=== PATIENT | female | born 1955 | race Caucasian/White ===

== ENCOUNTER 2017-09-28 18:56 | Emergency (ER) | payer MEDICARE, OTHER ==
[2017-09-28] MEDS ORDERED: Ibuprofen 800 MG TAB ONE (19:21)
--- NOTE | 2017-09-28 20:19 | RAD ---
RIGHT FOOT THREE VIEWS: 09/28/17 HISTORY: 60-year-old female with right ankle and foot pain. History of diabetes and neuropathy. Three views of the right foot demonstrate severe osteoarthrosis changes of the first metatarsophalan geal joint with marked flattening and deformity. Compared to a prior 01/12/14 study, there is less er osive subchondral cystic changes than at the time of that prior study. There is chronic nonunion sli ghtly oblique, mostly transverse fracture through the base of the fifth metatarsal. No evidence for acute fracture or dislocation. 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 Severe degenerative osteoarthrosis changes of the first metatarsophalangeal joint . No evidence for acute fracture. POS: NONI
== END 2017-09-28 20:33 | disposition home or self-care (01) ==
LOC: ERS 18:56
DX: M19.071 Primary osteoarthritis, right ankle and foot (principal); I10 Essential (primary) hypertension; E11.40 Type 2 diabetes mellitus with diabetic neuropathy, unspecified; F32.9 Major depressive disorder, single episode, unspecified; F17.210 Nicotine dependence, cigarettes, uncomplicated
CPT/HCPCS: 99406

== ENCOUNTER 2017-10-03 08:44 | Inpatient (IN) | payer MEDICARE, MEDICAID ==
[2017-10-03] MEDS ORDERED: Insulin Regular 300 UNITS/3 ML VIAL ONE (09:34)
[2017-10-03 09:36] LABS: Hematocrit 36.4 % (36.0-47.0); Mean Platelet Volume 8.2 fL (7.4-10.4); Red Blood Cell (RBC) Count 3.63 mill/uL (4.20-5.40); White Blood Cell (WBC) Count 20.5 thou/uL (4.8-10.8)
[2017-10-03] MEDS ORDERED: Insulin Regular (Human) 100 UNITS, Admixture Fee 1 EACH in Sodium Chloride 0.9% 100 ML IVPB SCH (09:45)
[2017-10-03 09:52] LABS: Band 40 % (5-11); Burr Cells MARKED = >16 cells (100X) (0-1/hpf); Macrocytosis SLIGHT = 6-15 cells (100X) (0-5/hpf); Neutrophil 47 % (42-75)
[2017-10-03 10:06] LABS: Troponin I Less than 0.010 ng/mL (< 0.028)
[2017-10-03 10:07] LABS: ALT (SGPT) 14 U/L (8-55); AST (SGOT) 13 U/L (5-34); Alkaline Phosphatase 101 U/L (40-150); BUN (Urea Nitrogen) 72 mg/dL (9.8-20.1); Bilirubin, Total 0.3 mg/dL (0.2-1.2); Calc. Creatinine Clearance 0 mL/min (70-130); Calcium 10.3 mg/dL (7.8-10.44); Chloride 107 mmol/L (98-107); Estimated GFR-MDRD 25; Globulin 4.2 g/dL (2.4-3.5); Magnesium 2.2 mg/dL (1.6-2.6); Phosphorus 5.9 mg/dL (2.3-4.7); Protein, Total 6.8 g/dL (6.0-8.3)
[2017-10-03 10:10] LABS: Carbon Dioxide Less than 8 mmol/L (23-31)
[2017-10-03 13:02] LABS: Bilirubin Negative (Negative); Blood, Urine Moderate (Negative); Glucose, Urine (Dipstick) >=1000 mg/dL (Negative); Ketone, Urine 80 mg/dL (Negative); Nitrite Negative (Negative); Protein, Urine (Dipstick) 100 mg/dL (Neg-Trace)
[2017-10-03 13:05] LABS: Bacteria/HPF None Seen HPF (None Seen); Hyaline Casts/LPF 7-10 HYALINE CAST LPF (0-3 Hyaline); Squamous Epithelial None Seen HPF (0-3); WBC/HPF 0-3 HPF (0-3)
--- NOTE | 2017-10-03 13:41 | CT ---
CT HEAD NONCONTRAST: COMPARISON: 02/11/2017. INDICATION: Altered mental status. FINDINGS: There is mild parenchymal volume loss, stable. The ventricular system is within normal limits of si ze for patient's age. No intracranial hemorrhage, mass effect, or midline shift. IMPRESSION: No acute intracranial hemorrhage or mass effect. POS: NONI
[2017-10-03] MEDS ORDERED: Bisacodyl 5 MG TAB PO PRN (13:55)
[2017-10-03] MEDS ORDERED: Nitroglycerin 0.4 MG TAB (25 Tab Bottle) SL PRN (13:55)
[2017-10-03] MEDS ORDERED: Acetaminophen 325 MG TAB PO PRN (13:55)
[2017-10-03] MEDS ORDERED: CCU Electrolyte Replacement 1 EACH IVPB ONE (13:55)
[2017-10-03] MEDS ORDERED: Mag-Al 1200 mg/1200 mg/30 ML UDCUP PO PRN (13:55)
[2017-10-03] MEDS ORDERED: Ondansetron HCl/PF 4 MG/2 ML Vial IVP PRN (13:55)
[2017-10-03] MEDS ORDERED: Sodium Chloride 0.9% 1,000 ML IV PRN ×4 (13:55)
[2017-10-03] MEDS ORDERED: cloNIDine 0.1 MG TAB PO PRN (13:55)
[2017-10-03] MEDS ORDERED: NS 0.9% w/ 20 MEQ KCL 1,000 ML IV PRN ×2 (13:55)
[2017-10-03] MEDS ORDERED: Dextrose 5 %-0.45 % NaCl 1,000 ML IV PRN (13:55)
[2017-10-03] MEDS ORDERED: Potassium Phosphate 9 MMOL in Sodium Chloride 0.9% 100 ML IVPB PRN (14:05)
[2017-10-03] MEDS ORDERED: Magnesium 2 GM/NS 0.9% 100 ML 2 GM in Premix Bag 1 BAG IVPB PRN (14:05)
[2017-10-03] MEDS ORDERED: CCU ELECTROLYTE REPLACEMENT PROTOCOL FS PRN (14:05)
[2017-10-03] MEDS ORDERED: Potassium Chloride 40 MEQ in Premix Bag 1 BAG IVPB PRN (14:05)
[2017-10-03] MEDS ORDERED: Magnesium Oxide 400 MG TAB PO PRN ×2 (14:05)
[2017-10-03] MEDS ORDERED: Potassium Phosphate 15 MMOL in Sodium Chloride 0.9% 250 ML 250 ML IV PRN (14:05)
[2017-10-03] MEDS ORDERED: Potassium Chloride 40 MEQ in Sodium Chloride 0.9% 250 ML 250 ML IVPB PRN (14:05)
[2017-10-03] MEDS ORDERED: Potassium Phosphate 12 MMOL in Sodium Chloride 0.9% 250 ML 250 ML IV PRN (14:05)
[2017-10-03] MEDS ORDERED: Potassium Chloride 20 MEQ TAB PO PRN (14:05)
--- NOTE | 2017-10-03 14:05 | RAD ---
FONTAL VIEW CHEST SERIES 2 VIEWS PROVIDED: Date: 10/03/17 INDICATION: Diabetic ketoacidosis with altered mental status. FINDINGS: No evidence of consolidation, effusion, or pneumothorax. Lungs are stable in appearance to compariso n exam, as is the cardiac silhouette. IMPRESSION: Stable chest. POS: NONI
[2017-10-03 15:04] LABS: Base Excess -13.9 mEq/L (0 (+/- 2.5)); O2 Content (venous) 12.4 VOL% (12.5-17.5)
[2017-10-03 15:05] LABS: pH (venous) 7.206 (7.35-7.45)
[2017-10-03 15:34] LABS: Anion Gap 24 mmol/L (10-20); BUN (Urea Nitrogen) 72 mg/dL (9.8-20.1); Calc. Creatinine Clearance 0 mL/min (70-130); Calcium 9.9 mg/dL (7.8-10.44); Chloride 114 mmol/L (98-107); Estimated GFR-MDRD 29
[2017-10-03 15:37] LABS: Carbon Dioxide 9 mmol/L (23-31)
--- NOTE | 2017-10-03 15:49 | HP ---
DATE OF ADMISSION: 10/03/2017 PRIMARY CARE PHYSICIAN: Christian Trujillo M.D. REASON FOR ADMISSION: Altered mental status and diabetic ketoacidosis. HISTORY OF PRESENT ILLNESS: Ms. Yanet Mueller is a 62-year-old female with a history of diabet es mellitus, type 2, requiring insulin; hypertension; depression; hyperlipidemia; diabetic neuropath y; who presented to the emergency room initially complaining of pain in her lower feet, and routine evaluation in the emergency room also found that she had some altered mental status. The patient de nies any other specific complaints at this time except for just feeling lethargic and weak. She den ies any numbness or tingling in any of her extremities. No headaches or blurry vision. No chest pa in or shortness of breath. She denies any nausea, vomiting, or abdominal discomfort. She was evalu ated subsequently in the emergency room and a routine evaluation showed the patient to have diabetic ketoacidosis. She had an anion gap, which was too numerous to count, as well as carbon dioxide les s than 8. Her blood glucose on metabolic panel was 783. She was then subsequently started on intra venous insulin as well as she states that she has been compliant with her insulin; however, reviewin g previous records, she had a recent admission for hypoglycemia and was taken off her insulin. She states that she has been put back on her long-acting as well as short-acting insulin and has been co mpliant. She was started on intravenous insulin as well as IV hydration and is currently being admi tted to the Intermediate Care Unit for diabetic ketoacidosis. Currently, she is resting comfortably . She denies any specific symptoms at this time. PAST MEDICAL HISTORY: 1. Diabetes mellitus, type 2. 2. History of cerebrovascular accident. 3. Hypertension. 4. Diabetic neuropathy. 5. Depression. 6. Hyperlipidemia. PAST SURGICAL HISTORY: 1. Status post carpal tunnel release. 2. Right hip fracture. 3. ORIF in 2005. CODE STATUS: She is FULL CODE. SOCIAL HISTORY: The patient smokes a pack per day. Denies any alcohol use. Intermittently uses ma rijuana. CURRENT MEDICATIONS: 1. Metformin 500 mg p.o. b.i.d. 2. Zoloft 100 mg p.o. daily. 3. Lisinopril 40 mg p.o. daily. 4. Tresiba 20 units subcu daily. 5. Cardizem-CD 180 mg p.o. daily. 6. Coreg 6.25 mg p.o. b.i.d. 7. Atorvastatin 40 mg p.o. daily. 8. Aspirin 81 mg p.o. daily. ALLERGIES: No known drug allergies. FAMILY HISTORY: Significant for multiple family members with diabetes. REVIEW OF SYSTEMS: The following complete review of systems was negative, unless otherwise mentione d in the HPI or below: Constitutional: Weight loss or gain, sense of well-being, ability to conduc t usual activities, exercise tolerance. Skin/Breast: Rash, itching, changes in hair growth or loss , nail changes, breast lumps, tenderness, swelling, nipple discharge. Eyes: Vision, double vision, tearing, blind spots, pain. ENT/Mouth: Headaches (location, time of onset, duration, precipitatin g factors), vertigo, lightheadedness, injury. Vision, double vision, tearing, blind spots, pain, nos e bleeding, colds, obstruction, discharge, dental difficulties, gingival bleeding, dentures, neck st iffness, pain, tenderness, masses in thyroid or other areas. Cardiovascular: Precordial pain, subs ternal distress, palpitations, syncope, dyspnea on exertion, orthopnea, nocturnal paroxysmal dyspnea , edema, cyanosis, hypertension, heart murmurs, varicosities, phlebitis, claudication. Respiratory: Pain, shortness of breath, wheezing, stridor, cough, hemoptysis, fever or night sweats. Gastroint estinal: Poor appetite, dysphagia, indigestion, abdominal pain, heartburn, eructation, nausea, vomi ting, hematemesis, jaundice, constipation, or diarrhea, abnormal stools (nilo-colored, tarry, bloody , greasy, foul smelling), flatulence, hemorrhoids, recent changes in bowel habits. Genitourinary: Urgency, frequency, dysuria, nocturia, hematuria, polyuria, oliguria, unusual (or change in) color o f urine, stones, hesitancy, change in size of stream, dribbling, acute retention or incontinence, li [place], potency. Musculoskeletal: Pain, swelling, redness or heat of muscles or joints, limitation, of motion, muscular weakness, atrophy, cramps. Neurologic/Psychiatric: Convulsions, paralyses, joshua mor, incoordination, parasthesias, difficulties with memory of speech, sensory or motor disturbances , or muscular coordination (ataxia, tremor), emotional problems, anxiety, depression, previous psych iatric care, unusual perceptions, hallucinations. Allergy/Immunologic: Skin rash, anemia, bleeding tendency, polydipsia, polyuria, intolerance to heat or cold. PHYSICAL EXAMINATION: CONSTITUTIONAL/VITAL SIGNS: Blood pressure most recently is 125/47, pulse is 77, respiration 16, ox ygen 98% on room air. GENERAL: She is in no acute distress, nontoxic appearing. EYES: Examination of the eyes shows pupils are equal, round, and reactive to light and accommodatio n. No pale conjunctivae. ENT/MOUTH: Dry oral mucosa. No oral lesions. RESPIRATORY: Equal chest wall expansion. No wheezes, rhonchi, or rales. CARDIOVASCULAR: S1, S2 present. No murmurs, gallops or rubs. GASTROINTESTINAL: Soft, nontender, nondistended. Bowel sounds present in all 4 quadrants. MUSCULOSKELETAL: Good range of motion in all 4 extremities. No clubbing, no cyanosis. LYMPHATIC: No swollen or painful lymph nodes. NEUROLOGIC: No ptosis, no facial asymmetry or sensation or jaw protrusion, no focal deficits. PSYCHIATRIC: She is awake, alert to time, place, person, answers appropriately. SKIN: Poor skin turgor. LABORATORY AND X-RAY FINDINGS: Laboratory values taken in the emergency room reviewed by me show WB C of 20.5, hemoglobin 10.6, hematocrit 36.4, platelet count 464,000. Chemistry shows sodium 141, po tassium 5.2, chloride 107, carbon dioxide less than 8, anion gap is too high to calculate, BUN is 72 , creatinine 2.0. Glucose on the metabolic panel is 783, repeat have been 550 and 507, phosphorus 5 .9, troponin less than 0.01. AST and ALT at 13 and 14. Urine shows moderate blood and 80 ketones a nd beta-hydroxybutyrate is 12.57. Chest x-ray done in the emergency room and reviewed by me reveals no acute cardiopulmonary processes . ASSESSMENT AND PLAN: Ms. Yanet Mueller is a 62-year-old female with a past medical history of diabetes mellitus, type 2; hypertension; hyperlipidemia; who presented to the emergency room with di abetic ketoacidosis. 1. Diabetic ketoacidosis. Admit the patient to the intermediate care unit. She will be placed on diabetic ketoacidosis protocol with IV insulin as well as intravenous hydration. We will monitor he r metabolic panel. We will replete electrolytes accordingly. Once her gap is closed, we would star t her back on her subcutaneous insulin. We will check a stat VBG. 2. Metabolic acidosis, secondary to #1. 3. Acute kidney injury secondary to hypovolemia. 4. Hypertension. Continue patient's home medications. 5. Restart the patient's home medications except for metformin. 6. Leukocytosis, most likely secondary to hemoconcentration as well as a stress reaction. We will continue to monitor. At this time, there is no acute focus of infection, but we will continue to mo nitor. 7. P.r.n. order set. 8. N.p.o. while on the insulin drip. 9. FULL CODE. I explained all of this to the patient at bedside. She is agreeable to the plan of treatment. All questions have been answered Total critical care time spent, 36 minutes.
[2017-10-03 18:40] LABS: Anion Gap 15 mmol/L (10-20); BUN (Urea Nitrogen) 68 mg/dL (9.8-20.1); Calc. Creatinine Clearance 33 mL/min (70-130); Carbon Dioxide 16 mmol/L (23-31); Chloride 120 mmol/L (98-107); Estimated GFR-MDRD 36
[2017-10-03] MEDS: D5 1/2 NS w/20 mEq KCL 1,000 ML IV PRN (20:57)
[2017-10-03 22:48] LABS: Anion Gap 12 mmol/L (10-20); BUN (Urea Nitrogen) 59 mg/dL (9.8-20.1); Calc. Creatinine Clearance 38 mL/min (70-130); Calcium 9.6 mg/dL (7.8-10.44); Carbon Dioxide 17 mmol/L (23-31); Chloride 124 mmol/L (98-107); Estimated GFR-MDRD 43
[2017-10-04] MEDS: Carvedilol 6.25 MG TAB PO SCH ×3 (00:17→20:09)
[2017-10-04 04:13] LABS: Anion Gap 13 mmol/L (10-20); BUN (Urea Nitrogen) 52 mg/dL (9.8-20.1); Calc. Creatinine Clearance 44 mL/min (70-130); Calcium 9.9 mg/dL (7.8-10.44); Carbon Dioxide 16 mmol/L (23-31); Chloride 125 mmol/L (98-107); Estimated GFR-MDRD 51
[2017-10-04] MEDS: D5 1/2 NS w/20 mEq KCL 1,000 ML IV PRN ×2 (05:53→08:23)
[2017-10-04] MEDS: Aspirin 81 mg Enteric Coated Tablet PO SCH (08:21)
[2017-10-04] MEDS: Atorvastatin Calcium 40 MG TAB PO SCH (08:21)
[2017-10-04] MEDS ORDERED: FLU VACC QS2017-18 36 mo. & older 0.5 ML SYRINGE IM ONE (09:00)
--- NOTE | 2017-10-04 09:26 | CON ---
DATE OF CONSULTATION: 10/04/2017 REASON FOR CONSULTATION: [facility] [place] protocol. HISTORY OF PRESENT ILLNESS: This is a 62-year-old female who presented to the emergency room last n ight with altered mental status and a blood glucose of greater than 780. She is being treated on a DKA protocol. She has a history of diabetes mellitus thought to be type 2, but has had multiple epi sodes of diabetic ketoacidosis in the past. She currently appears to be stable. She is not talking very much. PAST MEDICAL HISTORY: 1. Diabetes mellitus type 2. 2. Cerebrovascular accidents. 3. Hypertension. 4. Diabetic neuropathy. 5. Depression 6. Hyperlipidemia. 7. Takotsubo cardiomyopathy. PAST SURGICAL HISTORY: Carpal tunnel release, hip fracture repair. SOCIAL HISTORY: Smokes a pack per day. Apparently intermittently uses marijuana, does not consume alcohol. MEDICATIONS PRIOR TO ADMISSION: Metformin 500 mg b.i.d., Zoloft 100 mg daily, lisinopril 40 mg rafael y, Traceba 20 units subcutaneously daily, Cardizem-CD 180 mg daily, Coreg 6.25 mg b.i.d., atorvastat in 40 mg daily, aspirin 81 mg daily. ALLERGIES: None. FAMILY MEDICAL HISTORY: Remarkable for diabetes. REVIEW OF SYSTEMS: Unobtainable secondary to the patient not wanting to talk. PHYSICAL EXAMINATION: VITAL SIGNS: Temperature 99.2, pulse 89, respirations 20, O2 sat 96%, blood pressure 167/86. GENERAL: She is a thin female standing 5 feet 2, weight 116 pounds. HEENT: Unremarkable. NECK: No adenopathy or JVD, no bruits. LUNGS: Clear. CARDIAC: S1, S2 regular, without murmur. ABDOMEN: Soft and nontender. EXTREMITIES: No clubbing, cyanosis. She does have significant muscle wasting bilaterally. LABORATORY DATA: White blood cell count 20, hematocrit 36, platelet count 464. Sodium 150, potassi um 3.8, chloride 102, CO2 16, BUN 68, creatinine 1.4, anion gap is 15, glucose is now 186. Tox scre en was remarkable for a high beta hydroxybutyrate. ASSESSMENT: Diabetic ketoacidosis versus acidosis in some part due to metformin. RECOMMENDATIONS: She is being treated appropriately with IV insulin, IV fluids and her electrolytes are being monitored. No additional pulmonary recommendations at this time. We will be happy to fo llow with you.
[2017-10-04] MEDS ORDERED: Dextrose 50% Abboject 50 ML SYRINGE SLOW IVP PRN (13:07)
[2017-10-04] MEDS ORDERED: Dextrose 5% in Water 1,000 ML IV PRN (13:07)
--- NOTE | 2017-10-04 13:11 | PDOC.PN ---
- Subjective Encounter Start Date: 10/04/17 Encounter Start Time: 13:09 sleepy no n/v no f/c - Objective Resuscitation Status: Resuscitation Status FULL:Full Resuscitation MAR Reviewed: Yes Vital Signs & Weight: Vital Signs (12 hours) Temp Pulse Resp BP Pulse Ox 10/04/17 11:42 98.7 F 91 18 170/75 H 99 10/04/17 08:00 99.2 F 89 20 10/04/17 07:32 99.2 F 89 20 167/86 H 96 10/04/17 04:00 98.3 F 88 16 145/67 H 97 Weight Weight 116 lb 14.4 oz I&O: 10/03/17 10/04/17 10/05/17 06:59 06:59 06:59 Intake Total 2550 Output Total 1400 Balance 1150 Result Diagrams: 10/03/17 09:29 10/04/17 03:26 Additional Labs: Accuchecks 10/04/17 10/04/17 10/04/17 12:56 12:05 11:02 POC Glucose 199 H 209 H 230 H 10/04/17 10/04/17 10/04/17 10:07 09:02 08:19 POC Glucose 280 H 228 H 277 H 10/04/17 10/04/17 10/04/17 06:59 05:59 05:01 POC Glucose 163 H 132 H 120 H 10/04/17 10/04/17 10/04/17 04:01 03:02 02:01 POC Glucose 145 H 157 H 185 H 10/04/17 10/04/17 10/03/17 01:06 00:03 23:00 POC Glucose 204 H 230 H 222 H 10/03/17 10/03/17 10/03/17 21:55 20:55 19:57 POC Glucose 186 H 184 H 224 H 10/03/17 10/03/17 10/03/17 19:00 18:18 17:19 POC Glucose 275 H 337 H 365 H 10/03/17 10/03/17 10/03/17 15:53 14:50 14:14 POC Glucose 369 H 445 H 463 H 10/03/17 13:21 POC Glucose 507 H Phys Exam - Physical Examination Constitutional: NAD HEENT: PERRLA Neck: no JVD Respiratory: no rales Cardiovascular: no significant murmur Gastrointestinal: non-tender, no distention Musculoskeletal: pulses present Neurological: moves all 4 limbs Dx/Plan (1) Diabetic keto-acidosis Code(s): E13.10 - OTH DIABETES MELLITUS WITH KETOACIDOSIS WITHOUT COMA Status : Resolved Qualifiers: Diabetes mellitus type: type 2 (2) Cardiomyopathy Code(s): I42.9 - CARDIOMYOPATHY, UNSPECIFIED Status: Chronic (3) Hypertension Code(s): I10 - ESSENTIAL (PRIMARY) HYPERTENSION Status: Chronic Qualifiers: Comment: (4) Acute metabolic encephalopathy Code(s): G93.41 - METABOLIC ENCEPHALOPATHY Status: Resolved (5) Metabolic acidosis Code(s): E87.2 - ACIDOSIS Status: Resolved Comment: - Plan * dka resolved * start sc insulin, diet * change to 1/2 ns for hypernatremia and moniter lytes *
[2017-10-04] MEDS: Sodium Chloride 0.45% 1,000 ML IV SCH (13:30)
[2017-10-04] MEDS ORDERED: Insulin Regular 300 UNITS/3 ML VIAL SC SCH (14:00)
[2017-10-04] MEDS ORDERED: Diltiazem HCl 125 MG, Admixture Fee 1 EACH in Sodium Chloride 0.9% 100 ML IVPB SCH (15:45)
[2017-10-04] MEDS: HumaLOG 300 UNITS/3 ML VIAL SC PRN (16:54)
[2017-10-05 05:10] LABS: Band 18 % (5-11); Hematocrit 41.7 % (36.0-47.0); Mean Platelet Volume 9.2 fL (7.4-10.4); Neutrophil 66 % (42-75); Red Blood Cell (RBC) Count 4.39 mill/uL (4.20-5.40); White Blood Cell (WBC) Count 20.9 thou/uL (4.8-10.8)
[2017-10-05 05:14] LABS: Anion Gap 17 mmol/L (10-20); BUN (Urea Nitrogen) 32 mg/dL (9.8-20.1); BUN/Creatinine Ratio 37.65; Calc. Creatinine Clearance 57 mL/min (70-130); Calcium 9.6 mg/dL (7.8-10.44); Carbon Dioxide 17 mmol/L (23-31); Chloride 113 mmol/L (98-107); Estimated GFR-MDRD 67; Phosphorus 1.9 mg/dL (2.3-4.7)
[2017-10-05] MEDS: Sodium Chloride 0.45% 1,000 ML IV SCH ×3 (06:01→20:44)
[2017-10-05] MEDS: Atorvastatin Calcium 40 MG TAB PO SCH (09:05)
[2017-10-05] MEDS: Aspirin 81 mg Enteric Coated Tablet PO SCH (09:05)
[2017-10-05] MEDS: Carvedilol 6.25 MG TAB PO SCH ×2 (09:06→20:43)
[2017-10-05] MEDS: Insulin Detemir 100 UNITS/ML 20 UNITS in Pre-Filled Syringe 1 EACH SC SCH ×2 (09:32→20:44)
--- NOTE | 2017-10-05 12:08 | PRG ---
DATE OF SERVICE: 10/05/2017 SUBJECTIVE: She feels a little better. She is still on insulin drip after blood sugars rebound las t night. OBJECTIVE: VITAL SIGNS: Temperature 99.8, pulse 100, blood pressure 141/70, O2 sat 97%. HEENT: Unremarkable. NECK: Without adenopathy or JVD. LUNGS: Clear. CARDIAC: S1 and S2 regular. ABDOMEN: Soft. EXTREMITIES: No edema. LABORATORY DATA: Sodium 143, potassium 3.8, chloride 113, CO2 of 17, BUN 32, creatinine 0.8, glucos e between 412 and 569. White blood cell count 20.9, hemoglobin 12, hematocrit 41, platelet count 38 1. ASSESSMENT: Diabetic ketoacidosis. PLAN: 1. Restart her long-acting insulin. 2. Wean insulin drip as tolerated.
[2017-10-05] MEDS: HumaLOG 300 UNITS/3 ML VIAL SC PRN ×3 (13:10→22:04)
--- NOTE | 2017-10-05 13:47 | EKG ---
Test Reason : Blood Pressure : / mmHG Vent. Rate : 073 BPM Atrial Rate : 073 BPM P-R Int : 142 ms QRS Dur : 092 ms QT Int : 426 ms P-R-T Axes : 074 066 083 degrees QTc Int : 469 ms Normal sinus rhythm Normal ECG Confirmed by BELIA COLES, ANNA ([id number]), medical transcription editor MARITZA HOWARD ([id number]) on 10/05/2017 1:46:57 PM Referred By: Confirmed By:ANNA CELAYA MD
--- NOTE | 2017-10-05 14:14 | PDOC.PN ---
- Subjective Encounter Start Date: 10/05/17 Encounter Start Time: 14:12 feel a little better no f/c - Objective Resuscitation Status: Resuscitation Status FULL:Full Resuscitation MAR Reviewed: Yes Vital Signs & Weight: Vital Signs (12 hours) Temp Pulse Resp BP BP Pulse Ox 10/05/17 11:13 97.5 F L 96 16 137/74 96 10/05/17 09:06 141/70 H 10/05/17 07:31 99.8 F H 100 24 H 97 10/05/17 07:12 99.8 F H 100 24 H 152/82 H 95 10/05/17 04:00 98.3 F 97 18 140/87 96 Weight Weight 118 lb 3.2 oz I&O: 10/04/17 10/05/17 10/06/17 06:59 06:59 05:59 Intake Total 2550 3420.68 286.0 Output Total 1400 6450 Balance 1150 -3029.32 286.0 Result Diagrams: 10/05/17 03:59 10/05/17 03:59 Additional Labs: Accuchecks 10/05/17 10/05/17 10/05/17 13:52 12:50 12:01 POC Glucose 181 H 326 H 319 H 10/05/17 10/05/17 10/05/17 10:55 10:00 08:52 POC Glucose 437 H 402 H 412 H 10/05/17 10/05/17 10/05/17 07:58 06:59 06:02 POC Glucose 481 H Greater than 550 H* 508 H 10/05/17 10/04/17 10/04/17 05:16 20:12 16:43 POC Glucose 501 H 142 H 208 H Phys Exam - Physical Examination Constitutional: NAD HEENT: moist MMs Neck: no JVD Respiratory: no rales Cardiovascular: no significant murmur Gastrointestinal: soft, non-tender Musculoskeletal: pulses present Neurological: moves all 4 limbs Dx/Plan (1) Diabetic keto-acidosis Code(s): E13.10 - OTH DIABETES MELLITUS WITH KETOACIDOSIS WITHOUT COMA Status : Resolved Qualifiers: Diabetes mellitus type: type 2 (2) Cardiomyopathy Code(s): I42.9 - CARDIOMYOPATHY, UNSPECIFIED Status: Chronic (3) Hypertension Code(s): I10 - ESSENTIAL (PRIMARY) HYPERTENSION Status: Chronic Qualifiers: Comment: (4) Acute metabolic encephalopathy Code(s): G93.41 - METABOLIC ENCEPHALOPATHY Status: Resolved (5) Metabolic acidosis Code(s): E87.2 - ACIDOSIS Status: Resolved Comment: (6) Elevated WBC count Code(s): D72.829 - ELEVATED WHITE BLOOD CELL COUNT, UNSPECIFIED Status: Acute - Plan * start long acting insulin * monitor lytes and wbc count * wean drip
[2017-10-06] MEDS: Sodium Chloride 0.45% 1,000 ML IV SCH ×4 (03:01→21:54)
[2017-10-06 04:54] LABS: Anion Gap 9 mmol/L (10-20); BUN (Urea Nitrogen) 40 mg/dL (9.8-20.1); BUN/Creatinine Ratio 65.57; Calc. Creatinine Clearance 79 mL/min (70-130); Calcium 9.3 mg/dL (7.8-10.44); Carbon Dioxide 24 mmol/L (23-31); Chloride 118 mmol/L (98-107); Estimated GFR-MDRD Greater than 90; Phosphorus 1.2 mg/dL (2.3-4.7)
[2017-10-06 05:13] LABS: Band 30 % (5-11); Hematocrit 35.7 % (36.0-47.0); Hypochromia SLIGHT = 6-15 cells (100X) (0-5/hpf); Mean Platelet Volume 8.6 fL (7.4-10.4); Neutrophil 55 % (42-75); Nucleated RBC 1 % (0); Polychromasia SLIGHT = 2-3 cells (100X) (0-2/hpf); Red Blood Cell (RBC) Count 3.83 mill/uL (4.20-5.40); White Blood Cell (WBC) Count 21.9 thou/uL (4.8-10.8)
[2017-10-06] MEDS: Insulin Detemir 100 UNITS/ML 20 UNITS in Pre-Filled Syringe 1 EACH SC SCH ×2 (08:38→21:49)
[2017-10-06] MEDS: Carvedilol 6.25 MG TAB PO SCH ×2 (08:39→21:47)
[2017-10-06] MEDS: Aspirin 81 mg Enteric Coated Tablet PO SCH (08:40)
[2017-10-06] MEDS: Atorvastatin Calcium 40 MG TAB PO SCH (08:40)
--- NOTE | 2017-10-06 09:08 | PRG ---
DATE OF SERVICE: 10/06/2017 SUBJECTIVE: She has made a remarkable improvement overnight. She is now awake, alert, actually jok ing. OBJECTIVE: VITAL SIGNS: Temperature 98.7, pulse 81, respiration 20, O2 saturation 94%, blood pressure 146/71. HEENT: Unremarkable. NECK: No JVD. LUNGS: Clear. CARDIOVASCULAR: S1, S2 regular. ABDOMEN: Soft. EXTREMITIES: No edema. LABORATORY DATA: White blood cell count 21.9, hematocrit 35.7, platelet count 301. Sodium 148, pot assium 2.7, chloride 118, CO2 24, BUN 40, creatinine 0.6, glucose 74. ASSESSMENT: 1. Diabetic ketoacidosis, which has resolved. 2. Underlying type 2 diabetes mellitus. 3. Prerenal azotemia. PLAN: 1. Transfer to the floor. 2. Continue scheduled Levemir insulin and sliding scale insulin. 3. Replace potassium. 4. We would continue IV fluids for another 24 hours.
--- NOTE | 2017-10-06 10:15 | PDOC.PN ---
- Subjective Encounter Start Date: 10/06/17 Encounter Start Time: 10:13 Patient seen and examined. No new complaints. No overnight events - Objective Resuscitation Status: Resuscitation Status FULL:Full Resuscitation MAR Reviewed: Yes Vital Signs & Weight: Vital Signs (12 hours) Temp Pulse Resp BP BP Pulse Ox 10/06/17 08:39 138/81 10/06/17 07:20 98.7 F 81 20 146/71 H 94 L 10/06/17 07:16 98.4 F 78 16 94 L 10/06/17 04:00 98.4 F 78 16 120/62 94 L 10/06/17 00:00 100 F H 81 20 118/60 94 L Weight Weight 119 lb I&O: 10/05/17 10/06/17 10/07/17 07:59 06:59 06:59 Intake Total Output Total Balance Result Diagrams: 10/06/17 03:46 10/06/17 03:46 Additional Labs: Accuchecks 10/06/17 10/06/17 10/06/17 07:47 05:36 04:04 POC Glucose 88 98 76 10/06/17 10/06/17 10/06/17 03:03 02:16 00:04 POC Glucose 85 62 L 218 H 10/05/17 10/05/17 10/05/17 22:01 19:55 18:07 POC Glucose 326 H 263 H 134 H 10/05/17 10/05/17 10/05/17 16:59 15:57 14:58 POC Glucose 99 131 H 186 H 10/05/17 10/05/17 10/05/17 13:52 12:50 12:01 POC Glucose 181 H 326 H 319 H 10/05/17 10:55 POC Glucose 437 H Phys Exam - Physical Examination Constitutional: NAD HEENT: PERRLA Neck: no JVD Respiratory: no rales Cardiovascular: no significant murmur Gastrointestinal: no distention Musculoskeletal: pulses present Neurological: normal sensation Psychiatric: A&O x 3 Dx/Plan (1) Diabetic keto-acidosis Code(s): E13.10 - OTH DIABETES MELLITUS WITH KETOACIDOSIS WITHOUT COMA Status : Resolved Qualifiers: Diabetes mellitus type: type 2 (2) Cardiomyopathy Code(s): I42.9 - CARDIOMYOPATHY, UNSPECIFIED Status: Chronic (3) Hypertension Code(s): I10 - ESSENTIAL (PRIMARY) HYPERTENSION Status: Chronic Qualifiers: Comment: (4) Acute metabolic encephalopathy Code(s): G93.41 - METABOLIC ENCEPHALOPATHY Status: Resolved (5) Metabolic acidosis Code(s): E87.2 - ACIDOSIS Status: Resolved Comment: (6) Elevated WBC count Code(s): D72.829 - ELEVATED WHITE BLOOD CELL COUNT, UNSPECIFIED Status: Acute (7) Hypophosphatemia Code(s): E83.39 - OTHER DISORDERS OF PHOSPHORUS METABOLISM Status: Acute (8) Hypokalemia Code(s): E87.6 - HYPOKALEMIA Status: Acute - Plan * doing well * replace lytes * cont ivf for one more day * cont current rx *
[2017-10-06] MEDS: HumaLOG 300 UNITS/3 ML VIAL SC PRN (11:32)
[2017-10-07] MEDS: HYDROcodone/Acetaminophen 5/325 mg Tablet PO PRN ×2 (00:22→21:03)
[2017-10-07 06:07] LABS: Anion Gap 10 mmol/L (10-20); BUN (Urea Nitrogen) 29 mg/dL (9.8-20.1); Calc. Creatinine Clearance 77 mL/min (70-130); Calcium 8.6 mg/dL (7.8-10.44); Carbon Dioxide 22 mmol/L (23-31); Chloride 111 mmol/L (98-107); Estimated GFR-MDRD Greater than 90; Magnesium 1.6 mg/dL (1.6-2.6)
[2017-10-07] MEDS: Sodium Chloride 0.45% 1,000 ML IV SCH (08:23)
[2017-10-07] MEDS: Carvedilol 6.25 MG TAB PO SCH ×2 (08:28→20:01)
[2017-10-07] MEDS: Aspirin 81 mg Enteric Coated Tablet PO SCH (08:30)
[2017-10-07] MEDS: Atorvastatin Calcium 40 MG TAB PO SCH (08:31)
[2017-10-07] MEDS: Insulin Detemir 100 UNITS/ML 20 UNITS in Pre-Filled Syringe 1 EACH SC SCH ×2 (08:32→20:52)
--- NOTE | 2017-10-07 10:02 | PRG ---
DATE OF SERVICE: 10/07/2017 Ms. Mueller is out of the ICU, she says she is weak. She is unable to walk because of a leg problem . No shortness of breath, coughing. PHYSICAL EXAMINATION: VITAL SIGNS: Vital signs are stable. Blood pressure 120/65, sats 98 on room air, temperature is 98 . CHEST: Chest reveals decreased breath sounds without any wheezing. CARDIAC: Normal S1, S2. ABDOMEN: Soft, no masses. Her current electrolytes are normal. Blood sugar is 118. IMPRESSION: 1. Marked weakness. 2. Uncontrolled blood sugar. 3. Severe deconditioning. 4. Depression. Pulmonary will follow at a distance. Please call as needed. Continue PT and supportive care, sebastian nue blood sugar management.
[2017-10-07] MEDS: Diltiazem HCl SR 90 mg Capsule PO SCH (10:22)
--- NOTE | 2017-10-07 10:50 | PDOC.PN ---
- Subjective Encounter Start Date: 10/07/17 Encounter Start Time: 10:48 c/o rt ankle pain and swelling no f/c no n/v - Objective Resuscitation Status: Resuscitation Status FULL:Full Resuscitation MAR Reviewed: Yes Vital Signs & Weight: Vital Signs (12 hours) Temp Pulse Resp BP BP Pulse Ox 10/07/17 08:28 98.3 F 78 18 125/65 96 10/07/17 08:20 98.3 F 78 18 125/65 98 10/07/17 00:15 99.2 F 76 18 106/57 L 95 Weight Weight 119 lb I&O: 10/06/17 10/07/17 10/08/17 06:59 06:59 06:59 Intake Total 2273 1212 Output Total 1225 Balance 1048 1212 Result Diagrams: 10/06/17 03:46 10/07/17 05:03 Additional Labs: Accuchecks 10/07/17 10/06/17 10/06/17 04:17 22:13 21:47 POC Glucose 118 H 79 59 L* 10/06/17 10/06/17 16:08 11:16 POC Glucose 115 H 202 H Phys Exam - Physical Examination Constitutional: NAD HEENT: PERRLA Neck: no JVD Respiratory: no rales Cardiovascular: no significant murmur Gastrointestinal: non-tender Musculoskeletal: pulses present rt ankle swollen and tender Neurological: normal sensation Psychiatric: A&O x 3 Dx/Plan (1) Diabetic keto-acidosis Code(s): E13.10 - OTH DIABETES MELLITUS WITH KETOACIDOSIS WITHOUT COMA Status : Resolved Qualifiers: Diabetes mellitus type: type 2 (2) Cardiomyopathy Code(s): I42.9 - CARDIOMYOPATHY, UNSPECIFIED Status: Chronic (3) Hypertension Code(s): I10 - ESSENTIAL (PRIMARY) HYPERTENSION Status: Chronic Qualifiers: Comment: (4) Acute metabolic encephalopathy Code(s): G93.41 - METABOLIC ENCEPHALOPATHY Status: Resolved (5) Metabolic acidosis Code(s): E87.2 - ACIDOSIS Status: Resolved Comment: (6) Elevated WBC count Code(s): D72.829 - ELEVATED WHITE BLOOD CELL COUNT, UNSPECIFIED Status: Acute (7) Hypophosphatemia Code(s): E83.39 - OTHER DISORDERS OF PHOSPHORUS METABOLISM Status: Acute (8) Hypokalemia Code(s): E87.6 - HYPOKALEMIA Status: Acute - Plan * cont current mx * xr ankle * serum uric acid
[2017-10-07] MEDS ORDERED: Calcium Carbonate 500 MG ChewTAB PO PRN (10:53)
[2017-10-07] MEDS ORDERED: Vancomycin HCl 1 GM in Premix Bag 1 BAG IVPB SCH (11:00)
[2017-10-07 11:55] VITALS: BMI 21.7
[2017-10-07] MEDS: Clindamycin 150 MG CAP PO SCH ×3 (12:42→23:34)
[2017-10-07] MEDS: Ibuprofen 200 MG TAB PO SCH ×3 (12:42→23:34)
[2017-10-07] MEDS: HumaLOG 300 UNITS/3 ML VIAL SC PRN ×2 (12:43→16:41)
[2017-10-07] MEDS: Vancomycin HCl 750 MG in Sodium Chloride 0.9% 250 ML 250 ML IVPB SCH ×2 (12:45→23:34)
--- NOTE | 2017-10-07 14:03 | RAD ---
THREE VIEWS OF RIGHT ANKLE: DATE: 10/07/17. COMPARISON: 06/21/15. HISTORY: Right ankle pain. FINDINGS: There is medial and lateral soft tissue swelling. There is an old chronic nonunion/incomplete union transverse fracture at the base of the 5th metatar shant. There is enthesophyte formation at the insertion of the Achilles tendon and origin of plantar aponeurosis. There is diffuse posterior and anterior soft tissue swelling on the lateral exam. No acute fracture or dislocation. IMPRESSION: Nonspecific soft tissue swelling. No acute fracture or dislocation. Chronic findings as described above. POS: [place]
[2017-10-08] MEDS ORDERED: Gadobenate Dimeglumine 529 MG/1 ML (20ML VIAL) ONE (05:03)
[2017-10-08 05:25] LABS: #Eosinphils 0.1 thou/uL (0.0-0.7); #Lymphocytes 1.5 thou/uL (1.20-3.40); #Monocytes 1.4 thou/uL (0.11-0.59); #Neutrophils 12.1 thou/uL (1.40-6.50); %Eosinophils 0.9 % (0.0-10.0); %Lymphocytes 9.7 % (21.0-51.0); %Monocytes 9.3 % (0.0-10.0); Hematocrit 31.5 % (36.0-47.0); Mean Platelet Volume 9.5 fL (7.4-10.4); Red Blood Cell (RBC) Count 3.35 mill/uL (4.20-5.40); White Blood Cell (WBC) Count 15.1 thou/uL (4.8-10.8)
[2017-10-08] MEDS: Ibuprofen 200 MG TAB PO SCH ×2 (05:40→13:12)
[2017-10-08] MEDS: Clindamycin 150 MG CAP PO SCH (05:40)
[2017-10-08 05:58] LABS: Anion Gap 12 mmol/L (10-20); BUN (Urea Nitrogen) 30 mg/dL (9.8-20.1); Calc. Creatinine Clearance 79 mL/min (70-130); Calcium 8.8 mg/dL (7.8-10.44); Carbon Dioxide 22 mmol/L (23-31); Chloride 113 mmol/L (98-107); Estimated GFR-MDRD Greater than 90; Magnesium 1.6 mg/dL (1.6-2.6)
[2017-10-08] MEDS: Atorvastatin Calcium 40 MG TAB PO SCH (08:27)
[2017-10-08] MEDS: Aspirin 81 mg Enteric Coated Tablet PO SCH (08:27)
[2017-10-08] MEDS: Carvedilol 6.25 MG TAB PO SCH ×2 (08:27→20:29)
[2017-10-08] MEDS: Pantoprazole 40 MG GRANULES PACKET PO SCH (08:27)
[2017-10-08] MEDS: Diltiazem HCl SR 90 mg Capsule PO SCH (08:27)
[2017-10-08] MEDS: Insulin Detemir 100 UNITS/ML 20 UNITS in Pre-Filled Syringe 1 EACH SC SCH ×2 (09:19→20:54)
--- NOTE | 2017-10-08 10:46 | PDOC.PN ---
- Subjective Encounter Start Date: 10/08/17 Encounter Start Time: 13:09 c/o ankle pain no f/c no n/v - Objective Resuscitation Status: Resuscitation Status FULL:Full Resuscitation MAR Reviewed: Yes Vital Signs & Weight: Vital Signs (12 hours) Temp Pulse Resp BP BP Pulse Ox 10/08/17 08:27 112/56 L 10/08/17 08:20 98.9 F 89 20 112/56 L 97 Weight Admit Weight 119 lb Weight 119 lb I&O: 10/07/17 10/08/17 10/09/17 06:59 06:59 06:59 Intake Total 2273 4192 Output Total 1225 1500 Balance 1048 2692 Result Diagrams: 10/08/17 05:10 10/08/17 05:10 Additional Labs: Accuchecks 10/08/17 10/08/17 10/07/17 06:46 06:20 20:01 POC Glucose 94 52 L* 260 H 10/07/17 10/07/17 16:34 11:21 POC Glucose 327 H 369 H Phys Exam - Physical Examination Constitutional: NAD HEENT: PERRLA Neck: no JVD Respiratory: no wheezing Cardiovascular: no significant murmur Gastrointestinal: non-tender Musculoskeletal: pulses present rt ankle swollen, tender Neurological: normal sensation Psychiatric: A&O x 3 Dx/Plan (1) Diabetic keto-acidosis Code(s): E13.10 - OTH DIABETES MELLITUS WITH KETOACIDOSIS WITHOUT COMA Status : Resolved Qualifiers: Diabetes mellitus type: type 2 (2) Cardiomyopathy Code(s): I42.9 - CARDIOMYOPATHY, UNSPECIFIED Status: Chronic (3) Hypertension Code(s): I10 - ESSENTIAL (PRIMARY) HYPERTENSION Status: Chronic Qualifiers: Comment: (4) Acute metabolic encephalopathy Code(s): G93.41 - METABOLIC ENCEPHALOPATHY Status: Resolved (5) Metabolic acidosis Code(s): E87.2 - ACIDOSIS Status: Resolved Comment: (6) Elevated WBC count Code(s): D72.829 - ELEVATED WHITE BLOOD CELL COUNT, UNSPECIFIED Status: Acute (7) Hypophosphatemia Code(s): E83.39 - OTHER DISORDERS OF PHOSPHORUS METABOLISM Status: Acute (8) Hypokalemia Code(s): E87.6 - HYPOKALEMIA Status: Acute (9) Sepsis Code(s): A41.9 - SEPSIS, UNSPECIFIED ORGANISM Status: Acute Comment: bld cul shows strep agalactiea, r/o septic arthritis - Plan * f/u ortho and id plan * cont abx * monitor sugar
--- NOTE | 2017-10-08 12:55 | CON ---
DATE OF CONSULTATION: 10/08/2017 CONSULTING PHYSICIAN: Dr. Oumar Bolden We were asked by [facility] to see the patient. HISTORY OF PRESENT ILLNESS: The patient was admitted on 10/03/2017 for a complaint of bilateral macrina t pain, more so right than left. Through her workup, she was found to have some other more pressing medical issues that were being dealt with. Her right foot she states she broke a few years ago, it was never repaired and she knows it is not healed. 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 Chayo ugarte has been able to walk and function, but last Saturday without any injury she states the ankle starte d getting more and more painful and reddened and went mostly posterior ankle from medial to lateral malleolus. She has some swelling and redness and increased heat in the foot. She was unable to deon r weight on it when she came in. It has gotten better in regards to redness and swelling, but it is still quite uncomfortable for her to place any downward pressure on. PAST MEDICAL HISTORY: Positive for diabetes, CVA, hypertension, neuropathy, diabetic, depression, h yperlipidemia. PAST SURGICAL HISTORY: Carpal tunnel release, hip fracture 2005. SOCIAL HISTORY: The patient continues to smoke, but uses no alcohol. CURRENT MEDICATIONS: Metformin, Zoloft, lisinopril, Traceba, Cardizem, Coreg, atorvastatin, aspirin . ALLERGIES: None. FAMILY HISTORY: Noncontributory. REVIEW OF SYSTEMS: The patient today is feeling well. Her only complaint is that right lower extre mity. She denies any shortness of breath, chest pain, bowel or bladder issues. PHYSICAL EXAMINATION: GENERAL: Well-nourished appearing female resting in bed in no acute distress. Speech clear. Affec t pleasant. Answers questions appropriately. Alert and oriented x3. HEENT: Normal. EXTREMITIES: Upper extremities shows some bruising to her arms. Otherwise, she has equal size, sha pe, symmetry, normal bulk and tone. She is a tiny framed female. Left lower extremity with normal findings. Right lower extremity again has obvious redness, increased warmth to the touch. She has some redness from the medial to the lateral malleolus around almost in a horseshoe shape through the Achilles area. The area is tender to palpation. I am able to actively and passively move her foot , but it is painful, when I push down on her heel it is significantly painful. DP, PT pulses are eq ual. ASSESSMENT: 1. Multiple health issues. 2. Right ankle fracture with nonunion, now with the appearance of infection. CBC when the patient first came was in the high 20s and now has trickled down to 15.1, her blood does have gram positive cocci and Strep agalactia group B. 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 PLAN: I spoke with patient. She had already eaten breakfast by the time I had seen her. There is a consult in for Dr. Luo. I spoke with Dr. Bolden in regards to patient's findings with her whi te blood cell count up and Strep in her bloodstream, it may be prudent to washout the ankle. I did discuss this with the patient. We will also wait to see what Dr. Luo says, if he feels she needs surgical intervention we would plan on doing this tomorrow, I\T\D washout and I spoke to the patient regarding surgery. She would prefer not to, but if it is going to help her ankle pain she is chioma ble to go forth with surgery. She currently has clindamycin and vancomycin going. She is getting s ome medications for her pain which was helping her foot. It is elevated, symptoms are going down. I discussed her lab findings, her microbiology findings and x-ray findings. She understands that sh torito may need further intervention in this ankle. We will get the patient consented n.p.o. after midni ght. She is already on antibiotics and will talk to her again regarding any questions or concerns s he may after lunch today.
[2017-10-08] MEDS: HumaLOG 300 UNITS/3 ML VIAL SC PRN (13:11)
[2017-10-08] MEDS: Vancomycin HCl 750 MG in Sodium Chloride 0.9% 250 ML 250 ML IVPB SCH (13:12)
[2017-10-08] MEDS: cefTRIAXone\\ROCEPHIN 2 GM in Sodium Chloride 0.9% 100 ML IVPB SCH (17:43)
[2017-10-08] MEDS: Potassium Chloride 20 MEQ TAB PO SCH (17:44)
--- NOTE | 2017-10-08 20:22 | CON ---
DATE OF CONSULTATION: 10/08/2017 REASON FOR CONSULTATION: Bacteremia. HISTORY OF PRESENT ILLNESS: A 62-year-old patient with history of type 2 diabetes, prior CVA, chronic smoking, neuropathy and a prior fracture in the right hip, who was in his usual state of health until about 6 months before admission when she started noticing recurrent episodes of inflammatory change in the left second and third MCP joints of left hand. Then, , the day before admission, she noticed soreness in the right foot and the next day, the day of admission, she was unable to bear weight because of marked increase in pain in the right foot and that led to her admission, particularly after she developed altered mental status and she was brought by family members. Initial findings here showed a BP 120/40, pulse 77, respirations 16, O2 sat 98%. She did not appear in distress. Oral mucosa was dry. The remainder aspects of the examination did not appear remarkable. Labs with a white cell count of 20,000, hemoglobin 10, platelets 464. The carbon dioxide was less than 8 and anion gap was 36, creatinine 2.0, glucose 783. The initial impression was DKA and she was placed on insulin and IV fluids and admitted to intermediate care unit. The patient had 2 sets of blood cultures which have yielded group B Streptococcus. 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 An ankle x-ray 3 days after admission showed nonspecific soft tissue swelling. Currently, she is awake, still with marked pain in the right foot which hinders ambulation. No headaches, visual symptoms, sore throat, odynophagia, or dysphagia. No back pain , no cough or sputum production. No chest pain, no abdominal pain or diarrhea. No genitourinary symptoms. She has pain in the left hand, the second and third MCP joints. PAST MEDICAL HISTORY: Includes type 2 diabetes, hypertension, neuropathy, depression, hyperlipidemia, prior CVA, right hip fracture, and ORIF. SOCIAL HISTORY: Used to smoke 3 packs a day, now down to a pack per week. Lives close by with friends. MEDICATION LIST: At home, metformin, Zoloft, lisinopril, Tresiba, Coreg, atorvastatin, and aspirin. ALLERGIES: None. FAMILY HISTORY: Diabetes. PHYSICAL EXAMINATION: VITAL SIGNS: Show theT-max of 100. She is currently 98.6, BP 116/58, pulse 82 , respirations 18-20, O2 saturation 99%. SKIN: Shows the area of erythema in the dorsal aspect of the right mid foot region and erythema along the second and third MCP joints of left hand skin. ACCESS: The patient has a Adams catheter in place and peripheral IV access. HEENT: Ocular movements are conjugate. Oral cavity is unremarkable. NECK: Supple, no jugular venous distention. LUNGS: Clear to auscultation and percussion. HEART: S1, S2, without murmurs. No S3 or S4. Diminished heart sounds. ABDOMEN: Soft, nondistended or tender. No ascites. No bladder distention. EXTREMITIES: No joint inflammatory activity outside the areas of involvement. Pulses are 1+ in dorsalis pedis. She is able to move extremities with limitations imposed by the inflammatory process noted above. NEUROLOGIC: Cognitive function appears to be intact. LABORATORY DATA: The most recent labs include sodium 144, creatinine 0.61, glucose of 39 and now 240. White cell count 15,000, hemoglobin 10, platelets 273 with urinalysis that has been discussed above and the blood cultures have been discussed above. ASSESSMENT: 1. Diabetes mellitus type 2, now with evidence of DKA becoming more of a type 1 diabetic. 2. Neuropathy. 3. Chronic fracture of the fifth metatarsal of the right foot. 4. Diabetic ketoacidosis. 5. Group B strep bacteremia of unknown primary site. DISCUSSION: Differential diagnosis includes hematogenous spread to right foot and left hand versus gouty arthropathy, uric acid level within normal range, does not rule out acute gouty arthropathy. X-ray of the left hand 2 views, MRI of the right foot with contrast. If there is evidence of inflammatory process in the right foot and will have to consider protracted treatment, PICC line placement. MTDD
[2017-10-08] MEDS: HYDROcodone/Acetaminophen 5/325 mg Tablet PO PRN (20:33)
[2017-10-08] MEDS ORDERED: Amoxicillin/Potassium Clav 875 MG TAB PO SCH (21:00)
--- NOTE | 2017-10-08 23:09 | RAD ---
THREE VIEW LEFT HAND: 10/08/17 INDICATION: Second and third MCP inflammation, bacteremia. FINDINGS: Marked osteoarthritis of the first CMC joint present. No fracture or dislocation of the left hand. IMPRESSION: Prominent osteoarthritis of the first CMC joint. No acute osseous abnormality. POS: [facility]
[2017-10-09 04:13] LABS: #Eosinphils 0.2 thou/uL (0.0-0.7); #Lymphocytes 1.3 thou/uL (1.20-3.40); #Monocytes 1.9 thou/uL (0.11-0.59); #Neutrophils 14.4 thou/uL (1.40-6.50); %Basophils 0.1 % (0.0-1.0); %Eosinophils 0.9 % (0.0-10.0); %Lymphocytes 7.1 % (21.0-51.0); %Monocytes 10.5 % (0.0-10.0); Hematocrit 29.9 % (36.0-47.0); Mean Platelet Volume 9.2 fL (7.4-10.4); Red Blood Cell (RBC) Count 3.17 mill/uL (4.20-5.40); White Blood Cell (WBC) Count 17.6 thou/uL (4.8-10.8)
[2017-10-09 04:22] LABS: Anion Gap 6 mmol/L (10-20); BUN (Urea Nitrogen) 18 mg/dL (9.8-20.1); BUN/Creatinine Ratio 31.58; Calc. Creatinine Clearance 85 mL/min (70-130); Calcium 8.6 mg/dL (7.8-10.44); Carbon Dioxide 27 mmol/L (23-31); Chloride 112 mmol/L (98-107); Estimated GFR-MDRD Greater than 90; Phosphorus 2.4 mg/dL (2.3-4.7)
[2017-10-09] MEDS ORDERED: Dextrose 50% Abboject 50 ML SYRINGE ONE (04:26)
[2017-10-09] MEDS ORDERED: Dextrose 50% Abboject 50 ML SYRINGE SLOW IVP PRN (04:39)
[2017-10-09] MEDS: Dextrose 5% in Water 1,000 ML IV PRN (04:44)
[2017-10-09] MEDS ORDERED: Dextrose 5% in Water 1,000 ML IV SCH (05:00)
[2017-10-09] MEDS: Diltiazem HCl SR 90 mg Capsule PO SCH (05:12)
[2017-10-09] MEDS: Carvedilol 6.25 MG TAB PO SCH ×2 (05:12→20:24)
[2017-10-09] MEDS: HYDROcodone/Acetaminophen 5/325 mg Tablet PO PRN (08:49)
--- NOTE | 2017-10-09 11:52 | PDOC.PN ---
- Subjective Encounter Start Date: 10/09/17 Encounter Start Time: 07:40 Pt seen for followup re: foot pain. Denies chest pain or shortness of breath. Foot pain still present on R side. - Objective Resuscitation Status: Resuscitation Status FULL:Full Resuscitation MAR Reviewed: Yes Vital Signs & Weight: Vital Signs (12 hours) Temp Pulse Resp BP BP Pulse Ox 10/09/17 08:26 99.1 F 97 16 97 10/09/17 07:25 99.1 F 97 16 120/58 L 97 10/09/17 05:12 124/62 10/09/17 04:46 98.1 F 99 16 134/62 93 L Weight Admit Weight 119 lb Weight 119 lb I&O: 10/08/17 10/09/17 10/10/17 06:59 06:59 06:59 Intake Total 4192 2201 Output Total 1500 1700 Balance 2692 501 Result Diagrams: 10/09/17 03:54 10/09/17 03:54 Additional Labs: Accuchecks 10/09/17 10/08/17 10/08/17 04:50 20:13 18:41 POC Glucose 163 H 125 H 71 10/08/17 10/08/17 10/08/17 18:24 17:43 12:45 POC Glucose 53 L* 53 L* 240 H Phys Exam - Physical Examination Constitutional: NAD HEENT: moist MMs, oral pharynx no lesions Neck: supple Respiratory: clear to auscultation bilateral Cardiovascular: RRR Gastrointestinal: soft, non-tender, positive bowel sounds Musculoskeletal: pulses present R foot specialist Neurological: moves all 4 limbs Psychiatric: normal affect Dx/Plan (1) Foot pain Code(s): M79.673 - PAIN IN UNSPECIFIED FOOT Status: Acute (2) Bacteremia Code(s): R78.81 - BACTEREMIA Status: Acute (3) DM type 2 (diabetes mellitus, type 2) Status: Chronic Qualifiers: (4) Hypertension Code(s): I10 - ESSENTIAL (PRIMARY) HYPERTENSION Status: Chronic Qualifiers: Comment: - Plan continue antibiotics, PT/OT, out of bed/ambulate, DVT proph w/SCDs * . Continue IV ceftriaxone for Grp B strep bacteremia. Continue accuchecks, insulin sliding scale. MRI pending. Ortho & ID services to decide re: surgery. Review of Systems - Review of Systems Constitutional: negative: Fever, Chills, Sweats, Weakness, Malaise Respiratory: negative: Cough, Dry, Shortness of Breath, Hemoptysis, SOB with Excertion, Pleuritic Pain, Sputum, Wheezing Cardiovascular: negative: Chest Pain, Palpitations, Orthopnea, Paroxysmal Noc. Dyspnea, Edema, Light Headedness Musculoskeletal: Foot Pain. negative: Neck Pain, Shoulder Pain, Arm Pain, Back Pain, Hand Pain, Leg Pain - Medications/Allergies Allergies/Adverse Reactions: Allergies Allergy/AdvReac Type Severity Reaction Status Date / Time No Known Drug Allergies Allergy Verified 05/26/17 20:31 Medications: Current Medications Acetaminophen (Tylenol) 650 mg PO Q4H PRN PRN Reason: Headache/Fever or Pain Last Admin: 10/06/17 00:14 Dose: 650 mg Hydrocodone Bitart/Acetaminophen ([place] 5/325) 1 tab PO Q4H PRN PRN Reason: Moderate Pain (4-6) Last Admin: 10/09/17 08:49 Dose: 1 tab Al Hydroxide/Mg Hydroxide (Maalox) 30 ml PO Q6H PRN PRN Reason: Heartburn or Indigestion Aspirin (Ecotrin) 81 mg PO DAILY [facility] Last Admin: 10/08/17 08:27 Dose: 81 mg Atorvastatin Calcium (Lipitor) 40 mg PO DAILY [facility] Last Admin: 10/08/17 08:27 Dose: 40 mg Bisacodyl (Dulcolax) 10 mg PO DAILYPRN PRN PRN Reason: Constipation Calcium Carbonate (Tums) 1,000 mg PO PRN PRN PRN Reason: Heartburn or Indigestion Carvedilol (Coreg) 6.25 mg PO BID [facility] Last Admin: 10/09/17 05:12 Dose: 6.25 mg Clonidine (Catapres) 0.1 mg PO Q4H PRN PRN Reason: Systolic BP > 180 Dextrose/Water (Dextrose 50%) 25 gm SLOW IVP PRN PRN PRN Reason: Hypoglycemia Diltiazem HCl (Cardizem Sr) 90 mg PO DAILY [facility] Last Admin: 10/09/17 05:12 Dose: 90 mg Glucagon (Glucagon) 1 mg IM PRN PRN PRN Reason: Hypoglycemia Insulin Detemir 20 units/ (Miscellaneous Medication) 0.2 mls @ 0 mls/hr SC BID [facility] Last Admin: 10/08/17 20:54 Dose: Not Given Ceftriaxone Sodium 2 gm/ (Sodium Chloride) 100 mls @ 200 mls/hr IVPB 1700 [facility] Last Admin: 10/08/17 17:43 Dose: 100 mls Dextrose/Water (D5w) 1,000 mls @ 0 mls/hr IV .Q0M PRN; As Directed PRN Reason: Hypoglycemia Last Admin: 10/09/17 04:44 Dose: 1,000 mls Insulin Human Lispro (Humalog) 0 units SC .AGGRESSIVE SLIDING PRN PRN Reason: Aggressive Correctional Scale Last Admin: 10/08/17 13:11 Dose: 9 unit Nitroglycerin (Nitrostat) 0.4 mg SL Q5MIN PRN PRN Reason: Chest Pain Ccu Electrolyte (Replacement Protocol) 0 each FS PRN PRN PRN Reason: FOR ELECTROLYTE REPLACEMENT Ondansetron HCl (Zofran) 4 mg IVP Q6H PRN PRN Reason: Nausea/Vomiting Pantoprazole Sodium (Protonix) 40 mg PO DAILY [facility] Last Admin: 10/08/17 08:27 Dose: 40 mg Potassium Chloride (K-Dur) 40 meq PO BID[facility] Stop: 10/09/17 17:01 Last Admin: 10/08/17 17:44 Dose: 40 meq Sertraline HCl (Zoloft) 100 mg PO DAILY [facility] Last Admin: 10/08/17 08:27 Dose: 100 mg Sodium Chloride (Flush - Normal Saline) 10 ml IVF Q12HR [facility] Last Admin: 10/08/17 20:55 Dose: 10 ml Sodium Chloride (Flush - Normal Saline) 10 ml IVF PRN PRN PRN Reason: Saline Flush
[2017-10-09] MEDS: cefTRIAXone\\ROCEPHIN 2 GM in Sodium Chloride 0.9% 100 ML IVPB SCH (17:06)
[2017-10-09] MEDS: Potassium Chloride 20 MEQ TAB PO SCH ×2 (17:18→17:21)
[2017-10-09] MEDS: Aspirin 81 mg Enteric Coated Tablet PO SCH (17:18)
[2017-10-09] MEDS: Atorvastatin Calcium 40 MG TAB PO SCH (17:18)
[2017-10-09] MEDS: Pantoprazole 40 MG GRANULES PACKET PO SCH (17:19)
[2017-10-09] MEDS: Insulin Detemir 100 UNITS/ML 20 UNITS in Pre-Filled Syringe 1 EACH SC SCH ×2 (17:19→20:22)
--- NOTE | 2017-10-09 18:16 | MRI ---
MR OF THE RIGHT FOOT WITH AND WITHOUT CONTRAST 10/09/17 INDICATION: Concern for osteomyelitis. COMPARISON: Radiograph of the right foot dated 09/28/17. 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 There is moderate enhancement seen h eterogeneously throughout the midfoot likely related to some reactive marrow changes from the osteoa rthropathy. There is a peripherally enhancing fluid collection seen plantar to the fourth digit meta tarsals suspicious for small abscess. This measures 4 x 1.4 cm on image 7 of series 9 and image 18 o f series 10. There is also a loculated fluid distention involving the flexor digitorum longus tendon sheath near the knot of Lencho. There is an additional 2.3 x 0.7 cm fluid collection overlying the d orsolateral aspect of the midfoot on image 27 of series 10 and image 27 of series 3 suspicious for a dditional subcutaneous abscess. There is prominent cellulitis of the right forefoot. Component of os teomyelitis in the midfoot cannot be entirely excluded. There is an ununited fracture involving the base of the fifth metatarsal. IMPRESSION: 1. Prominent disorganization with joint space irregularity and heterogeneous marrow signal of t he midfoot most suspicious for a neuropathic osteoarthropathy. Early osteomyelitis cannot be entirel y excluded but is felt to be less likely. 2. Plantar based soft tissue abscess adjacent to the fourth metatarsal shaft. 3. Loculated appearing fluid distention of the flexor digitorum longus tendon sheath near the k not of Lencho along the plantar aspect of the foot is suspicious for tenosynovitis. Superimposed infe ction of the fluid collection cannot be entirely excluded. 4. Prominent cellulitis of the dorsal foot. 5. 2.3 cm subcutaneous abscess overlying the dorsolateral aspect of the midfoot near the level of the cuboid. POS: [facility]
[2017-10-09] MEDS: HumaLOG 300 UNITS/3 ML VIAL SC PRN (20:21)
[2017-10-10 04:42] LABS: Anion Gap 10 mmol/L (10-20); BUN (Urea Nitrogen) 23 mg/dL (9.8-20.1); Calc. Creatinine Clearance 63 mL/min (70-130); Calcium 8.4 mg/dL (7.8-10.44); Carbon Dioxide 23 mmol/L (23-31); Chloride 106 mmol/L (98-107); Estimated GFR-MDRD 75
[2017-10-10] MEDS: HYDROcodone/Acetaminophen 5/325 mg Tablet PO PRN ×2 (08:25→20:52)
[2017-10-10] MEDS: Carvedilol 6.25 MG TAB PO SCH ×2 (08:29→20:53)
[2017-10-10] MEDS: Atorvastatin Calcium 40 MG TAB PO SCH (08:29)
[2017-10-10] MEDS: Pantoprazole 40 MG GRANULES PACKET PO SCH (08:29)
[2017-10-10] MEDS: Aspirin 81 mg Enteric Coated Tablet PO SCH (08:30)
[2017-10-10] MEDS: Diltiazem HCl SR 90 mg Capsule PO SCH (08:30)
[2017-10-10] MEDS: Insulin Detemir 100 UNITS/ML 20 UNITS in Pre-Filled Syringe 1 EACH SC SCH ×2 (08:30→21:02)
--- NOTE | 2017-10-10 10:21 | PDOC.PN ---
- Subjective Encounter Start Date: 10/10/17 Encounter Start Time: 07:20 - Objective Resuscitation Status: Resuscitation Status FULL:Full Resuscitation MAR Reviewed: Yes Vital Signs & Weight: Vital Signs (12 hours) Temp Pulse Resp BP BP BP Pulse Ox 10/10/17 08:29 147/68 H 10/10/17 08:00 99.2 F 91 18 147/68 H 97 10/10/17 03:57 98.3 F 113 H 16 126/66 97 10/09/17 23:24 98.6 F 88 16 120/58 L 97 Weight Admit Weight 119 lb Weight 119 lb I&O: 10/09/17 10/10/17 10/11/17 06:59 06:59 06:59 Intake Total 2201 600 Output Total 1700 1450 Balance 501 -850 Result Diagrams: 10/09/17 03:54 10/10/17 03:47 Additional Labs: Accuchecks 10/10/17 10/10/17 10/09/17 05:47 02:31 19:57 POC Glucose 157 H 371 H 484 H 10/09/17 16:45 POC Glucose 396 H Phys Exam - Physical Examination Constitutional: NAD HEENT: moist MMs, oral pharynx no lesions Neck: supple Respiratory: clear to auscultation bilateral Cardiovascular: RRR, no rub Gastrointestinal: soft Musculoskeletal: pulses present R foot tenderness Neurological: moves all 4 limbs Lymphatic: no nodes Psychiatric: normal affect Skin: no rash Dx/Plan (1) Foot pain Code(s): M79.673 - PAIN IN UNSPECIFIED FOOT Status: Acute (2) Bacteremia Code(s): R78.81 - BACTEREMIA Status: Acute (3) DM type 2 (diabetes mellitus, type 2) Status: Chronic Qualifiers: (4) Hypertension Code(s): I10 - ESSENTIAL (PRIMARY) HYPERTENSION Status: Chronic Qualifiers: Comment: - Plan * . Review of Systems - Review of Systems Constitutional: negative: Fever, Chills, Sweats, Weakness, Malaise Gastrointestinal: negative: Nausea, Vomiting, Abdominal Pain, Diarrhea, Constipation, Melena, Hematochezia Genitourinary: negative: Dysuria, Frequency, Incontinence, Hematuria, Retention Musculoskeletal: Foot Pain - Medications/Allergies Allergies/Adverse Reactions: Allergies Allergy/AdvReac Type Severity Reaction Status Date / Time No Known Drug Allergies Allergy Verified 05/26/17 20:31 Medications: Current Medications Acetaminophen (Tylenol) 650 mg PO Q4H PRN PRN Reason: Headache/Fever or Pain Last Admin: 10/06/17 00:14 Dose: 650 mg Hydrocodone Bitart/Acetaminophen ([place] 5/325) 1 tab PO Q4H PRN PRN Reason: Moderate Pain (4-6) Last Admin: 10/10/17 08:25 Dose: 1 tab Al Hydroxide/Mg Hydroxide (Maalox) 30 ml PO Q6H PRN PRN Reason: Heartburn or Indigestion Aspirin (Ecotrin) 81 mg PO DAILY [facility] Last Admin: 10/10/17 08:30 Dose: 81 mg Atorvastatin Calcium (Lipitor) 40 mg PO DAILY [facility] Last Admin: 10/10/17 08:29 Dose: 40 mg Bisacodyl (Dulcolax) 10 mg PO DAILYPRN PRN PRN Reason: Constipation Calcium Carbonate (Tums) 1,000 mg PO PRN PRN PRN Reason: Heartburn or Indigestion Carvedilol (Coreg) 6.25 mg PO BID [facility] Last Admin: 10/10/17 08:29 Dose: 6.25 mg Clonidine (Catapres) 0.1 mg PO Q4H PRN PRN Reason: Systolic BP > 180 Dextrose/Water (Dextrose 50%) 25 gm SLOW IVP PRN PRN PRN Reason: Hypoglycemia Diltiazem HCl (Cardizem Sr) 90 mg PO DAILY [facility] Last Admin: 10/10/17 08:30 Dose: 90 mg Glucagon (Glucagon) 1 mg IM PRN PRN PRN Reason: Hypoglycemia Insulin Detemir 20 units/ (Miscellaneous Medication) 0.2 mls @ 0 mls/hr SC BID [facility] Last Admin: 10/10/17 08:30 Dose: 0.2 mls Ceftriaxone Sodium 2 gm/ (Sodium Chloride) 100 mls @ 200 mls/hr IVPB 1700 [facility] Last Admin: 10/09/17 17:06 Dose: 100 mls Dextrose/Water (D5w) 1,000 mls @ 0 mls/hr IV .Q0M PRN; As Directed PRN Reason: Hypoglycemia Last Admin: 10/09/17 04:44 Dose: 1,000 mls Insulin Human Lispro (Humalog) 0 units SC .AGGRESSIVE SLIDING PRN PRN Reason: Aggressive Correctional Scale Last Admin: 10/09/17 20:21 Dose: 5 unit Nitroglycerin (Nitrostat) 0.4 mg SL Q5MIN PRN PRN Reason: Chest Pain Ccu Electrolyte (Replacement Protocol) 0 each FS PRN PRN PRN Reason: FOR ELECTROLYTE REPLACEMENT Ondansetron HCl (Zofran) 4 mg IVP Q6H PRN PRN Reason: Nausea/Vomiting Pantoprazole Sodium (Protonix) 40 mg PO DAILY [facility] Last Admin: 10/10/17 08:29 Dose: 40 mg Sertraline HCl (Zoloft) 100 mg PO DAILY [facility] Last Admin: 10/10/17 08:30 Dose: 100 mg Sodium Chloride (Flush - Normal Saline) 10 ml IVF Q12HR [facility] Last Admin: 10/10/17 08:32 Dose: 10 ml Sodium Chloride (Flush - Normal Saline) 10 ml IVF PRN PRN PRN Reason: Saline Flush
--- NOTE | 2017-10-10 14:39 | PDOC.PN ---
- Subjective Encounter Start Date: 10/10/17 Encounter Start Time: 07:00 Pt seen for followup re: foot pain. Denies chest pain or dyspnea. Foot pain is better. - Objective Resuscitation Status: Resuscitation Status FULL:Full Resuscitation MAR Reviewed: Yes Vital Signs & Weight: Vital Signs (12 hours) Temp Pulse Resp BP BP Pulse Ox 10/10/17 12:50 97.8 F 73 16 103/51 L 94 L 10/10/17 08:29 147/68 H 10/10/17 08:15 99.2 F 91 18 97 10/10/17 08:00 99.2 F 91 18 147/68 H 97 10/10/17 03:57 98.3 F 113 H 16 126/66 97 Weight Admit Weight 119 lb Weight 119 lb I&O: 10/09/17 10/10/17 10/11/17 06:59 06:59 06:59 Intake Total 2201 600 Output Total 1700 1450 Balance 501 -850 Result Diagrams: 10/09/17 03:54 10/10/17 03:47 Additional Labs: Accuchecks 10/10/17 10/10/17 10/10/17 13:44 12:26 11:53 POC Glucose 108 59 L* 55 L* 10/10/17 10/10/17 10/09/17 05:47 02:31 19:57 POC Glucose 157 H 371 H 484 H 10/09/17 16:45 POC Glucose 396 H Phys Exam - Physical Examination Constitutional: NAD HEENT: moist MMs Neck: supple Respiratory: clear to auscultation bilateral Cardiovascular: RRR Gastrointestinal: soft Musculoskeletal: pulses present R foot tenderness+ Neurological: moves all 4 limbs Psychiatric: normal affect Skin: no rash Dx/Plan (1) Foot pain Code(s): M79.673 - PAIN IN UNSPECIFIED FOOT Status: Acute (2) Bacteremia Code(s): R78.81 - BACTEREMIA Status: Acute (3) DM type 2 (diabetes mellitus, type 2) Status: Chronic Qualifiers: (4) Hypertension Code(s): I10 - ESSENTIAL (PRIMARY) HYPERTENSION Status: Chronic Qualifiers: Comment: - Plan continue antibiotics, PT/OT, out of bed/ambulate, DVT proph w/SCDs * . Continue IV ceftriaxone. Awaiting decision re: surgery. Review of Systems - Review of Systems Constitutional: negative: Fever, Chills, Sweats, Weakness, Malaise Cardiovascular: negative: Chest Pain, Palpitations, Orthopnea, Paroxysmal Noc. Dyspnea, Edema, Light Headedness Musculoskeletal: Foot Pain - Medications/Allergies Allergies/Adverse Reactions: Allergies Allergy/AdvReac Type Severity Reaction Status Date / Time No Known Drug Allergies Allergy Verified 05/26/17 20:31 Medications: Current Medications Acetaminophen (Tylenol) 650 mg PO Q4H PRN PRN Reason: Headache/Fever or Pain Last Admin: 10/06/17 00:14 Dose: 650 mg Hydrocodone Bitart/Acetaminophen (Kelso 5/325) 1 tab PO Q4H PRN PRN Reason: Moderate Pain (4-6) Last Admin: 10/10/17 08:25 Dose: 1 tab Al Hydroxide/Mg Hydroxide (Maalox) 30 ml PO Q6H PRN PRN Reason: Heartburn or Indigestion Aspirin (Ecotrin) 81 mg PO DAILY [facility] Last Admin: 10/10/17 08:30 Dose: 81 mg Atorvastatin Calcium (Lipitor) 40 mg PO DAILY [facility] Last Admin: 10/10/17 08:29 Dose: 40 mg Bisacodyl (Dulcolax) 10 mg PO DAILYPRN PRN PRN Reason: Constipation Calcium Carbonate (Tums) 1,000 mg PO PRN PRN PRN Reason: Heartburn or Indigestion Carvedilol (Coreg) 6.25 mg PO BID [facility] Last Admin: 10/10/17 08:29 Dose: 6.25 mg Clonidine (Catapres) 0.1 mg PO Q4H PRN PRN Reason: Systolic BP > 180 Dextrose/Water (Dextrose 50%) 25 gm SLOW IVP PRN PRN PRN Reason: Hypoglycemia Diltiazem HCl (Cardizem Sr) 90 mg PO DAILY [facility] Last Admin: 10/10/17 08:30 Dose: 90 mg Glucagon (Glucagon) 1 mg IM PRN PRN PRN Reason: Hypoglycemia Insulin Detemir 20 units/ (Miscellaneous Medication) 0.2 mls @ 0 mls/hr SC BID [facility] Last Admin: 10/10/17 08:30 Dose: 0.2 mls Ceftriaxone Sodium 2 gm/ (Sodium Chloride) 100 mls @ 200 mls/hr IVPB 1700 [facility] Last Admin: 10/09/17 17:06 Dose: 100 mls Dextrose/Water (D5w) 1,000 mls @ 0 mls/hr IV .Q0M PRN; As Directed PRN Reason: Hypoglycemia Last Admin: 10/09/17 04:44 Dose: 1,000 mls Insulin Human Lispro (Humalog) 0 units SC .AGGRESSIVE SLIDING PRN PRN Reason: Aggressive Correctional Scale Last Admin: 10/09/17 20:21 Dose: 5 unit Nitroglycerin (Nitrostat) 0.4 mg SL Q5MIN PRN PRN Reason: Chest Pain Ccu Electrolyte (Replacement Protocol) 0 each FS PRN PRN PRN Reason: FOR ELECTROLYTE REPLACEMENT Ondansetron HCl (Zofran) 4 mg IVP Q6H PRN PRN Reason: Nausea/Vomiting Pantoprazole Sodium (Protonix) 40 mg PO DAILY [facility] Last Admin: 10/10/17 08:29 Dose: 40 mg Sertraline HCl (Zoloft) 100 mg PO DAILY [facility] Last Admin: 10/10/17 08:30 Dose: 100 mg Sodium Chloride (Flush - Normal Saline) 10 ml IVF Q12HR [facility] Last Admin: 10/10/17 08:32 Dose: 10 ml Sodium Chloride (Flush - Normal Saline) 10 ml IVF PRN PRN PRN Reason: Saline Flush
[2017-10-10] MEDS: HumaLOG 300 UNITS/3 ML VIAL SC PRN (17:02)
[2017-10-10] MEDS: cefTRIAXone\\ROCEPHIN 2 GM in Sodium Chloride 0.9% 100 ML IVPB SCH (17:03)
[2017-10-11 04:16] LABS: Anion Gap 8 mmol/L (10-20); BUN (Urea Nitrogen) 17 mg/dL (9.8-20.1); Calc. Creatinine Clearance 72 mL/min (70-130); Calcium 8.4 mg/dL (7.8-10.44); Carbon Dioxide 26 mmol/L (23-31); Chloride 105 mmol/L (98-107); Estimated GFR-MDRD 89
[2017-10-11] MEDS: HumaLOG 300 UNITS/3 ML VIAL SC PRN (05:22)
[2017-10-11] MEDS: Carvedilol 6.25 MG TAB PO SCH ×2 (05:23→20:53)
[2017-10-11] MEDS: Diltiazem HCl SR 90 mg Capsule PO SCH (05:25)
[2017-10-11] MEDS ORDERED: Fentanyl 100 MCG/2 ML VIAL ONE ×2 (06:24→07:33)
[2017-10-11] MEDS ORDERED: Midazolam HCl 2 mg/2 ml Vial ONE (06:24)
[2017-10-11] MEDS ORDERED: Neomycin-Polymyxin 1 ML AMP ONE (06:42)
[2017-10-11] MEDS ORDERED: Lidocaine 1% PF 5 ML VIAL ONE (07:18)
[2017-10-11] MEDS ORDERED: ePHEDrine/0.9% NaCl/PF SYRINGE 50 mg/10 ml ONE (07:18)
[2017-10-11] MEDS ORDERED: PHENYLEPHRINE-NS 100 MCG/ML 10 ML SYRINGE ONE (07:18)
[2017-10-11] MEDS ORDERED: Propofol 200 MG/20 ML VIAL ONE (07:18)
[2017-10-11] MEDS ORDERED: Promethazine HCl 25 MG/ML VIAL IM PRN (08:26)
[2017-10-11] MEDS ORDERED: Promethazine HCl 25 MG/ML VIAL SLOW IVP PRN (08:26)
[2017-10-11] MEDS ORDERED: Ondansetron HCl/PF 4 MG/2 ML Vial IVP PRN (08:26)
[2017-10-11] MEDS: Pantoprazole 40 MG GRANULES PACKET PO SCH (10:13)
[2017-10-11] MEDS: Aspirin 81 mg Enteric Coated Tablet PO SCH (10:14)
[2017-10-11] MEDS: Atorvastatin Calcium 40 MG TAB PO SCH (10:14)
[2017-10-11] MEDS: Insulin Detemir 100 UNITS/ML 20 UNITS in Pre-Filled Syringe 1 EACH SC SCH ×2 (10:19→20:54)
[2017-10-11] MEDS: HYDROcodone/Acetaminophen 5/325 mg Tablet PO PRN (11:26)
--- NOTE | 2017-10-11 11:33 | PRG ---
DATE OF SERVICE: 10/11/2017 SUBJECTIVE: She had I\T\D procedure this morning, an abscess was found and debridement completed by Dr. Boldne. She is having moderate pain at the site, but otherwise no headaches, visual symptoms , sore throat, odynophagia, dysphagia, no cough or sputum production or chest pain, no abdominal melchor n or diarrhea. OBJECTIVE: VITAL SIGNS: T-max 99.4, blood pressure 120/59, pulse 86. GENERAL: Awake, alert, oriented. LUNGS: Clear. HEART: S1, S2, regular rate. ABDOMEN: Soft, distended. EXTREMITIES: Right foot with bulky dressing, not removed. Microbiology, no new changes noted. White cell count 17.6 from 2 days ago, hemoglobin 9.5. ASSESSMENT AND DISCUSSION: Type 2 diabetes, neuropathy and fracture of the fifth metatarsal, DKA an d group B strep bacteremia with various complications in the right foot, status post incision and dr boyce. The patient will continue with PICC line placement and protracted IV Rocephin administrations in the outpatient setting, end date of therapy is calculated to be 11/22/2017. Weekly labs including CBC, C-reactive protein, comprehensive metabolic panel. Potential adverse reactions from the antimicrob ial therapy and PICC line were discussed with patient who understood and agreed with management althea mmendations.
[2017-10-11] MEDS ORDERED: Morphine PF 1 MG/ML SYR IVP SCH (12:45)
--- NOTE | 2017-10-11 13:58 | PQF ---
Date: 10-11-17 ATTN: DR. BELINDA WATSON Please exercise your independent, professional judgment in responding to the clarification form. Clinical indicators are provided on the bottom of this form for your review Please check appropriate box(s): [ ] Protein Calorie Malnutrition: [ ] Mild [ ] Moderate [ ] Severe [ ] Cachexia [ ] Other diagnosis [ X ] Unable to determine In addition, please specify: Present on Admission (POA): [ ] Yes [ ] No [ ] Unable to determine CLINICAL INDICATORS - SIGNS / SYMPTOMS / LABS BMI of 21.4 ALBUMIN 10-09-17: 1.[address] DUARTE 10-04-17: SHE DOES HAVE SIGNIFICANT MUSCLE WASTING BILATERALLY CONSULT NOTE DR. LANGE 10-07-17: MARKED WEAKNESS, SEVERE DECONDITIONING [employer] CONSULT 10-07-17: CONSULT FOR " POOR INTAKE", DECREASE APPETITE, PATIENT REFUSING MANY RECENT MEALS, REPORTS NURSING HOME INTERMITTENT POOR APPETITE RISK FACTORS: [employer] CONSULT 10-07-17: CONSULT FOR " POOR INTAKE", DECREASE APPETITE, PATIENT REFUSING MANY RECENT MEALS , REPORTS CELL TUBER HAND INTERMITTENT POOR APPETITE ER DOCUMENTATION: HX OF CVA, DM, SMOKER TREATMENT: SHEET [employer] CONSULT 10-07-17: CONSISTENT CARD DIET DUE TO POOR INTAKE , RECOMMEND CONSISTENT CARBO (CALISTA), HEART HEALTHY DIET CELL TUBER HAND, ENSURE HIGH PROTEIN TID (This form is maintained as a part of the permanent medical record) 2014 [employer]. All Rights Reserved ENRIQUE [email or web address] Office: [phone] [facility]
--- NOTE | 2017-10-11 14:14 | PQF ---
DATE: 10-11-17 ATTN: DR. BELINDA WATSON Please exercise your independent, professional judgment in responding to the clarification form. Clinical indicators are provided on the bottom of this form for your review Please check appropriate box(s) to clarify if the following diagnosis has been ruled in our ruled out: SEPSIS (CDI/Coding list diagnosis here) [ ] Ruled in diagnosis [ ] Continue to treat [ ] Resolved [ X ] Ruled out diagnosis [ ] Other diagnosis [ ] Unable to determine In addition, please specify: Present on Admission (POA): [ ] Yes [ ] No [ ] Unable to determine For continuity of documentation, please document condition throughout progress notes and discharge summary. Thank You. CLINICAL INDICATORS - SIGNS / SYMPTOMS / LABS PN DR. ARRIAZA 10-08-17: ACUTE ELEVATED WBC PN DR. ARRIAZA 10-08-17: ACUTE SEPSIS, BLOOD CUL SHOWS STREP AGALACTIEA, R /O SEPTIC ARTHRITIS PN DR. WATSON: ACUTE BACTEREMIA RISK FACTORS: WBC: --: 20.5 BANDS: 11-2-17: 40 10-05-17: 20.9 BANDS: --17: 18 10-06-17: 21.9 BANDS: --17: 30 10-08-17: 15.1 10-09-17: 17.6 TEMP: 10-10-17: 99.8 TREATMENTS: ER DOCUMENTATION: IVF (10-08-17) LINDA (This form is maintained as a part of the permanent medical record) 2014 [employer]. All Rights Reserved ENRIQUE [email or web address] Office: [phone] [facility]
[2017-10-11] MEDS ORDERED: Heparin 1,000 UNITS/ML VIAL ONE (15:46)
--- NOTE | 2017-10-11 16:19 | SPC ---
ULTRASOUND GUIDED LEFT UPPER EXTREMITY PICC LINE PLACEMENT 10/11/17 HISTORY: Right foot infection. Patient needs jail IV antibiotics. FLUOROSCOPY: Total fluoroscopy time is 0.2 minutes with total dose of 608 mGy*cm2. TECHNIQUE: After informed consent was obtained, the patient was placed on angiography table in the supine posit ion. The left upper extremity was meticulously prepped and draped in the usual sterile fashion. An a ppropriate access site was determined with ultrasound guidance. Skin and subcutaneous tissues were infiltrated with buffered 1% lidocaine for local anesthesia. The left basilic vein was accessed utilizing micropuncture technique and concurrent real time ultrasound guidance. 5 Syrian peel away sheath was placed. The catheter was measured and cut to the appropriate length. The catheter was placed over the guide wire with the tip positioned overlying the distal SVC. Guide wire and peel away sheath were removed. The catheter was accessed and aspirated/flushed easily. The catheter was secured to the skin utilizing a Stat-Lock device. A dry sterile dressing was placed . FINDINGS: Technically successful placement of a single lumen 5 Syrian 45.5 cm PICC line via the left basilic v ein. Tip of the catheter overlies the distal SVC. IMPRESSION: Technically successful left upper extremity PICC line placement. POS: [facility]
[2017-10-11] MEDS ORDERED: traMADol HCl 50 MG TAB PO PRN (16:40)
[2017-10-11] MEDS: cefTRIAXone\\ROCEPHIN 2 GM in Sodium Chloride 0.9% 100 ML IVPB SCH (17:39)
--- NOTE | 2017-10-11 17:44 | PDOC.PN ---
- Subjective Encounter Start Date: 10/11/17 Encounter Start Time: 17:41 Pt seen for followup re: foot pain. Feels better. No nausea, vomiting or diarrhea. - Objective Resuscitation Status: Resuscitation Status FULL:Full Resuscitation MAR Reviewed: Yes Vital Signs & Weight: Vital Signs (12 hours) Temp Pulse Resp BP Pulse Ox 10/11/17 14:17 96.8 F L 83 16 131/60 95 10/11/17 09:00 96.6 F L 86 18 96 Weight Admit Weight 119 lb Weight 119 lb I&O: 10/10/17 10/11/17 10/12/17 06:59 06:59 06:59 Intake Total 600 480 Output Total 1450 1250 Balance -850 -770 Result Diagrams: 10/09/17 03:54 10/11/17 03:35 Additional Labs: Accuchecks 10/11/17 10/11/17 10/11/17 10:19 07:50 06:51 POC Glucose 133 H 260 H 322 H 10/11/17 10/10/17 05:11 20:49 POC Glucose 373 H 216 H Phys Exam - Physical Examination Constitutional: NAD HEENT: moist MMs Neck: supple Respiratory: no wheezing, no rales, no rhonchi, clear to auscultation bilateral Cardiovascular: RRR PICC line+ Gastrointestinal: soft, positive bowel sounds Musculoskeletal: pulses present Neurological: moves all 4 limbs Psychiatric: normal affect Skin: no rash Dx/Plan (1) Foot pain Code(s): M79.673 - PAIN IN UNSPECIFIED FOOT Status: Acute (2) Bacteremia Code(s): R78.81 - BACTEREMIA Status: Acute (3) DM type 2 (diabetes mellitus, type 2) Status: Chronic Qualifiers: (4) Hypertension Code(s): I10 - ESSENTIAL (PRIMARY) HYPERTENSION Status: Chronic Qualifiers: Comment: - Plan continue antibiotics, PT/OT, out of bed/ambulate, DVT proph w/SCDs * . Streptococcus agalactiae bacteremia, pt needs IV Rocephin at home. Had PICC placed. Likely home tomorrow or Saturday, depending on financial aspects. Review of Systems - Review of Systems Respiratory: negative: Cough, Dry, Shortness of Breath, Hemoptysis, SOB with Excertion, Pleuritic Pain, Sputum, Wheezing Cardiovascular: negative: Chest Pain, Palpitations, Orthopnea, Paroxysmal Noc. Dyspnea, Edema, Light Headedness Musculoskeletal: Foot Pain. negative: Neck Pain, Shoulder Pain, Arm Pain, Back Pain, Hand Pain, Leg Pain - Medications/Allergies Allergies/Adverse Reactions: Allergies Allergy/AdvReac Type Severity Reaction Status Date / Time No Known Drug Allergies Allergy Verified 05/26/17 20:31 Medications: Current Medications Acetaminophen (Tylenol) 650 mg PO Q4H PRN PRN Reason: Headache/Fever or Pain Last Admin: 10/06/17 00:14 Dose: 650 mg Acetaminophen/Codeine Phosphate (Tylenol #3) 1 tab PO Q4H PRN PRN Reason: Pain Al Hydroxide/Mg Hydroxide (Maalox) 30 ml PO Q6H PRN PRN Reason: Heartburn or Indigestion Aspirin (Ecotrin) 81 mg PO DAILY [facility] Last Admin: 10/11/17 10:14 Dose: 81 mg Atorvastatin Calcium (Lipitor) 40 mg PO DAILY [facility] Last Admin: 10/11/17 10:14 Dose: 40 mg Bisacodyl (Dulcolax) 10 mg PO DAILYPRN PRN PRN Reason: Constipation Calcium Carbonate (Tums) 1,000 mg PO PRN PRN PRN Reason: Heartburn or Indigestion Carvedilol (Coreg) 6.25 mg PO BID [facility] Last Admin: 10/11/17 05:23 Dose: 6.25 mg Clonidine (Catapres) 0.1 mg PO Q4H PRN PRN Reason: Systolic BP > 180 Dextrose/Water (Dextrose 50%) 25 gm SLOW IVP PRN PRN PRN Reason: Hypoglycemia Diltiazem HCl (Cardizem Sr) 90 mg PO DAILY [facility] Last Admin: 10/11/17 05:25 Dose: 90 mg Glucagon (Glucagon) 1 mg IM PRN PRN PRN Reason: Hypoglycemia Insulin Detemir 20 units/ (Miscellaneous Medication) 0.2 mls @ 0 mls/hr SC BID [facility] Last Admin: 10/11/17 10:19 Dose: 0.2 mls Ceftriaxone Sodium 2 gm/ (Sodium Chloride) 100 mls @ 200 mls/hr IVPB 1700 [facility] Last Admin: 10/10/17 17:03 Dose: 100 mls Dextrose/Water (D5w) 1,000 mls @ 0 mls/hr IV .Q0M PRN; As Directed PRN Reason: Hypoglycemia Last Admin: 10/09/17 04:44 Dose: 1,000 mls Insulin Human Lispro (Humalog) 0 units SC .AGGRESSIVE SLIDING PRN PRN Reason: Aggressive Correctional Scale Last Admin: 10/11/17 05:22 Dose: 4 unit Nitroglycerin (Nitrostat) 0.4 mg SL Q5MIN PRN PRN Reason: Chest Pain Ccu Electrolyte (Replacement Protocol) 0 each FS PRN PRN PRN Reason: FOR ELECTROLYTE REPLACEMENT Ondansetron HCl (Zofran) 4 mg IVP Q6H PRN PRN Reason: Nausea/Vomiting Pantoprazole Sodium (Protonix) 40 mg PO DAILY [facility] Last Admin: 10/11/17 10:13 Dose: 40 mg Sertraline HCl (Zoloft) 100 mg PO DAILY [facility] Last Admin: 10/11/17 10:13 Dose: 100 mg Sodium Chloride (Flush - Normal Saline) 10 ml IVF Q12HR [facility] Last Admin: 10/11/17 10:22 Dose: 10 ml Sodium Chloride (Flush - Normal Saline) 10 ml IVF PRN PRN PRN Reason: Saline Flush Tramadol HCl (Ultram) 50 mg PO Q6H PRN PRN Reason: Moderate Pain (4-6)
[2017-10-11] MEDS: Acetaminophen/Codeine 30-300mg Tablet PO PRN (20:54)
[2017-10-12 04:13] LABS: #Eosinphils 0.1 thou/uL (0.0-0.7); #Monocytes 1.3 thou/uL (0.11-0.59); #Neutrophils 10.8 thou/uL (1.40-6.50); %Basophils 0.3 % (0.0-1.0); %Lymphocytes 13.8 % (21.0-51.0); %Monocytes 9.1 % (0.0-10.0); Hematocrit 25.6 % (36.0-47.0); Mean Platelet Volume 7.7 fL (7.4-10.4); Red Blood Cell (RBC) Count 2.71 mill/uL (4.20-5.40); White Blood Cell (WBC) Count 14.2 thou/uL (4.8-10.8)
[2017-10-12 04:30] LABS: Anion Gap 11 mmol/L (10-20); BUN (Urea Nitrogen) 11 mg/dL (9.8-20.1); Calc. Creatinine Clearance 77 mL/min (70-130); Calcium 8.1 mg/dL (7.8-10.44); Carbon Dioxide 26 mmol/L (23-31); Chloride 107 mmol/L (98-107); Estimated GFR-MDRD Greater than 90
[2017-10-12] MEDS: Dextrose 5% in Water 1,000 ML IV PRN (04:46)
[2017-10-12] MEDS ORDERED: Dextrose 5% in Water 1,000 ML IV PRN (04:48)
--- NOTE | 2017-10-12 04:51 | PDOC.EVN ---
Event Note - Event Note Event Note: RN called - Blood glucose in - 29. Will dc Levemir. Change sliding scale to mild regular. Last dose of 20 units Levemir last night. RN to check glucose Q 1 hr for now until stable. Hypoglycemia protocol initiated.
[2017-10-12] MEDS: Carvedilol 6.25 MG TAB PO SCH ×2 (08:36→20:15)
[2017-10-12] MEDS: Atorvastatin Calcium 40 MG TAB PO SCH (08:36)
[2017-10-12] MEDS: Pantoprazole 40 MG GRANULES PACKET PO SCH (08:37)
[2017-10-12] MEDS: Aspirin 81 mg Enteric Coated Tablet PO SCH (08:37)
[2017-10-12] MEDS: Diltiazem HCl SR 90 mg Capsule PO SCH (08:39)
--- NOTE | 2017-10-12 10:56 | PDOC.PN ---
- Subjective Encounter Start Date: 10/12/17 Encounter Start Time: 07:20 Pt seen for followup re: foot pain. Denies chest pain, shortness of breath, fevers or chills. No nausea or vomiting. - Objective Resuscitation Status: Resuscitation Status FULL:Full Resuscitation MAR Reviewed: Yes Vital Signs & Weight: Vital Signs (12 hours) Temp Pulse Resp BP BP Pulse Ox 10/12/17 08:36 132/73 10/12/17 08:20 99.2 F 127 H 20 95 10/12/17 07:41 99.2 F 127 H 20 132/73 95 10/12/17 04:00 99.6 F 10/12/17 00:00 100.5 F H Weight Admit Weight 119 lb Weight 119 lb I&O: 10/11/17 10/12/17 10/13/17 06:59 06:59 06:59 Intake Total 480 1110 572 Output Total 1250 3950 200 Balance -770 -2840 372 Result Diagrams: 10/15/17 04:43 10/15/17 04:43 Additional Labs: Accuchecks 10/12/17 10/12/17 10/11/17 05:52 03:50 20:53 POC Glucose 98 Less than 35 L* 120 H 10/11/17 19:03 POC Glucose 84 Phys Exam - Physical Examination Constitutional: NAD HEENT: moist MMs, sclera anicteric Neck: supple Respiratory: clear to auscultation bilateral Cardiovascular: RRR, no rub Gastrointestinal: soft, non-tender, positive bowel sounds Musculoskeletal: pulses present Neurological: moves all 4 limbs Psychiatric: normal affect Skin: no rash Dx/Plan (1) Foot pain Code(s): M79.673 - PAIN IN UNSPECIFIED FOOT Status: Acute (2) Bacteremia Code(s): R78.81 - BACTEREMIA Status: Acute (3) DM type 2 (diabetes mellitus, type 2) Status: Chronic Qualifiers: (4) Hypertension Code(s): I10 - ESSENTIAL (PRIMARY) HYPERTENSION Status: Chronic Qualifiers: Comment: - Plan continue antibiotics, PT/OT, out of bed/ambulate, DVT proph w/SCDs * . Hypoglycemia resolved. Continue accuchecks, hypoglycemia protocol. Continue IV ceftriaxone for foot infection. Likely home early next week. Had PICC placed yesterday. Review of Systems - Review of Systems Respiratory: negative: Cough, Dry, Shortness of Breath, Hemoptysis, SOB with Excertion, Pleuritic Pain, Sputum, Wheezing Cardiovascular: negative: Chest Pain, Palpitations, Orthopnea, Paroxysmal Noc. Dyspnea, Edema, Light Headedness Gastrointestinal: negative: Nausea, Vomiting, Abdominal Pain, Diarrhea, Constipation, Melena, Hematochezia - Medications/Allergies Allergies/Adverse Reactions: Allergies Allergy/AdvReac Type Severity Reaction Status Date / Time No Known Drug Allergies Allergy Verified 05/26/17 20:31
[2017-10-12] MEDS: cefTRIAXone\\ROCEPHIN 2 GM in Sodium Chloride 0.9% 100 ML IVPB SCH (18:12)
[2017-10-12] MEDS: Insulin Regular 300 UNITS/3 ML VIAL SC PRN (20:20)
[2017-10-12] MEDS ORDERED: Insulin Detemir 100 UNITS/ML 10 UNITS in Pre-Filled Syringe 1 EACH SC SCH (22:00)
[2017-10-13] MEDS: Insulin Regular 300 UNITS/3 ML VIAL SC PRN ×4 (02:07→21:00)
[2017-10-13 05:56] LABS: Anion Gap 9 mmol/L (10-20); BUN (Urea Nitrogen) 12 mg/dL (9.8-20.1); Calc. Creatinine Clearance 76 mL/min (70-130); Calcium 8.3 mg/dL (7.8-10.44); Carbon Dioxide 29 mmol/L (23-31); Chloride 105 mmol/L (98-107); Estimated GFR-MDRD Greater than 90
[2017-10-13] MEDS: Atorvastatin Calcium 40 MG TAB PO SCH (08:53)
[2017-10-13] MEDS: Carvedilol 6.25 MG TAB PO SCH ×2 (08:53→21:00)
[2017-10-13] MEDS: Aspirin 81 mg Enteric Coated Tablet PO SCH (08:53)
[2017-10-13] MEDS: Diltiazem HCl SR 90 mg Capsule PO SCH (08:53)
[2017-10-13] MEDS: Pantoprazole 40 MG GRANULES PACKET PO SCH (08:53)
[2017-10-13] MEDS: Insulin Detemir 100 UNITS/ML 15 UNITS in Pre-Filled Syringe 1 EACH SC SCH ×2 (10:42→21:00)
--- NOTE | 2017-10-13 11:48 | PDOC.PN ---
- Subjective Encounter Start Date: 10/13/17 Encounter Start Time: 09:00 Subjective: no sob, feels better, no pain in right foot - Objective Resuscitation Status: Resuscitation Status FULL:Full Resuscitation MAR Reviewed: Yes Vital Signs & Weight: Vital Signs (12 hours) Temp Pulse Resp BP BP Pulse Ox 10/13/17 08:53 135/64 10/13/17 08:30 98.9 F 87 18 97 10/13/17 08:03 98.9 F 87 18 135/64 97 10/13/17 04:00 99.4 F 10/13/17 00:00 99.4 F Weight Admit Weight 119 lb Weight 119 lb I&O: 10/12/17 10/13/17 10/14/17 06:59 06:59 06:59 Intake Total 1110 2032 Output Total 3950 200 Balance -2840 1832 Result Diagrams: 10/12/17 03:48 10/13/17 05:12 Additional Labs: Accuchecks 10/13/17 10/13/17 10/13/17 05:09 02:04 00:42 POC Glucose 202 H 361 H 353 H 10/12/17 10/12/17 10/12/17 20:19 16:11 11:26 POC Glucose 465 H 162 H 153 H Phys Exam - Physical Examination HEENT: PERRLA, moist MMs Neck: no JVD, supple Respiratory: no wheezing, no rales Cardiovascular: RRR, no significant murmur Gastrointestinal: soft, non-tender, positive bowel sounds Musculoskeletal: pulses present right foot in dressing Neurological: non-focal, moves all 4 limbs Psychiatric: A&O x 3 Dx/Plan - Plan right foot abscess with tenosynovitis: s/p I&D, is on ceftriaxone, wound ca -: strep agalactiae bacteremia: on ceft, end date is 11/22/17 -: diabetes#2:is labile, encouraged pt to eat consistently, is on lev bid 15 u -: chronic anemia: stable -: fernanda:resolved, htn stable, pt needs to mobilize more * . CM is working on arranging outpt antibiotics. Review of Systems - Medications/Allergies Allergies/Adverse Reactions: Allergies Allergy/AdvReac Type Severity Reaction Status Date / Time No Known Drug Allergies Allergy Verified 05/26/17 20:31 Medications: Current Medications Acetaminophen (Tylenol) 650 mg PO Q4H PRN PRN Reason: Headache/Fever or Pain Last Admin: 10/06/17 00:14 Dose: 650 mg Acetaminophen/Codeine Phosphate (Tylenol #3) 1 tab PO Q4H PRN PRN Reason: Pain Last Admin: 10/11/17 20:54 Dose: 1 tab Al Hydroxide/Mg Hydroxide (Maalox) 30 ml PO Q6H PRN PRN Reason: Heartburn or Indigestion Aspirin (Ecotrin) 81 mg PO DAILY [facility] Last Admin: 10/13/17 08:53 Dose: 81 mg Atorvastatin Calcium (Lipitor) 40 mg PO DAILY [facility] Last Admin: 10/13/17 08:53 Dose: 40 mg Bisacodyl (Dulcolax) 10 mg PO DAILYPRN PRN PRN Reason: Constipation Calcium Carbonate (Tums) 1,000 mg PO PRN PRN PRN Reason: Heartburn or Indigestion Carvedilol (Coreg) 6.25 mg PO BID [facility] Last Admin: 10/13/17 08:53 Dose: 6.25 mg Clonidine (Catapres) 0.1 mg PO Q4H PRN PRN Reason: Systolic BP > 180 Dextrose/Water (Dextrose 50%) 25 gm SLOW IVP PRN PRN PRN Reason: Hypoglycemia Diltiazem HCl (Cardizem Sr) 90 mg PO DAILY [facility] Last Admin: 10/13/17 08:53 Dose: 90 mg Glucagon (Glucagon) 1 mg IM PRN PRN PRN Reason: Hypoglycemia Ceftriaxone Sodium 2 gm/ (Sodium Chloride) 100 mls @ 200 mls/hr IVPB 1700 [facility] Last Admin: 10/12/17 18:12 Dose: 100 mls Dextrose/Water (D5w) 1,000 mls @ 0 mls/hr IV .Q0M PRN; As Directed PRN Reason: Hypoglycemia Last Admin: 10/12/17 04:46 Dose: 1,000 mls Insulin Detemir 15 units/ (Miscellaneous Medication) 0.15 mls @ 0 mls/hr SC BID [facility] Last Admin: 10/13/17 10:42 Dose: 0.15 mls Insulin Human Regular (Humulin R) 0 units SC .MILD SLIDING SCALE PRN PRN Reason: Mild Correctional Scale Last Admin: 10/13/17 05:50 Dose: 3 unit Insulin Human Regular (Humulin R) 0 units SC .BEDTIME SLIDING SC PRN PRN Reason: Bedtime Correctional Scale Last Admin: 10/13/17 02:07 Dose: 5 unit Nitroglycerin (Nitrostat) 0.4 mg SL Q5MIN PRN PRN Reason: Chest Pain Ondansetron HCl (Zofran) 4 mg IVP Q6H PRN PRN Reason: Nausea/Vomiting Pantoprazole Sodium (Protonix) 40 mg PO DAILY [facility] Last Admin: 10/13/17 08:53 Dose: 40 mg Sertraline HCl (Zoloft) 100 mg PO DAILY [facility] Last Admin: 10/13/17 08:53 Dose: 100 mg Sodium Chloride (Flush - Normal Saline) 10 ml IVF Q12HR [facility] Last Admin: 10/13/17 08:59 Dose: 10 ml Sodium Chloride (Flush - Normal Saline) 10 ml IVF PRN PRN PRN Reason: Saline Flush Tramadol HCl (Ultram) 50 mg PO Q6H PRN PRN Reason: Moderate Pain (4-6)
[2017-10-13] MEDS: cefTRIAXone\\ROCEPHIN 2 GM in Sodium Chloride 0.9% 100 ML IVPB SCH (17:29)
[2017-10-13] MEDS ORDERED: Insulin Detemir 100 UNITS/ML 10 UNITS in Pre-Filled Syringe 1 EACH SC SCH (21:00)
[2017-10-14 02:42] LABS: Anion Gap 8 mmol/L (10-20); BUN (Urea Nitrogen) 10 mg/dL (9.8-20.1); Calc. Creatinine Clearance 82 mL/min (70-130); Calcium 8.3 mg/dL (7.8-10.44); Carbon Dioxide 29 mmol/L (23-31); Chloride 105 mmol/L (98-107); Estimated GFR-MDRD Greater than 90
[2017-10-14 02:43] LABS: ALT (SGPT) 12 U/L (8-55); AST (SGOT) 25 U/L (5-34); Alkaline Phosphatase 88 U/L (40-150); Bilirubin, Direct 0.1 mg/dL (0.1-0.3); Bilirubin, Total 0.2 mg/dL (0.2-1.2); Protein, Total 5.5 g/dL (6.0-8.3)
[2017-10-14 06:08] LABS: #Eosinphils 0.1 thou/uL (0.0-0.7); #Lymphocytes 1.7 thou/uL (1.20-3.40); #Monocytes 0.9 thou/uL (0.11-0.59); #Neutrophils 9.4 thou/uL (1.40-6.50); %Basophils 0.2 % (0.0-1.0); %Eosinophils 1.1 % (0.0-10.0); %Lymphocytes 13.8 % (21.0-51.0); %Monocytes 7.4 % (0.0-10.0); Hematocrit 23.3 % (36.0-47.0); Mean Platelet Volume 7.2 fL (7.4-10.4); Red Blood Cell (RBC) Count 2.48 mill/uL (4.20-5.40); White Blood Cell (WBC) Count 12.2 thou/uL (4.8-10.8)
[2017-10-14] MEDS: Acetaminophen/Codeine 30-300mg Tablet PO PRN (08:42)
[2017-10-14] MEDS: Diltiazem HCl SR 90 mg Capsule PO SCH (08:43)
[2017-10-14] MEDS: Pantoprazole 40 MG GRANULES PACKET PO SCH (08:43)
[2017-10-14] MEDS: Insulin Detemir 100 UNITS/ML 15 UNITS in Pre-Filled Syringe 1 EACH SC SCH ×2 (08:43→20:59)
[2017-10-14] MEDS: Carvedilol 6.25 MG TAB PO SCH ×2 (08:43→20:58)
[2017-10-14] MEDS: Atorvastatin Calcium 40 MG TAB PO SCH (08:43)
[2017-10-14] MEDS: Aspirin 81 mg Enteric Coated Tablet PO SCH (08:43)
--- NOTE | 2017-10-14 10:03 | PDOC.PN ---
- Subjective Encounter Start Date: 10/14/17 Encounter Start Time: 10:00 Subjective: feels better, oriented well -: says her finger stick glucose has always been a roller coaster for a long t -: -niall - Objective Resuscitation Status: Resuscitation Status FULL:Full Resuscitation MAR Reviewed: Yes Vital Signs & Weight: Vital Signs (12 hours) Temp Pulse Resp BP Pulse Ox 10/14/17 08:43 148/68 H 10/14/17 08:00 98.6 F 83 17 98 10/14/17 00:00 98.9 F Weight Admit Weight 119 lb Weight 119 lb I&O: 10/13/17 10/14/17 10/15/17 06:59 06:59 06:59 Intake Total 2031 2590 Output Total 200 Balance 1831 2590 Result Diagrams: 10/14/17 05:50 10/14/17 02:00 Additional Labs: Accuchecks 10/14/17 10/14/17 10/14/17 05:52 03:05 01:55 POC Glucose 202 H 96 49 L* 10/13/17 10/13/17 10/13/17 19:50 16:50 11:58 POC Glucose 203 H 132 H 225 H Phys Exam - Physical Examination HEENT: PERRLA, moist MMs Neck: no JVD, supple Respiratory: no wheezing, no rales Cardiovascular: RRR, no significant murmur Gastrointestinal: soft, non-tender, positive bowel sounds Musculoskeletal: pulses present right foot in dressing Neurological: non-focal, moves all 4 limbs Psychiatric: A&O x 3 Dx/Plan - Plan right foot abscess with tenosynovitis: s/p debridement -: strep bacteremia sec to above: on ceftriaxone daily till 11/22/17 -: dm#2: labile, will dc evening levemir -: htn: stable -: needs to ambulate with PT today, still has one drain in her wound * . CM to arrange outpt antibiotics dc plan per ortho advice and if antibiotics are arranged Needs weekly labs for another 6 weeks. Anemia: add feso4 bid, likely might need transfusion prior to dc Review of Systems - Medications/Allergies Allergies/Adverse Reactions: Allergies Allergy/AdvReac Type Severity Reaction Status Date / Time No Known Drug Allergies Allergy Verified 05/26/17 20:31 Medications: Current Medications Acetaminophen (Tylenol) 650 mg PO Q4H PRN PRN Reason: Headache/Fever or Pain Last Admin: 10/06/17 00:14 Dose: 650 mg Acetaminophen/Codeine Phosphate (Tylenol #3) 1 tab PO Q4H PRN PRN Reason: Pain Last Admin: 10/14/17 08:42 Dose: 1 tab Al Hydroxide/Mg Hydroxide (Maalox) 30 ml PO Q6H PRN PRN Reason: Heartburn or Indigestion Aspirin (Ecotrin) 81 mg PO DAILY [facility] Last Admin: 10/14/17 08:43 Dose: 81 mg Atorvastatin Calcium (Lipitor) 40 mg PO DAILY [facility] Last Admin: 10/14/17 08:43 Dose: 40 mg Bisacodyl (Dulcolax) 10 mg PO DAILYPRN PRN PRN Reason: Constipation Calcium Carbonate (Tums) 1,000 mg PO PRN PRN PRN Reason: Heartburn or Indigestion Carvedilol (Coreg) 6.25 mg PO BID [facility] Last Admin: 10/14/17 08:43 Dose: 6.25 mg Clonidine (Catapres) 0.1 mg PO Q4H PRN PRN Reason: Systolic BP > 180 Dextrose/Water (Dextrose 50%) 25 gm SLOW IVP PRN PRN PRN Reason: Hypoglycemia Diltiazem HCl (Cardizem Sr) 90 mg PO DAILY [facility] Last Admin: 10/14/17 08:43 Dose: 90 mg Glucagon (Glucagon) 1 mg IM PRN PRN PRN Reason: Hypoglycemia Ceftriaxone Sodium 2 gm/ (Sodium Chloride) 100 mls @ 200 mls/hr IVPB 1700 [facility] Last Admin: 10/13/17 17:29 Dose: 100 mls Dextrose/Water (D5w) 1,000 mls @ 0 mls/hr IV .Q0M PRN; As Directed PRN Reason: Hypoglycemia Last Admin: 10/12/17 04:46 Dose: 1,000 mls Insulin Detemir 15 units/ (Miscellaneous Medication) 0.15 mls @ 0 mls/hr SC BID [facility] Last Admin: 10/14/17 08:43 Dose: 0.15 mls Insulin Human Regular (Humulin R) 0 units SC .MILD SLIDING SCALE PRN PRN Reason: Mild Correctional Scale Last Admin: 10/13/17 12:04 Dose: 3 unit Insulin Human Regular (Humulin R) 0 units SC .BEDTIME SLIDING SC PRN PRN Reason: Bedtime Correctional Scale Last Admin: 10/13/17 21:00 Dose: 2 unit Nitroglycerin (Nitrostat) 0.4 mg SL Q5MIN PRN PRN Reason: Chest Pain Ondansetron HCl (Zofran) 4 mg IVP Q6H PRN PRN Reason: Nausea/Vomiting Pantoprazole Sodium (Protonix) 40 mg PO DAILY [facility] Last Admin: 10/14/17 08:43 Dose: 40 mg Sertraline HCl (Zoloft) 100 mg PO DAILY [facility] Last Admin: 10/14/17 08:45 Dose: 100 mg Sodium Chloride (Flush - Normal Saline) 10 ml IVF Q12HR [facility] Last Admin: 10/14/17 08:44 Dose: 10 ml Sodium Chloride (Flush - Normal Saline) 10 ml IVF PRN PRN PRN Reason: Saline Flush Tramadol HCl (Ultram) 50 mg PO Q6H PRN PRN Reason: Moderate Pain (4-6)
[2017-10-14] MEDS: Insulin Regular 300 UNITS/3 ML VIAL SC PRN ×2 (14:14→17:38)
--- NOTE | 2017-10-14 17:08 | PRG ---
DATE OF SERVICE: 10/14/2017 SUBJECTIVE: Feeling better, no respiratory symptoms, no abdominal pain and mild pain in the right f oot. PHYSICAL EXAMINATION: VITAL SIGNS: T-max 99.7, blood pressure 140/60, pulse 83. There is no distress. HEENT: Ocular movements are conjugate. LUNGS: Clear. ABDOMEN: Soft and did not remove the dressing from the wound. All the cultures revealed group B st rep. ASSESSMENT AND DISCUSSION: Type 2 diabetes, neuropathy and fracture of the fifth metatarsal, diabet ic ketoacidosis and group B streptococcal bacteremia with right foot abscesses and tenosynovitis. The patient to continue Rocephin IV until 11/22/2017 with weekly labs.
[2017-10-14] MEDS: cefTRIAXone\\ROCEPHIN 2 GM in Sodium Chloride 0.9% 100 ML IVPB SCH (17:37)
[2017-10-14] MEDS: Ferrous Sulfate 325 MG TAB PO SCH (17:38)
[2017-10-15 05:04] LABS: #Basophils 0.1 thou/uL (0.0-0.2); #Eosinphils 0.1 thou/uL (0.0-0.7); #Lymphocytes 2.2 thou/uL (1.20-3.40); #Monocytes 0.9 thou/uL (0.11-0.59); #Neutrophils 7.9 thou/uL (1.40-6.50); %Basophils 0.5 % (0.0-1.0); %Eosinophils 1.2 % (0.0-10.0); %Lymphocytes 19.6 % (21.0-51.0); %Monocytes 8.2 % (0.0-10.0); Hematocrit 23.2 % (36.0-47.0); Red Blood Cell (RBC) Count 2.47 mill/uL (4.20-5.40); White Blood Cell (WBC) Count 11.1 thou/uL (4.8-10.8)
[2017-10-15 05:30] LABS: Anion Gap 9 mmol/L (10-20); BUN (Urea Nitrogen) 11 mg/dL (9.8-20.1); Calc. Creatinine Clearance 79 mL/min (70-130); Calcium 8.5 mg/dL (7.8-10.44); Carbon Dioxide 30 mmol/L (23-31); Chloride 104 mmol/L (98-107); Estimated GFR-MDRD Greater than 90
[2017-10-15] MEDS: Carvedilol 6.25 MG TAB PO SCH (08:03)
[2017-10-15] MEDS: Atorvastatin Calcium 40 MG TAB PO SCH (08:03)
[2017-10-15] MEDS: Diltiazem HCl SR 90 mg Capsule PO SCH (08:03)
[2017-10-15] MEDS: Ferrous Sulfate 325 MG TAB PO SCH (08:03)
[2017-10-15] MEDS: Pantoprazole 40 MG GRANULES PACKET PO SCH (08:03)
[2017-10-15] MEDS: Aspirin 81 mg Enteric Coated Tablet PO SCH (08:04)
[2017-10-15] MEDS: Insulin Detemir 100 UNITS/ML 15 UNITS in Pre-Filled Syringe 1 EACH SC SCH (08:54)
--- NOTE | 2017-10-15 11:54 | DIS ---
TRANSFER OF CARE NOTE DATE OF ADMISSION: 10/03/2017 DATE OF DISCHARGE: 10/15/2017 DISCHARGE DISPOSITION: Discharged to [facility] under the care of Dr. Pedro jeter. PRIMARY CARE PROVIDER: Casting Machine Set Up Operator, Dr. Trujillo at [facility]. DISCHARGE DIAGNOSES: 1. Streptococcus agalactia bacteremia. 2. Chronic ulcer of right foot. 3. Diabetes mellitus type 2. 4. Sepsis syndrome. 5. Acute encephalopathy, metabolic. 6. Anxiety, depression. 7. History of cardiomyopathy. 8. Hypertension. 9. Acute kidney injury, resolved. 10. Diabetic ketoacidosis, resolved. DISCHARGE MEDICATIONS: Aspirin 81 mg a day, Zoloft 100 mg a day, Levemir 20 units subcu q.a.m., Car dizem-CD 180 a day, Coreg 6.25 mg twice a day, Lipitor 40 mg a day, Rocephin 2 grams daily through 01/23/2017, Lisinopril 10 mg a day, Motrin 400 mg 3 times a day, Pepcid 20 mg twice a day. ALLERGIES: No known drug allergies. CODE STATUS: Full. PENDING AT THE TIME OF DISCHARGE: Nothing. HOSPITAL COURSE: The patient admitted to [facility] through [facility]. The patient was admitted with altered mental status, diabetic ketoacidosis. She was sta rted on the DKA protocol with IV insulin, IV hydration, serial lab. Renal function was monitored. Home hypertensive medicines were started. Wound care was started. Blood and wound cultures were ob tained. Blood and wound cultures all grew Streptococcus agalactia sensitive to Rocephin. INITIAL LABORATORY: White count 20.5, hemoglobin 10.6, platelet count 464,000. Initial blood sugar was greater than 700. Creatinine 2.0, BUN 72, CO2 less than 8. Sodium 141, potassium 4.2. The maria edwards's electrolytes improved during her hospital stay. Her BUN is now 11, creatinine 0.61, sodium 139, potassium 3.8. Blood sugars are much better controlled. Her white count has come down to 11.1 , hemoglobin is currently 7. She is alert, cooperative, pleasant. She is being discharged for followup by Dr. Hayes at [facility]. CODE STATUS: Full. She will also need follow up with Dr. Bolden in the future, weekly CBC, comp metabolic profile to be monitored. Wound care. She has a PICC line in for antibiotics which will be continued to 2016. A PICC line was placed 10/11/2017. CONSULTATIONS DURING HOSPITAL STAY: Included Dr. Davion Tamez, Pulmonology; Shahbaz Luo, ID; Dr. Bolden, Orthopedic Surgery.
[2017-10-15 12:08] VITALS: BP 128/60; TEMP 98.3
--- NOTE | 2017-10-17 10:13 | OP ---
DATE OF PROCEDURE: 10/11/2017 PREOPERATIVE DIAGNOSIS: Right foot abscess. POSTOPERATIVE DIAGNOSES: 1. Right mid foot abscess at the level of the knot of Silverio. 2. Right forefoot abscess at plantar surface of fourth metatarsal. PROCEDURES: 1. Incision and drainage of right midfoot abscess at knot of Silverio. 2. Incision and drainage of right forefoot abscess. ANESTHESIA: LMA. SURGEON: Oumar Bolden M.D. TOURNIQUET TIME: 35 minutes at 300 mmHg. SPECIMEN: Swabs sent from both incision and drainage sites. DRAINS: Bill x2. IMPLANTS: None. COMPLICATIONS: None. OUTCOME: Satisfactory. INDICATIONS: Ms. Mueller is a 62-year-old lady who presents with an initial fever of unknown origin and elevated white blood cell count. She has grown out strep from her blood; however, continued to h ave right foot pain. Eventually, an MRI was obtained of this right foot that showed 2 abscess collec tions; one at the medial plantar surface of the longitudinal arch consistent with an abscess near the knot of Silverio and the second one under the fourth metatarsal. These did not appear to communicate b ased on our MRI findings. Given this finding, patient now taken to the operating room for incision a nd drainage. PROCEDURE IN DETAIL: After the induction of LMA anesthesia, patient was positioned supine on the OR table, then a sterile prep and drape was performed of the right lower extremity. Next, the limb was elevated and then tourniquet inflated to 300 mmHg. First, an incision was made along the medial aspe ct of the longitudinal arch. After the skin was sharply incised, dissection was carried down bluntly towards the knot of Silverio once I removed medial to the fascia and abscess cavity was entered. Blunt dissection was used to fully open this abscess and then this was irrigated with a liter and half of normal saline using bulb syringe. Once fully decompressed, attention was then placed at the dorsal s urface of the foot exploiting the interval between the third and fourth metatarsal shafts. An incisi on was made and then blunt dissection carried between the shafts down to the plantar surface. At thi s point, another abscess cavity was encountered with purulent material coming from this abscess as we ll. This was then irrigated with bulb syringe with a total of 1 liter until such time that the fluid coming back from the abscess cavity was clear. At the completion of this, 2 [place] drains were kelsi papi in each abscess cavity and then the skin was closed around the Bill with 3-0 nylon. At the co mpletion of this, a Xeroform gauze and Ulises wrap dressing was then applied to the foot. Tourniquet wa s let down with total time of 35 minutes and then patient was transferred to recovery room in stable condition. There were no complications. She tolerated the procedure well.
== END 2017-10-15 12:56 | DRG 987 ==
LOC: ERS 08:44 → IMCU/EMU 12:50 → ONC 10-06 16:54
PROVIDERS: ADMIT Hospitalist; ATTEND Hospitalist
PROC: 0J9Q0ZZ Drainage of Right Foot Subcutaneous Tissue and Fascia, Open Approach (ICD-10-PCS; principal; 2017-10-11)
PROC: 0J9Q0ZZ Drainage of Right Foot Subcutaneous Tissue and Fascia, Open Approach (ICD-10-PCS; 2017-10-11)
PROC: 02HV33Z Insertion of Infusion Device into Superior Vena Cava, Percutaneous Approach (ICD-10-PCS; 2017-10-11)
PROC: B548ZZA Ultrasonography of Superior Vena Cava, Guidance (ICD-10-PCS; 2017-10-11)
DX: E11.10 Type 2 diabetes mellitus with ketoacidosis without coma (principal); G93.41 Metabolic encephalopathy; N17.9 Acute kidney failure, unspecified; E87.0 Hyperosmolality and hypernatremia; R78.81 Bacteremia; I51.81 Takotsubo syndrome; L02.611 Cutaneous abscess of right foot; S82.61XK Displaced fracture of lateral malleolus of right fibula, subsequent encounter for closed fracture with nonunion; S92.351K Displaced fracture of fifth metatarsal bone, right foot, subsequent encounter for fracture with nonunion; E83.39 Other disorders of phosphorus metabolism; L97.519 Non-pressure chronic ulcer of other part of right foot with unspecified severity; B95.1 Streptococcus, group B, as the cause of diseases classified elsewhere; X58.XXXD Exposure to other specified factors, subsequent encounter; Z79.4 Long term (current) use of insulin; E11.621 Type 2 diabetes mellitus with foot ulcer; F41.9 Anxiety disorder, unspecified; F32.9 Major depressive disorder, single episode, unspecified; I10 Essential (primary) hypertension; E11.40 Type 2 diabetes mellitus with diabetic neuropathy, unspecified; E78.5 Hyperlipidemia, unspecified; Z86.73 Personal history of transient ischemic attack (TIA), and cerebral infarction without residual deficits; F17.210 Nicotine dependence, cigarettes, uncomplicated; D64.9 Anemia, unspecified
CPT/HCPCS: 36415; 36416; 36569; 51701; 70450; 71010; 80048; 80053; 80069; 80076; 81003; 81015; 82010; 82553; 82805; 83735; 84100; 84484; 84550; 85025; 85060; 85652; 86140; 87040; 87070; 87077; 87102; 87149; 87186; 87205; 87206; 93005; 96360; 96361; 96365; 96366; 96376; A4216; A9579; C1751; G8981-GP-CK; G8982-GP-CJ; J0696; J1644; J1815; J2001; J2250; J2274; J2704; J3010; J3370; J7050

== ENCOUNTER 2018-12-15 16:26 | Inpatient (IN) | payer MEDICARE, MEDICAID ==
[~2018-12-15 16:26] MED LIST: Iopamidol 370 76% 100 ML VIAL ONE
[2018-12-15] MEDS ORDERED: KETAMINE 100 MG/ML (5ML VIAL) ONE (16:39)
[2018-12-15] MEDS ORDERED: Rocuronium Bromide 10 MG/ML (10ML VIAL) ONE (16:39)
[2018-12-15] MEDS ORDERED: Norepinephrine 8 MG/0.9% NS 250 ML ONE (16:40)
--- NOTE | 2018-12-15 17:01 | RAD ---
CHEST 1 VIEW: Date: 12/15/18 HISTORY: Hypoglycemia. Chest pain. Dyspnea. COMPARISON: 10/03/17. FINDINGS: Cardiac silhouette is magnified and upper limits of normal in size. Pulmonary vasculature upper limit s of normal. Mediastinum is midline. Tip of the endotracheal catheter is just above the level of the michelle. Nasogastric tube descends to the lower mediastinum with the tip at the expected location of the GE ju nction. No lobar consolidation or evidence of pneumothorax. IMPRESSION: 1. Endotracheal catheter should probably be withdrawn approximately 2-3 cm for better positioning. 2. Nasogastric tube should probably be advanced 10 cm for better positioning. POS: [facility]
[2018-12-15 17:06] LABS: Actual Bicarbonate (HCO3a) 4.1 mEq/L (22-28); Analyzer IN Cardio ER; CO2 Tension 32.5 mmHg (35.0-45.0); Calcium, Ionized 1.32 mmol/L (1.12-1.30); Carboxyhemoglobin (COHb) 0.3 gm% (0.0-3.0); Hemoglobin (Hb) 9.9 g/dL (12.0-16.0); O2 Tension (PaO2) 160.4 mmHg (> 80.0); Potassium - ABG Lab 4.65 mmol/L (3.70-5.30)
[2018-12-15 17:10] LABS: Base Excess (BEa) -30.6 mEq/L (-2.0 to +3.0); Puncture Site LR; pH, Arterial 6.72 (7.35-7.45)
[2018-12-15 17:11] LABS: ALV-art Gradient 84.175 (0-20)
[2018-12-15] MEDS ORDERED: Tranexamic Acid 1,000 MG/10 ML VIAL ONE (17:38)
[2018-12-15 17:44] LABS: CKMB 12.1 ng/mL (0-6.6)
[2018-12-15 17:54] LABS: Hemoglobin 8.6 g/dL (12.0-16.0); Mean Corpuscular HGB CONC 27.3 g/dL (32.0-36.0); Mean Corpuscular Hemoglobin 29.5 pg (27.0-31.0); Mean Platelet Volume 9.4 fL (7.4-10.4); Platelet Count 265 thou/uL (130-400); RBC Distribution Width 12.4 % (11.5-14.5); Red Blood Cell (RBC) Count 2.91 mill/uL (4.20-5.40); White Blood Cell (WBC) Count 20.9 thou/uL (4.8-10.8)
[2018-12-15 17:55] LABS: Bilirubin Negative (Negative); Blood, Urine Small (Negative); Clarity CLOUDY (Clear); Glucose, Urine (Dipstick) >=1000 mg/dL (Negative); Leukocyte Negative (Negative); Nitrite Negative (Negative); Protein, Urine (Dipstick) 100 mg/dL (Neg-Trace); Specific Gravity, Urine 1.018 (1.002-1.036); Urobilinogen 0.2 mg/dL (0.2-1.0)
[2018-12-15 17:56] LABS: Bacteria/HPF None Seen HPF (None Seen); Hyaline Casts/LPF 4-6 HYALINE CAST LPF (0-3 Hyaline); Pathc Cast-AUWi Flag 1.16 (0-2.49); RBC/HPF 0-3 HPF (0-3); Squamous Epithelial 0-3 HPF (0-3); WBC/HPF 0-3 HPF (0-3)
[2018-12-15 17:57] LABS: Yeast-AUWi Flag 48.4 (0-25.0)
[2018-12-15 18:02] LABS: INR-International Normal Ratio 1.7; PTT 35.5 SEC (22.9-36.1); Prothrombin Time 20.4 SEC (12.0-14.7)
[2018-12-15 18:04] LABS: Amphetamine Not Detected (NotDetected); Barbiturates Screen Not Detected (NotDetected); Benzodiazepine Screen Not Detected (NotDetected); Cocaine Metabolite Screen Not Detected (NotDetected); Medtox Control Line Valid? VALID (VALID); Medtox Reader # READER 1; Methadone Not Detected (NotDetected); Methamphetamine Not Detected (NotDetected); Opiate Screen Not Detected (NotDetected); Oxycodone Screen Not Detected (NotDetected); Phencyclidine (PCP) Not Detected (NotDetected); THC/Cannabinoid Screen Not Detected (NotDetected); Tricyclic Screen Not Detected (NotDetected)
[2018-12-15] MEDS ORDERED: Piperacillin/Tazobactam 4.5 GM VIAL ONE (18:04)
[2018-12-15 18:10] LABS: Band 18 % (5-11); Burr Cells SLIGHT = 2-5 cells (100X) (0-1/hpf); Dohle Bodies SLIGHT; Lymphocytes 13 % (21-51); MDiff Complete? YES; Macrocytosis SLIGHT = 6-15 cells (100X) (0-5/hpf); Metamyelocyte 5 % (0-0); Monocytes 7 % (0-10); Myelocyte 1 % (0-0); Neutrophil 56 % (42-75); Ovalocytes SLIGHT = 2-5 cells (100X) (0-1/hpf); Platelet Morphology Comment Appears Adequate; Poikilocytosis SLIGHT = 6-15 cells (100X) (0-5/hpf); Polychromasia SLIGHT = 2-3 cells (100X) (0-2/hpf); Schistocytes SLIGHT = 2-5 cells (100X) (0-1/hpf); Vacuoles SLIGHT
[2018-12-15] MEDS ORDERED: Pantoprazole 80 MG in Sodium Chloride 0.9% 100 ML IVPB SCH (18:15)
[2018-12-15 18:16] LABS: Yeast-All Forms None Seen HPF (None Seen)
[2018-12-15 18:17] LABS: Crystals/HPF 2+ AMORPH URATES HPF (Negative)
[2018-12-15 18:26] LABS: ALT (SGPT) 24 U/L (8-55); AST (SGOT) 21 U/L (5-34); Albumin 2.4 g/dL (3.4-4.8); Alkaline Phosphatase 87 U/L (40-150); BUN (Urea Nitrogen) 93 mg/dL (9.8-20.1); Bilirubin, Total 0.2 mg/dL (0.2-1.2); Calc. Creatinine Clearance 0 mL/min (70-130); Calcium 7.9 mg/dL (7.8-10.44); Chloride 114 mmol/L (98-107); Estimated GFR-MDRD 17; Protein, Total 4.4 g/dL (6.0-8.3); Sodium 143 mmol/L (136-145)
[2018-12-15 18:27] LABS: Acetaminophen Less than 6.0 mcg/mL (10.0-30.0); Alcohol Less than 10 mg/dL (Less than 10); CRP (Inflammatory) 0.7 mg/dL (= or < 0.5); Salicylate Less than 8.0 mg/dL (15.0-30.0)
[2018-12-15 18:35] LABS: Carbon Dioxide Less than 8 mmol/L (23-31)
--- NOTE | 2018-12-15 18:52 | CT ---
CT BRAIN NONCONTRAST: HISTORY: A 63-year-old female with altered mental status, unresponsive. FINDINGS: There is no midline shift or any other mass effect. There is no evidence of acute intracranial hemor rhage, large cortical infarct, obstructive hydrocephalus, or extraaxial fluid collection. The calvar ium is intact. IMPRESSION: No acute intracranial findings. jn [] POS: [facility]
--- NOTE | 2018-12-15 18:56 | CT ---
CT CERVICAL SPINE NONCONTRAST: HISTORY: A 63-year-old female status post acute cervical trauma from fall. FINDINGS: There are no jumped or perched facets. There is no evidence of acute fracture. The vertebral body h eights are maintained. There is no prevertebral soft tissue swelling. IMPRESSION: 1. No evidence of acute fracture or acute traumatic subluxation. 2. Status post intubation with endotracheal tube in the trachea. 3. Fluid/secretions filling the nasopharyngeal and oropharyngeal airway and supraglottic larynx. jnr POS: [facility]
--- NOTE | 2018-12-15 19:01 | CT ---
CT ARTERIOGRAM CHEST WITH IV CONTRAST AND 3D MIP IMAGING: CT ARTERIOGRAM ABDOMEN WITH IV CONTRAST AND 3D MIP IMAGING: HISTORY: Unresponsive. Chest and back pain. FINDINGS: There is good contrast opacification of the pulmonary arteries and the aorta, with normal branching o f the great vessels. The tip of the endotracheal catheter is just above the level of the michelle. Si gnificant atelectasis at the lung bases. No focal parenchymal lung mass. Scattered tiny, nonspecifi c nodules. Heterogeneous nodularity of the inferior pole of the right thyroid lobe. Prominent calcification within the arterial structures, most notably at the right common iliac artery , where there is significant stenosis. No evidence of aortic dissection. Small low density nodule o f the right adrenal gland likely represents an adenoma. Calcified granulomata of the spleen. There is subtle fluid density just above the pancreatic head and neck, adjacent to the posterior aspe ct of the gastric antrum. Just medial to the second portion of the duodenum is a longitudinally orie nted pocket of gas that is 1.3 cm in length x 0.6 cm in width. It is not surrounded by mucosa, as no rmally seen with a duodenal diverticulum. Left humeral intra-osseous catheter. Cysts arise from the kidneys. IMPRESSION: 1. No CT evidence of aortic dissection or aneurysm. 2. Upper abdominal inflammation, primarily between the gastric antrum and the pancreas. There is co ncern for an extraluminal pocket of gas just medial to the second portion of the duodenum, possible u lcer perforation. It does not have the typical appearance of a duodenal diverticulum. Please consid er surgical evaluation. If further imaging is needed, oral contrast administered into the duodenum c ould evaluate for perforation. 3. Endotracheal catheter tip is just above the level of the michelle. Withdrawing the catheter approx imately 2 cm would likely result in better positioning. POS: [facility]
[2018-12-15 19:08] LABS: Glucose 1104 mg/dL (80-115)
[2018-12-15] MEDS ORDERED: Acetaminophen 325 MG TAB PO PRN (19:38)
[2018-12-15] MEDS ORDERED: Sodium Chloride 0.9% 1,000 ML IV SCH ×2 (19:38→22:00)
[2018-12-15] MEDS ORDERED: Ondansetron PF 4 MG/2 ML Vial IVP PRN (19:38)
[2018-12-15] MEDS ORDERED: Acetaminophen 650 MG Suppository PR PRN (19:38)
[2018-12-15] MEDS ORDERED: Norepinephrine 8 MG/0.9% NS 250 ML IVPB SCH (20:00)
[2018-12-15] MEDS ORDERED: Sodium Bicarbonate 50 MEQ in Sodium Chloride 0.45% 1,000 ML IV ONE (20:00)
[2018-12-15] MEDS ORDERED: Dextrose 5 %-0.45 % NaCl 1,000 ML IV PRN (20:05)
[2018-12-15] MEDS ORDERED: NS 0.9% w/ 20 MEQ KCL 1,000 ML IV PRN ×2 (20:05)
[2018-12-15] MEDS ORDERED: D5 1/2 NS w/20 mEq KCL 1,000 ML IV PRN (20:05)
[2018-12-15] MEDS ORDERED: Sodium Chloride 0.9% 1,000 ML IV PRN ×4 (20:05)
[2018-12-15] MEDS ORDERED: CCU Electrolyte Replacement 1 EACH IVPB SCH (20:05)
[2018-12-15] MEDS: Pantoprazole 80 MG in Sodium Chloride 0.9% 100 ML IVP SCH (20:07)
[2018-12-15] MEDS ORDERED: Potassium Phosphate 9 MMOL in Sodium Chloride 0.9% 100 ML IVPB PRN (20:10)
[2018-12-15] MEDS ORDERED: Magnesium Oxide 400 MG TAB PO PRN ×2 (20:10)
[2018-12-15] MEDS ORDERED: Potassium Phosphate 12 MMOL in Sodium Chloride 0.9% 250 ML 250 ML IV PRN (20:10)
[2018-12-15] MEDS ORDERED: Potassium Phosphate 15 MMOL in Sodium Chloride 0.9% 250 ML 250 ML IV PRN (20:10)
[2018-12-15] MEDS ORDERED: Magnesium 2 GM/NS 0.9% 100 ML 2 GM in Premix Bag 1 BAG IVPB PRN (20:10)
[2018-12-15] MEDS ORDERED: Potassium Chloride 40 MEQ in Sodium Chloride 0.9% 250 ML 250 ML IVPB PRN (20:10)
[2018-12-15] MEDS ORDERED: Potassium Chloride 20 MEQ TAB PO PRN (20:10)
[2018-12-15] MEDS ORDERED: CCU ELECTROLYTE REPLACEMENT PROTOCOL FS PRN (20:10)
[2018-12-15] MEDS ORDERED: Insulin Regular 300 UNITS/3 ML VIAL IVP SCH (20:45)
[2018-12-15] MEDS ORDERED: Sodium Bicarbonate 150 MEQ in Sterile Water Injection 1,000 ML IV SCH (20:45)
[2018-12-15] MEDS: HUMULIN R 100 UNITS in Sodium Chloride 0.9% 100 ML IVPB SCH (20:47)
[2018-12-15 20:49] LABS: Troponin I 0.571 ng/mL (< 0.028)
[2018-12-15] MEDS ORDERED: Cefepime 2 GM in Sodium Chloride 0.9% 100 ML IVPB SCH (21:00)
[2018-12-15 21:05] LABS: CO2 Tension 28.1 mmHg (35.0-45.0); Calcium, Ionized 1.24 mmol/L (1.12-1.30); Carboxyhemoglobin (COHb) 0.2 gm% (0.0-3.0); O2 Tension (PaO2) 139.1 mmHg (> 80.0); Potassium - ABG Lab 5.97 mmol/L (3.70-5.30)
[2018-12-15] MEDS: Sodium Bicarb 50 MEQ/50 ML VIAL ONE ×3 (21:08→21:10)
[2018-12-15 21:28] LABS: ALV-art Gradient 110.975 (0-20); Base Excess (BEa) -30.1 mEq/L (-2.0 to +3.0); Puncture Site R RADIAL; pH, Arterial 6.77 (7.35-7.45)
[2018-12-15] MEDS ORDERED: Sodium Bicarb 50 MEQ/50 ML VIAL IVP SCH ×2 (21:30→22:00)
[2018-12-15 21:32] LABS: BUN (Urea Nitrogen) 92 mg/dL (9.8-20.1); Calc. Creatinine Clearance 20 mL/min (70-130); Calcium 8.1 mg/dL (7.8-10.44); Chloride 111 mmol/L (98-107); Estimated GFR-MDRD 17; Potassium 6.2 mmol/L (3.5-5.1); Sodium 140 mmol/L (136-145)
[2018-12-15 21:37] LABS: Actual Bicarbonate (HCO3a) 6.9 mEq/L (22-28); Base Excess (BEa) -21.5 mEq/L (-2.0 to +3.0); Calcium, Ionized 1.17 mmol/L (1.12-1.30); Carboxyhemoglobin (COHb) 0.3 gm% (0.0-3.0); Hemoglobin (Hb) 10.1 g/dL (12.0-16.0); O2 Tension (PaO2) 121.1 mmHg (> 80.0); Potassium - ABG Lab 3.54 mmol/L (3.70-5.30)
[2018-12-15 21:39] LABS: Carbon Dioxide Less than 8 mmol/L (23-31); Glucose 1046 mg/dL (80-115)
[2018-12-15] MEDS: Cefepime 2 GM in Sodium Chloride 0.9% 100 ML IVPB SCH (22:00)
[2018-12-15] MEDS ORDERED: Sodium Bicarb 50 MEQ/50 ML VIAL ONE (22:12)
[2018-12-15] MEDS: metroNIDAZOLE 500 MG in Premix Bag 1 BAG IVPB SCH (22:27)
--- NOTE | 2018-12-15 22:31 | PDOC.EVN ---
Event Note - Event Note Event Note: Patient admitted for Hypothermic shock, DKA with severe acidosis, GI bleed, Possible perforated ulcer, Acute renal failure, and Acute respiratory failure requiring intubation. Critical care time spent was 60 minutes in evaluation and management. H&P dictated.
[2018-12-15] MEDS: Sodium Bicarbonate 150 MEQ in Dextrose 5% in Water 1,000 ML IV SCH (23:07)
[2018-12-16 00:04] LABS: Glucose 887 mg/dL (80-115)
[2018-12-16 00:53] LABS: Anion Gap 33 mmol/L (10-20); BUN (Urea Nitrogen) 93 mg/dL (9.8-20.1); Calc. Creatinine Clearance 21 mL/min (70-130); Calcium 7.2 mg/dL (7.8-10.44); Carbon Dioxide 8 mmol/L (23-31); Chloride 113 mmol/L (98-107); Estimated GFR-MDRD 17; Glucose 870 mg/dL (80-115); Potassium 2.5 mmol/L (3.5-5.1); Sodium 151 mmol/L (136-145)
[2018-12-16] MEDS: Potassium Chloride 40 MEQ in Premix Bag 1 BAG IVPB PRN ×2 (01:04→05:17)
[2018-12-16 02:28] LABS: Glucose 879 mg/dL (80-115)
[2018-12-16 03:24] LABS: ALV-art Gradient 133.725 (0-20); CO2 Tension 24.3 mmHg (35.0-45.0); Puncture Site R RADIAL; pH, Arterial 7.07 (7.35-7.45)
[2018-12-16 03:40] LABS: Glucose 885 mg/dL (80-115)
[2018-12-16] MEDS: Sodium Bicarbonate 150 MEQ in Dextrose 5% in Water 1,000 ML IV SCH ×4 (04:10→19:29)
--- NOTE | 2018-12-16 04:19 | CON ---
DATE OF CONSULTATION: 12/15/2018 HISTORY OF PRESENT ILLNESS: Ms. Mueller is a 63-year-old female who presented with altered mental status, was intubated. Apparently, she was found down unresponsive. She had a glucose of over 1100. She is severely acidemic. She had a rectal temp of 84 on arrival. She had a pH of 6.7 at 5 o'clock. I was consulted to assist in her management. PAST MEDICAL HISTORY: Remarkable for type 2 diabetes, hypertension, peripheral neuropathy, carpal tunnel surgery, and depression. SOCIAL HISTORY: She apparently lives alone. She is a smoker, nondrinker, smokes marijuana. ALLERGIES: SHE HAS NO DRUG ALLERGIES. MEDICATIONS: Unknown. FAMILY HISTORY: Unknown. REVIEW OF SYSTEMS: 10 point review of systems completed, otherwise negative Additional history from old medical records is remarkable for history of a CVA and history of a hip fracture requiring surgery. She had a group B strep bacteremia in October 18. At admission, she had a chronic ulcer in her right foot. She has been, according to old records, as much as [id number]-[id number]-day smoker. PHYSICAL EXAMINATION: GENERAL: She is on pressors with blood pressure in 80s. She is unresponsive. Her pupils are sluggish. She does not move her extremities spontaneously. VITAL SIGNS: She is in sinus rhythm with heart rate of 100, respiratory rate was per mechanical ventilation. When arrived, her rate was 16. This was turned up to 30. NECK: Without lymphadenopathy. HEENT: pupils react. LUNGS: Remarkable for equal breath sounds. HEART: Regular rhythm. No gallop is heard. ABDOMEN: Soft. EXTREMITIES: Without clubbing, cyanosis, or edema. LABORATORY DATA: White count is 20.9, hemoglobin 8.6, platelets 265,000. Sodium 143, potassium 5, chloride 114, bicarb less than 8, BUN 93, creatinine 2.85, glucose 1104. First blood gas 6.72, pCO2 32, PO2 of 160. Second blood gas 6.77, pCO2 28, PO2 139. Ventilatory rate was increased to 30. 4 amps of bicarb were given, her pH is over 7.0 now, 2 more amps of bicarb were given in addition to that, and she is on a bicarb drip at 250 mL an hour now. ASSESSMENT AND PLAN: Her son has been notified that she may not survive this. She did have a dissection protocol CT. Fluid at the pancreatic head was noted just medial to the 2nd portion of the duodenum. There was a pocket of air measuring 1.3 cm in length, 0.6 cm in width. It is unclear whether or not this is free air, but she is obviously too sick for an exploratory laparotomy. The contrast load from the study probably will precipitate already pre-existing renal disease, so we are anticipating a need for Nephrology input. We will continue the bicarb drip. We will continue hyperventilation. If she starts awakening, she will be sedated. Her goal of correction of her glucose probably should be only half way in the first 24 hours. It is unclear whether or not this is just starvation ketosis with hypoperfusion, metabolic acidosis or true diabetic ketoacidosis. It would be unusual for a 63-year-old to develop type 1 diabetes in the last couple of years. I do know the beta-hydroxybutyrate assay will cross assay with starvation ketones based on literature I reviewed in the past. We will continue supportive care. Prognosis is quite dismal. Critical care time 40 minutes. Job ID: [id number] MTDD
[2018-12-16 04:43] LABS: Band 40 % (5-11); Hemoglobin 10.6 g/dL (12.0-16.0); Lymphocytes 13 % (21-51); MDiff Complete? YES; Mean Corpuscular HGB CONC 31.8 g/dL (32.0-36.0); Mean Corpuscular Hemoglobin 29.8 pg (27.0-31.0); Mean Corpuscular Volume 93.8 fL (78.0-98.0); Mean Platelet Volume 9.4 fL (7.4-10.4); Metamyelocyte 1 % (0-0); Monocytes 7 % (0-10); Neutrophil 39 % (42-75); Platelet Count 250 thou/uL (130-400); Platelet Morphology Comment Appears Adequate; RBC Distribution Width 12.7 % (11.5-14.5); Red Blood Cell (RBC) Count 3.56 mill/uL (4.20-5.40); White Blood Cell (WBC) Count 20.5 thou/uL (4.8-10.8)
[2018-12-16 04:44] LABS: Anion Gap 28 mmol/L (10-20); BUN (Urea Nitrogen) 100 mg/dL (9.8-20.1); Calc. Creatinine Clearance 20 mL/min (70-130); Calcium 7.4 mg/dL (7.8-10.44); Carbon Dioxide 14 mmol/L (23-31); Chloride 112 mmol/L (98-107); Estimated GFR-MDRD 16; Potassium 3.2 mmol/L (3.5-5.1); Sodium 151 mmol/L (136-145)
[2018-12-16 04:56] LABS: Glucose 849 mg/dL (80-115)
[2018-12-16] MEDS: Pantoprazole 80 MG in Sodium Chloride 0.9% 100 ML IVP SCH (05:14)
[2018-12-16] MEDS: metroNIDAZOLE 500 MG in Premix Bag 1 BAG IVPB SCH ×3 (05:16→21:46)
[2018-12-16 05:32] LABS: Glucose 858 mg/dL (80-115)
[2018-12-16 07:18] LABS: CO2 Tension 24.1 mmHg (35.0-45.0); pH, Arterial 7.49 (7.35-7.45)
[2018-12-16 07:19] LABS: ALV-art Gradient 168.375 (0-20); Calcium, Ionized 1.03 mmol/L (1.12-1.30); Hemoglobin (Hb) 10.9 g/dL (12.0-16.0); O2 Tension (PaO2) 84.7 mmHg (> 80.0); Potassium - ABG Lab 3.75 mmol/L (3.70-5.30); Puncture Site RB
[2018-12-16 07:28] LABS: Glucose 839 mg/dL (80-115)
[2018-12-16 07:51] LABS: Anion Gap 24 mmol/L (10-20); BUN (Urea Nitrogen) 99 mg/dL (9.8-20.1); Calc. Creatinine Clearance 21 mL/min (70-130); Calcium 7.3 mg/dL (7.8-10.44); Carbon Dioxide 19 mmol/L (23-31); Chloride 112 mmol/L (98-107); Estimated GFR-MDRD 16; Potassium 3.8 mmol/L (3.5-5.1); Sodium 151 mmol/L (136-145)
--- NOTE | 2018-12-16 07:59 | CON ---
DATE OF CONSULTATION: 12/15/2018 REFERRING DOCTOR: Hospitalist Service. REASON FOR CONSULTATION: 1. Blood noted in the back of throat, questionable GI bleeding. 2. CAT scan of the abdomen done shows questionable free air in the abdomen. HISTORY OF PRESENT ILLNESS: Yanet Mueller is a 63-year-old female, who was brought to the ER, hyperglycemic and hypothermic. The patient's blood sugar was more than 1000. She was also diabetic. The patient was intubated and placed on ventilator. The patient was found to have some dog bite in the back of her throat. I was called to see the patient from the ER, because of possible GI bleeding. No mention of the patient vomiting blood or black tarry stools. The patient subsequently is sent for abdominal CAT scan. The CAT scan shows questionable free air. I reviewed the CAT scan with Dr. Preston Stratton, radiologist on-call. There is some swelling on the first and second part of the duodenum with mucosal edema. Free air is suspected and Dr. Preston Stratton does not feel the free air. The patient also was seen by Dr. Bedolla because of the questionable free air in the belly. Right now, she is very unstable .She is severely acidotic. Blood sugar is more than 1000. CBC does show bandemia. WBC count is 20,900. The banding is 18,000, hemoglobin 8.6, hematocrit 31.4. Unfortunately, no history could be obtained from the patient as she is on the ventilator. Also, there were no family members available. Apparently, she lives with a friend locally. [facility], I discovered that she has been in this hospital several times for the same reason. In 2017, she was hospitalized with hypothermia, severe hyperglycemia, and DKA . The patient had actually been intubated during her last admission. No apparent GI disorder. Also discovered were she has diabetes mellitus, possibly CVA, history of SVT, cardiomyopathy, etc. The patient has a Adams catheter and draining small amount of urine. She had some loose stools. An NG tube could not be inserted in the ER and I attempted placement. No other relevant history. ALLERGIES: NONE. SOCIAL HISTORY: The patient is a chronic smoker. She smoked as much as 3 packets per day, but now cut down to 1 packet. No history of alcohol or drug abuse. MEDICAL ILLNESSES: 1. Diabetes mellitus. 2. Supraventricular tachycardia. 3. Hypertension. 4. Neuropathy. 5. Depression. 6. Cardiomyopathy has been seen by Cardiology Service in the past. FAMILY AND SURGICAL HISTORY: Not obtainable. SYSTEMS REVIEW: Unable to obtain. PHYSICAL EXAMINATION: GENERAL: She is on the ventilator, sedated. VITAL SIGNS: Her pulse is 93, blood pressure is 105/60. HEENT: Conjunctivae clear. NECK: Supple. CARDIOVASCULAR SYSTEM: First and second heart sounds were heard. LUNGS: Clear to auscultation. ABDOMEN: Soft and nontender. There is no bowel sounds audible. EXTREMITIES: Reveal no edema. LABORATORY DATA: Shows anemia with hemoglobin 8.6, hematocrit 31.4, MCV 108, platelet count 263,000, WBC 20,900, polymorphs 56, bands 18, lymphocytes 18. Serum chemistries: Sodium 143, potassium 5, chloride 114, bicarb is 8, BUN is 93, creatinine is 2.85, glucose is 1104, lactic acid 1.3, calcium 8.9, bilirubin 0.2 , AST 21, ALT 24, alkaline phophatase 87, albumin 2.4. Abdominal CAT scan reviewed with Dr. Preston Stratton, shows duodenal wall thickening and mucosal edema. The free air is not strongly considered. CLINIC IMPRESSION: 1. Hypothermia, hyperglycemia with diabetic ketoacidosis. She seems lethargic. 2. Respiratory failure, on ventilator. 3. Questionable history of gastrointestinal bleeding, but I doubt. Clinically I believe it is most likely from the intubation. She has mucosal injury with some blood in the back of throat. 4. There is no evidence of free air when I read the CAT scan with Dr. Preston Stratton. I did defer with Dr. Bedolla, who is the surgeon involved in this case. Dr. Bedolla does not think that she has free air; however, he feels that she is too risky developing injuries at present time. The plan is to bring glucose down,, supportive care stabilizer and possibly consider EGD tomorrow and also maybe possibly contrast study of the upper GI tract with Gastrografin . In the meantime, we would aggressively treat the patient with IV fluids, insulin, and iv bicarbonate. Job ID: [id number] [facility]
[2018-12-16 08:03] LABS: Glucose 852 mg/dL (80-115)
--- NOTE | 2018-12-16 08:50 | RAD ---
PORTABLE AP CHEST RADIOGRAPH: Date: 12-16-18 History: Altered mental status. Follow up evaluation. Comparison: 12-15-18 FINDINGS: The right lung apex is excluded from view. Endotracheal tube is noted in place with tip overlying the T4-5 level and above the level of the michelle. Nasogastric tube has been removed. The most superior a spect of the right lung apex is excluded from view. Minimal linear densities seen in the midlung zone s bilaterally and at the left lung base, probably related to mild atelectasis. There is mild elevatio n of the right hemidiaphragm. No consolidation or pleural fluid is appreciated. Pulmonary vasculature is within normal limits. IMPRESSION: 1. Endotracheal tube has been slightly withdrawn overlying the T4-5 level on the current study and ab ove the level of the michelle. 2. Removal of the endotracheal tube. 3. Scattered minimal linear densities in the lungs bilaterally, likely related to mild atelectasis. POS: [facility]
--- NOTE | 2018-12-16 09:24 | HP ---
PRIMARY CARE PHYSICIAN: [place] call. CHIEF COMPLAINT: Found down. HISTORY OF PRESENT ILLNESS: This is a 63-year-old female with history of diabetes mellitus type 2, on insulin; hypertension; hyperlipidemia; and previous stroke with previous history of DKA as well. She was found down by family members. They stated that this has happened before that she was been found unconscious on the floor. When EMS got there, she was hypotensive. She was breathing. She was hypothermic, temperature 82. She was brought into the emergency room. There, she was intubated. She was found to have coffee-ground material in her posterior oropharynx, so she was given a unit of blood along with multiple liters of normal saline and she was started on Levophed with her blood pressure eventually coming up. She has remained unresponsive and her temperature is now up to 88. She has had a little bit of fresh blood appear in the back of her oropharynx, uncertain where this is coming from. The patient was given tranexamic acid for possible upper GI bleed in the ER as well as Dr. Schmitt was consulted and the patient is being admitted to the ICU. No family present at the bedside and per ER doctor, no family has shown up since the patient got here. All history taken from the chart and emergency room doctor. PAST MEDICAL HISTORY: 1. Diabetes mellitus type 2, insulin dependent with history of diabetic ketoacidosis. 2. Previous CVA. 3. Hypertension. 4. Diabetic neuropathy. 5. Hyperlipidemia. PSYCHIATRIC HISTORY: Depression. PAST SURGICAL HISTORY: 1. Carpal tunnel release. 2. Right hip fracture repair. 3. ORIF. SOCIAL HISTORY: The patient smokes a pack of cigarettes a day. No alcohol use. Intermittent marijuana use. ALLERGIES: NO KNOWN DRUG ALLERGIES. FAMILY HISTORY: Multiple family members with diabetes. CURRENT MEDICATIONS: Unknown. REVIEW OF SYSTEMS: Unable to obtain secondary to the patient's mental status. PHYSICAL EXAMINATION: VITAL SIGNS: Blood pressure 113/56, pulse 91, respirations 16, O2 saturation 100 % on the vent, temperature now actually up to 88.9. GENERAL: This is a well-developed, well-nourished female, who is unconscious on the vent. HEENT: Pupils bilaterally equal, sluggishly responsive to light. Oropharynx dry with some dried blood on the tongue and currently intubated. ER doctor just suctioned a little bit of blood from the posterior oropharynx. NECK: Supple. No asymmetry. No lesions. No JVD. CARDIOVASCULAR: Regular rate and rhythm. No murmurs. LUNGS: Clear to auscultation on the vent. No wheezes, crackles, or rhonchi. ABDOMEN: Soft. She has a very large palpable aorta, possibly more than 5 cm per my exam. No guarding. No other masses. Bowel sounds are hypoactive. EXTREMITIES: No clubbing, cyanosis, or edema. She has good pulses in her upper extremities, weak pulses in the lower extremities. No cyanosis currently. No injury visible. SKIN: No rashes or other lesions noted. NEUROLOGIC: The patient is currently unresponsive and hyporeflexic throughout. LABORATORY DATA: White blood cell count 48798 with 18% bands, hemoglobin of 8.6 , hematocrit 31.4, platelet count 265. Coagulation profile with a PT of 20, INR of 1.7, PTT of 35. Complete metabolic panel is notable for chloride of 114 and carbon dioxide less than 8, BUN of 23, creatinine of 2.85, glucose of 1104, and albumin of 2.4. The rest of the complete metabolic panel is normal. CK-MB initially was 12.1 and troponin was 0.4. Creatine kinase was 241, C-reactive protein was little elevated at 0.7, and brain natriuretic peptide was very elevated at 2424. Urinalysis showed protein, lots of glucose and some ketones. Urine drug screen and toxicology reports were negative for no alcohol, acetaminophen, or salicylates. ABG reportedly with pH of 6.7, awaiting full report in computer. IMAGING DATA: Chest x-ray, I did review the chest x-ray done in the emergency room along with the radiologist's report. This shows no infiltrate to the lungs. The endotracheal tube was a little bit far, NG-tube was not advanced quite far enough; other than that, no specific abnormalities. CT of the brain shows no acute findings. CT of the cervical spine showed no evidence of acute fracture or subluxation. There was some fluid secretions filling the nasopharynx and oropharyngeal airway and subglottic larynx. CT dissection protocol showed no evidence of aortic dissection or aneurysm. This did show some prominent calcifications. There was also a subtle fluid density just above the pancreatic head and neck adjacent to the posterior aspect of the gastric antrum, just medial to the 2nd portion of duodenum along the longitudinally oriented pocket of gas 1.3 cm x 0.6 cm, not surrounded by mucosa, concerning for possibly perforated ulcer. EKG showed a normal sinus rhythm at 66 beats per minute with possible septal infarct, age undetermined. There was a prolonged QT interval, but the ST-segments and T-waves are all normal. [place] is normal. ASSESSMENT: 1. Diabetic ketoacidosis, similar to the patient's other presentations looking at the blood work, however, is much more severe. She does have a severe acidosis and severely elevated blood sugar. Typically, we do not see this in type 2 diabetics ; however, she may have had some loss of pancreatic function as she has gotten older, so that she has more of a type 1 now. She has had diabetic ketoacidosis in the past. This is likely the initial source of her insult. However, she also now is going into shock, possibly from either hypothermia or from gastrointestinal bleed. We will start the patient on DKA protocol. She does have a severe acidosis, pH of 6.7, so we are starting a bicarbonate drip as well as the insulin drip. 2. Hypotensive shock. Likely multifactoral including hypothermic shock, her diabetic ketoacidosis with severe volume depletion, possible gastrointestinal bleed with black material found in her oropharynx and anemia on her CBC. The patient is currently requiring Levophed, is given 1 unit of blood and several liters of fluid. We will consult Critical Care Dr. Cha to assist with managing this patient and managing the vent and critical care medications. 3. Possible gastrointestinal bleed. The patient was given 1 g of tranexamic acid in the emergency room along with a unit of blood per the ER physician report. Also was given 80 mg of Protonix. We will start her on a Protonix drip. Dr. Schmitt has been consulted and will see the patient in the ICU, may need to transfuse further blood products. 4. Hypothermia, currently warming the patient to assist with any coagulopathy and prevent further bleeding and prevent any possible arrhythmias. 5. Acute renal failure, likely due to shock and possibly volume depletion from DKA, giving fluids and we will monitor closely. 6. Deep venous thrombosis prophylaxis. We will put the patient on SCDs right now. No anticoagulants due to GI bleed. 7. Code status. The patient is unable to discuss at this time and no family members available for now. She is a full code. Will try to call patient's son to discuss grave prognosis and resuscitation status. Patient evaluation and management took 60 minutes of critical care time. Job ID: [id number] MTDD
[2018-12-16 09:32] LABS: Glucose 819 mg/dL (80-115)
[2018-12-16] MEDS: HUMULIN R 100 UNITS in Sodium Chloride 0.9% 100 ML IVPB SCH ×2 (09:39→23:13)
--- NOTE | 2018-12-16 10:19 | PDOC.PN ---
- Subjective Encounter Start Date: 12/16/18 Encounter Start Time: 12:00 -: non-verbal Subjective: Patient a bit restless on the vent - Objective Resuscitation Status - Order Detail: 12/16/18 06:06 Resuscitation Status Routine Resuscitation Status: DNAR: NO Resuscitation Discussed with: SON ANNEMARIE Reviewed: Yes Vital Signs & Weight: Vital Signs (12 hours) Temp Pulse Resp BP 12/16/18 08:00 99.9 F H 22 H 12/16/18 07:52 105 H 115/41 L 12/16/18 06:00 30 H 12/16/18 04:00 30 H 12/16/18 03:40 115 H 109/43 L 12/16/18 02:00 30 H 12/16/18 01:30 119 H 12/16/18 00:00 30 H Weight Admit Weight 143 lb 15.39 oz Weight 153 lb 0.013 oz Most Recent Monitor Data Heart Rate from ECG 107 NIBP 121/51 NIBP BP-Mean 74 Respiration from ECG 22 SpO2 100 I&O: 12/15/18 12/16/18 12/17/18 06:59 06:59 06:59 Intake Total 4746.9 Output Total 406 200 Balance 4340.9 -200 Result Diagrams: 12/16/18 04:14 12/16/18 14:05 Additional Labs: Accuchecks 12/15/18 12/15/18 22:37 16:40 POC Glucose Greater than 550 H* Greater than 550 H* Phys Exam - Physical Examination HEENT: moist MMs Respiratory: no wheezing, no rales, no rhonchi Cardiovascular: RRR, no significant murmur Gastrointestinal: soft, positive bowel sounds Musculoskeletal: pulses present Neurological: non-focal Deviation from normal: sedated on the vent Dx/Plan (1) Hypothermic shock Code(s): T68.XXXA - HYPOTHERMIA, INITIAL ENCOUNTER Status: Acute (2) Metabolic acidosis Code(s): E87.2 - ACIDOSIS Status: Acute Comment: Severe, likely DKA though septic shock and starvation ketosis is also possible, improved with bicarbonate administration. (3) Diabetic keto-acidosis Code(s): E13.10 - OTH DIABETES MELLITUS WITH KETOACIDOSIS WITHOUT COMA Status : Acute Qualifiers: Diabetes mellitus type: type 2 Comment: Supposedly DM Type 2, though given repeated DKA episode she may have exhausted her pancreatic insuling production in recent year. Blood sugar being nakul down slowly. Acidosis improving. (4) Respiratory failure Code(s): J96.90 - RESPIRATORY FAILURE, UNSP, UNSP W HYPOXIA OR HYPERCAPNIA Status: Acute Qualifiers: Respiratory failure complication: unspecified whether with hypoxia or hypercapnia Comment: Intubated, sedation as needed (5) Septic shock Code(s): A41.9 - SEPSIS, UNSPECIFIED ORGANISM; R65.21 - SEVERE SEPSIS WITH SEPTIC SHOCK Status: Acute Comment: Leukocytosis, giving broad spectrum abx covering possible GI source (6) Perforated ulcer Code(s): K27.5 - CHRONIC OR UNSP PEPTIC ULCER, SITE UNSP, WITH PERFORATION Status: Suspected Comment: On Review of CT Dr. Talbot and Dr. Bedolla are not convinced of extraluminal air. Will need EGD when more stable. (7) Acute renal failure Status: Acute Comment: Stable inspite of IV contrast yesterday. (8) Hyperlipidemia Code(s): E78.5 - HYPERLIPIDEMIA, UNSPECIFIED Status: Chronic (9) Hypertension Code(s): I10 - ESSENTIAL (PRIMARY) HYPERTENSION Status: Chronic Qualifiers: Hypertension type: essential hypertension Qualified Code(s): I10 - Essential (primary) hypertension Comment: Currently hypotensive requiring pressors - Plan cont current plan of care, continue antibiotics Patient still critically ill, though improving significantly. * . - Discharge Day Encounter end time: 12:10
[2018-12-16] MEDS ORDERED: Propofol 1,000 MG/100 ML VIAL IV ONE (10:34)
[2018-12-16] MEDS ORDERED: Propofol BOLUS 1,000 MG/100 ML VIAL IV PRN (10:36)
[2018-12-16] MEDS ORDERED: fentaNYL Citrate/PF 2,000 MCG in Sodium Chloride 0.9% 60 ML IV SCH (10:36)
[2018-12-16] MEDS ORDERED: Morphine 2 MG/ML SYRINGE SLOW IVP PRN (10:36)
[2018-12-16] MEDS ORDERED: Fentanyl BOLUS 250 ML IVPB PRN (10:36)
[2018-12-16] MEDS ORDERED: Lorazepam 2 MG/ML VIAL SLOW IVP PRN (10:36)
--- NOTE | 2018-12-16 10:37 | PRG ---
DATE OF SERVICE: 12/16/2018 SUBJECTIVE: Ms. Mueller now moves all extremities to sternal rub. Pupils still sluggish. Sclerae are anicteric. Blood pressures in the one-teens to 120s, heart rate 105 and sinus rhythm, respiratory rate 30 per mechanical ventilation, and oximetry is 100%. Lungs are clear. Heart is regular rhythm. S1 and S2 are normal. Abdomen is soft. Abdomen has no rigidity. Extremities without asymmetry or edema. As mentioned, she moves all four extremities to sternal rub. Chest radiograph shows Endotracheal tube is in the proper position. PH 7.49, pCO2 24, pO2 of 84. Sodium 151, chloride 112, bicarb 14, BUN 100, creatinine 2.89. White count 20.5, hemoglobin 10.6, and platelets 250. Her mechanical ventilation was turned from 30 to 22. She will continue with bicarb drip. She remains hyperosmolar with glucose over 800. We will continue with slow correction of her hyperglycemia. IMPRESSION: 1. Hyperosmolar coma. 2. Metabolic acidosis, most likely secondary to very severe intravascular volume depletion. 3. Hypoperfusion. 4. Status post severe hypothermia on presentation. 5. Status post severe metabolic acidosis on presentation with a pH of 6.7. 6. Diabetes. 7. Marijuana use reportedly. 8. History of tobacco use, heavy in the past. PLAN: Continue current care. Critical care time 35 minutes. Job ID: [id number] MTDD
[2018-12-16 12:30] LABS: Glucose 776 mg/dL (80-115)
[2018-12-16 12:31] LABS: Glucose 784 mg/dL (80-115)
[2018-12-16 14:11] LABS: Glucose 716 mg/dL (80-115)
[2018-12-16 14:40] LABS: Glucose 670 mg/dL (80-115)
[2018-12-16 15:26] LABS: Glucose 753 mg/dL (80-115)
--- NOTE | 2018-12-16 16:22 | RAD ---
ABDOMEN ONE VIEW: History: Nasogastric tube placement. FINDINGS/IMPRESSION: Nasogastric tube descends to the stomach, with the proximal port overlying the upper gastric body. Go od radiographic position. Bowel gas pattern is nonspecific. POS: H
[2018-12-16 17:25] LABS: Glucose 615 mg/dL (80-115)
[2018-12-16 19:07] LABS: Glucose 586 mg/dL (80-115)
[2018-12-16 19:50] LABS: Glucose 622 mg/dL (80-115)
[2018-12-16 20:23] LABS: Glucose 546 mg/dL (80-115)
[2018-12-16] MEDS: Cefepime 2 GM in Sodium Chloride 0.9% 100 ML IVPB SCH (20:55)
--- NOTE | 2018-12-16 20:59 | PRG ---
DATE OF SERVICE: 12/16/2018 SUBJECTIVE: This is a 63-year-old hospitalized yesterday after she was found to be unresponsive with hypothermia, hyperglycemia. The patient was on the ventiator since yesterday. The patient has had no stool in the ICU. The patient was given 1 unit of packed RBCs because of history of some dark blood seen in the toilet during intubation. The patient is on the ventilator, sedated. OBJECTIVE: VITAL SIGNS: Stable. Pulse is 103, blood pressure is 106/60. CARDIOVASCULAR: First and second heart sounds are heard. LUNGS: Clear to auscultation. ABDOMEN: Soft and nondistended. Abdomen is nontender. There are no masses. DIAGNOSTIC DATA: The patient had an abdominal x-ray today after the NG was placed. There is no free air seen in the abdomen and tube is in good place. LABORATORY DATA: Shows WBC is 20,500, hemoglobin is 10.6 after 1 unit of packed RBCs, hematocrit 33.4, platelet count is 250,000 polymorphs 79, bands 40. Serum chemistries, glucose has come down very down from 1100 to 444 today. The chemistry panel shows sodium 151, potassium 3.8, chloride 112, bicarb is 19, BUN is 99, creatinine 2.89, calcium 7.3. Blood culture is growing gram-positive cocci. IMPRESSION: 1. Hypothermia. 2. Diabetic ketoacidosis. 3. Acute kidney injury with possibility of ATN versus volume depletion. 4. Questionable history of GI bleeding and also the CAT scan showing evidence of free air, but does not appear to be true by abdominal x-ray today. The x-ray shows no free air. RECOMMENDATION: 1. Empiric antibiotic therapy. 2. Continue to control blood sugar aggressively. 3. Continue PPI and ventilatory support. 4. EGD in the next 24 to 48 hours. Job ID: [id number] [facility]
--- NOTE | 2018-12-16 21:14 | HP ---
HISTORY OF PRESENT ILLNESS: Zoran Mueller is a 63-year-old female admitted to the hospitalist service yesterday on 12/15/2018. She was found down and had been down for an unknown period time. She was admitted severely hypothermic, hypotensive, and hyperglycemic. She has had a previous stroke with previous history of DKA. The patient was apparently found by family members. She was found unconscious on the floor, temperature of 82 degrees, brought to the emergency room, intubated. Apparently, there was a difficult intubation and multiple attempts to place an NG tube were unsuccessful. She was aggressively hydrated, started on Levophed for maintaining an unresponsive status. Temperature is warming from 82 to 88 degrees[place] [address], hemoglobin 8.6. Sodium 151, potassium 2.5, carbon dioxide of 8, BUN 93, creatinine 2.76, GFR 17, glucose 887. Since being here, today her BUN is 99, creatinine is 2.89. Accu-Cheks 776. The patient had a brain CAT scan that was unremarkable. Chest x-ray was unremarkable. CAT scan dissection protocol with IV contrast revealing absence of any dissection, upper abdominal inflammation between the gastric antrum and pancreas with some edema, questionable air diverticulum versus intraluminal or extraluminal gas, but no free fluid. I was called last night and informed me of this finding and I discussed with the radiologist, and this was very equivocal finding. Her lipase is normal. The patient maintains on the ventilator, has now warmed to 98 degrees. Lipase is normal. Liver function test is normal. Peptide BNP 2424. Troponin 0.571. The patient is on the ventilator, sedated, and history is not obtainable. Family is not available. Old records indicated in March 2016, central line, on 10/21/2017, Dr. Bolden for incision and drainage of foot abscess. Apparently, there is report of carpal tunnel release surgery, ORIF for hip fracture. PAST MEDICAL HISTORY: Type 2 diabetes mellitus, previous admissions for DKA, previous history of stroke, hypertension, diabetic neuropathy, and hyperlipidemia. SOCIAL HISTORY: The patient is a heavy smoker. Does not drink alcohol. Uses marijuana periodically per the records. PHYSICAL EXAMINATION: VITAL SIGNS: Height 5 feet 8 inches, weight 153 pounds. Temperature 99.1, heart rate 104, blood pressure 93/47. LUNGS: Clear to auscultation. CARDIAC: Regular rate and rhythm. ABDOMEN: Soft, mild discomfort in the right abdomen, but no rebound. Remainder of abdomen is soft and nondistended. LABORATORY DATA: The patient has had normal renal function at times, but over the past years, had occasional elevations of her creatinine and acute kidney injury, looking records far back as 2011. ASSESSMENT AND PLAN: 1. Acute kidney injury, dehydration, hypothermia, hyperglycemia. Continue management. 2. Questionable finding at the head of the pancreas and pylorus. I would continue PPIs and consider a CAT scan of the abdomen and pelvis, oral contrast, perhaps tomorrow. I do not think it is necessary today. Hopefully, we can use IV contrast and allow her renal function to improve. I do not think there is any emergent need for visualization of this area as findings are equivocal. Job ID: [id number]
[2018-12-16 21:36] LABS: Glucose 579 mg/dL (80-115)
[2018-12-16 22:21] LABS: Glucose 538 mg/dL (80-115)
[2018-12-16 23:09] LABS: Glucose 497 mg/dL (80-115)
[2018-12-17] MEDS: Sodium Bicarbonate 150 MEQ in Dextrose 5% in Water 1,000 ML IV SCH ×3 (00:35→10:49)
[2018-12-17] MEDS: Propofol 1,000 MG/100 ML VIAL IV PRN ×4 (00:38→23:56)
[2018-12-17] MEDS: metroNIDAZOLE 500 MG in Premix Bag 1 BAG IVPB SCH ×3 (05:08→21:29)
[2018-12-17 05:11] LABS: BUN (Urea Nitrogen) 78 mg/dL (9.8-20.1); Calc. Creatinine Clearance 31 mL/min (70-130); Calcium 7.3 mg/dL (7.8-10.44); Estimated GFR-MDRD 25; Glucose 293 mg/dL (80-115)
[2018-12-17 05:16] LABS: Band 6 % (5-11); Hemoglobin 10.8 g/dL (12.0-16.0); Hypochromia SLIGHT = 6-15 cells (100X) (0-5/hpf); Lymphocytes 13 % (21-51); MDiff Complete? YES; Mean Corpuscular HGB CONC 32.5 g/dL (32.0-36.0); Mean Corpuscular Hemoglobin 29.2 pg (27.0-31.0); Mean Corpuscular Volume 89.8 fL (78.0-98.0); Mean Platelet Volume 9.5 fL (7.4-10.4); Monocytes 3 % (0-10); Neutrophil 78 % (42-75); Nucleated RBC 1 % (0); Platelet Count 130 thou/uL (130-400); Platelet Morphology Comment Appears Adequate; RBC Distribution Width 12.5 % (11.5-14.5); Red Blood Cell (RBC) Count 3.69 mill/uL (4.20-5.40); White Blood Cell (WBC) Count 12.9 thou/uL (4.8-10.8)
[2018-12-17 05:20] LABS: Anion Gap 19 mmol/L (10-20); Carbon Dioxide 37 mmol/L (23-31); Chloride 105 mmol/L (98-107); Sodium 159 mmol/L (136-145)
[2018-12-17 05:22] LABS: Potassium 2.2 mmol/L (3.5-5.1)
[2018-12-17] MEDS: Potassium Chloride 40 MEQ in Premix Bag 1 BAG IVPB PRN ×4 (05:26→21:39)
--- NOTE | 2018-12-17 08:38 | PDOC.PN ---
- Subjective Encounter Start Date: 12/17/18 Encounter Start Time: 09:00 -: non-verbal (S) Subjective: Sedated on vent. Off all pressors. - Objective Resuscitation Status - Order Detail: 12/16/18 06:06 Resuscitation Status Routine Resuscitation Status: DNAR: NO Resuscitation Discussed with: MARY SHARPE Reviewed: Yes Vital Signs & Weight: Vital Signs (12 hours) Temp Pulse Resp BP 12/17/18 08:00 98.2 F 12/17/18 07:24 100 145/66 H 12/17/18 06:00 22 H 12/17/18 04:00 98.2 F 22 H 12/17/18 02:31 96 12/17/18 02:00 22 H 12/17/18 00:00 98.6 F 22 H 12/16/18 22:00 22 H 12/16/18 21:51 101 H Weight Admit Weight 143 lb 15.39 oz Weight 164 lb 3.91 oz Most Recent Monitor Data Heart Rate from ECG 96 NIBP 152/69 NIBP BP-Mean 96 Respiration from ECG 22 SpO2 98 I&O: 12/16/18 12/17/18 12/18/18 06:59 06:59 06:59 Intake Total 4746.9 6657.4 675 Output Total 406 2045 700 Balance 4340.9 4612.4 -25 Result Diagrams: 12/17/18 04:30 12/17/18 10:04 Additional Labs: Accuchecks 12/17/18 12/17/18 12/17/18 04:31 03:17 02:33 POC Glucose 298 H 317 H 331 H 12/17/18 12/17/18 01:27 00:06 POC Glucose 403 H 479 H Phys Exam - Physical Examination HEENT: moist MMs intubated Respiratory: no wheezing, no rales, no rhonchi Cardiovascular: RRR Gastrointestinal: soft, non-tender, positive bowel sounds Musculoskeletal: no edema Deviation from normal: sedated on vent Dx/Plan (1) Hypothermic shock Code(s): T68.XXXA - HYPOTHERMIA, INITIAL ENCOUNTER Status: Resolved (2) Metabolic acidosis Code(s): E87.2 - ACIDOSIS Status: Resolved Comment: Severe, likely DKA though septic shock and starvation ketosis is also possible, improved with bicarbonate administration. (3) Diabetic keto-acidosis Code(s): E13.10 - OTH DIABETES MELLITUS WITH KETOACIDOSIS WITHOUT COMA Status : Acute Qualifiers: Diabetes mellitus type: type 2 Comment: Supposedly DM Type 2, though given repeated DKA episode she may have exhausted her pancreatic insuling production in recent years. Blood sugar being nakul down slowly. Acidosis resolved. (4) Respiratory failure Code(s): J96.90 - RESPIRATORY FAILURE, UNSP, UNSP W HYPOXIA OR HYPERCAPNIA Status: Acute Qualifiers: Respiratory failure complication: unspecified whether with hypoxia or hypercapnia Comment: Intubated, sedation as needed (5) Septic shock Code(s): A41.9 - SEPSIS, UNSPECIFIED ORGANISM; R65.21 - SEVERE SEPSIS WITH SEPTIC SHOCK Status: Acute Comment: Leukocytosis, giving broad spectrum abx covering possible GI source, improving (6) Perforated ulcer Code(s): K27.5 - CHRONIC OR UNSP PEPTIC ULCER, SITE UNSP, WITH PERFORATION Status: Suspected Comment: On Review of CT Dr. Talbot and Dr. Bedolla are not convinced of extraluminal air. Will need EGD when more stable. (7) Acute renal failure Status: Acute Comment: Improving with fluids. (8) Hyperlipidemia Code(s): E78.5 - HYPERLIPIDEMIA, UNSPECIFIED Status: Chronic (9) Hypertension Code(s): I10 - ESSENTIAL (PRIMARY) HYPERTENSION Status: Chronic Qualifiers: Hypertension type: essential hypertension Qualified Code(s): I10 - Essential (primary) hypertension Comment: off pressors, BP normal currently - Plan cont current plan of care, continue antibiotics, respiratory therapy, DVT proph w/SCDs Patient markedly improved. CT scan this AM. * . - Discharge Day Encounter end time: 09:15
[2018-12-17 08:41] LABS: Actual Bicarbonate (HCO3a) 39.2 mEq/L (22-28); Base Excess (BEa) 16.7 mEq/L (-2.0 to +3.0); CO2 Tension 37.9 mmHg (35.0-45.0); Carboxyhemoglobin (COHb) 0.6 gm% (0.0-3.0); Hemoglobin (Hb) 10.9 g/dL (12.0-16.0); O2 Tension (PaO2) 62.4 mmHg (> 80.0)
[2018-12-17 08:45] LABS: pH, Arterial 7.63 (7.35-7.45)
[2018-12-17 08:46] LABS: ALV-art Gradient 175.425 (0-20)
[2018-12-17 10:34] LABS: Potassium 2.2 mmol/L (3.5-5.1)
--- NOTE | 2018-12-17 10:42 | CT ---
ABDOMEN CT WITHOUT CONTRAST PELVIC CT WITHOUT CONTRAST: HISTORY: GI bleed. Patient came in unresponsive. Abnormal findings on recent dissection protocol CT. COMPARISON: CT dissection protocol 12/15/2018. FINDINGS: ABDOMEN CT: Interval increase in bilateral pleural effusions. There is consolidation of the right lobe due to at electasis, pneumonia, or aspiration. There is also consolidation noted to a lesser extent in the lef t lower lobe which may be due to atelectasis, pneumonia, or aspiration. Heart size is within normal limits. There is a small amount of pericardial fluid. There is newly developed perihepatic and evelina splenic free fluid. Evaluation of the solid abdominal viscera is limited by lack of IV contrast. Gr ossly, the liver, spleen, pancreas, and adrenal glands have appropriate attenuation. There is mixed attenuation involving the left and right kidney. Findings may be secondary to incomplete excretion o f contrast which would correspond to the patient's diminished GFR. However, the heterogeneous appear ance does raise the possibility of multifocal pyelonephritis. There is no evidence of obstructive ur opathy. Redemonstration of a left renal cortical cyst. Bilaterally, no obstructive uropathy. There is fluid in both pericolic gutters. There is no mesenteric mass or lymphadenopathy. There is no evidence of free air. There does appear to be a persistent focus of air attenuation involving the 2nd portion of the duodenum. There appears to be additional air that has developed that is now in t he 3rd to almost 4th portion of the duodenum. There is bowel wall thickening and adjacent mesenteric stranding involving the gastric antrum and the entire duodenum. The jejunal loops and ileal loops a re unremarkable. Ileocecal junction is normal. Normal-caliber appendix. Mucosal prominence involvi ng the sigmoid colon is likely due to inadequate distention. Note is made of a nasogastric tube within the stomach. CT PELVIS: There is complex free fluid in the pelvis. Uterus and right adnexa are unremarkable. Hypodense lesi on in the left adnexa has an attenuation coefficient of 14 Hounsfield units and measures 6.2 x 5.6 cm . No lytic or blastic lesions in the osseous structures. IMPRESSION: 1. Interval development of bilateral pleural effusions with adjacent lower lobe consolidation, right greater than left. Correlate for aspiration, pneumonia, or atelectasis. 2. Heterogeneous appearance of the left and right kidney which may be secondary to poor renal functi on. However, the possibility of pyelonephritis cannot be completely excluded. No evidence of obstru ctive uropathy. 3. Persistent and worsening inflammatory changes involving the gastric antrum and the entire duodenu m. Correlate for peptic ulcer disease. There is increased air along the periphery of the duodenum w hich may represent a contained perforation. The possibility of a diverticulum in this region, that w as not appreciated on the previous examination, cannot be completely excluded. 4. Interval development of complex fluid in the abdomen or pelvis. 5. Left adnexal lesion, presumed to be of ovarian origin. Nonemergent ROAD TRAIN DRIVER consultation is recommend ed. POS: NONI
[2018-12-17] MEDS: Dextrose 5% in Water 1,000 ML IV SCH ×3 (10:46→20:48)
[2018-12-17] MEDS: Pantoprazole 80 MG in Sodium Chloride 0.9% 100 ML IVP SCH ×2 (10:51→20:48)
[2018-12-17] MEDS: Diltiazem HCl 125 MG, Admixture Fee 1 EACH in Sodium Chloride 0.9% 100 ML IVPB SCH ×2 (11:36→23:56)
[2018-12-17 15:28] LABS: Potassium 2.8 mmol/L (3.5-5.1)
--- NOTE | 2018-12-17 16:13 | PRG ---
DATE OF SERVICE: 12/17/2018 SUBJECTIVE: Yanet Mueller is in the ICU. Her sedation has been held and she still would not follow commands. She does localize to pain. She randomly moves all extremities and had about. The patient will not focus visually on me as I talked to her and gave her a sternal rub. Blood pressure 106/51, heart rate 92, and respiratory rate 12 on the ventilator. Gastric drainage 25 mL. Abdominal x-ray confirmed proper NG tube placement placed last night. Adams catheter 2020 mL per last 24 hours. Her white count this morning is 12.9, hemoglobin 10.8. Her potassium is 2.2 and correction has been initiated. Sodium 159, chloride 105, BUN 78, creatinine 1.97, and GFR 25. This morning, I noted abdominal-pelvis CAT scan oral contrast per NG tube was clamped, but no IV contrast (acute kidney injury). This CAT scan again demonstrated some thickening of the first portion of the duodenum, previously seen on CT angiogram incidentally was questionable focus of peritoneal extraluminal air. Today, there is slightly more air probably extraluminal. The duodenal wall is slightly thickened. There is perihepatic, perisplenic, and pelvic fluid. This free air seen or just small punctate foci and it is not extensive. There is fluid in both pericolic gutters in the pelvis. There seemed to be left adnexal process, probably ovarian in origin measuring 3 x 6 cm. As noted above, the patient's white count is improved from 20,000 yesterday to 12.9. She does not have a left shift today that has resolved. OBJECTIVE: LUNGS: Clear to auscultation. CARDIAC: Regular rate and rhythm. ABDOMEN: Soft, nondistended, minimal tenderness in right abdomen, where it yesterday appreciated more guarding. Today, she does not have any significant guarding. NEUROLOGIC: Her neurologic status is compromised. ASSESSMENT AND PLAN: 1. Encephalopathic. The patient was found down at home and had been down for some period of time. She was admitted with hypotension, hyperglycemia, and diabetic ketoacidosis. This has happened to her previously. Concern is for hypoxic or anoxic brain injury related to hypoxia and hypotension prolonged. I talked to Dr. Cha and EEG is considered. CAT scan of her brain was unremarkable on admission. 2. Possible perforated ulcer. The findings on the CT angio incidentally suggested equivocal findings. Today's CAT scan with oral contrast without IV (acute kidney injury) reveal more extensive punctate areas of free air around the second and third portions of duodenum. There was free fluid perisplenic, perihepatic, left and right gutters, pelvis. The patient is a DNR. I called the patient's son and talked to him per telephone, informed him of these radiological findings, which suggested that she would benefit from a laparotomy. The patient's quality of life has been poor at home. She has had numerous admissions for DKA. Family discussed options and then her son called me back and informed me that they did not want surgical intervention. They did, however, desire continued nonsurgical care. She is on the ventilator. We will continue that today. They do not want CPR or defibrillation. I have discussed this with Dr. Cha. 3. Diabetes mellitus. 4. Hypertension. 5. Respiratory failure on the ventilator. 6. We will consult palliative care. Family will see how she does over the next day or two and may consider withdrawal care pending her clinical course and EEG findings. Job ID: [id number]
--- NOTE | 2018-12-17 18:02 | PRG ---
DATE OF SERVICE: 12/17/2018 SUBJECTIVE: Ms. Mueller surprisingly is surviving. She had repeat CT of her abdomen to evaluate periduodenal area and there is little more air around this. She is afebrile. Blood pressure 111/55, respiratory rate is 13. She developed supraventricular tachycardia/atrial flutter last night for which she was cardioverted. She did it again today and was placed on Cardizem. We will probably end up having to have Cardiology look at her. She is hemodynamically stable. She has positive 9 L since admission. We decreased her IV fluids today. Take her off bicarb drip. She is spontaneously moving all extremities now and is receiving some sedation to keep her comfortable. She is not following commands yet. LABORATORY DATA: White count 12.9, hemoglobin 10.8, platelets 130,000. Sodium 159, potassium 2.2, chloride 105, bicarb 37, BUN 70, creatinine 1.97. A pH of 6.76, pCO2 of 37, pO2 of 62. IMPRESSION: 1. Respiratory failure associated with hyperosmolar coma. 2. Her glucose have been gradually corrected hoping to avoid significant cerebral edema. I am totally okay with blood sugar between 100 and 300 at this point until allow her to equilibrate. 3. Severe hypothermia is an issue. It is amazing to me that she arrived here alive with a temperature of 84, and pH of basically 6.7. 4. It is unclear how effectively she was ventilating and also how hypoxic she was at home. PLAN: Do an EEG in the morning to rule out some unexpected seizure activity and rule out burst suppression, although clinically I do not think either of these issues are going on. I suspect she will end up with diffuse slowing. We will continue with broad antimicrobial coverage. I suspect she has a small perforated duodenal ulcer leading to the air in her abdomen. Dr. Bedolla had 2 conversations with the son today and son stated he did not want his mother to have a laparotomy or any type of exploratory surgery and wanted to continue current care for now. It is still unclear whether or not, she will recover from this. It is clear in my opinion that she will require some type of long-term care if she survives and possibly a tracheostomy and feeding tube placement. Critical care time 40 minutes. Job ID: [id number]
[2018-12-17] MEDS: Cefepime 2 GM in Sodium Chloride 0.9% 100 ML IVPB SCH (21:26)
[2018-12-17 21:28] LABS: Potassium 2.8 mmol/L (3.5-5.1)
--- NOTE | 2018-12-17 22:07 | PRG ---
DATE OF SERVICE: 12/17/2018 SUBJECTIVE: This is a 63-year-old who was brought to the ER after she was found to be unresponsive at home. She was hypothermic and hyperglycemic on admission. She is also severely acidotic. She has a left shift bandemia. She is not on broad-spectrum antibiotic therapy. There is a questionable history of GI bleeding and also the CAT scan showed questionable free air in the belly. The patient has done well on the antibiotic therapy and also IV fluids and control of other electrolytes as well. Her labs are actually improving. She had a repeat CT scan of her abdomen done today, which revealed no free air, but shows possibly air in the wall of the duodenum. She also has thickening of the duodenal area. Radiology feels that patient could simply have a contained perforation. She also has free fluid in the abdomen, also multiple effusions. PHYSICAL EXAMINATION: VITAL SIGNS: Her pulse rate is 92, blood pressure 106/51. CARDIOVASCULAR: First and second sounds. LUNGS: Clear to auscultation. ABDOMEN: Abdomen is nondistended. Abdomen is nontender. LABORATORY DATA: The lab data show marked improvement. Her bandemia has really come down from 40 present to 6 percent today. Her count is down to 12,000. Her BUN and creatinine are improving. The surgical note by Dr. Bedolla noted. Apparently the family has decided not to have any aggressive surgical intervention. I will sign off from today and if any developments, please call me back. Job ID: [id number]
[2018-12-18 04:39] LABS: Anion Gap 15 mmol/L (10-20); BUN (Urea Nitrogen) 51 mg/dL (9.8-20.1); Calc. Creatinine Clearance 43 mL/min (70-130); Calcium 7.6 mg/dL (7.8-10.44); Carbon Dioxide 34 mmol/L (23-31); Chloride 104 mmol/L (98-107); Estimated GFR-MDRD 34; Glucose 129 mg/dL (80-115); Potassium 3.2 mmol/L (3.5-5.1); Sodium 150 mmol/L (136-145)
[2018-12-18 04:49] LABS: #Lymphocytes 2.1 thou/uL (1.20-3.40); #Monocytes 0.6 thou/uL (0.11-0.59); #Neutrophils 7.3 thou/uL (1.40-6.50); %Basophils 0.1 % (0.0-1.0); %Eosinophils 0.1 % (0.0-10.0); %Lymphocytes 21.3 % (21.0-51.0); %Neutrophils 72.5 % (42.0-75.0); Hemoglobin 10.8 g/dL (12.0-16.0); Mean Corpuscular HGB CONC 32.4 g/dL (32.0-36.0); Mean Corpuscular Hemoglobin 29.9 pg (27.0-31.0); Mean Corpuscular Volume 92.3 fL (78.0-98.0); Mean Platelet Volume 9.4 fL (7.4-10.4); Platelet Count 84 thou/uL (130-400); Platelet Morphology Comment Appears Decreased; RBC Distribution Width 12.3 % (11.5-14.5); White Blood Cell (WBC) Count 10.1 thou/uL (4.8-10.8)
[2018-12-18] MEDS: HUMULIN R 100 UNITS in Sodium Chloride 0.9% 100 ML IVPB SCH ×2 (05:41→20:58)
[2018-12-18] MEDS: metroNIDAZOLE 500 MG in Premix Bag 1 BAG IVPB SCH ×3 (06:25→20:58)
[2018-12-18] MEDS: Potassium Chloride 40 MEQ in Premix Bag 1 BAG IVPB PRN (06:40)
[2018-12-18] MEDS: Pantoprazole 80 MG in Sodium Chloride 0.9% 100 ML IVP SCH (06:44)
[2018-12-18 07:16] LABS: Actual Bicarbonate (HCO3a) 33.8 mEq/L (22-28); Base Excess (BEa) 10.3 mEq/L (-2.0 to +3.0); CO2 Tension 40.6 mmHg (35.0-45.0); Calcium, Ionized 1.04 mmol/L (1.12-1.30); Carboxyhemoglobin (COHb) 1.5 gm% (0.0-3.0); Hemoglobin (Hb) 11.2 g/dL (12.0-16.0); Potassium - ABG Lab 3.59 mmol/L (3.70-5.30); Puncture Site RB; pH, Arterial 7.54 (7.35-7.45)
[2018-12-18] MEDS: Pantoprazole 40 MG VIAL IVP SCH ×2 (09:18→20:57)
[2018-12-18] MEDS: Dextrose 5% in Water 1,000 ML IV SCH ×2 (09:18→21:00)
--- NOTE | 2018-12-18 09:22 | PDOC.PN ---
- Subjective Encounter Start Date: 12/18/18 Encounter Start Time: 11:00 Subjective: Patient still on the vent, not tolerating weaning of vent as -: she becomes restless but doesn't respond to commands. - Objective Resuscitation Status - Order Detail: 12/16/18 06:06 Resuscitation Status Routine Resuscitation Status: DNAR: NO Resuscitation Discussed with: MARY SHARPE Reviewed: Yes Vital Signs & Weight: Vital Signs (12 hours) Temp Pulse Resp BP 12/18/18 08:07 89 107/49 L 12/18/18 06:00 14 12/18/18 04:00 99.1 F 12 12/18/18 02:13 82 98/48 L 12/18/18 02:00 12 12/18/18 00:00 98.9 F 14 12/17/18 22:18 89 123/56 L 12/17/18 22:00 14 Weight Admit Weight 143 lb 15.39 oz Weight 165 lb 3.2 oz Most Recent Monitor Data Heart Rate from ECG 85 NIBP 148/66 NIBP BP-Mean 93 Respiration from ECG 25 SpO2 100 I&O: 12/17/18 12/18/18 12/19/18 06:59 06:59 06:59 Intake Total 6657.4 6145.9 Output Total 2045 3625 Balance 4612.4 2520.9 Result Diagrams: 12/18/18 04:07 12/18/18 04:07 Additional Labs: Accuchecks 12/18/18 12/18/18 12/18/18 08:38 07:05 06:07 POC Glucose 196 H 115 H 81 12/18/18 12/18/18 12/18/18 04:07 03:03 02:21 POC Glucose 144 H 206 H 192 H 12/18/18 12/18/18 12/17/18 01:15 00:05 23:23 POC Glucose 159 H 135 H 124 H 12/17/18 12/17/18 12/17/18 22:32 21:18 20:21 POC Glucose 108 132 H 192 H 12/17/18 12/17/18 12/17/18 18:16 17:08 16:09 POC Glucose 270 H 229 H 188 H 12/17/18 12/17/18 12/17/18 15:09 14:16 13:35 POC Glucose 211 H 189 H 175 H 12/17/18 12/17/18 12/17/18 12:03 11:21 10:11 POC Glucose 132 H 132 H 145 H 12/17/18 12/17/18 12/17/18 09:12 08:07 07:13 POC Glucose 155 H 189 H 211 H 12/17/18 06:05 POC Glucose 239 H Phys Exam - Physical Examination HEENT: PERRLA, moist MMs Respiratory: no wheezing, no rales, no rhonchi Cardiovascular: RRR, no significant murmur Gastrointestinal: soft, no distention, positive bowel sounds Musculoskeletal: no edema Neurological: non-focal Deviation from normal: sedated on vent Dx/Plan (1) Hypothermic shock Code(s): T68.XXXA - HYPOTHERMIA, INITIAL ENCOUNTER Status: Resolved (2) Metabolic acidosis Code(s): E87.2 - ACIDOSIS Status: Resolved Comment: Severe, likely DKA though septic shock and starvation ketosis is also possible, improved with bicarbonate administration. (3) Diabetic keto-acidosis Code(s): E13.10 - OTH DIABETES MELLITUS WITH KETOACIDOSIS WITHOUT COMA Status : Acute Qualifiers: Diabetes mellitus type: type 2 Comment: Supposedly DM Type 2, though given repeated DKA episode she may have exhausted her pancreatic insuling production in recent years. Blood sugar being nakul down slowly. Acidosis resolved. (4) Respiratory failure Code(s): J96.90 - RESPIRATORY FAILURE, UNSP, UNSP W HYPOXIA OR HYPERCAPNIA Status: Acute Qualifiers: Respiratory failure complication: unspecified whether with hypoxia or hypercapnia Comment: Intubated, sedation as needed (5) Septic shock Code(s): A41.9 - SEPSIS, UNSPECIFIED ORGANISM; R65.21 - SEVERE SEPSIS WITH SEPTIC SHOCK Status: Acute Comment: Leukocytosis, giving broad spectrum abx covering possible GI source, improving (6) Perforated ulcer Code(s): K27.5 - CHRONIC OR UNSP PEPTIC ULCER, SITE UNSP, WITH PERFORATION Status: Suspected Comment: Repeat CT with evidence of duodenal perforation, Dr. Bedolla has discussed with family and they don't want laparotomy right now, will reassess depending on if patient shows evidence of cerebral recovery (7) Acute renal failure Status: Acute Comment: Improving with fluids. (8) Hyperlipidemia Code(s): E78.5 - HYPERLIPIDEMIA, UNSPECIFIED Status: Chronic (9) Hypertension Code(s): I10 - ESSENTIAL (PRIMARY) HYPERTENSION Status: Chronic Qualifiers: Hypertension type: essential hypertension Qualified Code(s): I10 - Essential (primary) hypertension Comment: off pressors, BP normal currently (10) Anoxic brain injury Status: Acute Comment: EEG to assess for any seizure activity, family wants to continue treatment for another couple days to see if she will improve (11) Paroxysmal SVT (supraventricular tachycardia) Code(s): I47.1 - SUPRAVENTRICULAR TACHYCARDIA Status: Acute Comment: controlled with Cardizem, cardiology consulted - Plan cont current plan of care, continue antibiotics, respiratory therapy, DVT proph w/SCDs EEG done today * . - Discharge Day Encounter end time: 11:20
--- NOTE | 2018-12-18 10:09 | PRG ---
DATE OF SERVICE: 12/18/2018 SUBJECTIVE: Yanet Mueller still moves all of her extremities. She is not awake, but she had a low-dose sedation going. She has an EEG ordered this morning. OBJECTIVE: VITAL SIGNS: Blood pressure 107/49, heart rate 88, respiratory rate is 14. LUNGS: Clear. HEART: Regular rhythm. S1, S2, normal. ABDOMEN: Soft and nontender. EXTREMITIES: Without clubbing, cyanosis, or edema. LABORATORY DATA: White count 10.1, hemoglobin 10.8, platelets [id number]. Sodium 150, potassium 3.2, chloride 104, bicarb 34, BUN 51, creatinine 1.52. PH 7.54, CO2 40, PO2 69. IMPRESSION: 1. Status post hyperosmolar hyperglycemic coma, slowly improving. 2. Severe hypothermia, resolved. 3. ? Microperforation around the duodenum. 4. Blood loss anemia, probably combined with anemia of chronic disease. 5. Longstanding type 2 diabetes. PLAN: We will continue with mechanical ventilation for now. Her neurological status will have to improve. Son does not want any type of surgical procedures done. Hopefully, she will awake and after, we can consider weaning and not have to deal with the issues surrounding tracheostomy and PEG. Ventilatory rate was turned down. Critical care time 30 minutes. Job ID: [id number]
--- NOTE | 2018-12-18 14:46 | CON ---
DATE OF CONSULTATION: 12/18/2018 REASON FOR CONSULTATION: SVT. HISTORY OF PRESENT ILLNESS: Ms. Mueller is a 63-year-old white female, who comes to the hospital extremely ill. She was diagnosed with hyperosmolar hyperglycemic coma, which has been slow to improve. She was also severely hypothermic with what appeared to be septic shock and a microperforation around the duodenum. She has been treated for all these things and is in the ICU, currently intubated and sedated. 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 She has had this in the past. Dr. Moore is her primary acid pumper and she evaluated this in 2016. 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 However, they were waiting on her to be more stable at that time to have any sort of ablation; however, she never followed up. Currently, she is sedated, intubated , and unable to give any more history. PAST MEDICAL HISTORY: 1. Type 2 diabetes. 2. Hypertension. 3. Peripheral neuropathy. 4. Carpal tunnel surgery. 5. Depression. OUTPATIENT MEDICATIONS: 1. Humalog. 2. Cyclobenzaprine. 3. Gabapentin. 4. Duloxetine. 5. Ferrous sulfate. 6. Carvedilol 12.5 mg b.i.d. 7. Atorvastatin 40 mg a day. 8. Diltiazem 180 mg a day. 9. Lisinopril 10 mg a day. 10. Insulin detemir. ALLERGIES: NO KNOWN DRUG ALLERGIES. SOCIAL HISTORY: Apparently, she abuses marijuana and she continues to smoke. No alcohol use per chart review. FAMILY HISTORY: Noncontributory. REVIEW OF SYSTEMS: Unobtainable as the patient is sedated and intubated. PHYSICAL EXAMINATION: VITAL SIGNS: Temperature 99.3, pulse 81, respiratory rate 25, saturating 100% on 40% FiO2. GENERAL: Sedated and intubated. LUNGS: Clear. CARDIOVASCULAR: S1, S2. No S3 or S4. There is a grade 2/6 systolic murmur right upper sternal border. ABDOMEN: Soft with reduced bowel sounds. EXTREMITIES: Trace edema. SKIN: Warm and dry. LABORATORY DATA: Laboratory work was reviewed. White count of 20 on admission down to 10, hemoglobin 10.8, hematocrit of 33, and platelet count 84. Chemistries were reviewed. Potassium is 3.2 this morning, 2.8 yesterday and the day before that had been struggling to keep the potassium up. BUN 51, creatinine 1.52. UA, 1000 glucose, 40 ketones, small blood, 100 proteins. Drug screens were all negative. Plasma alcohol is negative. EKG was reviewed, normal sinus rhythm on admission, AVNRT on most recent one. Telemetry currently in sinus rhythm with PACs. ASSESSMENT: 1. Supraventricular tachycardia, likely atrioventricular dante reentry tachycardia. 2. Hyperosmolar coma. Improving. 3. Acute hypoxic respiratory insufficiency. 4. Noncompliance. 5. History of takotsubo cardiomyopathy. 6. History of heart catheterization with normal coronaries. PLAN: 1. Already on a diltiazem drip, would continue for now. We will have to transition to her p.o. medications in the next few days. I do not think she would be a candidate for an ablation at this time. 2. Family wishes to have no further surgical interventions. This may include ablations as well. We will see how she evolves from the current situation and we will discuss possible ablations in the future with her and her family if she gets through all this. 3. No anticoagulation needed as this is unlikely to be atrial flutter or atrial fibrillation. 4. Dr. Moore is her primary acid pumper, will follow up in the morning. Thank you for letting me to participate in the care of your patient. Job ID: [id number] MTDD
--- NOTE | 2018-12-18 17:49 | PRG ---
DATE OF SERVICE: 12/18/2018 SUBJECTIVE: Yanet Mueller is still on the ventilator. Her sedation has been minimized. She is moving all extremities, but does not make an eye contact and does not follow commands. OBJECTIVE: VITAL SIGNS: Heart rate 82 and blood pressure 135/54. Gastric drainage 160 mL per 24 hours. Urine output 3465. LUNGS: Clear to auscultation. CARDIAC: Regular rate and rhythm without murmur or gallop. ABDOMEN: Soft and nontender. EXTREMITIES: Unremarkable. LABORATORY DATA: White count 10, hemoglobin 10.8. Basic metabolic profile normal. Accu-Cheks 214 to 154. ASSESSMENT AND PLAN: 1. Respiratory failure. 2. Suspect anoxic hypoxic hypertensive encephalopathy. I have talked to Dr. Armin Cruz, who has reviewed her EEG. This is more consistent with an anoxic injury and not consistent with metabolic encephalopathy. Long-term prognosis is poor, and we will communicate that to the family. 3. Suspect perforated duodenal ulcer with microperforation that has . Her white count has returned to normal. Heart rate is normal. Abdomen exam is benign. Family has declined operative intervention and I agree. We will discuss above EEG findings with the family and continue supportive care. 4. Hyperglycemic coma, resolved. Glucose is under control. 5. Acidosis, resolved. Job ID: [id number]
[2018-12-18] MEDS: Cefepime 2 GM in Sodium Chloride 0.9% 100 ML IVPB SCH (20:57)
[2018-12-18] MEDS: Diltiazem HCl 125 MG, Admixture Fee 1 EACH in Sodium Chloride 0.9% 100 ML IVPB SCH (20:58)
[2018-12-19 04:52] LABS: #Lymphocytes 1.6 thou/uL (1.20-3.40); #Monocytes 0.8 thou/uL (0.11-0.59); #Neutrophils 8.8 thou/uL (1.40-6.50); %Basophils 0.1 % (0.0-1.0); %Eosinophils 0.3 % (0.0-10.0); %Lymphocytes 14.7 % (21.0-51.0); %Monocytes 6.7 % (0.0-10.0); %Neutrophils 78.2 % (42.0-75.0); Hemoglobin 10.1 g/dL (12.0-16.0); Mean Corpuscular HGB CONC 31.1 g/dL (32.0-36.0); Mean Corpuscular Hemoglobin 29.6 pg (27.0-31.0); Mean Corpuscular Volume 95.1 fL (78.0-98.0); Mean Platelet Volume 9.9 fL (7.4-10.4); Platelet Count 82 thou/uL (130-400); RBC Distribution Width 12.3 % (11.5-14.5); White Blood Cell (WBC) Count 11.2 thou/uL (4.8-10.8)
[2018-12-19 05:07] LABS: Anion Gap 12 mmol/L (10-20); BUN (Urea Nitrogen) 38 mg/dL (9.8-20.1); Calc. Creatinine Clearance 52 mL/min (70-130); Calcium 8.5 mg/dL (7.8-10.44); Carbon Dioxide 32 mmol/L (23-31); Chloride 103 mmol/L (98-107); Estimated GFR-MDRD 42; Glucose 232 mg/dL (80-115); Potassium 3.1 mmol/L (3.5-5.1); Sodium 144 mmol/L (136-145)
[2018-12-19] MEDS: metroNIDAZOLE 500 MG in Premix Bag 1 BAG IVPB SCH ×3 (06:14→21:54)
[2018-12-19 07:01] LABS: Actual Bicarbonate (HCO3a) 31.4 mEq/L (22-28); Base Excess (BEa) 8.1 mEq/L (-2.0 to +3.0); CO2 Tension 38.9 mmHg (35.0-45.0); Calcium, Ionized 1.13 mmol/L (1.12-1.30); Carboxyhemoglobin (COHb) 1.3 gm% (0.0-3.0); Hemoglobin (Hb) 10.1 g/dL (12.0-16.0); O2 Tension (PaO2) 73.6 mmHg (> 80.0); Potassium - ABG Lab 2.79 mmol/L (3.70-5.30); pH, Arterial 7.53 (7.35-7.45)
[2018-12-19 07:02] LABS: ALV-art Gradient 162.975 (0-20); Puncture Site RB
[2018-12-19] MEDS: Potassium Chloride 40 MEQ in Premix Bag 1 BAG IVPB PRN (07:13)
--- NOTE | 2018-12-19 08:12 | PDOC.PN ---
- Subjective Encounter Start Date: 12/19/18 Encounter Start Time: 09:30 -: non-verbal Subjective: Patient awake this morning and following commands. Off all pressors. -: Insulin drip has been on and off due to blood sugar liability, on D5W. - Objective Resuscitation Status - Order Detail: 12/16/18 06:06 Resuscitation Status Routine Resuscitation Status: DNAR: NO Resuscitation Discussed with: SON ANNEMARIE Reviewed: Yes Vital Signs & Weight: Vital Signs (12 hours) Temp Pulse Resp BP 12/19/18 07:41 78 115/53 L 12/19/18 07:00 98.6 F 12/19/18 06:00 18 12/19/18 04:00 99.1 F 14 12/19/18 02:19 78 12/19/18 02:00 16 12/19/18 00:00 98.6 F 12 12/18/18 22:31 85 12/18/18 22:00 14 Weight Admit Weight 143 lb 15.39 oz Weight 165 lb 3.2 oz Most Recent Monitor Data Heart Rate from ECG 79 NIBP 115/53 NIBP BP-Mean 73 Respiration from ECG 18 SpO2 100 I&O: 12/18/18 12/19/18 12/20/18 06:59 06:59 06:59 Intake Total 6145.9 3353.2 Output Total 3625 2130 250 Balance 2520.9 1223.2 -250 Result Diagrams: 12/19/18 04:30 12/19/18 04:30 Additional Labs: Accuchecks 12/19/18 12/19/18 12/19/18 06:08 04:40 03:36 POC Glucose 200 H 217 H 239 H 12/19/18 12/18/18 12/18/18 00:32 23:06 21:12 POC Glucose 168 H 87 113 H 12/18/18 12/18/18 12/18/18 20:21 18:39 17:02 POC Glucose 127 H 133 H 130 H 12/18/18 12/18/18 12/18/18 15:33 14:17 13:10 POC Glucose 196 H 214 H 154 H 12/18/18 12/18/18 12/18/18 12:34 11:36 10:16 POC Glucose 191 H 233 H 261 H 12/18/18 08:38 POC Glucose 196 H Phys Exam - Physical Examination Constitutional: NAD HEENT: moist MMs Respiratory: no wheezing, no rales, no rhonchi Cardiovascular: RRR, no significant murmur Gastrointestinal: soft, non-tender, positive bowel sounds Neurological: non-focal, moves all 4 limbs Psychiatric: normal affect Deviation from normal: intubated Dx/Plan (1) Anoxic brain injury Status: Acute Comment: EEG consistent with anoxic brain injury, but waking up this AM and following commands. Will have to wait till extubated to further assess extent of permanent impairment if any. (2) Diabetic keto-acidosis Code(s): E13.10 - OTH DIABETES MELLITUS WITH KETOACIDOSIS WITHOUT COMA Status : Acute Qualifiers: Diabetes mellitus type: type 2 Comment: Supposedly DM Type 2, though given repeated DKA episode she may have exhausted her pancreatic insuling production in recent years. Blood sugar normalized. Switch to q4h fsbs and sliding scale. Acidosis resolved. (3) Respiratory failure Code(s): J96.90 - RESPIRATORY FAILURE, UNSP, UNSP W HYPOXIA OR HYPERCAPNIA Status: Acute Qualifiers: Respiratory failure complication: unspecified whether with hypoxia or hypercapnia Comment: Intubated, sedation as needed (4) Septic shock Code(s): A41.9 - SEPSIS, UNSPECIFIED ORGANISM; R65.21 - SEVERE SEPSIS WITH SEPTIC SHOCK Status: Acute Comment: Leukocytosis, giving broad spectrum abx covering possible GI source, improving (5) Perforated ulcer Code(s): K27.5 - CHRONIC OR UNSP PEPTIC ULCER, SITE UNSP, WITH PERFORATION Status: Acute Comment: Repeat CT with evidence of duodenal perforation, Dr. Bedolla has discussed with family and they don't want laparotomy right now, will reassess depending on if patient improves. (6) Acute renal failure Status: Acute Comment: Improving with fluids. (7) Hyperlipidemia Code(s): E78.5 - HYPERLIPIDEMIA, UNSPECIFIED Status: Chronic (8) Hypertension Code(s): I10 - ESSENTIAL (PRIMARY) HYPERTENSION Status: Chronic Qualifiers: Hypertension type: essential hypertension Qualified Code(s): I10 - Essential (primary) hypertension Comment: off pressors, BP normal currently (9) Paroxysmal SVT (supraventricular tachycardia) Code(s): I47.1 - SUPRAVENTRICULAR TACHYCARDIA Status: Acute Comment: controlled with Cardizem, cardiology consulted (10) Hypothermic shock Code(s): T68.XXXA - HYPOTHERMIA, INITIAL ENCOUNTER Status: Resolved (11) Metabolic acidosis Code(s): E87.2 - ACIDOSIS Status: Resolved Comment: Severe, likely DKA though septic shock and starvation ketosis is also possible, improved with bicarbonate administration. - Plan cont current plan of care, continue antibiotics, respiratory therapy, DVT proph w/SCDs * . - Discharge Day Encounter end time: 09:50
--- NOTE | 2018-12-19 08:46 | EEG ---
Referring Physician: Donovan CHENG EEG # [id number] TEST TYPE: ROUTINE PORTABLE INPATIENT REPORT: AN EEG USING THE [employer]NATIONAL TEN-TWENTY SYSTEM OF ELECTRODE PLACEMENT WAS PERFORMED. The background activity is predominately Theta in frequency between 5 and 6 hertz. There is some high amplitude sharp activity seen periodically over both hemispheres. There is some occasional phase reversing sharp transients noted. There is no prolonged epileptiform type activity seen. Photic stimulation was unremarkable. IMPRESSION: THIS IS AN ABNORMAL STUDY FOR THE FINDINGS OF DIFFUSE SLOWING WELL SOME PERIODIC SHARP ACTIVITY CONSISTENT WITH A POSSIBLE ANOXIC INJURY. CLINICAL CORRELATION IS INDICATED. Railroader: [employer]ia [employer] Workforce Representative: EEG.MS JERONIMO
[2018-12-19] MEDS: Pantoprazole 40 MG VIAL IVP SCH ×2 (09:09→21:45)
[2018-12-19] MEDS: Sodium Chloride 0.45% 1,000 ML IV SCH ×2 (10:05→22:03)
[2018-12-19] MEDS ORDERED: Iopamidol 370 76% 50 ML VIAL FS ONE (10:07)
[2018-12-19] MEDS ORDERED: Iopamidol 370 76% 100 ML VIAL ONE (10:07)
[2018-12-19] MEDS: Dextrose 5% in Water 1,000 ML IV SCH (10:26)
[2018-12-19] MEDS ORDERED: Dextrose 5% in Water 1,000 ML IV PRN (12:10)
[2018-12-19] MEDS ORDERED: Dextrose 50% Abboject 50 ML SYRINGE SLOW IVP PRN (12:10)
[2018-12-19] MEDS: HumaLOG 300 UNITS/3 ML VIAL SC PRN ×3 (12:32→22:11)
[2018-12-19] MEDS: Diltiazem HCl 125 MG, Admixture Fee 1 EACH in Sodium Chloride 0.9% 100 ML IVPB SCH (12:45)
--- NOTE | 2018-12-19 13:29 | PRG ---
DATE OF SERVICE: 12/19/2018 SUBJECTIVE: Yaent Moran is in ICU. She now opens her eyes, follows commands, and interacts with medical personnel. Her encephalopathy is markedly improved. OBJECTIVE: VITAL SIGNS: Heart rate 130 to 138, blood pressure 100/56. LUNGS: Clear to auscultation. CARDIAC: Regular rate and rhythm without murmur or gallop. ABDOMEN: Soft and nontender. No guarding whatsoever. When asked if she has any pain, she shakes her head no. LABORATORY DATA: White count this morning 11, hemoglobin 10. Sodium 144, potassium 3.1, carbon dioxide 32, BUN 38, and creatinine 1.27. ASSESSMENT AND PLAN: Microperforation of duodenum with focus of air. Family has decided nonoperative therapy, but the patient is markedly improved. Clinically, there is no evidence of peritonitis. At this time, would obtain a CAT scan of the abdomen and pelvis, oral contrast per NG tube and clamp placing the tube out to suction at the study, and IV contrast to evaluate the abdominal cavity. If she is extubated, hopefully, we can start a diet advancement. Family is pleased to know that she has had a marked improvement in her cephalopathy. Her acute kidney injury has improved and her urine output is copious. Job ID: [id number]
[2018-12-19] MEDS ORDERED: Digoxin 0.5 MG/2 ML AMP SLOW IVP SCH (13:30)
[2018-12-19 13:51] VITALS: BMI 25.1
--- NOTE | 2018-12-19 15:54 | CT ---
CT ABDOMEN AND PELVIS WITH IV AND ORAL CONTRAST: HISTORY: Abdominal pain. Ulcer perforation. Followup. COMPARISON: 12/17/2017 and 12/15/2017 FINDINGS: A small amount of bilateral pleural fluid and significant atelectasis at each lung base are again dem onstrated and similar to previous exam. Nasogastric tube descends to the abdomen and was used for ad ministration of oral contrast. The oral contrast extends to the rectum. Projecting medially, from the second portion of the duodenu m, a thin linear extraluminal collection of contrast measures up to 2.4 cm in length x 0.8 cm in widt h and lies primarily just anterior to the inferior vena cava. Fluid surrounding the pancreas and ext ending along each paracolic gutter has decreased significantly since the most recent study. The stra nding within the upper abdominal central fat has also decreased. Cysts of the liver and kidneys are again demonstrated. Prominent calcification within the arterial s tructures. Fluid in the dependent portion of the pelvis is not significantly changed. Large left ad nexal cystic lesion is stable. IMPRESSION: 1. Interval decrease in inflammation and upper abdominal free fluid, which has been previously cente red about the pancreas and duodenum. 2. Extraluminal enteric contrast projecting medially from the second portion of the duodenum is evid ence of a leak, which is confined to a small area just anterior to the inferior vena cava at the time of the examination. 3. Small bilateral pleural effusions are stable. Findings were called to Dr. Bedolla at 1501 hours. CODE CR POS: [facility]
--- NOTE | 2018-12-19 20:44 | EKG ---
Test Reason : RHYTHM CHANGE Blood Pressure : / mmHG Vent. Rate : 160 BPM Atrial Rate : 160 BPM P-R Int : 140 ms QRS Dur : 068 ms QT Int : 236 ms P-R-T Axes : 054 050 194 degrees QTc Int : 385 ms Atrial flutter Abnormal ECG When compared with ECG of 15-DEC-2018 17:30, (Unconfirmed) Vent. rate has increased BY 94 BPM QRS duration has decreased Criteria for Septal infarct are no longer Present Non-specific change in ST segment in Inferior leads Nonspecific T wave abnormality now evident in Inferior leads Nonspecific T wave abnormality now evident in Lateral leads Confirmed by Harvey VALENTINO ([id number]) on 12/19/2018 8:44:34 PM Referred By: ETHAN Confirmed By:Harvey VALENTINO
--- NOTE | 2018-12-19 20:48 | EKG ---
Test Reason : TACHY Blood Pressure : / mmHG Vent. Rate : 159 BPM Atrial Rate : 153 BPM P-R Int : 000 ms QRS Dur : 074 ms QT Int : 318 ms P-R-T Axes : 000 023 066 degrees QTc Int : 517 ms Supraventricular tachycardia Nonspecific ST and T wave abnormality Abnormal ECG When compared with ECG of 16-DEC-2018 20:15, (Unconfirmed) Nonspecific T wave abnormality no longer evident in Inferior leads T wave inversion no longer evident in Anterior leads Confirmed by Harvey VALENTINO ([id number]) on 12/19/2018 8:48:40 PM Referred By: SKYLAR Confirmed By:Harvey VALENTINO
[2018-12-19] MEDS: Digoxin 0.5 MG/2 ML AMP SLOW IVP SCH (21:44)
[2018-12-19] MEDS: Cefepime 2 GM in Sodium Chloride 0.9% 100 ML IVPB SCH (21:45)
--- NOTE | 2018-12-19 21:53 | PRG ---
DATE OF SERVICE: 12/19/2018 SUBJECTIVE: Yanet Mueller has awakened in the last 24 hours. Follows commands and moves all extremities. OBJECTIVE: VITAL SIGNS: Blood pressure is 102/43, heart rate is in the 70s, respiratory rate 18, oximetry is 100%. LUNGS: Clear. HEART: Regular rhythm. S1 and S2 are normal. ABDOMEN: Soft and nontender. EXTREMITIES: Without clubbing, cyanosis, or edema. LABORATORY DATA: White count 11.2, hemoglobin 10.1, platelets 82,000. She did not have a manual differential done today for some reason. Sodium 144, potassium 3.1, chloride 103, bicarb 32, BUN 38, creatinine 1.27, glucose 232. IMPRESSION AND PLAN: Code status has been reversed because of a marked neurological improvement. Repeat abdominal pelvis CT shows a tiny leak from my review of the report. Dr. Bedolla is following as well. We will hopefully extubate her tomorrow if no operative procedure is planned. She appears to have a contained leak with no evidence of peritonitis. I updated the family. CRITICAL CARE TIME: 30 minutes. Job ID: [id number]
[2018-12-20] MEDS: Digoxin 0.5 MG/2 ML AMP SLOW IVP SCH ×2 (02:16→08:26)
[2018-12-20] MEDS: HumaLOG 300 UNITS/3 ML VIAL SC PRN ×6 (02:16→20:07)
[2018-12-20 05:00] LABS: #Lymphocytes 1.4 thou/uL (1.20-3.40); #Monocytes 1.2 thou/uL (0.11-0.59); #Neutrophils 7.5 thou/uL (1.40-6.50); %Basophils 0.4 % (0.0-1.0); %Eosinophils 0.2 % (0.0-10.0); %Lymphocytes 13.5 % (21.0-51.0); %Monocytes 11.8 % (0.0-10.0); Hemoglobin 9.2 g/dL (12.0-16.0); Mean Corpuscular HGB CONC 31.4 g/dL (32.0-36.0); Mean Corpuscular Hemoglobin 29.8 pg (27.0-31.0); Mean Platelet Volume 10.2 fL (7.4-10.4); Platelet Count 83 thou/uL (130-400); RBC Distribution Width 12.1 % (11.5-14.5); White Blood Cell (WBC) Count 10.1 thou/uL (4.8-10.8)
[2018-12-20 05:01] LABS: Anion Gap 17 mmol/L (10-20); BUN (Urea Nitrogen) 39 mg/dL (9.8-20.1); Calc. Creatinine Clearance 50 mL/min (70-130); Calcium 8.6 mg/dL (7.8-10.44); Carbon Dioxide 23 mmol/L (23-31); Chloride 104 mmol/L (98-107); Estimated GFR-MDRD 40; Glucose 256 mg/dL (80-115); Potassium 3.4 mmol/L (3.5-5.1); Sodium 141 mmol/L (136-145)
[2018-12-20] MEDS: metroNIDAZOLE 500 MG in Premix Bag 1 BAG IVPB SCH ×3 (06:49→21:48)
[2018-12-20 07:06] LABS: Actual Bicarbonate (HCO3a) 23.2 mEq/L (22-28); Base Excess (BEa) 0.1 mEq/L (-2.0 to +3.0); CO2 Tension 32.3 mmHg (35.0-45.0); Calcium, Ionized 1.17 mmol/L (1.12-1.30); Carboxyhemoglobin (COHb) 0.5 gm% (0.0-3.0); Hemoglobin (Hb) 9.9 g/dL (12.0-16.0); O2 Tension (PaO2) 95.5 mmHg (> 80.0); Puncture Site RRA; pH, Arterial 7.48 (7.35-7.45)
[2018-12-20 07:07] LABS: ALV-art Gradient 149.325 (0-20)
[2018-12-20] MEDS: Potassium Chloride 40 MEQ in Premix Bag 1 BAG IVPB PRN (08:24)
[2018-12-20] MEDS: Pantoprazole 40 MG VIAL IVP SCH ×2 (08:26→21:49)
--- NOTE | 2018-12-20 09:53 | PRG ---
DATE OF SERVICE: 12/20/2018 SUBJECTIVE: The patient is seen and examined at bedside. She is intubated. She is awake and able to respond. There was no any unexpected events overnight. She is in atrial fibrillation. OBJECTIVE: VITAL SIGNS: Blood pressure is 122/52, pulse is 99, respiratory rate is 13, and O2 saturation is 100% on the ventilator. GENERAL: She is responsive. She sounds like she understands what I am saying. She answers with nodding her head. HEENT: Her pupils are responding to light. Sclerae are nonicteric. Oral mucosa is not examined since she is intubated orally. LUNGS: Breath sounds somewhat diminished at both bases. HEART: S1 and S2. Irregularly irregular. No S3. No S4. ABDOMEN: Soft, nontender, and nondistended. Peristalsis is present. EXTREMITIES: No clubbing, cyanosis, or edema. NEUROLOGIC: She seems to be following my commands. She has been able to move her all 4 extremities. Final neuro examination after she is extubated. SKIN: No rash or erythema. LABORATORY DATA: Labs showed white count of 10.1, hemoglobin 9.2, hematocrit 29.4, and platelet count is 83,000. ABGs showed pH of 7.53, pCO2 of 38.9, pO2 of 73.6, base excess of 8.1, and A-a gradient 162. Sodium 144, potassium 3.1, chloride 103, CO2 of 32, BUN 38, creatinine 1.27, glycemia is ranging from 168 to 261, and calcium 8.5. Abdomen and pelvis CT with IV and oral contrast showed; 1. Decrease inflammatory process and upper abdominal free fluid. 2. Extraluminal enteric contrast projecting medially from the second portion of the duodenum as evidence of a leak. Microbiology, no new findings. Alpha-hemolytic strep and coagulase-negative strep are Staphylococcus on blood cultures. IMPRESSION: 1. Sepsis. 2. Respiratory failure. 3. Hypothermic shock. 4. Metabolic acidosis. 5. Hypertension. 6. Supraventricular tachycardia versus atrial fibrillation with rapid ventricular response. 7. Hyperlipidemia. 8. Acute renal failure. 9. Perforated duodenal ulcer. 10. Diabetic ketoacidosis. PLAN: The patient is on Cardizem drip and digoxin. Her ventricular rate is slowing down to below 100. Cardiology most likely will stop a Cardizem drip since it is only 2.5 mg/hour and continue digoxin IV. We expect idea man to extubate her today. She is doing quite well. She has some duodenal perforation and leak, but with improvement of inflammatory process in the abdomen. She is on cefepime and metronidazole, doing significantly better. Family chose to go with conservative approach and opting out surgical intervention. I will continue DVT prophylaxis and current critical care set up. Job ID: [id number]
[2018-12-20] MEDS: Sodium Chloride 0.45% 1,000 ML IV SCH (11:21)
[2018-12-20] MEDS ORDERED: Ventilator Sedation Protocol 1 EACH FS SCH (12:45)
[2018-12-20] MEDS: Propofol 1,000 MG/100 ML VIAL IV PRN (12:58)
--- NOTE | 2018-12-20 13:06 | EKG ---
Test Reason : Blood Pressure : / mmHG Vent. Rate : 066 BPM Atrial Rate : 066 BPM P-R Int : 172 ms QRS Dur : 094 ms QT Int : 544 ms P-R-T Axes : 078 062 084 degrees QTc Int : 570 ms Normal sinus rhythm Septal infarct , age undetermined Prolonged QT Abnormal ECG Confirmed by BROOKS BRITT ([id number]), editor greeting card PAIGE WHITNEY ([id number]) on 12/20/2018 1:06:34 PM Referred By: Confirmed By:BROOKS BRITT
--- NOTE | 2018-12-20 15:00 | PRG ---
DATE OF SERVICE: 12/20/2018 SUBJECTIVE: Yanet Mueller is doing well. She is intubated and Dr. Cha plans to extubate her today. OBJECTIVE: GENERAL: She is awake, alert, communicative appropriately. VITAL SIGNS: Heart rate 103, blood pressure 127/67. LUNGS: Clear to auscultation. CARDIAC: Regular rate and rhythm without murmur or gallop. ABDOMEN: Soft and nontender. Bowel sounds present. She has had a bowel movement. When I asked if she has any pain, she states that she shakes her head no that she does not. LABORATORY DATA: White count 11.2, hemoglobin 10.1. Basic metabolic profile normal with improving BRAEDEN. BUN 39, creatinine 1.33, GFR 40, potassium 3.4. OVERALL ASSESSMENT AND PLAN: Duodenal ulcer, walled off. Operative intervention is not necessary. She had a CAT scan of the abdomen and pelvis p.o. and IV contrast two days ago, demonstrates a contained area of small leakage 1 cm, but no active extravasation in the perihepatic splenic fluid and paracolic gutter fluid is diminishing. Her white count is normal. Her abdomen is soft and nontender. She does not have any pain. After swallow study provided by speech therapy tomorrow, we would advance her to full liquids. We will continue to follow her. Once extubated, we can get her up in a chair, begin reconditioning. Job ID: [id number]
[2018-12-20] MEDS ORDERED: Propofol BOLUS 1,000 MG/100 ML VIAL IV PRN (15:03)
[2018-12-20] MEDS ORDERED: Fentanyl BOLUS 250 ML IVPB PRN (15:03)
[2018-12-20] MEDS ORDERED: DISCONTINUE PREVIOUS NARCOTIC PAIN MEDICATIONS AND BENZODIAZEPINES FS SCH (15:03)
[2018-12-20] MEDS ORDERED: Morphine 2 MG/ML SYRINGE SLOW IVP PRN (15:03)
[2018-12-20] MEDS ORDERED: fentaNYL Citrate/PF 2,000 MCG in Sodium Chloride 0.9% 60 ML IV SCH (15:03)
[2018-12-20] MEDS ORDERED: Propofol 1,000 MG/100 ML VIAL IV PRN (15:03)
[2018-12-20] MEDS ORDERED: Amiodarone 150 MG, Admixture Fee 1 EACH in Dextrose 5% in Water 100 ML IVPB SCH (15:30)
[2018-12-20] MEDS: Amiodarone 450 MG in Dextrose 5% in Water 250 ML IVPB SCH (16:06)
[2018-12-20] MEDS: Lorazepam 2 MG/ML VIAL SLOW IVP PRN (16:16)
[2018-12-20] MEDS: Enoxaparin Sodium 40 MG/0.4 ML SYRINGE SC SCH (21:47)
[2018-12-20] MEDS: Cefepime 2 GM in Sodium Chloride 0.9% 100 ML IVPB SCH (21:50)
--- NOTE | 2018-12-20 22:50 | PRG ---
DATE OF SERVICE: 12/20/2018 SUBJECTIVE: Ms. Mueller is doing well. She is awake, alert, following all commands. Anticipate that I would be able to extubate her today but she did not pass a leak test, so steroids were started. OBJECTIVE: VITAL SIGNS: Her blood pressure is 112/63, heart rate is 104, and respiratory rate is 14. LUNGS: Clear. HEART: Regular rhythm. ABDOMEN: Soft and nontender. EXTREMITIES: Without clubbing, cyanosis, or edema. LABORATORY DATA: White count is 10.1, hemoglobin 9.2, and platelets 83,000. Electrolytes are unremarkable. Creatinine is 1.33. IMPRESSION: ? vocal cord edema. We will try her on steroids for 24 hours and reassess her for leak in the morning. Once she has had at least 48 hours of steroids, we would probably just empirically extubate her if she fails to have pass a leak test with the bronchoscope standing at the bedside. CRITICAL CARE TIME: 35 minutes. Job ID: [id number]
[2018-12-21] MEDS ORDERED: Digoxin 0.5 MG/2 ML AMP SLOW IVP SCH (03:00)
[2018-12-21] MEDS ORDERED: Amiodarone 450 MG, Admixture Fee 1 EACH in Dextrose 5% in Water 250 ML IVPB SCH (03:00)
[2018-12-21] MEDS: Digoxin 0.5 MG/2 ML AMP SLOW IVP SCH ×2 (03:04→08:25)
[2018-12-21] MEDS: Lorazepam 2 MG/ML VIAL SLOW IVP PRN ×2 (03:39→08:04)
[2018-12-21] MEDS: Amiodarone 450 MG in Dextrose 5% in Water 250 ML IVPB SCH ×3 (03:44→14:45)
[2018-12-21] MEDS: HumaLOG 300 UNITS/3 ML VIAL SC PRN ×2 (04:46→09:32)
[2018-12-21 07:13] LABS: Actual Bicarbonate (HCO3a) 9.6 mEq/L (22-28); Base Excess (BEa) -15.7 mEq/L (-2.0 to +3.0); Calcium, Ionized 1.16 mmol/L (1.12-1.30); Carboxyhemoglobin (COHb) 0.6 gm% (0.0-3.0); Hemoglobin (Hb) 10.2 g/dL (12.0-16.0); O2 Tension (PaO2) 98.7 mmHg (> 80.0); Potassium - ABG Lab 4.74 mmol/L (3.70-5.30); pH, Arterial 7.26 (7.35-7.45)
[2018-12-21 07:14] LABS: ALV-art Gradient 159.375 (0-20); CO2 Tension 21.7 mmHg (35.0-45.0); Puncture Site RRA
[2018-12-21] MEDS: metroNIDAZOLE 500 MG in Premix Bag 1 BAG IVPB SCH ×3 (07:26→21:41)
[2018-12-21] MEDS: Pantoprazole 40 MG VIAL IVP SCH ×2 (08:27→21:41)
[2018-12-21] MEDS: Sodium Chloride 0.45% 1,000 ML IV SCH ×2 (08:27→15:05)
--- NOTE | 2018-12-21 09:03 | RAD ---
PORTABLE CHEST: Date: 12/21/18 PROVIDED CLINICAL HISTORY: Respiratory insufficiency. FINDINGS: Comparison with 12/16/18. Cardiac and mediastinal silhouette is within normal limits. Endotracheal tube is noted with the tip o verlying expected location of thoracic inlet. An enteric catheter is noted, the tip of which terminat es slightly distal to the endotracheal tube tip. No focal consolidation, pleural fluid, or pneumothor ax apparent. IMPRESSION: Enteric catheter positioning as above. CODE T. POS: NONI
[2018-12-21 09:12] LABS: ALT (SGPT) 32 U/L (8-55); AST (SGOT) 20 U/L (5-34); Albumin 2.3 g/dL (3.4-4.8); Alkaline Phosphatase 77 U/L (40-150); Anion Gap 31 mmol/L (10-20); BUN (Urea Nitrogen) 44 mg/dL (9.8-20.1); Bilirubin, Total 0.5 mg/dL (0.2-1.2); Calc. Creatinine Clearance 40 mL/min (70-130); Calcium 8.4 mg/dL (7.8-10.44); Chloride 103 mmol/L (98-107); Estimated GFR-MDRD 31; Globulin 2.9 g/dL (2.4-3.5); Glucose 496 mg/dL (80-115); Magnesium 1.3 mg/dL (1.6-2.6); Protein, Total 5.2 g/dL (6.0-8.3); Sodium 138 mmol/L (136-145)
[2018-12-21 09:19] LABS: Carbon Dioxide 9 mmol/L (23-31)
[2018-12-21 09:20] LABS: Band 29 % (5-11); Hemoglobin 9.2 g/dL (12.0-16.0); Hypochromia SLIGHT = 6-15 cells (100X) (0-5/hpf); Lymphocytes 1 % (21-51); MDiff Complete? YES; Mean Corpuscular HGB CONC 29.7 g/dL (32.0-36.0); Mean Corpuscular Volume 97.6 fL (78.0-98.0); Mean Platelet Volume 10.7 fL (7.4-10.4); Monocytes 8 % (0-10); Neutrophil 62 % (42-75); Platelet Count 157 thou/uL (130-400); Polychromasia SLIGHT = 2-3 cells (100X) (0-2/hpf); RBC Distribution Width 12.4 % (11.5-14.5); Red Blood Cell (RBC) Count 3.18 mill/uL (4.20-5.40); White Blood Cell (WBC) Count 10.3 thou/uL (4.8-10.8)
[2018-12-21] MEDS ORDERED: Insulin Glargine 40 UNITS in Pre-Filled Syringe 1 EACH SC SCH (09:45)
[2018-12-21] MEDS ORDERED: Sodium Chloride 0.9% 1,000 ML IV SCH ×2 (10:00→16:30)
--- NOTE | 2018-12-21 10:06 | PRG ---
DATE OF SERVICE: 12/21/2018 SUBJECTIVE: The patient is seen and examined at the bedside. She is sedated. She is intubated. Apparently, she was in significant distress this morning and appropriate adjustments were made by Dr. Cha on her ventilator and she is doing significantly better. OBJECTIVE: VITAL SIGNS: Blood pressure is 107/37, pulse is 107, respiratory rate is 24, O2 saturation is 100% on ventilator, FiO2 40%. GENERAL: She is orally intubated. HEENT: Pupils are sluggish to respond to light. Conjunctivae pinkish. Sclerae are nonicteric. LUNGS: Clear. HEART: S1 and S2, somewhat tachycardic. No S3, no S4, but regular. ABDOMEN: Soft, nondistended. Bowel sounds are sluggish. EXTREMITIES: No clubbing, cyanosis, or edema. NEUROLOGIC: Postponed since she is sedated. LABORATORY DATA: White count 10.3, hemoglobin 9.2, hematocrit is 31.0, platelet count 157,000. ABGs showed pH of 7.26, pCO2 21.7, PO2 98.7, base excess -15.7. Sodium of 138, potassium 5.0, chloride 103, CO2 9, anion gap 31 from 17, BUN 44, creatinine 1.66. Glycemia is up to 455. Magnesium 1.3, phosphorus 6.0, albumin 2.3, globulin 2.9. Microbiology, no new findings. Chest x-ray showed enteric catheter in place. IMPRESSION: 1. Sepsis. 2. Respiratory failure. 3. Hypothermic shock. 4. Metabolic acidosis. 5. Hypertension. 6. Supraventricular tachycardia versus atrial fibrillation with rapid ventricular response. 7. Hyperlipidemia. 8. Acute renal failure. 9. Perforated duodenal ulcer with small leak. 10. Diabetic ketoacidosis. PLAN: 1. We are going to obtain beta-hydroxybutyrate level stat. The patient might be in diabetic ketoacidosis at this point. Her CO2 dropped significantly in 1 day and she was receiving only mild sliding scale. Her decision about long-acting insulin was postponed after the extubation, but she was not extubated, so we never learned how much long-acting insulin she is getting at home. We are going to continue both antibiotics. We will continue amiodarone drip. She is in sinus rhythm. No sinus tachycardia. 2. We will continue Solu-Medrol. It is very questionable at this point whether Dr. Cha can extubate her with such a profound metabolic changes. If she is positive for beta-hydroxybutyrate, I will start her on insulin drip. For now, we will give her aggressive sliding scale and 40 units of insulin glargine and continue the rest of the regimen. Job ID: [id number]
--- NOTE | 2018-12-21 10:30 | PRG ---
DATE OF SERVICE: 12/21/2018 SUBJECTIVE: Yanet Mueller has not done well from a ventilatory wean standpoint. She is sedated currently. OBJECTIVE: VITAL SIGNS: Blood pressure 107/37, MAP 60, heart rate 77, respiratory rate 24. Gastric output 200 mL 24 hours, but the NG tube is not in proper position. It is probably midway esophagus. Urine output 1355. LUNGS: Clear to auscultation. No wheezing. CARDIAC: Regular rate and rhythm. ABDOMEN: Soft. Bowel sounds present. DIAGNOSTIC DATA: This morning's x-ray reveals NG tube in mid esophagus. Chest x-ray is normal with minimal opacity to left base. LABORATORY DATA: White count 10,000, hemoglobin 9.2. Basic metabolic profile normal except for carbon dioxide is 9. Glucose is 400. Liver function tests are normal. PCO2 is 21.7, pH 7.26. Her rate was increased to 20 overnight. ASSESSMENT AND PLAN: 1. Malposition NG tube, reposition for better function. 2. Acidosis, hyperglycemia. Treatment per Dr. Cha. 3. Perforated duodenal ulcer. Clinically her abdomen is soft, nontender. White count is normal. I do not think that there is progressive leak, but after discussion with Dr. Cha, we could consider repeating her scan, although I do not think it is necessary at this time. Continue supportive care. We will initiate TPN most likely in the next 24 hours. Job ID: [id number]
[2018-12-21] MEDS: HUMULIN R 100 UNITS in Sodium Chloride 0.9% 100 ML IVPB SCH (10:52)
[2018-12-21 11:13] LABS: Actual Bicarbonate (HCO3a) 16.2 mEq/L (22-28); Base Excess (BEa) -7.9 mEq/L (-2.0 to +3.0); CO2 Tension 28.3 mmHg (35.0-45.0); Calcium, Ionized 1.14 mmol/L (1.12-1.30); Carboxyhemoglobin (COHb) 0.5 gm% (0.0-3.0); Hemoglobin (Hb) 9.4 g/dL (12.0-16.0); O2 Tension (PaO2) 84.3 mmHg (> 80.0); Potassium - ABG Lab 3.94 mmol/L (3.70-5.30); Puncture Site RRA; pH, Arterial 7.38 (7.35-7.45)
[2018-12-21 11:14] LABS: ALV-art Gradient 165.525 (0-20)
--- NOTE | 2018-12-21 13:29 | PRG ---
DATE OF SERVICE: 12/21/2018 SUBJECTIVE: Ms. Mueller became acidemic overnight. She was tachypneic this morning. Her ventilator has been adjusted to compensate for metabolic acidosis. OBJECTIVE: VITAL SIGNS: She is afebrile. Heart rate in the 70s, blood pressure 107/38. She is sedated for ventilation. LUNGS: Clear. HEART: Regular rate and rhythm. S1 and S2 are normal. ABDOMEN: Still soft. There is nothing to suggest that she is developing progressive peritonitis. LABORATORY DATA: Intake and outputs, negative 342. White count 10.3, hemoglobin 9.2, platelets 157,000. Sodium 138, potassium 5, chloride 103, bicarb 9, BUN 44 , creatinine 1.66. First blood gas 7.26, CO2 of 21, PO2 of 98, that was on IMV of 6, second blood gas 7.38, CO2 of 28, PO2 of 84 on IMV of 20. Her potassium is 3.9 on the last blood gas with correction of her pH. IMPRESSION: Metabolic acidosis, rapid onset, makes me immediately worried about progression of her perforated duodenum and the early stages of sepsis. She clinically does not look septic, however. I ordered a repeat CT of her abdomen without contrast. I am waiting that report. My quick review of the CT of the abdomen does not show me a huge amount of change if any. I have discussed the above with the surgeon as well. Maybe, she truly is a type 1 diabetic and just receiving sliding scale insulin was inadequate. She has been started back on an insulin drip after an insulin bolus. Hopefully, this is just recurrent diabetic ketoacidosis and she is truly a type 1 diabetic. Hopefully, she will never require an operative procedure for this perforated duodenum that appears to be walled off. Will not consult Gastroenterology because of the theoretical risk of opening up the closed perforation with insufflation and endoscopy. CRITICAL CARE TIME: 30 minutes. Job ID: [id number] [facility]
[2018-12-21 13:31] LABS: Anion Gap 19 mmol/L (10-20); BUN (Urea Nitrogen) 47 mg/dL (9.8-20.1); Calc. Creatinine Clearance 41 mL/min (70-130); Calcium 8.1 mg/dL (7.8-10.44); Carbon Dioxide 17 mmol/L (23-31); Chloride 105 mmol/L (98-107); Estimated GFR-MDRD 32; Glucose 388 mg/dL (80-115); Potassium 3.9 mmol/L (3.5-5.1); Sodium 137 mmol/L (136-145)
--- NOTE | 2018-12-21 13:57 | CT ---
CT ABDOMEN WITHOUT CONTRAST: Date: 12/21/18 PROVIDED CLINICAL HISTORY: Follow-up duodenal perforation. FINDINGS: Comparison made with the CT examination dated 12/17/18 and 12/19/18. There are bilateral pleural effusions with adjacent consolidation that may reflect subsegmental atele ctasis and/or infiltrate. An enteric catheter is present, the tip of which terminates in the region o f the gastric body. There is persistent free intraperitoneal fluid about the right hepatic margin and right paracolic gutter, similar to the prior examination. The degree of inflammatory change about th e region of the pancreatic head and descending duodenum has further decreased with respect to the study. There is no extraluminal contrast material from prior CT examination present. There is e xtraluminal gas to a minimal degree within the retroperitoneum immediately anterior to both the IVC a nd superior mesenteric artery origin. The solid abdominal organs are suboptimally evaluated in the absence of IV contrast material, but dem onstrate no significant interval change with respect to prior studies. There is no evidence for free intraperitoneal air. There is no evidence for bowel obstruction. IMPRESSION: 1. Extraluminal retroperitoneal gas is compatible with the provided clinical history of duodenal per foration. There is interval decrease in adjacent inflammatory change about the descending duodenum. 2. Bilateral pleural effusions with adjacent atelectasis or infiltrate. 3. Free intraperitoneal fluid appears similar to prior. POS: NONI
[2018-12-21] MEDS ORDERED: Potassium Chloride 10 MEQ in Premix Bag 1 BAG IVPB SCH (14:15)
[2018-12-21] MEDS ORDERED: Magnesium 2 GM/50 ML 2 GM in Premix Bag 1 BAG IVPB SCH (14:15)
[2018-12-21 18:25] LABS: Anion Gap 17 mmol/L (10-20); BUN (Urea Nitrogen) 47 mg/dL (9.8-20.1); Calc. Creatinine Clearance 47 mL/min (70-130); Calcium 8.2 mg/dL (7.8-10.44); Carbon Dioxide 20 mmol/L (23-31); Chloride 107 mmol/L (98-107); Estimated GFR-MDRD 37; Glucose 151 mg/dL (80-115); Potassium 3.8 mmol/L (3.5-5.1); Sodium 140 mmol/L (136-145)
[2018-12-21] MEDS: Enoxaparin Sodium 40 MG/0.4 ML SYRINGE SC SCH (21:40)
[2018-12-21] MEDS: Cefepime 2 GM in Sodium Chloride 0.9% 100 ML IVPB SCH (21:46)
[2018-12-22 00:33] LABS: Anion Gap 19 mmol/L (10-20); BUN (Urea Nitrogen) 48 mg/dL (9.8-20.1); Calc. Creatinine Clearance 48 mL/min (70-130); Carbon Dioxide 17 mmol/L (23-31); Chloride 107 mmol/L (98-107); Estimated GFR-MDRD 38; Glucose 235 mg/dL (80-115); Potassium 4.1 mmol/L (3.5-5.1); Sodium 139 mmol/L (136-145)
[2018-12-22] MEDS: HUMULIN R 100 UNITS in Sodium Chloride 0.9% 100 ML IVPB SCH (01:39)
[2018-12-22] MEDS: Sodium Chloride 0.45% 1,000 ML IV SCH ×2 (06:33→12:53)
[2018-12-22] MEDS: metroNIDAZOLE 500 MG in Premix Bag 1 BAG IVPB SCH ×3 (06:42→12:52)
[2018-12-22 06:48] LABS: ALV-art Gradient 177.025 (0-20); Actual Bicarbonate (HCO3a) 20.4 mEq/L (22-28); Base Excess (BEa) -2.9 mEq/L (-2.0 to +3.0); CO2 Tension 30.3 mmHg (35.0-45.0); Calcium, Ionized 1.15 mmol/L (1.12-1.30); Carboxyhemoglobin (COHb) 0.4 gm% (0.0-3.0); O2 Tension (PaO2) 70.3 mmHg (> 80.0); Potassium - ABG Lab 3.42 mmol/L (3.70-5.30); Puncture Site RBA; pH, Arterial 7.45 (7.35-7.45)
[2018-12-22 07:51] LABS: #Lymphocytes 0.7 thou/uL (1.20-3.40); #Monocytes 0.6 thou/uL (0.11-0.59); #Neutrophils 10.1 thou/uL (1.40-6.50); %Basophils 0.1 % (0.0-1.0); %Lymphocytes 6.1 % (21.0-51.0); %Monocytes 5.3 % (0.0-10.0); %Neutrophils 88.5 % (42.0-75.0); Hemoglobin 9.2 g/dL (12.0-16.0); Mean Corpuscular HGB CONC 31.3 g/dL (32.0-36.0); Mean Corpuscular Hemoglobin 29.5 pg (27.0-31.0); Mean Corpuscular Volume 94.2 fL (78.0-98.0); Platelet Count 200 thou/uL (130-400); RBC Distribution Width 12.2 % (11.5-14.5); Red Blood Cell (RBC) Count 3.13 mill/uL (4.20-5.40); White Blood Cell (WBC) Count 11.4 thou/uL (4.8-10.8)
[2018-12-22 08:01] LABS: ALT (SGPT) 28 U/L (8-55); AST (SGOT) 20 U/L (5-34); Albumin 2.3 g/dL (3.4-4.8); Alkaline Phosphatase 73 U/L (40-150); Anion Gap 14 mmol/L (10-20); Anion Gap 15 mmol/L (10-20); BUN (Urea Nitrogen) 48 mg/dL (9.8-20.1); Bilirubin, Total 0.4 mg/dL (0.2-1.2); Calc. Creatinine Clearance 55 mL/min (70-130); Calc. Creatinine Clearance 57 mL/min (70-130); Calcium 8.4 mg/dL (7.8-10.44); Calcium 8.5 mg/dL (7.8-10.44); Carbon Dioxide 19 mmol/L (23-31); Carbon Dioxide 20 mmol/L (23-31); Chloride 109 mmol/L (98-107); Estimated GFR-MDRD 45; Estimated GFR-MDRD 47; Globulin 2.9 g/dL (2.4-3.5); Glucose 103 mg/dL (80-115); Glucose 104 mg/dL (80-115); Magnesium 1.9 mg/dL (1.6-2.6); Potassium 3.4 mmol/L (3.5-5.1); Potassium 3.5 mmol/L (3.5-5.1); Protein, Total 5.2 g/dL (6.0-8.3); Sodium 139 mmol/L (136-145); Sodium 140 mmol/L (136-145)
--- NOTE | 2018-12-22 08:03 | PRG ---
DATE OF SERVICE: 12/22/2018 SUBJECTIVE: The patient is seen and examined at the bedside. She is off her sedation. It looks like she is aware of the situation. She follows my basic commands. She went back to atrial fibrillation overnight with RVR. She is on amiodarone drip. OBJECTIVE: VITAL SIGNS: Blood pressure is 121/79, pulse is 110, pulse oximetry is 97%, she is on FiO2 of 40% on the ventilator, and respiratory rate is 16. HEENT: Eyes; sclerae nonicteric. Pupils responded to light properly. She is orally intubated. NG tube is in place. LUNGS: Breath sounds somewhat diminished at both bases. No crackles or wheezing. HEART: S1, tachycardic. Irregularly irregular. No S3. No S4. ABDOMEN: Soft, nontender, nondistended. EXTREMITIES: 1 to 2+ peripheral edema, more on the upper extremities than on the lower extremities. NEUROLOGIC: Postponed since she is intubated and not able to follow completely my commands, but it looks like she is able to move her all four extremities and she follows my commands. Grossly, she is intact, although this is just a limited examination. LABORATORY DATA: Showed pH of 7.45, pCO2 of 30.3, PO2 72.3, base excess -2.9, A-a gradient 177. Glycemia is down to 139. We are awaiting for BMP and CBC to come back along with beta hydroxybutyrate, magnesium, and phosphorus levels. IMPRESSION: 1. Sepsis. 2. Diabetic ketoacidosis. 3. Respiratory failure. 4. Hypothermic shock. 5. Metabolic acidosis with multiple causes. 6. Hypertension. 7. Atrial fibrillation with rapid ventricular response. 8. Hyperlipidemia. 9. Acute renal failure. 10. Perforated duodenal ulcer with small leak, seems to be not such a significant issue. 11. Diabetic ketoacidosis. PLAN: Plan is to continue her insulin drip. We will check her labs this morning. We will make adjustments to her ventilator per hvac/r service technician. We will continue amiodarone drip. Continue IV cefepime 2 g. Continue steroids. Continue metronidazole and continue supportive care. We will replace all missing electrolytes and will continue very close followup on her status. Job ID: [id number]
--- NOTE | 2018-12-22 08:33 | PDOC.CTH ---
Cardiology Progress Note - Subjective The pt seen and examined. No overnight events. No cardiac complaints. Off vent sedation and able to follow commands. - Objective Vital Signs Temp Pulse Resp BP 12/22/18 07:22 104 H 121/79 12/22/18 06:00 20 12/22/18 04:00 98.8 F 20 12/22/18 02:14 78 12/22/18 02:00 20 12/22/18 00:00 98.5 F 20 12/21/18 22:25 88 12/21/18 22:00 21 H 12/21/18 21:00 98.4 F Admit Weight 143 lb 15.39 oz Weight 165 lb 3.2 oz 12/21/18 12/22/18 12/23/18 06:59 06:59 06:59 Intake Total 1213 4874 Output Total 1555 972 Balance -342 3902 - Physical Examination Lungs: other: (coarses and diminished at bases) Heart: other: (irregular) Abdomen: soft Extremities: other: (Generalized edema) - Telemetry Telemetry Rhythm: Afib 100-120s - Labs Result Diagrams: 12/22/18 07:22 12/22/18 07:22 Troponin/CKMB CK-MB (CK-2) 12.1 ng/mL (0-6.6) H* 12/15/18 16:40 Troponin I 0.750 ng/mL (< 0.028) H* 12/15/18 22:44 - Assessment/Plan 1. Afib with RVR - HR has been 100-120s with Amiodarone 0.5mg/min and Digoxin 0.125mg IV qd; Will start Coreg 6.25mg BID; On Lovenox 40mg subq qd for now for s/p Perforated ulcer; cont. to monitor 2. S/p AVNRT - stable; possible ablation when the pt's condition is stable and family agree. 3. Anoxic brain injury - managed by PCP/neurology service 4. Diabetic keto-acidosis - on Insulin drip 5. Septic shock 2/2 perforated ulcer - stable; 6. HTN - stable 7. BRAEDEN - unchanged 8. Hyperlipidemia - will resume Statin when she is more stable 9. Hx of Takosubu CMY - s/p LHC in 07/2016 with normal coronary arteries; will resume VLADIMIR/ARB when her renal function is more stable. MAR reviewed * Echo in 12/2016 showed EF 50-55%, mild AR, mild TR, mod MR, and borderline Lt atrium Dilation * S/p LHC in 07/2016 with normal coronary arteries; Pt. seen and eval. by me. I agree with the A/P by the [facility] NURSE. Her cardiac issues are mainly electrophysiologically. Coronary status is stable. Will continue to follow. Review of Systems - Review of Systems Constitutional: reports: no symptoms reported EENTM: reports: no symptoms reported Respiratory: reports: no symptoms reported Cardiac (ROS): reports: no symptoms reported ABD/GI: reports: no symptoms reported
[2018-12-22] MEDS ORDERED: Insulin Glargine 40 UNITS in Pre-Filled Syringe 1 EACH SC SCH (09:00)
[2018-12-22] MEDS: Carvedilol 6.25 MG TAB PO SCH ×2 (10:01→17:07)
[2018-12-22] MEDS: Digoxin 0.5 MG/2 ML AMP SLOW IVP SCH (10:01)
[2018-12-22] MEDS: Pantoprazole 40 MG VIAL IVP SCH ×2 (10:02→20:45)
[2018-12-22 11:22] LABS: Phosphorus 3.7 mg/dL (2.3-4.7)
--- NOTE | 2018-12-22 13:20 | PRG ---
DATE OF SERVICE: 12/22/2018 SUBJECTIVE: Ms. Mueller is doing well today. She has been extubated. She is awake, alert and interactive. She denies having any abdominal pain. OBJECTIVE: VITAL SIGNS: Heart rate 110 and blood pressure 131/60. HEAD, EARS, EYES, NOSE AND THROAT: Unremarkable. LUNGS: Clear to auscultation. CARDIAC: Regular rate and rhythm. No murmur or gallop. ABDOMEN: Soft and nontender. No guarding. No pain or tenderness whatsoever. EXTREMITIES: Unremarkable. LABORATORY DATA: White count 10 and hemoglobin 9.2. Basic metabolic profile normal, BUN at 48 and creatinine 1.21. ASSESSMENT AND PLAN: Nonoperative management of perforated duodenal ulcer. Avoid upper endoscopy. Now, she is extubated. She can start full liquids and advance to a soft diet as tolerated. We would increase her mobility as Physical Therapy to see her. Job ID: [id number]
--- NOTE | 2018-12-22 14:13 | PRG ---
DATE OF SERVICE: 12/22/2018 SUBJECTIVE: Acid-base disorder has resolved overnight with an insulin drip. Beta-hydroxybutyrate yesterday morning was 8.8. It is 1.3 now. She became hypoglycemic,insulin was stopped, and now she was started back on insulin drip . OBJECTIVE: LUNGS: Clear. HEART: Regular rhythm. ABDOMEN: Soft. LABORATORY DATA: She had a 200 mL drop in tidal volume with volume ventilation with a leak test an audible leak. Sodium is 140, potassium 3.5, chloride 109, bicarb 20, BUN 48, creatinine 1.2. White count 11.4, hemoglobin 9.2, platelets 200,000. IMPRESSION: 1. Probable perforated duodenal ulcer, walled off. 2. Diabetic ketoacidosis, developed when she switched to a sliding scale insulin. She will stay on insulin drip today at a low rate 1 unit/hour. If she starts dropping her blood sugar, D5 will be added. She appears to clearly be a type 1 diabetic based on her in-house behavior. 3. She has blood loss anemia, that is stable. 4. She has chronic kidney disease with acute decompensation on admission that is stable. Her creatinine yesterday was 1.16, today is 1.21. 5. Continue to keep her in the critical care unit. 6. She met all criteria for weaning and extubation. This has been done successfully. She has had no postextubation stridor or respiratory distress. Critical care time 30 minutes. Job ID: [id number] MTDD
[2018-12-22] MEDS: Enoxaparin Sodium 40 MG/0.4 ML SYRINGE SC SCH (20:45)
[2018-12-22] MEDS: Cefepime 2 GM in Sodium Chloride 0.9% 100 ML IVPB SCH (22:32)
[2018-12-22] MEDS: Amiodarone 450 MG in Dextrose 5% in Water 250 ML IVPB SCH (22:34)
[2018-12-23] MEDS: Sodium Chloride 0.45% 1,000 ML IV SCH ×2 (01:56→06:44)
[2018-12-23 05:48] LABS: Anion Gap 13 mmol/L (10-20); BUN (Urea Nitrogen) 42 mg/dL (9.8-20.1); Calc. Creatinine Clearance 78 mL/min (70-130); Calcium 8.7 mg/dL (7.8-10.44); Carbon Dioxide 21 mmol/L (23-31); Chloride 110 mmol/L (98-107); Estimated GFR-MDRD 67; Glucose 156 mg/dL (80-115); Potassium 3.4 mmol/L (3.5-5.1); Sodium 141 mmol/L (136-145)
[2018-12-23] MEDS: metroNIDAZOLE 500 MG in Premix Bag 1 BAG IVPB SCH ×3 (06:43→21:22)
[2018-12-23] MEDS: Carvedilol 6.25 MG TAB PO SCH ×2 (08:00→17:09)
[2018-12-23] MEDS: Digoxin 0.5 MG/2 ML AMP SLOW IVP SCH (08:52)
[2018-12-23] MEDS: Pantoprazole 40 MG VIAL IVP SCH (08:52)
[2018-12-23] MEDS ORDERED: Cefepime 2 GM in Sodium Chloride 0.9% 100 ML IVPB SCH (09:45)
[2018-12-23] MEDS ORDERED: Enoxaparin Sodium 60 MG/0.6 ML SYRINGE SC SCH ×2 (11:00→21:00)
--- NOTE | 2018-12-23 13:16 | PDOC.CTH ---
Cardiology Progress Note - Subjective The pt seen and examined. No overnight events. No cardiac complaints. She is alerted and oriented today. She is up to chair. - Objective Vital Signs Temp Pulse BP Pulse Ox 12/23/18 12:00 97.9 F 12/23/18 08:52 110 H 12/23/18 08:00 165/105 H 12/23/18 07:29 99 12/23/18 07:00 97.7 F 12/23/18 04:00 97.8 F Admit Weight 143 lb 15.39 oz Weight 165 lb 3.2 oz 12/22/18 12/23/18 12/24/18 06:59 06:59 06:59 Intake Total 4874 2993 210 Output Total 972 3100 559 Balance 3902 107 -349 - Physical Examination General/Neuro: alert & oriented x3 Lungs: other: (diminished at bases) Heart: other: (irregular) Abdomen: soft Extremities: other: (generalized edema) - Telemetry Telemetry Rhythm: Afib 80-90s - Labs Result Diagrams: 12/22/18 07:22 12/23/18 04:37 Troponin/CKMB CK-MB (CK-2) 12.1 ng/mL (0-6.6) H* 12/15/18 16:40 Troponin I 0.750 ng/mL (< 0.028) H* 12/15/18 22:44 - Assessment/Plan 1. Afib with RVR - HR has been 80-90s with Amiodarone 0.5mg/min, Digoxin 0.125mg IV qd; Will increase Coreg from 6.25mg to 12.5mg BID; On Lovenox 40mg subq qd for now for s/p Perforated ulcer; cont. to monitor 2. S/p AVNRT - stable; possible ablation when the pt's condition is stable and family agree. 3. Anoxic brain injury - managed by PCP/neurology service 4. Diabetic keto-acidosis - on Insulin drip 5. Septic shock 2/2 perforated ulcer - stable; 6. HTN - stable 7. BRAEDEN - unchanged 8. Hyperlipidemia - will resume Statin when she is more stable 9. Hx of Takosubu CMY - s/p LHC in 07/2016 with normal coronary arteries; will resume VLADIMIR/ARB when her renal function is more stable. MAR reviewed * Echo in 12/2016 showed EF 50-55%, mild AR, mild TR, mod MR, and borderline Lt atrium Dilation * S/p LHC in 07/2016 with normal coronary arteries; pt. seen and eval. by me. I agree with the A/P by the MSW. Chest clear. Irrreg/ irreg. rate controlled. BP elevated. Start amlodipine. Increased coreg. Review of Systems - Review of Systems Constitutional: reports: weakness EENTM: reports: no symptoms reported Respiratory: reports: no symptoms reported Cardiac (ROS): reports: no symptoms reported ABD/GI: reports: no symptoms reported : reports: no symptoms reported
[2018-12-23] MEDS ORDERED: Amiodarone 450 MG in Dextrose 5% in Water 250 ML IVPB SCH (13:19)
[2018-12-23] MEDS ORDERED: Amiodarone 150 MG, Admixture Fee 1 EACH in Dextrose 5% in Water 100 ML IVPB SCH (13:45)
[2018-12-23] MEDS ORDERED: Carvedilol 6.25 MG TAB PO SCH (13:45)
[2018-12-23] MEDS ORDERED: Sodium Chloride 0.45% 1,000 ML IV SCH (14:08)
[2018-12-23] MEDS ORDERED: Amiodarone 200 MG TAB PO SCH (14:30)
[2018-12-23] MEDS: Amiodarone 200 MG TAB PO SCH ×2 (14:35→20:00)
--- NOTE | 2018-12-23 15:01 | PDOC.PN ---
- Subjective Encounter Start Date: 12/23/18 Encounter Start Time: 09:40 Pt seen for followup re: DKA. Says she feels fine. No abdo pain. - Objective Resuscitation Status - Order Detail: 12/19/18 13:25 Resuscitation Status Routine Resuscitation Status: FULL: Full Resuscitation Discussed with: Son ANNEMARIE Reviewed: Yes Vital Signs & Weight: Vital Signs (12 hours) Temp Pulse BP Pulse Ox 12/23/18 14:36 165/105 H 12/23/18 12:00 97.9 F 12/23/18 08:52 110 H 12/23/18 08:00 165/105 H 12/23/18 07:29 99 12/23/18 07:00 97.7 F 12/23/18 04:00 97.8 F Weight Admit Weight 143 lb 15.39 oz Weight 165 lb 3.2 oz Most Recent Monitor Data Heart Rate from ECG 99 NIBP 159/101 NIBP BP-Mean 120 Respiration from ECG 33 SpO2 97 I&O: 12/22/18 12/23/18 12/24/18 06:59 06:59 06:59 Intake Total 4874 2993 210 Output Total 972 3100 559 Balance 3902 -107 -349 Result Diagrams: 12/22/18 07:22 12/23/18 04:37 Additional Labs: Accuchecks 12/23/18 12/23/18 12/23/18 14:50 13:00 10:52 POC Glucose 186 H 192 H 198 H 12/23/18 12/23/18 12/23/18 09:38 08:05 06:09 POC Glucose 218 H 217 H 170 H 12/23/18 12/23/18 12/23/18 05:12 04:11 03:08 POC Glucose 162 H 156 H 143 H 12/23/18 12/23/18 12/22/18 02:15 01:07 23:26 POC Glucose 143 H 136 H 123 H 12/22/18 12/22/18 12/22/18 22:38 21:37 20:43 POC Glucose 141 H 113 H 128 H 12/22/18 12/22/18 12/22/18 18:01 16:06 14:57 POC Glucose 127 H 109 102 EKG Reviewed by me: Yes (Tele: monica thorne) Phys Exam - Physical Examination Constitutional: NAD HEENT: moist MMs Neck: supple Respiratory: clear to auscultation bilateral Cardiovascular: irregular Gastrointestinal: soft Neurological: moves all 4 limbs Psychiatric: normal affect Dx/Plan (1) Diabetic keto-acidosis Code(s): E13.10 - OTH DIABETES MELLITUS WITH KETOACIDOSIS WITHOUT COMA Status : Acute Qualifiers: Diabetes mellitus type: type 2 Comment: Improving, on insulin drip (2) Atrial fibrillation with RVR Code(s): I48.91 - UNSPECIFIED ATRIAL FIBRILLATION Status: Acute Comment: rate-controlled (3) Hypertension Code(s): I10 - ESSENTIAL (PRIMARY) HYPERTENSION Status: Chronic Qualifiers: Hypertension type: essential hypertension Qualified Code(s): I10 - Essential (primary) hypertension Comment: monitor vital signs, titrate antihypertensives as needed (4) Bowel perforation Code(s): K63.1 - PERFORATION OF INTESTINE (NONTRAUMATIC) Status: Acute Comment: Improving with conservative management (5) Depression Code(s): F32.9 - MAJOR DEPRESSIVE DISORDER, SINGLE EPISODE, UNSPECIFIED Status : Chronic Qualifiers: Major depression episode severity: mild Comment: stable - Plan * . Review of Systems - Review of Systems Respiratory: negative: Cough, Shortness of Breath, SOB with Excertion, Pleuritic Pain, Wheezing Cardiovascular: negative: chest pain, palpitations, orthopnea, paroxysmal nocturnal dyspnea, edema, light headedness Gastrointestinal: negative: Nausea, Vomiting, Abdominal Pain, Diarrhea, Constipation, Melena, Hematochezia - Medications/Allergies Allergies/Adverse Reactions: Allergies Allergy/AdvReac Type Severity Reaction Status Date / Time No Known Drug Allergies Allergy Verified 12/16/18 05:56 Medications: Current Medications Acetaminophen (Tylenol) 650 mg IN Q4H PRN PRN Reason: Headache/Fever/Mild Pain (1-3) Amiodarone HCl (Cordarone) 400 mg PO BID [facility] Stop: 12/30/18 21:01 Last Admin: 12/23/18 14:35 Dose: 400 mg Amiodarone HCl (Cordarone) 200 mg PO BID [facility] Stop: 01/06/19 09:01 Amiodarone HCl (Cordarone) 200 mg PO DAILY [facility] Amiodarone HCl (Cordarone) 400 mg PO NOW [facility] Stop: 12/23/18 17:00 Last Admin: 12/23/18 14:58 Dose: Not Given Carvedilol (Coreg) 12.5 mg PO BID-[facility] Carvedilol (Coreg) 6.25 mg PO NOW [facility] Stop: 12/23/18 15:45 Last Admin: 12/23/18 14:36 Dose: 6.25 mg Dextrose/Water (Dextrose 50%) 25 gm SLOW IVP PRN PRN PRN Reason: Hypoglycemia Digoxin (Lanoxin) 0.125 mg PO DAILY [facility] Enoxaparin Sodium (Lovenox) 30 mg SC QAM [facility] Glucagon (Glucagon) 1 mg IM PRN PRN PRN Reason: Hypoglycemia Potassium Chloride 40 meq/ (Sodium Chloride) 270 mls @ 135 mls/hr IVPB ASDIR PRN PRN Reason: FOR SERUM K+ 2.5 - 3.5 Potassium Chloride 40 meq/ (Device) 100 mls @ 50 mls/hr IVPB ASDIR PRN PRN Reason: FOR SERUM K+ 2.5 - 3.5 Last Admin: 12/20/18 08:24 Dose: 100 mls Magnesium Sulfate 1 gm/ Sodium (Chloride) 102 mls @ 102 mls/hr IV PRN PRN PRN Reason: MAG LEVEL 1.4 - 2.0 Last Admin: 12/22/18 10:02 Dose: 102 mls Magnesium Sulfate 2 gm/ Device 100 mls @ 100 mls/hr IVPB ASDIR PRN PRN Reason: MAGNESIUM < 1.4 Potassium Phosphate 9 mmol/ (Sodium Chloride) 103 mls @ 25.75 mls/hr IVPB ASDIR PRN PRN Reason: Phosphate 1.0-1.8 Potassium Phosphate 12 mmol/ (Sodium Chloride) 254 mls @ 63.5 mls/hr IV ASDIR PRN PRN Reason: Serum phosphate 0.5-0.9 Potassium Phosphate 15 mmol/ (Sodium Chloride) 255 mls @ 63.75 mls/hr IV ASDIR PRN PRN Reason: Serum Phos < 0.5 Metronidazole 500 mg/ Device 100 mls @ 100 mls/hr IVPB Q8HR [facility] Last Admin: 12/23/18 14:36 Dose: 100 mls Dextrose/Water (D5w) 1,000 mls @ 0 mls/hr IV .Q0M PRN PRN Reason: Hypoglycemia Insulin Human Regular 100 (units/ Sodium Chloride) 101 mls @ 0 mls/hr IVPB INF [facility]; Protocol Last Admin: 12/22/18 01:39 Dose: 101 mls Cefepime HCl 2 gm/ Sodium (Chloride) 100 mls @ 200 mls/hr IVPB Q12HR [facility] Amiodarone HCl 450 mg/ (Dextrose/Water) 259 mls @ 0 mls/hr IVPB INF [facility]; Protocol Sodium Chloride (1/2 Normal Saline) 1,000 mls @ 0 mls/hr IV .Q0M [facility] Insulin Human Lispro (Humalog) 0 units SC .BEDTIME SLIDING SC PRN PRN Reason: Bedtime Correctional Scale Last Admin: 12/20/18 20:07 Dose: 2 unit Insulin Human Lispro (Humalog) 0 units SC .AGGRESSIVE SLIDING PRN; Protocol PRN Reason: AGGRESSIVE SLIDING SCALE Last Admin: 12/21/18 09:32 Dose: 13 unit Magnesium Oxide (Magnesium Oxide) 400 mg PO BIDPRN PRN PRN Reason: FOR SERUM MAG 1.4 - 2.0 Magnesium Oxide (Magnesium Oxide) 800 mg PO PRN PRN PRN Reason: FOR SERUM MAG < 1.4 Methylprednisolone Sodium Succinate (Solu-Medrol) 40 mg IVP Q6HR [facility] Last Admin: 12/23/18 11:33 Dose: 40 mg Morphine Sulfate (Morphine) 2 mg SLOW IVP Q1H PRN PRN Reason: BREAKTHROUGH PAIN/Agitation Stop: 01/19/19 15:03 Ccu Electrolyte (Replacement Protocol) 0 each FS PRN PRN PRN Reason: FOR ELECTROLYTE REPLACEMENT Discontinue Previous Narcotic Pain Medications And Benzodiazepines 1 each FS .ONE [facility] Stop: 01/19/19 15:03 Ondansetron HCl (Zofran) 4 mg IVP Q6H PRN PRN Reason: Nausea/Vomiting Pantoprazole Sodium (Protonix) 40 mg PO Q12HR [facility] Propofol (Diprivan) 1,000 mg IV INF PRN; Protocol PRN Reason: TO ACHIEVE GOAL RASS Stop: 01/19/19 15:03 Last Admin: 12/20/18 16:16 Dose: 1,000 mg Sodium Chloride (Flush - Normal Saline) 10 ml IVF Q12HR [facility] Last Admin: 12/23/18 08:52 Dose: 10 ml Sodium Chloride (Flush - Normal Saline) 10 ml IVF PRN PRN PRN Reason: Saline Flush
--- NOTE | 2018-12-23 15:18 | PRG ---
DATE OF SERVICE: 12/23/2018 SUBJECTIVE: Yanet Mueller has no complaints today. She moves all extremities equally. OBJECTIVE: VITAL SIGNS: Heart rate is in 80s, blood pressure is 151/102, respiratory rates in the high 20s. LUNGS: Clear. HEART: Regular rhythm, S1 and S2 are normal. ABDOMEN: Soft and nontender. EXTREMITIES: Without clubbing, cyanosis, or edema. Ejection fraction on echo is normal. She is still in atrial fibrillation. LABORATORY DATA: No CBC today. Sodium 141, potassium 3.4, chloride 110, bicarb 29, BUN 42, and creatinine 0.85. IMPRESSION: 1. Status post mechanical ventilation for diabetic ketoacidosis and hyperosmolar coma. 2. Status post recurrent diabetic ketoacidosis when she was on sliding scale insulin. She is still on insulin drip for now and tomorrow will be converted to a long-acting insulin with supplemental sliding scale. 3. Probable perforated duodenal ulcer that appears to be walled off and clinically stable. 4. Atrial fibrillation, on amiodarone. We would not anticoagulate her for her atrial fibrillation, given the recent GI bleed. She filled up the bed at home with blood according to the daughter. Prophylactic dose of Lovenox probably fine, but I would not fully anticoagulate her. I will continue to follow with the other physicians caring for her. Critical care time 30 minutes. Job ID: [id number]
--- NOTE | 2018-12-23 15:22 | PRG ---
DATE OF SERVICE: 12/23/2018 SUBJECTIVE: Yanet Mueller is doing well today. OBJECTIVE: VITAL SIGNS: Heart rate 99, blood pressure 159/101. LUNGS: Clear to auscultation. CARDIAC: Regular rate and rhythm without murmur or gallop. ABDOMEN: Soft, nontender. Bowel sounds present. She has had a bowel movement. She is tolerating her diet, thickened nectars per speech evaluation recommendations. She can advance to a GI soft diet when ready. She should increase mobility. She is on insulin drip per Dr. Cha. Anticipate transferring to the floor in the next day or two. Job ID: [id number]
[2018-12-23] MEDS ORDERED: Amlodipine 5 MG TAB PO SCH (16:45)
[2018-12-23] MEDS: HUMULIN R 100 UNITS in Sodium Chloride 0.9% 100 ML IVPB SCH (17:09)
[2018-12-23] MEDS: Cefepime 2 GM in Sodium Chloride 0.9% 100 ML IVPB SCH (20:01)
[2018-12-23] MEDS ORDERED: Enoxaparin Sodium 30 MG/0.3 ML SYRINGE SC SCH (21:00)
[2018-12-24 05:21] LABS: Anion Gap 11 mmol/L (10-20); BUN (Urea Nitrogen) 38 mg/dL (9.8-20.1); Calc. Creatinine Clearance 90 mL/min (70-130); Calcium 8.7 mg/dL (7.8-10.44); Carbon Dioxide 22 mmol/L (23-31); Chloride 115 mmol/L (98-107); Estimated GFR-MDRD 79; Glucose 136 mg/dL (80-115); Potassium 3.2 mmol/L (3.5-5.1); Sodium 145 mmol/L (136-145)
[2018-12-24] MEDS: metroNIDAZOLE 500 MG in Premix Bag 1 BAG IVPB SCH ×2 (05:52→14:08)
[2018-12-24] MEDS: Potassium Chloride 40 MEQ in Premix Bag 1 BAG IVPB PRN (08:01)
[2018-12-24] MEDS: HUMULIN R 100 UNITS in Sodium Chloride 0.9% 100 ML IVPB SCH (08:02)
[2018-12-24] MEDS: Digoxin 0.125 MG TAB PO SCH (08:03)
[2018-12-24] MEDS: Carvedilol 6.25 MG TAB PO SCH ×2 (08:04→17:07)
[2018-12-24] MEDS: Amlodipine 5 MG TAB PO SCH (08:04)
[2018-12-24] MEDS: Amiodarone 200 MG TAB PO SCH ×2 (08:05→20:08)
[2018-12-24] MEDS: Cefepime 2 GM in Sodium Chloride 0.9% 100 ML IVPB SCH (08:06)
[2018-12-24] MEDS: Enoxaparin Sodium 30 MG/0.3 ML SYRINGE SC SCH (08:06)
[2018-12-24] MEDS ORDERED: Insulin Glargine 20 UNITS in Pre-Filled Syringe 1 EACH SC SCH (12:15)
--- NOTE | 2018-12-24 14:27 | PRG ---
DATE OF SERVICE: 12/24/2018 SUBJECTIVE: Yanet Mueller is doing well. She is eating soft mechanical diet. She has no complaints. She denies abdominal discomfort. OBJECTIVE: VITAL SIGNS: Blood pressure is 146/67, heart rate 75, respiratory rate is 19, and oximetry is 99%. LUNGS: Clear. HEART: Regular rhythm. S1 and S2 are normal. ABDOMEN: Soft and nontender. She has absolutely no guarding. EXTREMITIES: Without clubbing, cyanosis, or edema. Her atrial fibrillation rate is controlled. LABORATORY DATA: Sodium 145, potassium 3.3, chloride 115, bicarbonate 22, BUN 38, creatinine 0.74. IMPRESSION: 1. Gastrointestinal bleed at home, the daughter founding her with bed covered in blood. 2. Probable walled-off perforated duodenal ulcer that has been stable on 3 successive CAT scans, but no clinical evidence of peritonitis. 3. Status post presentation with severe hypothermia and metabolic acidosis. 4. Type 1 diabetes with diabetic ketoacidosis that developed when she was switched to sliding scale insulin. 5. Atrial fibrillation with controlled ventricular response. Full anticoagulation is contraindicated now. 6. Deconditioning. She continues to make progress. We will keep her in the critical care unit 1 more day while we converted to Lantus insulin. If she is stable tomorrow, we will transfer to medically monitored bed. Job ID: [id number]
--- NOTE | 2018-12-24 15:11 | PDOC.PN ---
- Subjective Encounter Start Date: 12/24/18 Encounter Start Time: 08:40 Pt seen for followup re: DKA. Says she feels better. Sitting in chair. - Objective Resuscitation Status - Order Detail: 12/19/18 13:25 Resuscitation Status Routine Resuscitation Status: FULL: Full Resuscitation Discussed with: Son ANNEMARIE Reviewed: Yes Vital Signs & Weight: Vital Signs (12 hours) Temp Pulse BP Pulse Ox 12/24/18 13:00 97.7 F 12/24/18 08:04 151/85 H 12/24/18 08:03 91 12/24/18 08:00 99 12/24/18 07:04 99 12/24/18 07:00 97.5 F L 12/24/18 04:00 98.4 F Weight Admit Weight 143 lb 15.39 oz Weight 165 lb 3.2 oz Most Recent Monitor Data Heart Rate from ECG 74 NIBP 151/67 NIBP BP-Mean 95 Respiration from ECG 28 SpO2 96 I&O: 12/23/18 12/24/18 12/25/18 06:59 06:59 06:59 Intake Total 2993 1828 1040 Output Total 3100 2084 340 Balance -107 -256 700 Result Diagrams: 12/22/18 07:22 12/24/18 04:00 Additional Labs: Accuchecks 12/24/18 12/24/18 12/24/18 12:36 10:29 07:58 POC Glucose 134 H 94 111 H 12/24/18 12/24/18 12/24/18 06:25 04:10 02:08 POC Glucose 109 124 H 122 H 12/24/18 12/23/18 12/23/18 00:03 22:37 21:25 POC Glucose 149 H 137 H 122 H 12/23/18 12/23/18 12/23/18 20:01 18:18 16:11 POC Glucose 113 H 102 128 H EKG Reviewed by me: Yes (Tele: monica thorne) Phys Exam - Physical Examination Constitutional: NAD HEENT: moist MMs Neck: supple Respiratory: clear to auscultation bilateral Cardiovascular: no rub, irregular Gastrointestinal: soft, non-tender Neurological: moves all 4 limbs Psychiatric: normal affect Dx/Plan (1) Diabetic keto-acidosis Code(s): E13.10 - OTH DIABETES MELLITUS WITH KETOACIDOSIS WITHOUT COMA Status : Acute Qualifiers: Diabetes mellitus type: type 2 Comment: Improving, transitioning to Lantus (2) Atrial fibrillation with RVR Code(s): I48.91 - UNSPECIFIED ATRIAL FIBRILLATION Status: Acute Comment: rate-controlled; full anticoagulation contraindicated (3) Hypertension Code(s): I10 - ESSENTIAL (PRIMARY) HYPERTENSION Status: Chronic Qualifiers: Hypertension type: essential hypertension Qualified Code(s): I10 - Essential (primary) hypertension Comment: Improved control (4) Bowel perforation Code(s): K63.1 - PERFORATION OF INTESTINE (NONTRAUMATIC) Status: Acute Comment: conservative management (5) Depression Code(s): F32.9 - MAJOR DEPRESSIVE DISORDER, SINGLE EPISODE, UNSPECIFIED Status : Chronic Qualifiers: Major depression episode severity: mild Comment: stable - Plan * . Review of Systems - Review of Systems Cardiovascular: negative: chest pain, palpitations, orthopnea, paroxysmal nocturnal dyspnea, edema, light headedness Gastrointestinal: negative: Nausea, Vomiting, Abdominal Pain, Diarrhea, Constipation, Melena, Hematochezia - Medications/Allergies Allergies/Adverse Reactions: Allergies Allergy/AdvReac Type Severity Reaction Status Date / Time No Known Drug Allergies Allergy Verified 12/16/18 05:56 Medications: Current Medications Acetaminophen (Tylenol) 650 mg VA Q4H PRN PRN Reason: Headache/Fever/Mild Pain (1-3) Amiodarone HCl (Cordarone) 400 mg PO BID [facility] Stop: 12/30/18 21:01 Last Admin: 12/24/18 08:05 Dose: 400 mg Amiodarone HCl (Cordarone) 200 mg PO BID [facility] Stop: 01/06/19 09:01 Amiodarone HCl (Cordarone) 200 mg PO DAILY [facility] Amlodipine Besylate (Norvasc) 5 mg PO DAILY [facility] Last Admin: 12/24/18 08:04 Dose: 5 mg Carvedilol (Coreg) 12.5 mg PO BID-[facility] Last Admin: 12/24/18 08:04 Dose: 12.5 mg Dextrose/Water (Dextrose 50%) 25 gm SLOW IVP PRN PRN PRN Reason: Hypoglycemia Digoxin (Lanoxin) 0.125 mg PO DAILY [facility] Last Admin: 12/24/18 08:03 Dose: 0.125 mg Enoxaparin Sodium (Lovenox) 30 mg SC QAM [facility] Last Admin: 12/24/18 08:06 Dose: 30 mg Glucagon (Glucagon) 1 mg IM PRN PRN PRN Reason: Hypoglycemia Potassium Chloride 40 meq/ (Sodium Chloride) 270 mls @ 135 mls/hr IVPB ASDIR PRN PRN Reason: FOR SERUM K+ 2.5 - 3.5 Potassium Chloride 40 meq/ (Device) 100 mls @ 50 mls/hr IVPB ASDIR PRN PRN Reason: FOR SERUM K+ 2.5 - 3.5 Last Admin: 12/24/18 08:01 Dose: 100 mls Magnesium Sulfate 1 gm/ Sodium (Chloride) 102 mls @ 102 mls/hr IV PRN PRN PRN Reason: MAG LEVEL 1.4 - 2.0 Last Admin: 12/22/18 10:02 Dose: 102 mls Magnesium Sulfate 2 gm/ Device 100 mls @ 100 mls/hr IVPB ASDIR PRN PRN Reason: MAGNESIUM < 1.4 Potassium Phosphate 9 mmol/ (Sodium Chloride) 103 mls @ 25.75 mls/hr IVPB ASDIR PRN PRN Reason: Phosphate 1.0-1.8 Potassium Phosphate 12 mmol/ (Sodium Chloride) 254 mls @ 63.5 mls/hr IV ASDIR PRN PRN Reason: Serum phosphate 0.5-0.9 Potassium Phosphate 15 mmol/ (Sodium Chloride) 255 mls @ 63.75 mls/hr IV ASDIR PRN PRN Reason: Serum Phos < 0.5 Metronidazole 500 mg/ Device 100 mls @ 100 mls/hr IVPB Q8HR [facility] Last Admin: 12/24/18 14:08 Dose: 100 mls Dextrose/Water (D5w) 1,000 mls @ 0 mls/hr IV .Q0M PRN PRN Reason: Hypoglycemia Cefepime HCl 2 gm/ Sodium (Chloride) 100 mls @ 200 mls/hr IVPB Q12HR [facility] Last Admin: 12/24/18 08:06 Dose: 100 mls Sodium Chloride (1/2 Normal Saline) 1,000 mls @ 0 mls/hr IV .Q0M [facility] Insulin Human Lispro (Humalog) 0 units SC .BEDTIME SLIDING SC PRN PRN Reason: Bedtime Correctional Scale Last Admin: 12/20/18 20:07 Dose: 2 unit Insulin Human Lispro (Humalog) 0 units SC .AGGRESSIVE SLIDING PRN; Protocol PRN Reason: AGGRESSIVE SLIDING SCALE Last Admin: 12/21/18 09:32 Dose: 13 unit Magnesium Oxide (Magnesium Oxide) 400 mg PO BIDPRN PRN PRN Reason: FOR SERUM MAG 1.4 - 2.0 Magnesium Oxide (Magnesium Oxide) 800 mg PO PRN PRN PRN Reason: FOR SERUM MAG < 1.4 Methylprednisolone Sodium Succinate (Solu-Medrol) 40 mg IVP Q6HR [facility] Last Admin: 12/24/18 12:05 Dose: 40 mg Morphine Sulfate (Morphine) 2 mg SLOW IVP Q1H PRN PRN Reason: BREAKTHROUGH PAIN/Agitation Stop: 01/19/19 15:03 Ccu Electrolyte (Replacement Protocol) 0 each FS PRN PRN PRN Reason: FOR ELECTROLYTE REPLACEMENT Discontinue Previous Narcotic Pain Medications And Benzodiazepines 1 each FS .ONE [facility] Stop: 01/19/19 15:03 Ondansetron HCl (Zofran) 4 mg IVP Q6H PRN PRN Reason: Nausea/Vomiting Pantoprazole Sodium (Protonix) 40 mg PO Q12HR [facility] Last Admin: 12/24/18 08:03 Dose: 40 mg Propofol (Diprivan) 1,000 mg IV INF PRN; Protocol PRN Reason: TO ACHIEVE GOAL RASS Stop: 01/19/19 15:03 Last Admin: 12/20/18 16:16 Dose: 1,000 mg Sodium Chloride (Flush - Normal Saline) 10 ml IVF Q12HR [facility] Last Admin: 12/24/18 12:05 Dose: 10 ml Sodium Chloride (Flush - Normal Saline) 10 ml IVF PRN PRN PRN Reason: Saline Flush
[2018-12-24] MEDS ORDERED: Acetaminophen 500 MG TAB PO PRN (16:31)
--- NOTE | 2018-12-24 17:14 | PRG ---
DATE OF SERVICE: 12/24/2018 SUBJECTIVE: Ms. Mueller is doing well today. OBJECTIVE: VITAL SIGNS: Blood pressure 151/67, heart rate 74. LUNGS: Clear to auscultation. CARDIAC: Regular rate and rhythm without murmur or gallop. ABDOMEN: Soft and nontender. She does not have any pain or abdominal tenderness. LABORATORY DATA: No labs today. ASSESSMENT AND PLAN: Overall, the patient is doing well. She had duodenal ulcer that healed nonoperatively. She continued on PPIs. At this point, I will see her as needed. Please call if surgical evaluation is necessary in the future. I will see her as an outpatient p.r.n. She should consider outpatient upper endoscopy in the next 4 to 6 weeks. Job ID: [id number]
[2018-12-24] MEDS: HumaLOG 300 UNITS/3 ML VIAL SC PRN ×2 (17:15→20:13)
--- NOTE | 2018-12-24 19:48 | PDOC.CTH ---
Cardiology Progress Note - Subjective The pt seen and examined. No overnight events. No cardiac complaints. She is alerted and oriented today. - Objective Vital Signs Temp Pulse BP Pulse Ox 12/24/18 17:07 156/85 H 12/24/18 16:00 97.6 F 12/24/18 13:00 97.7 F 12/24/18 08:04 151/85 H 12/24/18 08:03 91 12/24/18 08:00 99 Admit Weight 143 lb 15.39 oz Weight 165 lb 3.2 oz 12/23/18 12/24/18 12/25/18 06:59 06:59 06:59 Intake Total 2993 1828 1740 Output Total 3100 2084 525 Balance -107 -256 1215 - Physical Examination General/Neuro: alert & oriented x3 Neck: no JVD present Lungs: CTA Heart: other: (irregular) Abdomen: soft Extremities: other: (generalized edema) - Telemetry Telemetry Rhythm: Afib - Labs Result Diagrams: 12/22/18 07:22 12/24/18 04:00 Troponin/CKMB CK-MB (CK-2) 12.1 ng/mL (0-6.6) H* 12/15/18 16:40 Troponin I 0.750 ng/mL (< 0.028) H* 12/15/18 22:44 - Assessment/Plan 1. Afib with RVR - HR has been 80-90s with Amiodarone 0.5mg/min, Digoxin 0.125mg PO qd, Coreg 12.5mg BID; On Lovenox 40mg subq qd for now for s/p Perforated ulcer; cont. to monitor 2. S/p AVNRT - stable; possible ablation when the pt's condition is stable and family is agreeable. 3. Anoxic brain injury - improved; managed by PCP/neurology service 4. Diabetic keto-acidosis - SS Insulin 5. Septic shock 2/2 perforated ulcer - stable; 6. HTN - stable 7. BRAEDEN - improved 8. Hyperlipidemia - will resume Statin when she is more stable 9. Hx of Takosubu CMY - s/p LHC in 07/2016 with normal coronary arteries; will resume VLADIMIR/ARB when her renal function is more stable. MAR reviewed * Echo in 12/2016 showed EF 50-55%, mild AR, mild TR, mod MR, and borderline Lt atrium Dilation * S/p LHC in 07/2016 with normal coronary arteries; Pt. seen and eval. by me. I agree with the A/P by the LEHR ATTENDANT. cardiac status is stable at tis time. reassess possibilty of ablation of SVT when more stable. Review of Systems - Review of Systems Constitutional: reports: no symptoms reported EENTM: reports: no symptoms reported Respiratory: reports: no symptoms reported Cardiac (ROS): reports: no symptoms reported ABD/GI: reports: no symptoms reported : reports: no symptoms reported Musculoskeletal: reports: no symptoms reported Skin: reports: no symptoms reported
[2018-12-25 06:03] LABS: Anion Gap 11 mmol/L (10-20); BUN (Urea Nitrogen) 42 mg/dL (9.8-20.1); Calc. Creatinine Clearance 87 mL/min (70-130); Calcium 8.8 mg/dL (7.8-10.44); Carbon Dioxide 21 mmol/L (23-31); Chloride 113 mmol/L (98-107); Estimated GFR-MDRD 76; Glucose 148 mg/dL (80-115); Potassium 3.8 mmol/L (3.5-5.1); Sodium 141 mmol/L (136-145)
--- NOTE | 2018-12-25 08:19 | PDOC.CTH ---
Cardiology Progress Note - Subjective Pt. seen and eval. by me. She is alert and oriented. No complaints. She is sitting up in bed eating . No new events overnight. - Objective Vital Signs Temp Pulse Ox 12/25/18 07:12 100 12/25/18 04:00 97.9 F 12/25/18 00:00 98.2 F Admit Weight 143 lb 15.39 oz Weight 165 lb 3.2 oz 12/24/18 12/25/18 12/26/18 06:59 06:59 06:59 Intake Total 1828 1960 120 Output Total 2084 1185 60 Balance -256 775 60 - Physical Examination General/Neuro: alert & oriented x3 Neck: no JVD present Lungs: CTA Heart: RRR Abdomen: soft Extremities: other: (1+ lower extremitynedema.) - Telemetry Telemetry Rhythm: NSR - Labs Result Diagrams: 12/22/18 07:22 12/25/18 05:06 Troponin/CKMB CK-MB (CK-2) 12.1 ng/mL (0-6.6) H* 12/15/18 16:40 Troponin I 0.750 ng/mL (< 0.028) H* 12/15/18 22:44 - Assessment/Plan 1. Afib with RVR - HR has been 80-90s with Amiodarone. Digoxin 0.125mg PO qd, Coreg 12.5mg BID; On Lovenox 40mg subq qd for now for s/p Perforated ulcer; cont. to monitor 2. S/p AVNRT - stable; possible ablation when the pt's condition is stable and family is agreeable. 3. Anoxic brain injury - improved; managed by PCP/neurology service 4. Diabetic keto-acidosis - SS Insulin 5. Septic shock 2/2 perforated ulcer - stable; 6. HTN - stable 7. BRAEDEN - improved 8. Hyperlipidemia - will resume Statin when she is more stable 9. Hx of Takosubu CMY - s/p LHC in 07/2016 with normal coronary arteries; will resume VLADIMIR/ARB when her renal function is more stable. MAR reviewed * Echo in 12/2016 showed EF 50-55%, mild AR, mild TR, mod MR, and borderline Lt atrium Dilation * S/p LHC in 07/2016 with normal coronary arteries;
[2018-12-25] MEDS: Amlodipine 5 MG TAB PO SCH (09:52)
[2018-12-25] MEDS: Carvedilol 6.25 MG TAB PO SCH ×2 (09:52→18:03)
[2018-12-25] MEDS: Amiodarone 200 MG TAB PO SCH ×2 (09:53→20:11)
[2018-12-25] MEDS: Digoxin 0.125 MG TAB PO SCH (09:53)
[2018-12-25] MEDS: Enoxaparin Sodium 30 MG/0.3 ML SYRINGE SC SCH (09:53)
[2018-12-25] MEDS: HumaLOG 300 UNITS/3 ML VIAL SC PRN ×3 (13:07→20:23)
[2018-12-25] MEDS ORDERED: Insulin Glargine 20 UNITS in Pre-Filled Syringe 1 EACH SC SCH (15:00)
[2018-12-25] MEDS: Loperamide HCl 2 MG CAP PO PRN ×2 (18:03→20:11)
--- NOTE | 2018-12-25 19:14 | PDOC.PN ---
- Subjective Encounter Start Date: 12/25/18 Encounter Start Time: 09:00 Pt seen for followup re: monica sweeney Says she feels better. - Objective Resuscitation Status - Order Detail: 12/19/18 13:25 Resuscitation Status Routine Resuscitation Status: FULL: Full Resuscitation Discussed with: Son ANNEMARIE Reviewed: Yes Vital Signs & Weight: Vital Signs (12 hours) Temp Pulse Pulse Pulse BP BP BP 12/25/18 18:03 176/54 H 12/25/18 16:00 97.9 F 12/25/18 12:00 98.5 F 12/25/18 11:12 82 98 174/66 H 151/76 H 12/25/18 09:53 100 12/25/18 09:52 100 134/60 12/25/18 09:00 98.1 F 12/25/18 08:30 Pulse Ox Pulse Ox Pulse Ox 12/25/18 18:03 12/25/18 16:00 12/25/18 12:00 12/25/18 11:12 94 L 97 12/25/18 09:53 12/25/18 09:52 12/25/18 09:00 12/25/18 08:30 100 Weight Admit Weight 143 lb 15.39 oz Weight 165 lb 3.2 oz Most Recent Monitor Data Heart Rate from ECG 80 NIBP 176/54 NIBP BP-Mean 94 Respiration from ECG 32 SpO2 96 I&O: 12/24/18 12/25/18 12/26/18 06:59 06:59 06:59 Intake Total 1828 1960 720 Output Total 2084 1185 593 Balance -256 775 127 Result Diagrams: 12/22/18 07:22 12/25/18 05:06 Additional Labs: Accuchecks 12/25/18 12/25/18 12/25/18 15:52 12:05 04:00 POC Glucose 341 H 244 H 131 H 12/25/18 12/24/18 00:28 20:13 POC Glucose 140 H 208 H EKG Reviewed by me: Yes (Tele: monica thorne) Phys Exam - Physical Examination Constitutional: NAD HEENT: moist MMs Neck: supple Respiratory: clear to auscultation bilateral Cardiovascular: irregular Gastrointestinal: soft, non-tender Neurological: moves all 4 limbs Psychiatric: normal affect Dx/Plan (1) Atrial fibrillation with RVR Code(s): I48.91 - UNSPECIFIED ATRIAL FIBRILLATION Status: Acute Comment: rate-controlled (2) Hypertension Code(s): I10 - ESSENTIAL (PRIMARY) HYPERTENSION Status: Chronic Qualifiers: Hypertension type: essential hypertension Qualified Code(s): I10 - Essential (primary) hypertension Comment: monitor vital signs, titrate antihypertensives as needed (3) Bowel perforation Code(s): K63.1 - PERFORATION OF INTESTINE (NONTRAUMATIC) Status: Acute Comment: Improving with conservative management (4) Depression Code(s): F32.9 - MAJOR DEPRESSIVE DISORDER, SINGLE EPISODE, UNSPECIFIED Status : Chronic Qualifiers: Major depression episode severity: mild Comment: stable (5) Diabetic keto-acidosis Code(s): E13.10 - OTH DIABETES MELLITUS WITH KETOACIDOSIS WITHOUT COMA Status : Resolved Qualifiers: Diabetes mellitus type: type 2 - Plan * . Review of Systems - Review of Systems Constitutional: negative: fever, chills, sweats, weakness, malaise Gastrointestinal: negative: Nausea, Vomiting, Abdominal Pain, Diarrhea, Constipation, Melena, Hematochezia - Medications/Allergies Allergies/Adverse Reactions: Allergies Allergy/AdvReac Type Severity Reaction Status Date / Time No Known Drug Allergies Allergy Verified 12/16/18 05:56 Medications: Current Medications Acetaminophen (Tylenol) 1,000 mg PO Q6H PRN PRN Reason: Moderate to Severe Pain (6-10) Amiodarone HCl (Cordarone) 400 mg PO BID [facility] Stop: 12/30/18 21:01 Last Admin: 12/25/18 09:53 Dose: 400 mg Amiodarone HCl (Cordarone) 200 mg PO BID [facility] Stop: 01/06/19 09:01 Amiodarone HCl (Cordarone) 200 mg PO DAILY [facility] Amlodipine Besylate (Norvasc) 5 mg PO DAILY [facility] Last Admin: 12/25/18 09:52 Dose: 5 mg Carvedilol (Coreg) 12.5 mg PO BID[facility] Last Admin: 12/25/18 18:03 Dose: 12.5 mg Dextrose/Water (Dextrose 50%) 25 gm SLOW IVP PRN PRN PRN Reason: Hypoglycemia Digoxin (Lanoxin) 0.125 mg PO DAILY [facility] Last Admin: 12/25/18 09:53 Dose: 0.125 mg Enoxaparin Sodium (Lovenox) [facility] Last Admin: 12/25/18 09:53 Dose: 30 mg Glucagon (Glucagon) 1 mg IM PRN PRN PRN Reason: Hypoglycemia Potassium Chloride 40 meq/ (Sodium Chloride) 270 mls @ 135 mls/hr IVPB ASDIR PRN PRN Reason: FOR SERUM K+ 2.5 - 3.5 Potassium Chloride 40 meq/ (Device) 100 mls @ 50 mls/hr IVPB ASDIR PRN PRN Reason: FOR SERUM K+ 2.5 - 3.5 Last Admin: 12/24/18 08:01 Dose: 100 mls Magnesium Sulfate 1 gm/ Sodium (Chloride) 102 mls @ 102 mls/hr IV PRN PRN PRN Reason: MAG LEVEL 1.4 - 2.0 Last Admin: 12/22/18 10:02 Dose: 102 mls Magnesium Sulfate 2 gm/ Device 100 mls @ 100 mls/hr IVPB ASDIR PRN PRN Reason: MAGNESIUM < 1.4 Potassium Phosphate 9 mmol/ (Sodium Chloride) 103 mls @ 25.75 mls/hr IVPB ASDIR PRN PRN Reason: Phosphate 1.0-1.8 Potassium Phosphate 12 mmol/ (Sodium Chloride) 254 mls @ 63.5 mls/hr IV ASDIR PRN PRN Reason: Serum phosphate 0.5-0.9 Potassium Phosphate 15 mmol/ (Sodium Chloride) 255 mls @ 63.75 mls/hr IV ASDIR PRN PRN Reason: Serum Phos < 0.5 Dextrose/Water (D5w) 1,000 mls @ 0 mls/hr IV .Q0M PRN PRN Reason: Hypoglycemia Insulin Glargine 20 units/ (Miscellaneous Medication) 0.2 mls @ 0 mls/hr SC QAM [facility] Insulin Human Lispro (Humalog) 0 units SC .BEDTIME SLIDING SC PRN PRN Reason: Bedtime Correctional Scale Last Admin: 12/20/18 20:07 Dose: 2 unit Insulin Human Lispro (Humalog) 0 units SC .AGGRESSIVE SLIDING PRN; Protocol PRN Reason: AGGRESSIVE SLIDING SCALE Last Admin: 12/25/18 18:02 Dose: 11 unit Loperamide HCl (Imodium) 2 mg PO PRN PRN PRN Reason: Diarrhea/Loose Stools Last Admin: 01/24/19 18:03 Dose: 2 mg Magnesium Oxide (Magnesium Oxide) 400 mg PO BIDPRN PRN PRN Reason: FOR SERUM MAG 1.4 - 2.0 Magnesium Oxide (Magnesium Oxide) 800 mg PO PRN PRN PRN Reason: FOR SERUM MAG < 1.4 Methylprednisolone Sodium Succinate (Solu-Medrol) 40 mg IVP Q6HR [facility] Last Admin: 12/25/18 18:04 Dose: 40 mg Morphine Sulfate (Morphine) 2 mg SLOW IVP Q1H PRN PRN Reason: BREAKTHROUGH PAIN/Agitation Stop: 01/19/19 15:03 Ccu Electrolyte (Replacement Protocol) 0 each FS PRN PRN PRN Reason: FOR ELECTROLYTE REPLACEMENT Discontinue Previous Narcotic Pain Medications And Benzodiazepines 1 each FS .ONE [facility] Stop: 01/19/19 15:03 Ondansetron HCl (Zofran) 4 mg IVP Q6H PRN PRN Reason: Nausea/Vomiting Pantoprazole Sodium (Protonix) 40 mg PO Q12HR [facility] Last Admin: 12/25/18 09:53 Dose: 40 mg Propofol (Diprivan) 1,000 mg IV INF PRN; Protocol PRN Reason: TO ACHIEVE GOAL RASS Stop: 01/19/19 15:03 Last Admin: 12/20/18 16:16 Dose: 1,000 mg Sodium Chloride (Flush - Normal Saline) 10 ml IVF Q12HR [facility] Last Admin: 12/25/18 09:53 Dose: 10 ml Sodium Chloride (Flush - Normal Saline) 10 ml IVF PRN PRN PRN Reason: Saline Flush
--- NOTE | 2018-12-25 19:48 | PRG ---
DATE OF SERVICE: 12/25/2018 SUBJECTIVE: Yanet Mueller is tolerating pureed diet without any abdominal discomfort. Blood pressure 176/54, heart rate is 80, respiratory rates in 20s. She is in no distress. I had given a verbal order to start Lantus every day, but only one dose was given yesterday, so this is started today. We will need to follow with the sliding scale. OBJECTIVE: LUNGS: Clear. HEART: Regular rhythm. ABDOMEN: Soft. EXTREMITIES: Without edema. LABORATORY DATA: White count has not been measured since the . Sodium 141, potassium 3.8, chloride 113, bicarb 29, BUN 42, and creatinine 0.76. IMPRESSION: Multiorgan dysfunction after presenting with diabetic ketoacidosis, severe intravascular volume depletion, hypothermia, probably a perforated duodenal ulcer. Will continue in the Critical Care Unit. She could move out to the floor. She will need to continue to have her lab to be monitored closely with serial abdominal exams. Job ID: [id number]
[2018-12-26] MEDS: HumaLOG 300 UNITS/3 ML VIAL SC PRN ×4 (06:42→22:12)
[2018-12-26 08:35] LABS: Hemoglobin 9.7 g/dL (12.0-16.0); Mean Corpuscular HGB CONC 30.9 g/dL (32.0-36.0); Mean Corpuscular Hemoglobin 28.9 pg (27.0-31.0); Mean Corpuscular Volume 93.5 fL (78.0-98.0); Mean Platelet Volume 9.2 fL (7.4-10.4); Platelet Count 421 thou/uL (130-400); RBC Distribution Width 12.4 % (11.5-14.5); Red Blood Cell (RBC) Count 3.36 mill/uL (4.20-5.40); White Blood Cell (WBC) Count 9.4 thou/uL (4.8-10.8)
[2018-12-26 08:54] LABS: Anion Gap 11 mmol/L (10-20); BUN (Urea Nitrogen) 37 mg/dL (9.8-20.1); Calc. Creatinine Clearance 83 mL/min (70-130); Calcium 8.7 mg/dL (7.8-10.44); Carbon Dioxide 23 mmol/L (23-31); Chloride 114 mmol/L (98-107); Estimated GFR-MDRD 72; Glucose 193 mg/dL (80-115); Potassium 3.9 mmol/L (3.5-5.1); Sodium 144 mmol/L (136-145)
[2018-12-26] MEDS: Carvedilol 6.25 MG TAB PO SCH ×2 (09:07→17:07)
[2018-12-26] MEDS: Enoxaparin Sodium 30 MG/0.3 ML SYRINGE SC SCH (09:08)
[2018-12-26] MEDS: Amiodarone 200 MG TAB PO SCH ×2 (09:08→21:25)
[2018-12-26] MEDS: Amlodipine 5 MG TAB PO SCH (09:08)
[2018-12-26] MEDS: Insulin Glargine 20 UNITS in Pre-Filled Syringe 1 EACH SC SCH (09:12)
[2018-12-26] MEDS: Digoxin 0.125 MG TAB PO SCH (09:13)
--- NOTE | 2018-12-26 09:23 | PRG ---
DATE OF SERVICE: 12/26/2018 Yanet Mueller is out of the Critical Care Unit. OBJECTIVE: GENERAL: She is in no distress. VITAL SIGNS: She has had no fever. Heart rate 76, respiratory rate is 20, oximetry is 96% on room air, blood pressure is 157/78. LUNGS: Clear. HEART: Regular rhythm. ABDOMEN: Soft, nontender. EXTREMITIES: Without edema. IMPRESSION: 1. Status post gastrointestinal bleed with perforated duodenal ulcer that has walled-off, being treated conservatively. 2. Status post hypothermia and severe metabolic acidosis (84 degrees and pH of 6.7). 3. Diabetic ketoacidosis, now on Lantus plus the sliding scale. 4. Atrial fibrillation, not felt to be a candidate for full anticoagulation at this time. 5. Extreme deconditioning secondary to critical illness. She is actually stronger than I would have thought she would have been at this point. 6. History of hypertension. 7. Acute kidney injury, resolved. 8. Lipid disorder. 9. History of cardiac cath in 2016 with Takotsubo cardiomyopathy. She had normal coronary arteries. She has a normal ejection fraction. 10. Long history of tobacco use in the past. She has had no clinical bronchospasm while she has been here. Overall, she is doing amazingly well considering what she has been through. The next step should be placement in a skilled facility for physical therapy. Job ID: [id number]
[2018-12-26] MEDS ORDERED: predniSONE 20 MG TAB PO SCH (10:00)
[2018-12-26 10:44] LABS: Band 12 % (5-11); Lymphocytes 7 % (21-51); MDiff Complete? YES; Monocytes 3 % (0-10); Neutrophil 78 % (42-75); RBC Morphology Normal
--- NOTE | 2018-12-26 11:36 | PDOC.CTH ---
Cardiology Progress Note - Subjective The pt seen and examined. No overnight events. No cardiac complaints. She stood up with PT yesterday. - Objective Vital Signs Temp Pulse Resp BP BP Pulse Ox 12/26/18 09:13 76 12/26/18 09:08 76 157/78 H 12/26/18 09:07 157/78 H 12/26/18 08:00 96 12/26/18 07:58 97.8 F 76 20 157/78 H 96 12/26/18 04:56 97.9 F 94 16 153/78 H 97 12/26/18 00:16 97.8 F 94 18 149/70 H 97 Admit Weight 143 lb 15.39 oz Weight 165 lb 3.2 oz 12/25/18 12/26/18 12/27/18 06:59 06:59 06:59 Intake Total 1960 1030 Output Total 1185 818 Balance 775 212 - Physical Examination General/Neuro: alert & oriented x3 Neck: no JVD present Lungs: other: (diminished at bases) Heart: RRR Abdomen: soft Extremities: other: (generalized edema) - Labs Result Diagrams: 12/26/18 07:40 12/26/18 07:40 Troponin/CKMB CK-MB (CK-2) 12.1 ng/mL (0-6.6) H* 12/15/18 16:40 Troponin I 0.750 ng/mL (< 0.028) H* 12/15/18 22:44 - Assessment/Plan 1. Afib with RVR - HR has been 80-90s with Amiodarone. Digoxin 0.125mg PO qd, Coreg 12.5mg BID; On Lovenox 40mg subq qd for now for s/p Perforated duodenal ulcer; cont. to monitor 2. S/p AVNRT - stable; possible ablation when the pt's condition is stable and family is agreeable. 3. Anoxic brain injury - improved; managed by PCP/neurology service 4. Diabetic keto-acidosis - SS Insulin 5. Septic shock 2/2 perforated ulcer - stable; 6. HTN - resume Lisinopril 10mg qd from today. 7. BRAEDEN - improved 8. Hyperlipidemia - will resume Statin when she is more stable 9. Hx of Takosubu CMY - s/p LHC in 07/2016 with normal coronary arteries; will resume VLADIMIR/ARB when her renal function is more stable. MAR reviewed * Echo in 12/2016 showed EF 50-55%, mild AR, mild TR, mod MR, and borderline Lt atrium Dilation * S/p LHC in 07/2016 with normal coronary arteries; Pt. seen and eval. by me. I agree with the A/P by the CANOPY INSPECTOR. Chest clear. RRR. Review of Systems - Review of Systems Constitutional: reports: no symptoms reported EENTM: reports: no symptoms reported Respiratory: reports: no symptoms reported Cardiac (ROS): reports: no symptoms reported ABD/GI: reports: no symptoms reported : reports: no symptoms reported
[2018-12-26] MEDS ORDERED: Lisinopril 10 MG TAB PO SCH (12:00)
--- NOTE | 2018-12-26 17:48 | PDOC.PN ---
- Subjective Encounter Start Date: 12/26/18 Encounter Start Time: 10:40 Pt seen for followup re: [email or web address] fib. Feels better, no complaints today. - Objective Resuscitation Status - Order Detail: 12/19/18 13:25 Resuscitation Status Routine Resuscitation Status: FULL: Full Resuscitation Discussed with: Son ANNEMARIE Reviewed: Yes Vital Signs & Weight: Vital Signs (12 hours) Temp Pulse Resp BP BP Pulse Ox 12/26/18 17:07 148/63 H 12/26/18 16:00 98.4 F 68 20 148/63 H 94 L 12/26/18 11:56 98.2 F 75 20 157/79 H 96 12/26/18 11:51 157/78 H 12/26/18 09:13 76 12/26/18 09:08 76 157/78 H 12/26/18 09:07 157/78 H 12/26/18 08:00 96 12/26/18 07:58 97.8 F 76 20 157/78 H 96 Weight Admit Weight 143 lb 15.39 oz Weight 165 lb 3.2 oz Most Recent Monitor Data Heart Rate from ECG 72 NIBP 148/65 NIBP BP-Mean 92 Respiration from ECG 26 SpO2 98 I&O: 12/25/18 12/26/18 12/27/18 06:59 06:59 06:59 Intake Total 1960 1030 Output Total 1185 818 Balance 775 212 Result Diagrams: 12/26/18 07:40 12/26/18 07:40 Additional Labs: Accuchecks 12/26/18 12/26/18 12/26/18 17:03 11:58 05:01 POC Glucose 238 H 266 H 228 H 12/26/18 12/25/18 12/25/18 00:52 20:23 15:52 POC Glucose 269 H 388 H 341 H Labs reviewed by me Phys Exam - Physical Examination Constitutional: NAD HEENT: moist MMs Neck: supple Respiratory: clear to auscultation bilateral Cardiovascular: irregular Gastrointestinal: soft Neurological: moves all 4 limbs Psychiatric: normal affect Dx/Plan (1) Atrial fibrillation with RVR Code(s): I48.91 - UNSPECIFIED ATRIAL FIBRILLATION Status: Acute Comment: rate-controlled, not on full anticoagulation due to bleed (2) Hypertension Code(s): I10 - ESSENTIAL (PRIMARY) HYPERTENSION Status: Chronic Qualifiers: Hypertension type: essential hypertension Qualified Code(s): I10 - Essential (primary) hypertension Comment: Improved (3) Bowel perforation Code(s): K63.1 - PERFORATION OF INTESTINE (NONTRAUMATIC) Status: Acute Comment: Improving (4) Depression Code(s): F32.9 - MAJOR DEPRESSIVE DISORDER, SINGLE EPISODE, UNSPECIFIED Status : Chronic Qualifiers: Major depression episode severity: mild Comment: stable (5) Diabetic keto-acidosis Code(s): E13.10 - OTH DIABETES MELLITUS WITH KETOACIDOSIS WITHOUT COMA Status : Resolved Qualifiers: Diabetes mellitus type: type 2 - Plan * . Review of Systems - Review of Systems Cardiovascular: negative: chest pain, palpitations, orthopnea, paroxysmal nocturnal dyspnea, edema, light headedness Gastrointestinal: negative: Nausea, Vomiting, Abdominal Pain, Diarrhea, Constipation, Melena, Hematochezia - Medications/Allergies Allergies/Adverse Reactions: Allergies Allergy/AdvReac Type Severity Reaction Status Date / Time No Known Drug Allergies Allergy Verified 12/16/18 05:56 Medications: Current Medications Acetaminophen (Tylenol) 1,000 mg PO Q6H PRN PRN Reason: Moderate to Severe Pain (6-10) Amiodarone HCl (Cordarone) 400 mg PO BID [facility] Stop: 12/30/18 21:01 Last Admin: 12/26/18 09:08 Dose: 400 mg Amiodarone HCl (Cordarone) 200 mg PO BID [facility] Stop: 01/06/19 09:01 Amiodarone HCl (Cordarone) 200 mg PO DAILY [facility] Amlodipine Besylate (Norvasc) 5 mg PO DAILY [facility] Last Admin: 12/26/18 09:08 Dose: 5 mg Carvedilol (Coreg) 12.5 mg PO BID[facility] Last Admin: 12/26/18 17:07 Dose: 12.5 mg Dextrose/Water (Dextrose 50%) 25 gm SLOW IVP PRN PRN PRN Reason: Hypoglycemia Digoxin (Lanoxin) 0.125 mg PO DAILY [facility] Last Admin: 12/26/18 09:13 Dose: 0.125 mg Enoxaparin Sodium (Lovenox) 30 mg SC QAM [facility] Last Admin: 12/26/18 09:08 Dose: 30 mg Glucagon (Glucagon) 1 mg IM PRN PRN PRN Reason: Hypoglycemia Potassium Chloride 40 meq/ (Sodium Chloride) 270 mls @ 135 mls/hr IVPB ASDIR PRN PRN Reason: FOR SERUM K+ 2.5 - 3.5 Potassium Chloride 40 meq/ (Device) 100 mls @ 50 mls/hr IVPB ASDIR PRN PRN Reason: FOR SERUM K+ 2.5 - 3.5 Last Admin: 12/24/18 08:01 Dose: 100 mls Magnesium Sulfate 1 gm/ Sodium (Chloride) 102 mls @ 102 mls/hr IV PRN PRN PRN Reason: MAG LEVEL 1.4 - 2.0 Last Admin: 12/22/18 10:02 Dose: 102 mls Magnesium Sulfate 2 gm/ Device 100 mls @ 100 mls/hr IVPB ASDIR PRN PRN Reason: MAGNESIUM < 1.4 Potassium Phosphate 9 mmol/ (Sodium Chloride) 103 mls @ 25.75 mls/hr IVPB ASDIR PRN PRN Reason: Phosphate 1.0-1.8 Potassium Phosphate 12 mmol/ (Sodium Chloride) 254 mls @ 63.5 mls/hr IV ASDIR PRN PRN Reason: Serum phosphate 0.5-0.9 Potassium Phosphate 15 mmol/ (Sodium Chloride) 255 mls @ 63.75 mls/hr IV ASDIR PRN PRN Reason: Serum Phos < 0.5 Dextrose/Water (D5w) 1,000 mls @ 0 mls/hr IV .Q0M PRN PRN Reason: Hypoglycemia Insulin Glargine 20 units/ (Miscellaneous Medication) 0.2 mls @ 0 mls/hr SC QAM [facility] Last Admin: 12/26/18 09:12 Dose: 0.2 mls Insulin Human Lispro (Humalog) 0 units SC .BEDTIME SLIDING SC PRN PRN Reason: Bedtime Correctional Scale Last Admin: 12/20/18 20:07 Dose: 2 unit Insulin Human Lispro (Humalog) 0 units SC .AGGRESSIVE SLIDING PRN; Protocol PRN Reason: AGGRESSIVE SLIDING SCALE Last Admin: 12/26/18 17:08 Dose: 6 unit Lisinopril (Zestril) 10 mg PO DAILY [facility] Loperamide HCl (Imodium) 2 mg PO PRN PRN PRN Reason: Diarrhea/Loose Stools Last Admin: 12/25/18 20:11 Dose: 2 mg Magnesium Oxide (Magnesium Oxide) 400 mg PO BIDPRN PRN PRN Reason: FOR SERUM MAG 1.4 - 2.0 Magnesium Oxide (Magnesium Oxide) 800 mg PO PRN PRN PRN Reason: FOR SERUM MAG < 1.4 Morphine Sulfate (Morphine) 2 mg SLOW IVP Q1H PRN PRN Reason: BREAKTHROUGH PAIN/Agitation Stop: 01/19/19 15:03 Ccu Electrolyte (Replacement Protocol) 0 each FS PRN PRN PRN Reason: FOR ELECTROLYTE REPLACEMENT Discontinue Previous Narcotic Pain Medications And Benzodiazepines 1 each FS .ONE [facility] Stop: 01/19/19 15:03 Ondansetron HCl (Zofran) 4 mg IVP Q6H PRN PRN Reason: Nausea/Vomiting Pantoprazole Sodium (Protonix) 40 mg PO Q12HR [facility] Last Admin: 12/26/18 09:07 Dose: 40 mg Prednisone (Prednisone) 10 mg PO QAM[facility] Sodium Chloride (Flush - Normal Saline) 10 ml IVF Q12HR [facility] Last Admin: 12/26/18 10:00 Dose: 10 ml Sodium Chloride (Flush - Normal Saline) 10 ml IVF PRN PRN PRN Reason: Saline Flush
[2018-12-27 06:41] LABS: Hemoglobin 10.7 g/dL (12.0-16.0); Lymphocytes 20 % (21-51); MDiff Complete? YES; Mean Corpuscular HGB CONC 31.2 g/dL (32.0-36.0); Mean Corpuscular Hemoglobin 28.9 pg (27.0-31.0); Mean Corpuscular Volume 92.8 fL (78.0-98.0); Mean Platelet Volume 9.4 fL (7.4-10.4); Monocytes 7 % (0-10); Neutrophil 73 % (42-75); Platelet Count 233 thou/uL (130-400); Platelet Morphology Comment Appears Adequate; RBC Distribution Width 13.1 % (11.5-14.5); Red Blood Cell (RBC) Count 3.69 mill/uL (4.20-5.40); White Blood Cell (WBC) Count 11.4 thou/uL (4.8-10.8)
[2018-12-27 06:45] LABS: Anion Gap 11 mmol/L (10-20); BUN (Urea Nitrogen) 29 mg/dL (9.8-20.1); Calc. Creatinine Clearance 98 mL/min (70-130); Calcium 8.5 mg/dL (7.8-10.44); Carbon Dioxide 21 mmol/L (23-31); Chloride 113 mmol/L (98-107); Estimated GFR-MDRD 87; Glucose 63 mg/dL (80-115); Potassium 4.3 mmol/L (3.5-5.1); Sodium 141 mmol/L (136-145)
[2018-12-27] MEDS: Lisinopril 10 MG TAB PO SCH (08:20)
[2018-12-27] MEDS: Enoxaparin Sodium 30 MG/0.3 ML SYRINGE SC SCH (08:20)
[2018-12-27] MEDS: Amlodipine 5 MG TAB PO SCH (08:20)
[2018-12-27] MEDS: predniSONE 20 MG TAB PO SCH (08:21)
[2018-12-27] MEDS: Digoxin 0.125 MG TAB PO SCH (08:21)
[2018-12-27] MEDS: Amiodarone 200 MG TAB PO SCH ×2 (08:21→22:17)
[2018-12-27] MEDS: Carvedilol 6.25 MG TAB PO SCH ×2 (08:21→19:18)
[2018-12-27] MEDS: Insulin Glargine 20 UNITS in Pre-Filled Syringe 1 EACH SC SCH (10:12)
--- NOTE | 2018-12-27 11:40 | PRG ---
DATE OF SERVICE: 12/27/2018 SUBJECTIVE: She is awake, alert, and in good spirits, has no complaints. OBJECTIVE: VITAL SIGNS: On exam, temperature is 97.8, pulse 75, respirations 20, O2 sat 92%, and blood pressure of 153/83. HEENT: Unremarkable. NECK: No adenopathy or JVD. LUNGS: Clear. CARDIAC: S1 and S2, regular. ABDOMEN: Soft. EXTREMITIES: No edema. LABORATORY DATA: White blood cell count 11.4, hematocrit 34.2, and platelet count 233. Sodium 141, potassium 4.3, BUN 29, creatinine 0.6, and glucose 87. ASSESSMENT: 1. Status post acute respiratory failure, requiring mechanical ventilation. 2. Status post gastrointestinal bleeding with contained perforated duodenal ulcer that was treated without surgery. 3. Diabetic ketoacidosis, which is resolved. 4. Atrial fibrillation, which has resolved. PLAN: The patient has improved slowly. She seems to be doing well on the current therapy. No further recommendations at this time. Job ID: [id number]
--- NOTE | 2018-12-27 11:41 | PDOC.PN ---
- Subjective Encounter Start Date: 12/27/18 Encounter Start Time: 10:40 Pt seen for followup re; atrial fibrillation. Says she feels fine. - Objective Resuscitation Status - Order Detail: 12/19/18 13:25 Resuscitation Status Routine Resuscitation Status: FULL: Full Resuscitation Discussed with: Son Vital Signs & Weight: Vital Signs (12 hours) Temp Pulse Resp BP Pulse Ox 12/27/18 08:19 97.8 F 75 20 153/83 H 92 L 12/27/18 00:52 98.2 F 65 16 150/76 H 92 L Weight Admit Weight 143 lb 15.39 oz Weight 165 lb 3.2 oz Most Recent Monitor Data Heart Rate from ECG 72 NIBP 148/65 NIBP BP-Mean 92 Respiration from ECG 26 SpO2 98 I&O: 12/26/18 12/27/18 12/28/18 06:59 06:59 06:59 Intake Total 1030 Output Total 818 1550 Balance 212 -1550 Result Diagrams: 12/27/18 05:52 12/27/18 05:52 Additional Labs: Accuchecks 12/27/18 12/27/18 12/27/18 08:28 03:35 00:48 POC Glucose 81 88 147 H 12/26/18 12/26/18 12/26/18 20:47 17:03 11:58 POC Glucose 231 H 238 H 266 H Phys Exam - Physical Examination Constitutional: NAD HEENT: moist MMs Neck: supple Respiratory: clear to auscultation bilateral Cardiovascular: irregular Gastrointestinal: soft Neurological: moves all 4 limbs Psychiatric: normal affect Dx/Plan (1) Atrial fibrillation with RVR Code(s): I48.91 - UNSPECIFIED ATRIAL FIBRILLATION Status: Acute Comment: rate-controlled (2) Hypertension Code(s): I10 - ESSENTIAL (PRIMARY) HYPERTENSION Status: Chronic Qualifiers: Hypertension type: essential hypertension Qualified Code(s): I10 - Essential (primary) hypertension Comment: Improved (3) Bowel perforation Code(s): K63.1 - PERFORATION OF INTESTINE (NONTRAUMATIC) Status: Acute Comment: stable (4) Depression Code(s): F32.9 - MAJOR DEPRESSIVE DISORDER, SINGLE EPISODE, UNSPECIFIED Status : Chronic Qualifiers: Major depression episode severity: mild Comment: stable (5) Diabetic keto-acidosis Code(s): E13.10 - OTH DIABETES MELLITUS WITH KETOACIDOSIS WITHOUT COMA Status : Resolved Qualifiers: Diabetes mellitus type: type 2 - Plan * . Review of Systems - Review of Systems Cardiovascular: negative: chest pain, palpitations, orthopnea, paroxysmal nocturnal dyspnea, edema, light headedness Gastrointestinal: negative: Nausea, Vomiting, Abdominal Pain, Diarrhea, Constipation, Melena, Hematochezia - Medications/Allergies Allergies/Adverse Reactions: Allergies Allergy/AdvReac Type Severity Reaction Status Date / Time No Known Drug Allergies Allergy Verified 12/16/18 05:56 Medications: Current Medications Acetaminophen (Tylenol) 1,000 mg PO Q6H PRN PRN Reason: Moderate to Severe Pain (6-10) Amiodarone HCl (Cordarone) 400 mg PO BID [facility] Stop: 12/30/18 21:01 Last Admin: 12/27/18 08:21 Dose: 400 mg Amiodarone HCl (Cordarone) 200 mg PO BID [facility] Stop: 01/06/19 09:01 Amiodarone HCl (Cordarone) 200 mg PO DAILY [facility] Amlodipine Besylate (Norvasc) 5 mg PO DAILY [facility] Last Admin: 12/27/18 08:20 Dose: 5 mg Carvedilol (Coreg) 12.5 mg PO BID-[facility] Last Admin: 12/27/18 08:21 Dose: 12.5 mg Dextrose/Water (Dextrose 50%) 25 gm SLOW IVP PRN PRN PRN Reason: Hypoglycemia Digoxin (Lanoxin) 0.125 mg PO DAILY [facility] Last Admin: 12/27/18 08:21 Dose: 0.125 mg Enoxaparin Sodium (Lovenox) 30 mg SC QAM [facility] Last Admin: 12/27/18 08:20 Dose: 30 mg Glucagon (Glucagon) 1 mg IM PRN PRN PRN Reason: Hypoglycemia Potassium Chloride 40 meq/ (Sodium Chloride) 270 mls @ 135 mls/hr IVPB ASDIR PRN PRN Reason: FOR SERUM K+ 2.5 - 3.5 Potassium Chloride 40 meq/ (Device) 100 mls @ 50 mls/hr IVPB ASDIR PRN PRN Reason: FOR SERUM K+ 2.5 - 3.5 Last Admin: 12/24/18 08:01 Dose: 100 mls Magnesium Sulfate 1 gm/ Sodium (Chloride) 102 mls @ 102 mls/hr IV PRN PRN PRN Reason: MAG LEVEL 1.4 - 2.0 Last Admin: 12/22/18 10:02 Dose: 102 mls Magnesium Sulfate 2 gm/ Device 100 mls @ 100 mls/hr IVPB ASDIR PRN PRN Reason: MAGNESIUM < 1.4 Potassium Phosphate 9 mmol/ (Sodium Chloride) 103 mls @ 25.75 mls/hr IVPB ASDIR PRN PRN Reason: Phosphate 1.0-1.8 Potassium Phosphate 12 mmol/ (Sodium Chloride) 254 mls @ 63.5 mls/hr IV ASDIR PRN PRN Reason: Serum phosphate 0.5-0.9 Potassium Phosphate 15 mmol/ (Sodium Chloride) 255 mls @ 63.75 mls/hr IV ASDIR PRN PRN Reason: Serum Phos < 0.5 Dextrose/Water (D5w) 1,000 mls @ 0 mls/hr IV .Q0M PRN PRN Reason: Hypoglycemia Insulin Glargine 20 units/ (Miscellaneous Medication) 0.2 mls @ 0 mls/hr SC QAM [facility] Last Admin: 12/27/18 10:12 Dose: 0.2 mls Insulin Human Lispro (Humalog) 0 units SC .BEDTIME SLIDING SC PRN PRN Reason: Bedtime Correctional Scale Last Admin: 12/26/18 22:12 Dose: 2 unit Insulin Human Lispro (Humalog) 0 units SC .AGGRESSIVE SLIDING PRN; Protocol PRN Reason: AGGRESSIVE SLIDING SCALE Last Admin: 12/26/18 17:08 Dose: 6 unit Lisinopril (Zestril) 10 mg PO DAILY [facility] Last Admin: 12/27/18 08:20 Dose: 10 mg Loperamide HCl (Imodium) 2 mg PO PRN PRN PRN Reason: Diarrhea/Loose Stools Last Admin: 12/25/18 20:11 Dose: 2 mg Magnesium Oxide (Magnesium Oxide) 400 mg PO BIDPRN PRN PRN Reason: FOR SERUM MAG 1.4 - 2.0 Magnesium Oxide (Magnesium Oxide) 800 mg PO PRN PRN PRN Reason: FOR SERUM MAG < 1.4 Morphine Sulfate (Morphine) 2 mg SLOW IVP Q1H PRN PRN Reason: BREAKTHROUGH PAIN/Agitation Stop: 01/19/19 15:03 Ccu Electrolyte (Replacement Protocol) 0 each FS PRN PRN PRN Reason: FOR ELECTROLYTE REPLACEMENT Discontinue Previous Narcotic Pain Medications And Benzodiazepines 1 each FS .ONE [facility] Stop: 01/19/19 15:03 Ondansetron HCl (Zofran) 4 mg IVP Q6H PRN PRN Reason: Nausea/Vomiting Pantoprazole Sodium (Protonix) 40 mg PO Q12HR [facility] Last Admin: 12/27/18 08:21 Dose: 40 mg Prednisone (Prednisone) 10 mg PO QAM-WM [facility] Last Admin: 12/27/18 08:21 Dose: 10 mg Sodium Chloride (Flush - Normal Saline) 10 ml IVF Q12HR [facility] Last Admin: 12/26/18 21:25 Dose: 10 ml Sodium Chloride (Flush - Normal Saline) 10 ml IVF PRN PRN PRN Reason: Saline Flush
[2018-12-27] MEDS: HumaLOG 300 UNITS/3 ML VIAL SC PRN ×2 (14:51→23:09)
[2018-12-27] MEDS: Loperamide HCl 2 MG CAP PO PRN (22:17)
[2018-12-28] MEDS: Lisinopril 10 MG TAB PO SCH (08:57)
[2018-12-28] MEDS: Amlodipine 5 MG TAB PO SCH (08:57)
[2018-12-28] MEDS: Digoxin 0.125 MG TAB PO SCH (08:58)
[2018-12-28] MEDS: predniSONE 20 MG TAB PO SCH (08:58)
[2018-12-28] MEDS: Carvedilol 6.25 MG TAB PO SCH ×2 (08:58→17:04)
[2018-12-28] MEDS: Amiodarone 200 MG TAB PO SCH ×2 (08:58→22:19)
[2018-12-28] MEDS: Enoxaparin Sodium 30 MG/0.3 ML SYRINGE SC SCH (08:59)
[2018-12-28] MEDS: Insulin Glargine 20 UNITS in Pre-Filled Syringe 1 EACH SC SCH (09:05)
[2018-12-28 10:34] LABS: Anion Gap 12 mmol/L (10-20); BUN (Urea Nitrogen) 20 mg/dL (9.8-20.1); Calc. Creatinine Clearance 101 mL/min (70-130); Calcium 7.9 mg/dL (7.8-10.44); Carbon Dioxide 24 mmol/L (23-31); Chloride 111 mmol/L (98-107); Estimated GFR-MDRD 90; Glucose 182 mg/dL (80-115); Potassium 3.9 mmol/L (3.5-5.1); Sodium 143 mmol/L (136-145)
[2018-12-28 11:25] LABS: Burr Cells SLIGHT = 2-5 cells (100X) (0-1/hpf); Eosinophils 2 % (0-10); Hemoglobin 10.1 g/dL (12.0-16.0); Hypochromia SLIGHT = 6-15 cells (100X) (0-5/hpf); Lymphocytes 10 % (21-51); MDiff Complete? YES; Mean Corpuscular HGB CONC 31.6 g/dL (32.0-36.0); Mean Corpuscular Hemoglobin 29.5 pg (27.0-31.0); Mean Corpuscular Volume 93.4 fL (78.0-98.0); Mean Platelet Volume 8.4 fL (7.4-10.4); Microcytosis SLIGHT = 6-15 cells (100X) (0-5/hpf); Monocytes 8 % (0-10); Neutrophil 72 % (42-75); Platelet Count 440 thou/uL (130-400); Platelet Morphology Comment Appears Increased; Polychromasia SLIGHT = 2-3 cells (100X) (0-2/hpf); RBC Distribution Width 13.3 % (11.5-14.5); Reactive Lymphocytes 8 % (0-10); Red Blood Cell (RBC) Count 3.41 mill/uL (4.20-5.40); Target Cells SLIGHT = 2-5 cells (100X) (0-1/hpf); White Blood Cell (WBC) Count 8.6 thou/uL (4.8-10.8)
--- NOTE | 2018-12-28 11:35 | PRG ---
DATE OF SERVICE: 12/28/2018 OBJECTIVE: She is in good spirits, has no complaints. OBJECTIVE: VITAL SIGNS: Her temperature is 98.3, pulse 68, blood pressure 157/79. HEENT: Unremarkable. NECK: No JVD. LUNGS: Clear. CARDIAC: S1, S2. Regular. ABDOMEN: Obese. EXTREMITIES: No edema. LABORATORY DATA: Sodium 143, potassium 3.9, BUN 20, creatinine 0.6, glucose 182. ASSESSMENT: 1. Status post prolonged mechanical ventilation with a surprisingly good recovery. 2. Status post gastrointestinal bleeding with contained perforated duodenal ulcer. 3. Resolved diabetic ketoacidosis. 4. Resolved atrial fibrillation. PLAN: Continue further rehabilitative efforts. She is stable from Pulmonary standpoint. Job ID: [id number]
[2018-12-28] MEDS: HumaLOG 300 UNITS/3 ML VIAL SC PRN (12:21)
--- NOTE | 2018-12-28 13:02 | PDOC.PN ---
- Subjective Encounter Start Date: 12/28/18 Encounter Start Time: 09:20 Pt seen for followup re: atrial fibrillation. No complaints today. - Objective Resuscitation Status - Order Detail: 12/19/18 13:25 Resuscitation Status Routine Resuscitation Status: FULL: Full Resuscitation Discussed with: Son ANNEMARIE Reviewed: Yes Vital Signs & Weight: Vital Signs (12 hours) Temp Pulse Resp BP BP Pulse Ox 12/28/18 12:06 97.8 F 72 18 156/71 H 92 L 12/28/18 08:58 68 157/79 H 12/28/18 08:57 67 157/79 H 12/28/18 08:00 95 12/28/18 07:44 98.3 F 67 14 157/79 H 94 L Weight Admit Weight 143 lb 15.39 oz Weight 165 lb 3.2 oz Most Recent Monitor Data Heart Rate from ECG 72 NIBP 148/65 NIBP BP-Mean 92 Respiration from ECG 26 SpO2 98 I&O: 12/27/18 12/28/18 12/29/18 06:59 06:59 06:59 Intake Total 490 Output Total 3575 Balance -3085 Result Diagrams: 12/28/18 09:55 12/28/18 09:55 Additional Labs: Accuchecks 12/28/18 12/28/18 12/28/18 11:59 06:51 05:49 POC Glucose 176 H 100 62 L 12/27/18 12/27/18 12/27/18 23:05 20:18 15:52 POC Glucose 202 H 198 H 145 H labs reviewed by me Phys Exam - Physical Examination Constitutional: NAD HEENT: moist MMs Neck: supple Respiratory: clear to auscultation bilateral Cardiovascular: irregular Gastrointestinal: soft, non-tender, positive bowel sounds Neurological: moves all 4 limbs Psychiatric: normal affect Dx/Plan (1) Atrial fibrillation with RVR Code(s): I48.91 - UNSPECIFIED ATRIAL FIBRILLATION Status: Acute Comment: rate-controlled, continue digoxin and Coreg (2) Hypertension Code(s): I10 - ESSENTIAL (PRIMARY) HYPERTENSION Status: Chronic Qualifiers: Hypertension type: essential hypertension Qualified Code(s): I10 - Essential (primary) hypertension Comment: Improved control (3) Bowel perforation Code(s): K63.1 - PERFORATION OF INTESTINE (NONTRAUMATIC) Status: Acute Comment: managed conservatively for perforated peptic ulcer (4) Depression Code(s): F32.9 - MAJOR DEPRESSIVE DISORDER, SINGLE EPISODE, UNSPECIFIED Status : Chronic Qualifiers: Major depression episode severity: mild Comment: stable (5) Diabetic keto-acidosis Code(s): E13.10 - OTH DIABETES MELLITUS WITH KETOACIDOSIS WITHOUT COMA Status : Resolved Qualifiers: Diabetes mellitus type: type 2 - Plan * . Review of Systems - Review of Systems Cardiovascular: negative: chest pain, palpitations, orthopnea, paroxysmal nocturnal dyspnea, edema, light headedness Gastrointestinal: negative: Nausea, Vomiting, Abdominal Pain, Diarrhea, Constipation, Melena, Hematochezia - Medications/Allergies Allergies/Adverse Reactions: Allergies Allergy/AdvReac Type Severity Reaction Status Date / Time No Known Drug Allergies Allergy Verified 12/16/18 05:56 Medications: Current Medications Acetaminophen (Tylenol) 1,000 mg PO Q6H PRN PRN Reason: Moderate to Severe Pain (6-10) Amiodarone HCl (Cordarone) 400 mg PO BID [facility] Stop: 12/30/18 21:01 Last Admin: 12/28/18 08:58 Dose: 400 mg Amiodarone HCl (Cordarone) 200 mg PO BID [facility] Stop: 01/06/19 09:01 Amiodarone HCl (Cordarone) 200 mg PO DAILY [facility] Amlodipine Besylate (Norvasc) 5 mg PO DAILY [facility] Last Admin: 12/28/18 08:57 Dose: 5 mg Carvedilol (Coreg) 12.5 mg PO BID-[facility] Last Admin: 12/28/18 08:58 Dose: 12.5 mg Dextrose/Water (Dextrose 50%) 25 gm SLOW IVP PRN PRN PRN Reason: Hypoglycemia Digoxin (Lanoxin) 0.125 mg PO DAILY [facility] Last Admin: 12/28/18 08:58 Dose: 0.125 mg Enoxaparin Sodium (Lovenox) 30 mg SC QAM [facility] Last Admin: 12/28/18 08:59 Dose: 30 mg Glucagon (Glucagon) 1 mg IM PRN PRN PRN Reason: Hypoglycemia Potassium Chloride 40 meq/ (Sodium Chloride) 270 mls @ 135 mls/hr IVPB ASDIR PRN PRN Reason: FOR SERUM K+ 2.5 - 3.5 Potassium Chloride 40 meq/ (Device) 100 mls @ 50 mls/hr IVPB ASDIR PRN PRN Reason: FOR SERUM K+ 2.5 - 3.5 Last Admin: 12/24/18 08:01 Dose: 100 mls Magnesium Sulfate 1 gm/ Sodium (Chloride) 102 mls @ 102 mls/hr IV PRN PRN PRN Reason: MAG LEVEL 1.4 - 2.0 Last Admin: 12/22/18 10:02 Dose: 102 mls Magnesium Sulfate 2 gm/ Device 100 mls @ 100 mls/hr IVPB ASDIR PRN PRN Reason: MAGNESIUM < 1.4 Potassium Phosphate 9 mmol/ (Sodium Chloride) 103 mls @ 25.75 mls/hr IVPB ASDIR PRN PRN Reason: Phosphate 1.0-1.8 Potassium Phosphate 12 mmol/ (Sodium Chloride) 254 mls @ 63.5 mls/hr IV ASDIR PRN PRN Reason: Serum phosphate 0.5-0.9 Potassium Phosphate 15 mmol/ (Sodium Chloride) 255 mls @ 63.75 mls/hr IV ASDIR PRN PRN Reason: Serum Phos < 0.5 Dextrose/Water (D5w) 1,000 mls @ 0 mls/hr IV .Q0M PRN PRN Reason: Hypoglycemia Insulin Glargine 20 units/ (Miscellaneous Medication) 0.2 mls @ 0 mls/hr SC QAM [facility] Last Admin: 12/28/18 09:05 Dose: 0.2 mls Insulin Human Lispro (Humalog) 0 units SC .BEDTIME SLIDING SC PRN PRN Reason: Bedtime Correctional Scale Last Admin: 12/27/18 23:09 Dose: 2 unit Insulin Human Lispro (Humalog) 0 units SC .AGGRESSIVE SLIDING PRN; Protocol PRN Reason: AGGRESSIVE SLIDING SCALE Last Admin: 12/28/18 12:21 Dose: 3 unit Lisinopril (Zestril) 10 mg PO DAILY [facility] Last Admin: 12/28/18 08:57 Dose: 10 mg Loperamide HCl (Imodium) 2 mg PO PRN PRN PRN Reason: Diarrhea/Loose Stools Last Admin: 12/27/18 22:17 Dose: 2 mg Magnesium Oxide (Magnesium Oxide) 400 mg PO BIDPRN PRN PRN Reason: FOR SERUM MAG 1.4 - 2.0 Magnesium Oxide (Magnesium Oxide) 800 mg PO PRN PRN PRN Reason: FOR SERUM MAG < 1.4 Morphine Sulfate (Morphine) 2 mg SLOW IVP Q1H PRN PRN Reason: BREAKTHROUGH PAIN/Agitation Stop: 01/19/19 15:03 Ccu Electrolyte (Replacement Protocol) 0 each FS PRN PRN PRN Reason: FOR ELECTROLYTE REPLACEMENT Discontinue Previous Narcotic Pain Medications And Benzodiazepines 1 each FS .ONE [facility] Stop: 01/19/19 15:03 Ondansetron HCl (Zofran) 4 mg IVP Q6H PRN PRN Reason: Nausea/Vomiting Pantoprazole Sodium (Protonix) 40 mg PO Q12HR [facility] Last Admin: 12/28/18 08:57 Dose: 40 mg Prednisone (Prednisone) 10 mg PO QAM-WM [facility] Last Admin: 12/28/18 08:58 Dose: 10 mg Sodium Chloride (Flush - Normal Saline) 10 ml IVF Q12HR [facility] Last Admin: 12/28/18 09:05 Dose: 10 ml Sodium Chloride (Flush - Normal Saline) 10 ml IVF PRN PRN PRN Reason: Saline Flush
[2018-12-28] MEDS: Loperamide HCl 2 MG CAP PO PRN (22:19)
[2018-12-29] MEDS: Amiodarone 200 MG TAB PO SCH ×2 (08:51→19:47)
[2018-12-29] MEDS: Carvedilol 6.25 MG TAB PO SCH ×2 (08:52→17:01)
[2018-12-29] MEDS: predniSONE 20 MG TAB PO SCH (08:53)
[2018-12-29] MEDS: Lisinopril 10 MG TAB PO SCH (08:54)
[2018-12-29] MEDS: Amlodipine 5 MG TAB PO SCH (08:54)
[2018-12-29] MEDS: Digoxin 0.125 MG TAB PO SCH (08:54)
[2018-12-29] MEDS: Enoxaparin Sodium 30 MG/0.3 ML SYRINGE SC SCH (08:55)
[2018-12-29] MEDS: Insulin Glargine 20 UNITS in Pre-Filled Syringe 1 EACH SC SCH (08:55)
--- NOTE | 2018-12-29 09:23 | PDOC.CTH ---
Cardiology Progress Note - Subjective The pt seen and examined. No overnight events. No cardiac complaints. - Objective Vital Signs Temp Pulse Resp BP BP Pulse Ox 12/29/18 08:54 72 167/76 H 12/29/18 08:52 160/76 H 12/29/18 08:29 98.5 F 72 20 160/76 H 91 L 12/28/18 23:38 98.1 F Admit Weight 143 lb 15.39 oz Weight 165 lb 3.2 oz 12/28/18 12/29/18 12/30/18 06:59 06:59 06:59 Intake Total 490 250 Output Total 9303 8280 Balance -3085 -2100 - Labs Result Diagrams: 12/28/18 09:55 12/28/18 09:55 Troponin/CKMB CK-MB (CK-2) 12.1 ng/mL (0-6.6) H* 12/15/18 16:40 Troponin I 0.750 ng/mL (< 0.028) H* 12/15/18 22:44
--- NOTE | 2018-12-29 09:24 | PDOC.CTH ---
Cardiology Progress Note - Subjective The pt seen and examined. No overnight events. No cardiac complaints. Worsening of BLE edema, but no SOB or wheezing at this moment. - Objective Vital Signs Temp Pulse Resp BP BP Pulse Ox 12/29/18 08:54 72 167/76 H 12/29/18 08:52 160/76 H 12/29/18 08:29 98.5 F 72 20 160/76 H 91 L 12/28/18 23:38 98.1 F Admit Weight 143 lb 15.39 oz Weight 165 lb 3.2 oz 12/28/18 12/29/18 12/30/18 06:59 06:59 06:59 Intake Total 490 250 Output Total 3575 2350 Balance -308 - Physical Examination General/Neuro: alert & oriented x3 Neck: no JVD present Lungs: CTA (diminished at bases) Heart: RRR Abdomen: soft Extremities: other: (3-4+ pitting edema) - Labs Result Diagrams: 12/30/18 08:26 12/30/18 08:26 Troponin/CKMB CK-MB (CK-2) 12.1 ng/mL (0-6.6) H* 12/15/18 16:40 Troponin I 0.750 ng/mL (< 0.028) H* 12/15/18 22:44 - Assessment/Plan 1. Afib with RVR - HR has been 80-90s with Amiodarone, Digoxin 0.125mg PO qd, and Coreg 12.5mg BID; On Lovenox 40mg subq qd for now for s/p Perforated duodenal ulcer; cont. to monitor 2. S/p AVNRT - stable; possible ablation when the pt's condition is stable and family is agreeable. 3. Anoxic brain injury - improved; managed by PCP/neurology service 4. Diabetic keto-acidosis - SS Insulin 5. Septic shock 2/2 perforated ulcer - stable; 6. HTN - resume Lisinopril 10mg qd from today. 7. BRAEDEN - improved 8. Hyperlipidemia - will resume Statin when she is more stable 9. Hx of [place]osubu CMY - s/p LHC in 07/2016 with normal coronary arteries; will resume VLADIMIR/ARB when her renal function is more stable. 10. BLE edema - start Lasix 40mg PO qd from today. EF 50-55%; Start 1500ml/day fluid restriction; cont. to monitor MAR reviewed * Echo in 12/2016 showed EF 50-55%, mild AR, mild TR, mod MR, and borderline Lt atrium Dilation * S/p LHC in 07/2016 with normal coronary arteries; Pt. seen and eval. by me. No cardiac problems . I agree with the A/P by the [employer] FI[employer] INSPECTOR. Chest clear. RRR, no edema. Cardiac status stable. Review of Systems - Review of Systems Constitutional: reports: no symptoms reported EENTM: reports: no symptoms reported Respiratory: reports: no symptoms reported Cardiac (ROS): reports: no symptoms reported ABD/GI: reports: no symptoms reported : reports: no symptoms reported Musculoskeletal: reports: no symptoms reported Skin: reports: no symptoms reported
[2018-12-29] MEDS ORDERED: Furosemide 40 MG TAB PO SCH ×2 (09:45→10:00)
[2018-12-29 13:29] LABS: Mean Corpuscular HGB CONC 31.1 g/dL (32.0-36.0); Mean Corpuscular Hemoglobin 29.4 pg (27.0-31.0); Mean Corpuscular Volume 94.6 fL (78.0-98.0); Mean Platelet Volume 8.3 fL (7.4-10.4); Platelet Count 452 thou/uL (130-400); RBC Distribution Width 14.1 % (11.5-14.5)
[2018-12-29 13:33] LABS: Anion Gap 10 mmol/L (10-20); BUN (Urea Nitrogen) 16 mg/dL (9.8-20.1); Calc. Creatinine Clearance 102 mL/min (70-130); Calcium 8.1 mg/dL (7.8-10.44); Carbon Dioxide 24 mmol/L (23-31); Chloride 113 mmol/L (98-107); Estimated GFR-MDRD Greater than 90; Glucose 132 mg/dL (80-115); Potassium 4.2 mmol/L (3.5-5.1); Sodium 143 mmol/L (136-145)
[2018-12-29 14:13] LABS: Band 4 % (5-11); Eosinophils 3 % (0-10); Hypochromia SLIGHT = 6-15 cells (100X) (0-5/hpf); Large Platelets SLIGHT; Lymphocytes 16 % (21-51); MDiff Complete? YES; Monocytes 6 % (0-10); Neutrophil 71 % (42-75); Ovalocytes SLIGHT = 2-5 cells (100X) (0-1/hpf); Platelet Morphology Comment Appears Increased; Polychromasia SLIGHT = 2-3 cells (100X) (0-2/hpf)
--- NOTE | 2018-12-29 14:33 | PRG ---
DATE OF SERVICE: 12/29/2018 SUBJECTIVE: Ms. Mueller is doing well. She has not walked. She did stand at the bedside Saturday with physical therapy. She had no physical therapy yesterday. OBJECTIVE: VITAL SIGNS: She is afebrile. Heart rate is 67, respiratory rate is 20, oximetry is 92% on room air, blood pressure 132/72. LUNGS: Clear. HEART: Regular rhythm. ABDOMEN: Soft. IMPRESSION: 1. Deconditioning, which is the biggest factor affecting her now. Other problems include perforated duodenal ulcer that appears to be clinically walled off. She will need a followup CT scan at some point, probably in 4 to 6 weeks. 1. Diabetes. 2. Status post hyperosmolar coma with severe hypothermia and metabolic acidosis on presentation. 3. Type 1 diabetes. 4. Anemia with likely mixture of chronic disease and blood draws. 5. Mild hyperchloremia. PLAN: Continue with Physical therapy. Awaiting placement in a [facility] facility or rehab facility. Job ID: [id number]
[2018-12-29] MEDS: HumaLOG 300 UNITS/3 ML VIAL SC PRN ×3 (17:02→23:54)
--- NOTE | 2018-12-29 17:30 | PDOC.PN ---
- Subjective Encounter Start Date: 12/29/18 Encounter Start Time: 08:20 Pt seen for followup re: atrial fibrillation. No complaints. - Objective Resuscitation Status - Order Detail: 12/19/18 13:25 Resuscitation Status Routine Resuscitation Status: FULL: Full Resuscitation Discussed with: Son Vital Signs & Weight: Vital Signs (12 hours) Temp Pulse Resp BP BP Pulse Ox 12/29/18 17:01 150/76 H 12/29/18 16:00 98.6 F 61 18 150/76 H 94 L 12/29/18 12:00 98.3 F 67 20 132/72 92 L 12/29/18 08:54 72 167/76 H 12/29/18 08:52 160/76 H 12/29/18 08:29 98.5 F 72 20 160/76 H 91 L 12/29/18 08:00 92 L Weight Admit Weight 143 lb 15.39 oz Weight 165 lb 3.2 oz Most Recent Monitor Data Heart Rate from ECG 72 NIBP 148/65 NIBP BP-Mean 92 Respiration from ECG 26 SpO2 98 I&O: 12/28/18 12/29/18 12/30/18 06:59 06:59 06:59 Intake Total 490 250 Output Total 3575 2350 Balance -3085 -2100 Result Diagrams: 12/29/18 12:50 12/29/18 12:50 Additional Labs: Accuchecks 12/29/18 12/29/18 12/29/18 16:26 11:21 04:08 POC Glucose 211 H 160 H 73 12/29/18 12/28/18 12/28/18 00:31 20:20 17:07 POC Glucose 112 H 144 H 129 H Phys Exam - Physical Examination Constitutional: NAD HEENT: sclera anicteric Neck: supple Respiratory: no wheezing Cardiovascular: RRR Gastrointestinal: soft Neurological: moves all 4 limbs Psychiatric: normal affect Dx/Plan (1) Atrial fibrillation with RVR Code(s): I48.91 - UNSPECIFIED ATRIAL FIBRILLATION Status: Acute Comment: rate-controlled (2) Hypertension Code(s): I10 - ESSENTIAL (PRIMARY) HYPERTENSION Status: Chronic Qualifiers: Hypertension type: essential hypertension Qualified Code(s): I10 - Essential (primary) hypertension Comment: monitor vital signs, titrate antihypertensives as needed (3) Depression Code(s): F32.9 - MAJOR DEPRESSIVE DISORDER, SINGLE EPISODE, UNSPECIFIED Status : Chronic Qualifiers: Major depression episode severity: mild Comment: stable (4) Diabetic keto-acidosis Code(s): E13.10 - OTH DIABETES MELLITUS WITH KETOACIDOSIS WITHOUT COMA Status : Resolved Qualifiers: Diabetes mellitus type: type 2 (5) Bowel perforation Code(s): K63.1 - PERFORATION OF INTESTINE (NONTRAUMATIC) Status: Resolved Comment: stable - Plan * . Review of Systems - Review of Systems Cardiovascular: other. negative: chest pain, palpitations, orthopnea, paroxysmal nocturnal dyspnea, edema, light headedness Gastrointestinal: negative: Nausea, Vomiting, Abdominal Pain, Diarrhea, Constipation, Melena, Hematochezia - Medications/Allergies Allergies/Adverse Reactions: Allergies Allergy/AdvReac Type Severity Reaction Status Date / Time No Known Drug Allergies Allergy Verified 12/16/18 05:56 Medications: Current Medications Acetaminophen (Tylenol) 1,000 mg PO Q6H PRN PRN Reason: Moderate to Severe Pain (6-10) Amiodarone HCl (Cordarone) 400 mg PO BID [facility] Stop: 12/30/18 21:01 Last Admin: 12/29/18 08:51 Dose: 400 mg Amiodarone HCl (Cordarone) 200 mg PO BID [facility] Stop: 01/06/19 09:01 Amiodarone HCl (Cordarone) 200 mg PO DAILY [facility] Amlodipine Besylate (Norvasc) 5 mg PO DAILY [facility] Last Admin: 12/29/18 08:54 Dose: 5 mg Carvedilol (Coreg) 12.5 mg PO BID-[facility] Last Admin: 12/29/18 17:01 Dose: 12.5 mg Dextrose/Water (Dextrose 50%) 25 gm SLOW IVP PRN PRN PRN Reason: Hypoglycemia Digoxin (Lanoxin) 0.125 mg PO DAILY [facility] Last Admin: 12/29/18 08:54 Dose: 0.125 mg Enoxaparin Sodium (Lovenox) [facility] [place] Last Admin: 12/29/18 08:55 Dose: 30 mg Furosemide (Lasix) 40 mg PO DAILY-[facility] Glucagon (Glucagon) 1 mg IM PRN PRN PRN Reason: Hypoglycemia Potassium Chloride 40 meq/ (Sodium Chloride) 270 mls @ 135 mls/hr IVPB ASDIR PRN PRN Reason: FOR SERUM K+ 2.5 - 3.5 Potassium Chloride 40 meq/ (Device) 100 mls @ 50 mls/hr IVPB ASDIR PRN PRN Reason: FOR SERUM K+ 2.5 - 3.5 Last Admin: 12/24/18 08:01 Dose: 100 mls Magnesium Sulfate 1 gm/ Sodium (Chloride) 102 mls @ 102 mls/hr IV PRN PRN PRN Reason: MAG LEVEL 1.4 - 2.0 Last Admin: 12/22/18 10:02 Dose: 102 mls Magnesium Sulfate 2 gm/ Device 100 mls @ 100 mls/hr IVPB ASDIR PRN PRN Reason: MAGNESIUM < 1.4 Potassium Phosphate 9 mmol/ (Sodium Chloride) 103 mls @ 25.75 mls/hr IVPB ASDIR PRN PRN Reason: Phosphate 1.0-1.8 Potassium Phosphate 12 mmol/ (Sodium Chloride) 254 mls @ 63.5 mls/hr IV ASDIR PRN PRN Reason: Serum phosphate 0.5-0.9 Potassium Phosphate 15 mmol/ (Sodium Chloride) 255 mls @ 63.75 mls/hr IV ASDIR PRN PRN Reason: Serum Phos < 0.5 Dextrose/Water (D5w) 1,000 mls @ 0 mls/hr IV .Q0M PRN PRN Reason: Hypoglycemia Insulin Glargine 20 units/ (Miscellaneous Medication) 0.2 mls @ 0 mls/[facility] [place] Last Admin: 12/29/18 08:55 Dose: 0.2 mls Insulin Human Lispro (Humalog) 0 units SC .BEDTIME SLIDING SC PRN PRN Reason: Bedtime Correctional Scale Last Admin: 12/27/18 23:09 Dose: 2 unit Insulin Human Lispro (Humalog) 0 units SC .AGGRESSIVE SLIDING PRN; Protocol PRN Reason: AGGRESSIVE SLIDING SCALE Last Admin: 12/29/18 17:02 Dose: 6 unit Lisinopril (Zestril) 10 mg PO DAILY [facility] Last Admin: 12/29/18 08:54 Dose: 10 mg Loperamide HCl (Imodium) 2 mg PO PRN PRN PRN Reason: Diarrhea/Loose Stools Last Admin: 12/28/18 22:19 Dose: 2 mg Magnesium Oxide (Magnesium Oxide) 400 mg PO BIDPRN PRN PRN Reason: FOR SERUM MAG 1.4 - 2.0 Magnesium Oxide (Magnesium Oxide) 800 mg PO PRN PRN PRN Reason: FOR SERUM MAG < 1.4 Morphine Sulfate (Morphine) 2 mg SLOW IVP Q1H PRN PRN Reason: BREAKTHROUGH PAIN/Agitation Stop: 01/19/19 15:03 Ccu Electrolyte (Replacement Protocol) 0 each FS PRN PRN PRN Reason: FOR ELECTROLYTE REPLACEMENT Discontinue Previous Narcotic Pain Medications And Benzodiazepines 1 each FS .ONE [facility] Stop: 01/19/19 15:03 Ondansetron HCl (Zofran) 4 mg IVP Q6H PRN PRN Reason: Nausea/Vomiting Pantoprazole Sodium (Protonix) 40 mg PO Q12HR [facility] Last Admin: 12/29/18 08:52 Dose: 40 mg Prednisone (Prednisone) 10 mg PO QAM-[facility] Last Admin: 12/29/18 08:53 Dose: 10 mg Sodium Chloride (Flush - Normal Saline) 10 ml IVF Q12HR [facility] Last Admin: 12/29/18 09:03 Dose: 10 ml Sodium Chloride (Flush - Normal Saline) 10 ml IVF PRN PRN PRN Reason: Saline Flush
[2018-12-29] MEDS: Loperamide HCl 2 MG CAP PO PRN (19:47)
[2018-12-29 20:03] VITALS: TEMP 98.2
[2018-12-30] MEDS ORDERED: Furosemide 40 MG TAB PO SCH (07:30)
[2018-12-30] MEDS: Lisinopril 10 MG TAB PO SCH (08:41)
[2018-12-30] MEDS: Digoxin 0.125 MG TAB PO SCH (08:42)
[2018-12-30] MEDS: Amlodipine 5 MG TAB PO SCH (08:42)
[2018-12-30] MEDS: Amiodarone 200 MG TAB PO SCH (08:43)
[2018-12-30] MEDS: predniSONE 20 MG TAB PO SCH (08:44)
[2018-12-30] MEDS: Enoxaparin Sodium 30 MG/0.3 ML SYRINGE SC SCH (08:46)
[2018-12-30] MEDS: Insulin Glargine 20 UNITS in Pre-Filled Syringe 1 EACH SC SCH (08:47)
[2018-12-30] MEDS: Carvedilol 6.25 MG TAB PO SCH (08:51)
--- NOTE | 2018-12-30 08:52 | PDOC.CTH ---
Cardiology Progress Note - Subjective The pt seen and examined. No overnight events. No cardiac complaints. Her generalized edema has improved with Lasix 40mg PO qd. - Objective Vital Signs Temp Pulse Resp BP Pulse Ox 12/30/18 07:46 98.2 F 66 18 176/80 H 94 L Admit Weight 143 lb 15.39 oz Weight 165 lb 3.2 oz 12/29/18 12/30/18 12/31/18 06:59 06:59 06:59 Intake Total 250 490 Output Total 2350 1350 Balance -2100 -860 - Physical Examination General/Neuro: alert & oriented x3 Neck: no JVD present Lungs: CTA Heart: other: (irregular) Abdomen: soft Extremities: other: (generalized edema) - Labs Result Diagrams: 12/29/18 12:50 12/29/18 12:50 Troponin/CKMB CK-MB (CK-2) 12.1 ng/mL (0-6.6) H* 12/15/18 16:40 Troponin I 0.750 ng/mL (< 0.028) H* 12/15/18 22:44 - Assessment/Plan 1. Afib with RVR - HR has been 80-90s with Amiodarone, Digoxin 0.125mg PO qd, and Coreg 12.5mg BID; On Lovenox 40mg subq qd for now for s/p Perforated duodenal ulcer; cont. to monitor 2. S/p AVNRT - stable; possible ablation when the pt's condition is stable and family is agreeable. 3. Anoxic brain injury - improved; managed by PCP/neurology service 4. Diabetic keto-acidosis - SS Insulin 5. Septic shock 2/2 perforated ulcer - stable; 6. HTN - resume Lisinopril 10mg qd from today. 7. BRAEDEN - improved 8. Hyperlipidemia - will resume Lipitor from tonight. 9. Hx of [place]ubu CMY - s/p LHC in 07/2016 with normal coronary arteries; will resume VLADIMIR/ARB when her renal function is more stable. 10. BLE edema - start Lasix 40mg PO qd from today. EF 50-55%; Start 1500ml/day fluid restriction; cont. to monitor MAR reviewed * Echo in 12/2016 showed EF 50-55%, mild AR, mild TR, mod MR, and borderline Lt atrium Dilation * S/p LHC in 07/2016 with normal coronary arteries; Review of Systems - Review of Systems Constitutional: reports: weakness EENTM: reports: no symptoms reported Respiratory: reports: no symptoms reported Cardiac (ROS): reports: no symptoms reported ABD/GI: reports: no symptoms reported Musculoskeletal: reports: no symptoms reported Skin: reports: no symptoms reported Neurological: reports: no symptoms reported
[2018-12-30] MEDS ORDERED: Lisinopril 10 MG TAB PO SCH (09:10)
[2018-12-30 09:40] LABS: Anion Gap 9 mmol/L (10-20); BUN (Urea Nitrogen) 15 mg/dL (9.8-20.1); Calc. Creatinine Clearance 101 mL/min (70-130); Calcium 8.1 mg/dL (7.8-10.44); Carbon Dioxide 27 mmol/L (23-31); Chloride 113 mmol/L (98-107); Estimated GFR-MDRD 90; Glucose 74 mg/dL (80-115); Potassium 4.3 mmol/L (3.5-5.1); Sodium 145 mmol/L (136-145)
[2018-12-30 09:55] LABS: Band 9 % (5-11); Eosinophils 2 % (0-10); Hypochromia SLIGHT = 6-15 cells (100X) (0-5/hpf); Lymphocytes 24 % (21-51); MDiff Complete? YES; Mean Corpuscular HGB CONC 31.2 g/dL (32.0-36.0); Mean Corpuscular Hemoglobin 29.4 pg (27.0-31.0); Mean Corpuscular Volume 94.3 fL (78.0-98.0); Mean Platelet Volume 8.3 fL (7.4-10.4); Metamyelocyte 1 % (0-0); Monocytes 12 % (0-10); Neutrophil 52 % (42-75); Platelet Count 470 thou/uL (130-400); Platelet Morphology Comment Appears Increased; Polychromasia SLIGHT = 2-3 cells (100X) (0-2/hpf); RBC Distribution Width 14.3 % (11.5-14.5); Red Blood Cell (RBC) Count 3.39 mill/uL (4.20-5.40); White Blood Cell (WBC) Count 9.3 thou/uL (4.8-10.8)
[2018-12-30 13:52] VITALS: BP 146/65
--- NOTE | 2018-12-30 16:24 | DIS ---
DATE OF ADMISSION: 12/15/2018 DATE OF DISCHARGE: 12/30/2018 PRIMARY CARE PROVIDER: Unknown. DISCHARGE DIAGNOSES: 1. Hemorrhagic shock. 2. Perforated duodenal ulcer. 3. Atrial fibrillation. 4. Diabetic ketoacidosis. 5. Acute kidney injury. 6. Physical deconditioning. CONSULTATIONS DURING THIS HOSPITALIZATION: 1. Pulmonology, Dr. Cha. 2. Gastroenterology, Dr. Schmitt. 3. Cardiology, Dr. Madison. 4. General Surgery, Dr. Bedolla. CONDITION: Condition of the patient on the day of discharge: Stable. I assessed Ms. Mueller on the day of discharge. She denies any chest pain or shortness of breath. Vital signs are stable. S1 and S2 are heard, regular. Lungs are clear to auscultation bilaterally. DISCHARGE MEDICATIONS: 1. Coreg 12.5 mg 2 times a day. 2. Ferrous sulfate 325 mg daily. 3. Humalog insulin by sliding scale. 4. Protonix 40 mg every 12 hours. 5. Amiodarone 400 mg 2 times a day, to be tapered. 6. Amlodipine 5 mg daily. 7. Lipitor 10 mg at bedtime. 8. Digoxin 0.125 mg daily. 9. Lasix 40 mg daily. 10. Lantus insulin 20 units daily. 11. Lisinopril 20 mg daily. HOSPITAL COURSE: Ms. Mueller is a pleasant 63-year-old lady, who was admitted to [facility] on December 15, 2018, for hemorrhagic shock. She was admitted to the Critical Care Unit with vasopressor support. She had CT scan of the abdomen and pelvis on December 17, which showed development of bilateral pleural effusions and persistent and worsening inflammatory changes involving the gastric antrum and the entire duodenum. There was increased air along the periphery of the duodenum, which may represent a contained perforation. She was treated with antibiotics. She was seen by Gastroenterology and General Surgery Services. She had a repeat CT scan of the abdomen and pelvis on December 19, 2018, which showed interval decrease in inflammation and upper abdominal free fluid. She had extraluminal enteric contrast projecting medially from the second portion of the duodenum, which was evidence of the leak, which was confined to a small area just anterior to the inferior vena cava at the time of the examination. She was managed conservatively and improved significantly. She was seen by Cardiology Service also for atrial fibrillation. She was not started on anticoagulation because of GI bleed. Her left ventricular ejection fraction on December 19 by 2D echocardiogram was 50% to 55%. She continued to improve gradually. She was physically deconditioned. She was evaluated for rehab and has been accepted for inpatient rehab at [facility]. She is being discharged there in a stable condition. On the day of discharge, she has white count of 9300, hemoglobin 10, and platelet count 470,000. Sodium 145, potassium 4.3, and creatinine 0.66. She had creatinine of 2.85 on December 15, 2018. She also had diabetic ketoacidosis during this hospitalization and was treated with intravenous insulin. Ms. Mueller also has had a large left adnexal cystic mass. She will need to be followed up by Gynecology Service. [facility] is being notified of her amiodarone dose as being 400 mg 2 times a day for 1 week, then 200 mg 2 times a day for 1 week, and then 200 mg daily. Many thanks for allowing me to participate in your patient's care. Please feel free to contact me with any questions or concerns. DISCHARGE DESTINATION: [facility]. TIME SPENT: Total amount of time spent in coordinating this discharge: 33 minutes. Job ID: [id number]
--- NOTE | 2018-12-30 17:23 | PRG ---
DATE OF SERVICE: 12/30/2018 SUBJECTIVE: Ms. Mueller is doing well overnight. She is afebrile. She has no complaints. OBJECTIVE: LUNGS: Unchanged. HEART: Unchanged. ABDOMEN: Unchanged. IMPRESSION: 1. Status post perforated duodenal ulcer with GI bleed prior to admission. 2. Hyperosmolar coma. 3. Type-1 diabetes, status post DKA while on simply sliding scale insulin alone in the hospital. 4. Status post multiple CAT scans still showing stability of this walled-off duodenal ulcer. At some point in time, she will need to follow up with Dr. Bedolla for another CAT scan possibly in 3 to 4 weeks. 5. Status post hypothermia and severe metabolic acidosis on presentation with normal mentation now. 6. Weakness and deconditioning, to go to rehab, I will see her as needed in the future. Job ID: [id number]
[2018-12-30] MEDS ORDERED: Atorvastatin Calcium 10 MG TAB PO SCH (21:00)
[2018-12-31] MEDS ORDERED: Amiodarone 200 MG TAB PO SCH (09:00)
--- NOTE | 2019-01-01 10:57 | PQF ---
JEREMIAH CUNHABELINDA [id number] CLINICAL DOCUMENTATION CLARIFICATION FORM: POST DISCHARGE DATE: 01/01/2019 ATTN: Dr. Lundy Please exercise your independent, professional judgment in responding to the clarification form. Clinical indicators are provided on the bottom of this form for your review Please check appropriate box(es): [ x] Sepsis due to (please specify) Bacteremia [ ] SIRS due to non-infectious process (please specify etiology) [ ] with organ dysfunction [ ] without organ dysfunction [ ] Severe sepsis with acute organ dysfunction of: (Examples: respiratory failure, encephalopathy, acute kidney failure, other) [ ] Septic Shock [ ] Localized infection without sepsis [ ] Other diagnosis (please specify) [ ] Unable to determine In addition, please specify: Present on Admission (POA): [x ] Yes [ ] No [ ] Unable to determine For continuity of documentation, please document condition throughout progress notes and discharge summary. Thank You. CLINICAL INDICATORS - SIGNS / SYMPTOMS / LABS (per ED record/H&P/Labs) Altered mental status Hypothermia 85.1 rectally. Respiratory rate 8. BP ranging from 49/29 to 113/56. DKA with glucose 1104. . 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 Shock resistant to IV fluid boluses WBC count is over 20, ordered Vancomycin, Zosyn for sepsis of unknown source. Per Hospitalist Progress Notes 12/16 to 12/19: Severe Sepsis with Septic Shock. Per Cardiology Progress Notes: Septic Shock 2/2 perforated ulcer- stable. Per Discharge Summary: Hemorrhagic shock. Positive blood cultures for Alpha-Hemolytic Streptococcus and Coagulase Negative Staphylococcus. RISK FACTORS Perforated duodenal ulcer with hemorrhage. Diabetic ketoacidosis with coma. Acute renal failure. Acute hypoxic respiratory failure. TREATMENTS: 15 mcg Levophed. Intubation/Mechanical Ventilation. IV Vancomycin. IV Zosyn. IV Fluids. CCU Daily CBC Blood cultures ID Consult (This form is maintained as a part of the permanent medical record) 2014 [employer]. All Rights Reserved [email or web address] [phone] [email or web address]
--- NOTE | 2019-01-02 12:57 | PDOC.EVN ---
Event Note - Event Note Event Note: Late entry note: Patients discharge diagnoses also include: sepsis secondary to bacteremia.
[2019-01-07] MEDS ORDERED: Amiodarone 200 MG TAB PO SCH (09:00)
== END 2018-12-30 14:12 | DRG 870 ==
LOC: ERS 16:26 → CCU 19:00 → T4-A 12-25 21:54
PROVIDERS: ADMIT Emergency Medicine; ATTEND Emergency Medicine
PROC: 5A1955Z Respiratory Ventilation, Greater than 96 Consecutive Hours (ICD-10-PCS; principal; 2018-12-15)
DX: A41.9 Sepsis, unspecified organism (principal); K26.6 Chronic or unspecified duodenal ulcer with both hemorrhage and perforation; E10.11 Type 1 diabetes mellitus with ketoacidosis with coma; R57.8 Other shock; J96.01 Acute respiratory failure with hypoxia; N17.9 Acute kidney failure, unspecified; R68.0 Hypothermia, not associated with low environmental temperature; I48.91 Unspecified atrial fibrillation; F32.9 Major depressive disorder, single episode, unspecified; Z66 Do not resuscitate; Z79.4 Long term (current) use of insulin; Z79.899 Other long term (current) drug therapy
CPT/HCPCS: 31500; 36415; 36416; 36430; 36556; 51702; 70450; 71045; 71275; 72125; 74018; 74150; 74176; 74177; 80048; 80053; 80306; 80307; 81003; 81015; 82010; 82550; 82553; 82805; 83605; 83690; 83735; 83880; 84100; 84484; 85007; 85025; 85027; 85610; 85730; 86140; 86850; 86900; 86901; 87077; 87149; 93005; 93010; 93306; 94002; 94003; 94760; 95816; 95819; 96365; 96366; 96367; 96368; 96375; 99292; A4217; C9113; J0282; J0692; J1160; J1650; J1815; J1825; J2060; J2405; J2543; J2704; J2920; J3370; J3475; J3480; J3490; J7050; J7070; J7506; P9016; Q9967

== ENCOUNTER 2019-01-19 14:19 | Inpatient (IN) | payer MEDICARE, MEDICAID ==
[2019-01-19 15:30] LABS: PTT 52.3 SEC (22.9-36.1)
[2019-01-19 15:32] LABS: Hemoglobin 5.6 g/dL (12.0-16.0); Mean Corpuscular Hemoglobin 29.8 pg (27.0-31.0); Mean Platelet Volume 6.9 fL (7.4-10.4); Platelet Count 386 thou/uL (130-400); RBC Distribution Width 16.5 % (11.5-14.5); Red Blood Cell (RBC) Count 1.87 mill/uL (4.20-5.40); White Blood Cell (WBC) Count 2.7 thou/uL (4.8-10.8)
[2019-01-19 15:48] LABS: #Eosinphils 0.1 thou/uL (0.0-0.7); #Monocytes 0.2 thou/uL (0.11-0.59); #Neutrophils 1.5 thou/uL (1.40-6.50); %Basophils 0.6 % (0.0-1.0); %Lymphocytes 35.8 % (21.0-51.0); %Monocytes 5.6 % (0.0-10.0); %Neutrophils 56.1 % (42.0-75.0); Anisocytosis SLIGHT = 6-15 cells (100X) (0-5/hpf); MDiff Complete? YES; Platelet Morphology Comment Appears Adequate
[2019-01-19 16:33] LABS: Bilirubin Negative (Negative); Blood, Urine Negative (Negative); Clarity CLOUDY (Clear); Glucose, Urine (Dipstick) 100 mg/dL (Negative); Leukocyte Small (Negative); Nitrite Negative (Negative); Protein, Urine (Dipstick) 30 mg/dL (Neg-Trace); Specific Gravity, Urine 1.003 (1.002-1.036); Urobilinogen 0.2 mg/dL (0.2-1.0); pH, Urine 6.5 (5.0-9.0)
[2019-01-19 16:34] LABS: Bacteria/HPF 4+ HPF (None Seen); Hyaline Casts/LPF 0-3 HYALINE CAST LPF (0-3 Hyaline); RBC/HPF None Seen HPF (0-3); Squamous Epithelial 0-3 HPF (0-3)
[2019-01-19 16:36] LABS: Albumin 2.9 g/dL (3.4-4.8)
[2019-01-19 16:37] LABS: Chloride 107 mmol/L (98-107); Potassium 3.6 mmol/L (3.5-5.1); Sodium 138 mmol/L (136-145)
[2019-01-19 16:38] LABS: Calcium 8.9 mg/dL (7.8-10.44)
[2019-01-19 16:39] LABS: Globulin 3.7 g/dL (2.4-3.5); Glucose 234 mg/dL (80-115); Protein, Total 6.6 g/dL (6.0-8.3)
[2019-01-19 16:40] LABS: Anion Gap 14 mmol/L (10-20); Bilirubin, Total 0.4 mg/dL (0.2-1.2); Carbon Dioxide 21 mmol/L (23-31)
[2019-01-19 16:41] LABS: Alcohol Less than 10 mg/dL (Less than 10)
[2019-01-19 16:42] LABS: Alkaline Phosphatase 93 U/L (40-150); Calc. Creatinine Clearance 0 mL/min (70-130); Estimated GFR-MDRD 85
--- NOTE | 2019-01-19 16:42 | RAD ---
SINGLE VIEW CHEST: HISTORY: Bradycardia. Altered mental status. COMPARISON: 12/21/2018 FINDINGS: A single view of the chest shows an enlarged but stable cardiomediastinal silhouette. There is no ev idence of consolidation, mass, or pleural effusion. Degenerative changes are seen in the spine and s houlders. IMPRESSION: No evidence of acute cardiopulmonary disease. POS: [facility]
[2019-01-19 16:43] LABS: BUN (Urea Nitrogen) 9 mg/dL (9.8-20.1)
[2019-01-19 16:44] LABS: AST (SGOT) 21 U/L (5-34)
[2019-01-19 16:45] LABS: ALT (SGPT) 20 U/L (8-55); Acetaminophen Less than 6.0 mcg/mL (10.0-30.0); Salicylate Less than 8.0 mg/dL (15.0-30.0)
[2019-01-19 16:46] LABS: Amphetamine Not Detected (NotDetected); Barbiturates Screen Not Detected (NotDetected); Benzodiazepine Screen Not Detected (NotDetected); Cocaine Metabolite Screen Not Detected (NotDetected); Medtox Control Line Valid? VALID (VALID); Medtox Reader # READER 4; Methadone Not Detected (NotDetected); Methamphetamine Not Detected (NotDetected); Opiate Screen Not Detected (NotDetected); Oxycodone Screen Not Detected (NotDetected); Phencyclidine (PCP) Not Detected (NotDetected); THC/Cannabinoid Screen Detected (NotDetected); Tricyclic Screen Not Detected (NotDetected)
[2019-01-19] MEDS ORDERED: Dextrose 50% Abboject 50 ML SYRINGE SLOW IVP PRN (19:44)
[2019-01-19] MEDS ORDERED: Dextrose 5% in Water 1,000 ML IV PRN (19:44)
[2019-01-19] MEDS ORDERED: Pantoprazole 40 MG VIAL ONE (19:51)
--- NOTE | 2019-01-19 21:30 | HP ---
PRIMARY CARE PHYSICIAN: [facility]. CHIEF COMPLAINT: Hypoglycemia and hypothermia with anemia. HISTORY OF PRESENT ILLNESS: This is a 63-year-old white female who reported that she was feeling a little bit shaky, which she often gets some hypoglycemia, checked her blood sugar and it was in the 70s, so she ate something, then she sat down. She did get very sweaty, which happens frequently when she either has hyper or hypoglycemia. After sweating a lot, then she started feeling very cold. She did put a blanket on, laid down on her couch. Neighbor came to check on her and she was reportedly very cold and had a low blood sugar, so EMS was called. Per the emergency room notes, the patient's blood sugar was down to 39 and she was found to be also as lethargic and in altered mental status. She was bradycardic into the high 40s as well and had a rectal temperature of 90.2. The patient was brought to the emergency room. There, she was warmed up and feeling back to baseline. Her blood sugars were in the 100s to 200s. She was shivering initially, but the time I saw her, she was back up to 98 degrees. She was found to be significantly anemic 5.6. Her most recent at her discharge from rehab seven days ago was 9.1, so she is being transfused and admitted for a GI bleed. The patient was recently admitted to the hospital for severe DKA along with a perforated duodenal ulcer. Due to her being critically ill at that time, she did not have surgery, but was treated conservatively and the perforation sealed. The patient was seen by Dr. Schmitt and Dr. Bedolla in last admission, the patient reports that she has been feeling a little weak ever since her rehab stay, but was otherwise was feeling normal today except for her low blood sugar spells. She does not remember feeling altered or lethargic. PAST MEDICAL HISTORY: 1. Longstanding diabetes mellitus type 2, now insulin dependent and converted to type 1 with recurrent diabetic ketoacidosis episodes. 2. Previous stroke. 3. Hypertension. 4. Diabetic neuropathy. 5. Hyperlipidemia. 6. Recent perforated duodenal ulcer. 7. Atrial fibrillation, controlled with amiodarone, not on anticoagulation. PSYCHIATRIC HISTORY: Depression. PAST SURGICAL HISTORY: 1. Carpal tunnel release. 2. Right hip fracture repair. 3. Complete hip replacement. SOCIAL HISTORY: The patient smokes a pack of cigarettes a day. No alcohol use. Intermittent marijuana use. She lives by herself. She is considering going to stay in assisted living. ALLERGIES: NO KNOWN DRUG ALLERGIES. CURRENT MEDICATIONS: 1. Coreg 12.5 mg twice a day. 2. Ferrous sulfate 325 mg daily. 3. Humalog insulin by sliding scale. 4. Protonix 40 mg twice a day. 5. Amiodarone 200 mg daily. 6. Amlodipine 5 mg daily. 7. Lipitor 10 mg at bedtime. 8. Digoxin 0.125 mg daily. 9. Lasix 40 mg daily. 10. Lantus insulin 20 units daily. 11. Lisinopril 20 mg daily. FAMILY HISTORY: Multiple family members with diabetes. REVIEW OF SYSTEMS: CONSTITUTIONAL: No fevers, no chills. She did have the sweats typical for her hypoglycemic episodes. EYES: No double vision or blurred vision. ENT: No congestion, drainage, or sore throat. CARDIOVASCULAR: No chest pain. No palpitations or racing heart. PULMONARY: No coughing, wheezing, or shortness of breath. GASTROINTESTINAL: No abdominal pain. No nausea or vomiting. No diarrhea or constipation. GENITOURINARY: No dysuria or hematuria. MUSCULOSKELETAL: No muscle aches. No joint pain. No back pain. SKIN: No rashes or other lesions she has noted. NEUROLOGIC: No numbness, tingling, or focal weakness. PHYSICAL EXAMINATION: VITAL SIGNS: Blood pressure 108/56, pulse 57, respirations 16, temperature 98.7 , O2 saturation 99% on room air. GENERAL: This is a well-developed, well-nourished white female, in no acute distress. HEENT: Pupils are equal, round, and reactive to light. Oropharynx is clear without lesions, erythema, or exudate. NECK: Supple. No lymphadenopathy. No thyroid nodules or enlargement. No JVD. CARDIOVASCULAR: Regular rate and rhythm. No murmurs, rubs, or gallops. LUNGS: Clear to auscultation bilaterally. No wheezes, crackles, or rhonchi. ABDOMEN: Soft, nontender to palpation. Normoactive bowel sounds. No hepatosplenomegaly or other masses. EXTREMITIES: No clubbing, cyanosis, or edema. Extremities are warm now with good perfusion. SKIN: No rashes or other lesions noted. NEUROLOGIC: She has intact strength and sensation in all extremities. No facial droop. PSYCHIATRIC: Alert and oriented x3. Normal mood and affect. LABORATORY DATA: CBC with a white blood cell count of 2.7, hemoglobin 5.6, hematocrit 22.4, MCV of 120, platelet count of 386. Coagulation profile shows a PT of 23, INR of 2.0, PTT of 52. Complete metabolic panel is notable for a carbon dioxide of 21, BUN of 9, glucose 234, and albumin of 2.9. Troponin was negative. TSH was suppressed at 0.014. Last check was in 2017, it was normal at that time , though she did have some suppressed TSH over the year in 2016 and 2017. Urinalysis showed protein and some glucose, small leukocyte esterase, but only 4-6 white blood cells. There is 4+ bacteria in her urine, so we will go ahead and culture it. Chest x-ray; I did review the chest x-ray done in the emergency room along with the radiologist's report. It shows normal heart size. No pulmonary infiltrates. No evidence of acute cardiopulmonary process. EKG; I did review the EKG done in the emergency room. It shows sinus bradycardia. There are some mild ST depressions and flipped T-waves in the anterolateral leads. ASSESSMENT: 1. Upper gastrointestinal bleed with anemia. This was likely due to the recurrence of the patient's bleeding duodenal ulcer. We will start the patient on Protonix , give a dose in the ER and then start on a Protonix drip. We will transfuse the patient with 2 units of packed red blood cells and check hemoglobin and hematocrit afterward. Then we will consult Dr. Schmitt for an endoscopy. We will put the patient on clear liquid diet for now and n.p.o. after midnight to allow for endoscopy in the morning. 2. Hypothermia, resolved. The patient seems to get hypothermic very easily, but also concerned about her social situation, I think it would be better for her if she was able to get into an assisted living facility. 3. Hypoglycemia, resolved. Due to change in patient's diet, I am going to decrease her 10 units of Lantus daily until she does back up to a normal diet. We will check fingerstick blood sugars before meals and at bedtime with low insulin sliding scale, and try and prevent her from going into diabetic ketoacidosis. 4. Flipped T-waves and ST change on EKG, likely secondary to cardiac strain from the anemia. We will monitor for signs of any acute coronary syndrome. Currently, the patient is asymptomatic, her troponins are negative. 5. History of atrial fibrillation. We will continue patient's amiodarone use. 6. Hypertension. We will resume patient's blood pressure medicines and monitor closely. 7. Hyperlipidemia. We will resume patient's atorvastatin. 8. Code status. I did discuss this with the patient. She is a full code. Should she be incapacitated, her son would be her medical decision maker, his name is Harsh 9. Hyperthyroidism. Patient has suppressed TSH. She has had this in the past. Will check fT3 and fT4 to check for actually hyperthyroidism as patient doesn't have classic symptoms. 10. Coagulopathy. Likely due to hypothermia. Will recheck now that patient has warmed up. If remains abnormal will need to workup cause. Ami. Job ID: [id number] MTDD
[2019-01-19] MEDS ORDERED: Guaifenesin DM 100-10/5 ML UDCUP PO PRN (22:28)
[2019-01-19] MEDS ORDERED: Ondansetron PF 4 MG/2 ML Vial IVP PRN (22:28)
[2019-01-19] MEDS ORDERED: Acetaminophen 325 MG TAB PO PRN (22:28)
[2019-01-19] MEDS ORDERED: Ondansetron ODT 4 MG TAB PO PRN (22:28)
[2019-01-19] MEDS ORDERED: Senokot S 8.6-50 MG TAB PO PRN (22:28)
[2019-01-19] MEDS ORDERED: Acetaminophen 650 MG Suppository PR PRN (22:28)
[2019-01-19 23:50] VITALS: BMI 21.5
[2019-01-20] MEDS: Carvedilol 25 MG TAB PO SCH ×3 (00:08→20:54)
[2019-01-20] MEDS: Atorvastatin Calcium 10 MG TAB PO SCH ×2 (00:08→20:54)
[2019-01-20] MEDS: Pantoprazole 80 MG, Admixture Fee 1 EACH in Sodium Chloride 0.9% 100 ML IVP SCH ×3 (00:23→20:54)
[2019-01-20] MEDS: HumaLOG 300 UNITS/3 ML VIAL SC PRN ×4 (01:00→20:54)
[2019-01-20] MEDS: Insulin Glargine 10 UNITS in Pre-Filled Syringe SC SCH ×2 (07:29→17:15)
[2019-01-20 08:16] LABS: INR-International Normal Ratio 1.2; Prothrombin Time 14.9 SEC (12.0-14.7)
[2019-01-20] MEDS: Digoxin 0.125 MG TAB PO SCH (08:23)
[2019-01-20] MEDS: Amiodarone 200 MG TAB PO SCH (08:24)
[2019-01-20 08:25] LABS: #Eosinphils 0.1 thou/uL (0.0-0.7); #Lymphocytes 2.6 thou/uL (1.20-3.40); #Monocytes 0.6 thou/uL (0.11-0.59); #Neutrophils 3.1 thou/uL (1.40-6.50); %Basophils 0.5 % (0.0-1.0); %Eosinophils 1.2 % (0.0-10.0); %Lymphocytes 40.7 % (21.0-51.0); %Monocytes 9.3 % (0.0-10.0); %Neutrophils 48.3 % (42.0-75.0); Hemoglobin 10.8 g/dL (12.0-16.0); Mean Corpuscular HGB CONC 32.4 g/dL (32.0-36.0); Mean Corpuscular Volume 92.7 fL (78.0-98.0); Mean Platelet Volume 7.1 fL (7.4-10.4); Platelet Count 583 thou/uL (130-400); Red Blood Cell (RBC) Count 3.59 mill/uL (4.20-5.40); White Blood Cell (WBC) Count 6.5 thou/uL (4.8-10.8)
[2019-01-20] MEDS: Amlodipine 5 MG TAB PO SCH (08:26)
[2019-01-20] MEDS: Lisinopril 20 MG TAB PO SCH (08:29)
[2019-01-20 08:30] LABS: Anion Gap 11 mmol/L (10-20); BUN (Urea Nitrogen) 10 mg/dL (9.8-20.1); Calc. Creatinine Clearance 72 mL/min (70-130); Calcium 8.2 mg/dL (7.8-10.44); Carbon Dioxide 22 mmol/L (23-31); Chloride 111 mmol/L (98-107); Estimated GFR-MDRD 75; Glucose 242 mg/dL (80-115); Potassium 3.3 mmol/L (3.5-5.1); Sodium 141 mmol/L (136-145)
[2019-01-20] MEDS: Furosemide 40 MG TAB PO SCH (08:40)
[2019-01-20] MEDS: Ferrous Sulfate 325 MG TAB PO SCH (08:40)
[2019-01-20 08:49] LABS: Free T4 (Free Thyroxine) 1.26 ng/dL (0.70-1.48)
[2019-01-20] MEDS ORDERED: Potassium Chloride 20 MEQ TAB PO SCH (09:15)
--- NOTE | 2019-01-20 09:19 | PDOC.PN ---
- Subjective Encounter Start Date: 01/20/19 Encounter Start Time: 11:50 Subjective: Patient feeling much better after transfusion. Melena, -: but no other bleeding noted. No CP or SOB. - Objective Resuscitation Status - Order Detail: 01/19/19 19:38 Resuscitation Status Routine Resuscitation Status: FULL: Full Resuscitation Discussed with: Patient Additional comments: MAR Reviewed: Yes Vital Signs & Weight: Vital Signs (12 hours) Temp Pulse Pulse Resp BP BP Pulse Ox 01/20/19 08:23 70 01/20/19 07:08 98.1 F 70 18 130/66 94 L 01/20/19 04:00 98.6 F 67 16 117/64 93 L 01/20/19 03:50 98.2 F 66 18 116/61 94 L 01/20/19 01:01 98.5 F 65 16 118/53 L 92 L 01/20/19 00:15 98.5 F 67 18 110/66 94 L 01/19/19 22:00 98.6 F 67 18 134/66 96 Weight Weight 137 lb 12.8 oz I&O: 01/19/19 01/20/19 01/21/19 06:59 06:59 06:59 Intake Total 890 Balance 890 Result Diagrams: 01/20/19 07:28 01/20/19 07:28 Additional Labs: Accuchecks 01/20/19 01/20/19 01/19/19 05:47 00:31 18:09 POC Glucose 242 H 318 H 232 H 01/19/19 01/19/19 15:24 14:28 POC Glucose 302 H 133 H Phys Exam - Physical Examination Constitutional: NAD HEENT: moist MMs Respiratory: no wheezing, no rales, no rhonchi, clear to auscultation bilateral Cardiovascular: RRR, no significant murmur Gastrointestinal: soft, positive bowel sounds Neurological: non-focal, moves all 4 limbs Psychiatric: normal affect, A&O x 3 Dx/Plan (1) Upper GI bleed Code(s): K92.2 - GASTROINTESTINAL HEMORRHAGE, UNSPECIFIED Status: Acute Comment: on Protonix drip, GI consult for repeat EGD (2) Duodenal ulcer Status: Acute Comment: previous hemorrhage and perforation, treated conservatively, now bleeding again (3) Anemia due to blood loss, acute Code(s): D62 - ACUTE POSTHEMORRHAGIC ANEMIA Status: Acute Comment: improved after transfusion, monitor H/H closely (4) Hypothermia Code(s): T68.XXXA - HYPOTHERMIA, INITIAL ENCOUNTER Status: Resolved (5) Hypoglycemia Code(s): E16.2 - HYPOGLYCEMIA, UNSPECIFIED Status: Resolved (6) Coagulopathy Status: Resolved Comment: due to hypothermia, resolved (7) Low TSH level Code(s): R79.89 - OTHER SPECIFIED ABNORMAL FINDINGS OF BLOOD CHEMISTRY Status : Acute Comment: normal fT3 and fT4, subclinical hyperthyroidism, appears to have had in the past, will monitor (8) Paroxysmal atrial fibrillation Code(s): I48.0 - PAROXYSMAL ATRIAL FIBRILLATION Status: Chronic Comment: in sinus rhythm, on amiodarone, can't anticoagulate due to GI bleed (9) Hyperlipidemia Code(s): E78.5 - HYPERLIPIDEMIA, UNSPECIFIED Status: Chronic (10) Hypertension Code(s): I10 - ESSENTIAL (PRIMARY) HYPERTENSION Status: Chronic Qualifiers: Hypertension type: essential hypertension Qualified Code(s): I10 - Essential (primary) hypertension Comment: monitor vital signs, titrate antihypertensives as needed (11) Hypokalemia Code(s): E87.6 - HYPOKALEMIA Status: Acute Comment: replace orally - Plan cont current plan of care, PT/OT, DVT proph w/SCDs plan for EGD later today by Dr. Talbot * . - Discharge Day Encounter end time: 12:00
--- NOTE | 2019-01-20 12:37 | CON ---
DATE OF CONSULTATION: 01/20/[address] [facility] REASON FOR CONSULTATION: Anemia, history of black tarry stools. HISTORY OF PRESENT ILLNESS: Yanet Mueller is a very pleasant 63-year-old female known to me from before. She was hospitalized in December of 2018 with hypotension shock, hyperglycemia, DKA, severe acidosis, etc. At that time, she had a CAT scan of the abdomen done, which revealed possibly free air in the abdomen. duodenal diverticulum. The patient was on the ventilator, some IV fluids and IV antibiotics. The family decided not to do any aggressive measures at the time. Surprisingly, she got better with IV antibiotic and supportive care and was sent back to rehab. At the time of discharge, her blood count was around 10. The patient has had recurrent episodes of hypoglycemia and hyperglycemia and DKA in the past. The patient apparently had hypoglycemic symptoms and felt extremely cold and sweaty. She was brought by the ambulance to the ER. The patient was found to have profound anemia. Hemoglobin was as low as 5.1. She has been transfused 2 units of packed cells. Today, the hemoglobin up to 10. The patient had no stool today. She tells me she has had some black tarry stool over the last couple of days. No nausea. No vomiting. No relevant history. MEDICAL ILLNESSES: 1. Diabetes mellitus with very labile blood sugars with hypoglycemia and hyperglycemia in the past. 2. Previous stroke. 3. Hypertension. 4. Diabetic nephropathy. 5. Hyperlipidemia. 6. Recently perforated duodenal ulcer, treated conservatively. 7. Atrial fibrillation. PAST SURGICAL HISTORY: 1. Right hip fracture repair. 2. Hip replacement. 3. Carpal tunnel syndrome release. ALLERGIES: NONE. SOCIAL HISTORY: She is a smoker. Smokes a pack of cigarettes per day. No alcohol intake. MEDICATIONS: List reviewed. FAMILY HISTORY: Multiple family members with diabetes. REVIEW OF SYSTEMS: 10-point system review remarkable for black tarry stool, weakness, cold sweat, dizziness. PHYSICAL EXAMINATION: GENERAL: The patient is conscious, awake, alert, and communicative. She is oriented to time, place, and person. VITAL SIGNS: Afebrile, pulse is 70, blood pressure 130/60. HEENT: Conjunctivae clear. NECK: Supple. No adenitis or thyromegaly noted. CARDIOVASCULAR: First and second heart sounds heard. LUNGS: Clear to auscultation. ABDOMEN: Soft. No organomegaly. No tenderness. No masses. EXTREMITIES: Reveal no edema. LABORATORY DATA: From yesterday; WBC 2700, hemoglobin 5.6, hematocrit 22.4, MCV 120. Today; hemoglobin 10.8, hematocrit 33.3, MCV 92.7, platelet count is 583,000. The coagulation profile shows PT of 23, INR is 2. Today, PT 14.9, INR 1.2. Chemistries show sodium 141, potassium 3.3, chloride 111, bicarbonate 22, BUN is 10, creatinine 0.77, glucose 242, calcium 8.2, free T4 of 1.26, free T3 of 2.10, albumin 2.9. LFTs normal. CLINICAL IMPRESSION: 1. A 63-year-old female with history of black tarry stool and profound anemia. The anemia is macrocytic. The patient had known black stool yesterday but no stool today. She has no abdominal pain. No nausea or vomiting. . 2. Macrocytic anemia, may need vitamin B12 and folic acid level. 3. Continue PPI. 4. Esophagogastroduodenoscopy later on today. I will make further recommendations after esophagogastroduodenoscopy. Job ID: [id number]
[2019-01-20] MEDS ORDERED: PROPOFOL 200 MG/20 ML VIAL ONE (14:43)
--- NOTE | 2019-01-21 04:13 | OP ---
DATE OF PROCEDURE: 01/20/2019 OPERATIVE PROCEDURE: Esophagogastroduodenoscopy with biopsy. PREOPERATIVE DIAGNOSES: Anemia and history of black tarry stool. POSTOPERATIVE DIAGNOSES: 1. Normal esophagus. 2. Healed ulcer of the gastric body with whitish patch and there is some radiating fold. 3. Edematous erythematous viable antral mucosa. 4. Polyp in the duodenal bulb, biopsied. At the time of endoscopy, no active bleeding seen. Again, no pathology seen to explain the black tarry stool and anemia. DESCRIPTION OF PROCEDURE: The patient was placed on her left lateral position and was given sedation by the Anesthesia Department. A Pentax video gastroscope under direct vision passed down the oropharynx past the GE junction into the stomach and subsequently into the descending duodenum. The esophageal mucosa appeared normal. There was no pathology seen in the esophagus. At the GE junction, no pathology seen. Retroflexion failed to show any pathology in the fundus or cardia. In the gastric body, there appears to be what I guess scarring with whitish patch and with some radiating mucosal fold. It appears more like a healed gastric ulcer. The gastric antrum showed some edema and inflammation of the mucosa. The duodenal bulb showed a sessile polyp. In the descending duodenum, no pathology seen. The scope was withdrawn back into the stomach and advanced back one more time into descending duodenum. healing ulceration, although she has mild duodenitis along the post bulbar area. The scope was withdrawn back and we biopsied the gastric antrum. The stomach decompressed and the scope removed. RECOMMENDATIONS: 1. Resume diet as before. 2. Follow hemoglobin and hematocrit. 3. I will consider colonoscopy if the patient is agreeable. I will check the patient tomorrow morning and see if she is agreeable. If she is willing to have the colonoscopy, I will probably go ahead with colonoscopy. Job ID: [id number]
[2019-01-21] MEDS: Pantoprazole 80 MG, Admixture Fee 1 EACH in Sodium Chloride 0.9% 100 ML IVP SCH ×2 (05:40→17:11)
[2019-01-21] MEDS: Amlodipine 5 MG TAB PO SCH (08:10)
[2019-01-21] MEDS: Furosemide 40 MG TAB PO SCH (08:10)
[2019-01-21] MEDS: Amiodarone 200 MG TAB PO SCH (08:10)
[2019-01-21] MEDS: Lisinopril 20 MG TAB PO SCH (08:11)
[2019-01-21] MEDS: Insulin Glargine 10 UNITS in Pre-Filled Syringe SC SCH (08:11)
[2019-01-21] MEDS: Ferrous Sulfate 325 MG TAB PO SCH (08:11)
[2019-01-21] MEDS: Carvedilol 25 MG TAB PO SCH ×2 (08:11→20:32)
[2019-01-21] MEDS: Digoxin 0.125 MG TAB PO SCH (08:12)
[2019-01-21 08:17] LABS: #Eosinphils 0.1 thou/uL (0.0-0.7); #Lymphocytes 2.8 thou/uL (1.20-3.40); #Monocytes 0.6 thou/uL (0.11-0.59); #Neutrophils 4.1 thou/uL (1.40-6.50); %Basophils 0.1 % (0.0-1.0); %Eosinophils 1.6 % (0.0-10.0); %Lymphocytes 37.2 % (21.0-51.0); %Monocytes 7.8 % (0.0-10.0); %Neutrophils 53.4 % (42.0-75.0); Hemoglobin 12.7 g/dL (12.0-16.0); Mean Corpuscular HGB CONC 30.9 g/dL (32.0-36.0); Mean Corpuscular Hemoglobin 28.8 pg (27.0-31.0); Mean Corpuscular Volume 93.3 fL (78.0-98.0); Mean Platelet Volume 7.2 fL (7.4-10.4); Platelet Count 638 thou/uL (130-400); RBC Distribution Width 16.8 % (11.5-14.5); Red Blood Cell (RBC) Count 4.42 mill/uL (4.20-5.40); White Blood Cell (WBC) Count 7.6 thou/uL (4.8-10.8)
[2019-01-21 08:33] LABS: Anion Gap 18 mmol/L (10-20); BUN (Urea Nitrogen) 5 mg/dL (9.8-20.1); Calc. Creatinine Clearance 83 mL/min (70-130); Calcium 9.2 mg/dL (7.8-10.44); Carbon Dioxide 18 mmol/L (23-31); Chloride 109 mmol/L (98-107); Estimated GFR-MDRD 88; Glucose 175 mg/dL (80-115); Potassium 4.7 mmol/L (3.5-5.1); Sodium 140 mmol/L (136-145)
--- NOTE | 2019-01-21 09:44 | PDOC.PN ---
- Subjective Encounter Start Date: 01/21/19 Encounter Start Time: 10:40 Subjective: No complaints. No CP/SOB. No abdominal pain/N/V. Did have a little diarrhea -: this AM but no longer black colored. - Objective Resuscitation Status - Order Detail: 01/19/19 19:38 Resuscitation Status Routine Resuscitation Status: FULL: Full Resuscitation Discussed with: Patient Additional comments: MAR Reviewed: Yes Vital Signs & Weight: Vital Signs (12 hours) Temp Pulse Resp BP BP BP Pulse Ox 01/21/19 08:12 61 01/21/19 08:11 162/72 H 01/21/19 08:10 63 162/72 H 01/21/19 07:05 98.4 F 63 19 162/72 H 95 01/21/19 04:00 98.4 F 61 20 146/79 H 93 L 01/21/19 00:00 98.4 F 64 20 138/69 92 L Weight Weight 137 lb 12.8 oz I&O: 01/20/19 01/21/19 01/22/19 06:59 06:59 06:59 Intake Total 890 840 Balance 890 840 Result Diagrams: 01/21/19 07:39 01/21/19 07:39 Additional Labs: Accuchecks 01/21/19 01/20/19 01/20/19 05:40 20:45 16:16 POC Glucose 149 H 379 H 241 H 01/20/19 11:14 POC Glucose 346 H Phys Exam - Physical Examination Constitutional: NAD HEENT: moist MMs Respiratory: no wheezing, no rales, no rhonchi Cardiovascular: RRR, no significant murmur Gastrointestinal: soft, non-tender, positive bowel sounds Neurological: non-focal, moves all 4 limbs Psychiatric: normal affect, A&O x 3 Dx/Plan (1) Upper GI bleed Code(s): K92.2 - GASTROINTESTINAL HEMORRHAGE, UNSPECIFIED Status: Acute Comment: on Protonix drip, EGD with healing gastric ulcer, no source for melena , plan colonoscopy tomorrow AM (2) Duodenal ulcer Status: Acute Comment: previous hemorrhage and perforation, treated conservatively, now bleeding again (3) Anemia due to blood loss, acute Code(s): D62 - ACUTE POSTHEMORRHAGIC ANEMIA Status: Acute Comment: improved after transfusion, monitor H/H closely (4) Hypothermia Code(s): T68.XXXA - HYPOTHERMIA, INITIAL ENCOUNTER Status: Resolved (5) Hypoglycemia Code(s): E16.2 - HYPOGLYCEMIA, UNSPECIFIED Status: Resolved (6) Coagulopathy Status: Resolved Comment: due to hypothermia, resolved (7) Low TSH level Code(s): R79.89 - OTHER SPECIFIED ABNORMAL FINDINGS OF BLOOD CHEMISTRY Status : Acute Comment: normal fT3 and fT4, subclinical hyperthyroidism, appears to have had in the past, will monitor (8) Paroxysmal atrial fibrillation Code(s): I48.0 - PAROXYSMAL ATRIAL FIBRILLATION Status: Chronic Comment: in sinus rhythm, on amiodarone, can't anticoagulate due to GI bleed (9) Hyperlipidemia Code(s): E78.5 - HYPERLIPIDEMIA, UNSPECIFIED Status: Chronic (10) Hypertension Code(s): I10 - ESSENTIAL (PRIMARY) HYPERTENSION Status: Chronic Qualifiers: Hypertension type: essential hypertension Qualified Code(s): I10 - Essential (primary) hypertension Comment: monitor vital signs, titrate antihypertensives as needed (11) Hypokalemia Code(s): E87.6 - HYPOKALEMIA Status: Acute Comment: replace orally (12) UTI (urinary tract infection) Status: Acute Qualifiers: Urinary tract infection type: acute cystitis Comment: Klebsiella, treating with Omnicef for 10 days - Plan cont current plan of care, continue antibiotics, DVT proph w/SCDs * . - Discharge Day Encounter end time: 10:55
[2019-01-21] MEDS: HumaLOG 300 UNITS/3 ML VIAL SC PRN ×2 (11:33→16:04)
--- NOTE | 2019-01-21 13:11 | PRG ---
DATE OF SERVICE: 01/21/2019 SUBJECTIVE: This is a very pleasant 63-year-old anemia. The patient's history of black tarry stool was last couple of days. She had EGD, which revealed no active bleeding. She had gastritis, duodenal polyp and healed ulcer of the gastric body. The patient is doing well. She has had normal black tarry stool. No abdominal pain. No nausea or vomiting. I did talk to Ms. Mueller about having a colonoscopy, because of negative EGD clear liquid diet and also a GoLYTELY prep. She fully understood the explanation. She is willing to have procedure done. She also has no complaints. PHYSICAL EXAMINATION: GENERAL: She is awake, alert, and communicative. VITAL SIGNS: Stable. Pulse is 82 and blood pressure 160/87. CARDIOVASCULAR SYSTEM: Within normal limits. ABDOMEN: Soft. No organomegaly. No tenderness. No mass. IMPRESSION: Black tarry stool and negative EGD. PLAN: Colonoscopy. We will prep the patient for colonoscopy early tomorrow morning and hopefully can be done tomorrow afternoon. Job ID: [id number]
[2019-01-21] MEDS: Atorvastatin Calcium 10 MG TAB PO SCH (20:32)
[2019-01-21] MEDS: Cefdinir 300 MG CAP PO SCH (20:32)
[2019-01-22] MEDS: Pantoprazole 80 MG, Admixture Fee 1 EACH in Sodium Chloride 0.9% 100 ML IVP SCH (03:15)
[2019-01-22] MEDS: Carvedilol 25 MG TAB PO SCH ×2 (05:44→20:30)
[2019-01-22] MEDS ORDERED: GoLYTELY 4,000 ml Bottle PO SCH (06:00)
[2019-01-22] MEDS: Amiodarone 200 MG TAB PO SCH (08:39)
[2019-01-22] MEDS: Amlodipine 5 MG TAB PO SCH (08:39)
[2019-01-22] MEDS: Digoxin 0.125 MG TAB PO SCH (08:40)
[2019-01-22] MEDS: Cefdinir 300 MG CAP PO SCH ×2 (08:40→20:30)
[2019-01-22] MEDS: Furosemide 40 MG TAB PO SCH (08:42)
[2019-01-22] MEDS: Insulin Glargine 10 UNITS in Pre-Filled Syringe SC SCH (08:42)
[2019-01-22] MEDS: Ferrous Sulfate 325 MG TAB PO SCH (08:42)
[2019-01-22] MEDS: Lisinopril 20 MG TAB PO SCH (08:43)
--- NOTE | 2019-01-22 09:33 | PDOC.PN ---
- Subjective Encounter Start Date: 01/22/19 Encounter Start Time: 11:40 Subjective: Patient without SOB/weaknees. Diarrhea almost clear from prep -: now. Colonoscopy later in the day. - Objective Resuscitation Status - Order Detail: 01/19/19 19:38 Resuscitation Status Routine Resuscitation Status: FULL: Full Resuscitation Discussed with: Patient Additional comments: MAR Reviewed: Yes Vital Signs & Weight: Vital Signs (12 hours) Temp Pulse Resp BP BP Pulse Ox 01/22/19 08:43 153/79 H 01/22/19 08:40 66 01/22/19 08:39 66 01/22/19 07:24 97.3 F L 63 20 153/79 H 97 01/22/19 04:00 98.9 F 68 20 146/75 H 92 L 01/22/19 00:00 98.8 F 67 20 152/76 H 93 L Weight Weight 137 lb 12.8 oz I&O: 01/21/19 01/22/19 01/23/19 06:59 06:59 06:59 Intake Total 840 2421 Balance 840 2421 Result Diagrams: 01/21/19 07:39 01/21/19 07:39 Additional Labs: Accuchecks 01/22/19 01/21/19 01/21/19 05:08 20:36 15:28 POC Glucose 208 H 185 H 173 H 01/21/19 11:05 POC Glucose 396 H Phys Exam - Physical Examination Constitutional: NAD HEENT: moist MMs Respiratory: no wheezing, no rales, no rhonchi Cardiovascular: RRR, no significant murmur Gastrointestinal: soft, positive bowel sounds Neurological: non-focal Psychiatric: normal affect, A&O x 3 Dx/Plan (1) Upper GI bleed Code(s): K92.2 - GASTROINTESTINAL HEMORRHAGE, UNSPECIFIED Status: Acute Comment: on Protonix drip, EGD with healing gastric ulcer, no source for melena , plan colonoscopy tomorrow AM (2) Duodenal ulcer Status: Acute Comment: previous hemorrhage and perforation, treated conservatively, now bleeding again (3) Anemia due to blood loss, acute Code(s): D62 - ACUTE POSTHEMORRHAGIC ANEMIA Status: Acute Comment: improved after transfusion, monitor H/H closely (4) Hypothermia Code(s): T68.XXXA - HYPOTHERMIA, INITIAL ENCOUNTER Status: Resolved (5) Hypoglycemia Code(s): E16.2 - HYPOGLYCEMIA, UNSPECIFIED Status: Resolved (6) Coagulopathy Status: Resolved Comment: due to hypothermia, resolved (7) Low TSH level Code(s): R79.89 - OTHER SPECIFIED ABNORMAL FINDINGS OF BLOOD CHEMISTRY Status : Acute Comment: normal fT3 and fT4, subclinical hyperthyroidism, appears to have had in the past, will monitor (8) Paroxysmal atrial fibrillation Code(s): I48.0 - PAROXYSMAL ATRIAL FIBRILLATION Status: Chronic Comment: in sinus rhythm, on amiodarone, can't anticoagulate due to GI bleed (9) Hyperlipidemia Code(s): E78.5 - HYPERLIPIDEMIA, UNSPECIFIED Status: Chronic (10) Hypertension Code(s): I10 - ESSENTIAL (PRIMARY) HYPERTENSION Status: Chronic Qualifiers: Hypertension type: essential hypertension Qualified Code(s): I10 - Essential (primary) hypertension Comment: monitor vital signs, titrate antihypertensives as needed (11) Hypokalemia Code(s): E87.6 - HYPOKALEMIA Status: Acute Comment: replace orally (12) UTI (urinary tract infection) Status: Acute Qualifiers: Urinary tract infection type: acute cystitis Comment: Klebsiella, treating with Omnicef for 10 days - Plan cont current plan of care, continue antibiotics, DVT proph w/SCDs colonoscopy today * . - Discharge Day Encounter end time: 11:50
[2019-01-22] MEDS: HumaLOG 300 UNITS/3 ML VIAL SC PRN ×2 (12:25→20:30)
[2019-01-22] MEDS ORDERED: Lidocaine 1% PF 5 ML VIAL ONE (16:27)
[2019-01-22] MEDS ORDERED: PROPOFOL 200 MG/20 ML VIAL ONE (16:27)
[2019-01-22] MEDS ORDERED: Ondansetron HCl/PF 4 MG/2 ML Vial IVP PRN (18:18)
[2019-01-22] MEDS ORDERED: Promethazine HCl 25 MG/ML VIAL SLOW IVP PRN (18:18)
[2019-01-22] MEDS ORDERED: Promethazine HCl 25 MG/ML VIAL IM PRN (18:18)
[2019-01-22] MEDS: Atorvastatin Calcium 10 MG TAB PO SCH (20:30)
--- NOTE | 2019-01-23 01:08 | OP ---
DATE OF PROCEDURE: 01/22/2019 PREOPERATIVE DIAGNOSES: A 63-year-old female with GI bleeding, anemia due to blood loss, undergoing colonoscopy. POSTOPERATIVE DIAGNOSES: 1. Large sessile polypoid lesion at cecum appears to be a lipoma, biopsied. 2. Sigmoid diverticular disease. 3. Hemorrhoids. OPERATIVE PROCEDURE: Colonoscopy with biopsy. DESCRIPTION OF PROCEDURE: The patient was placed on her left lateral position and was given sedation by Anesthesia Department. Rectal exam was done before the scope was advanced into the rectum. No lesions felt on rectal exam. A Pentax video colonoscope was introduced into the rectum and advanced all the way to the cecum. The patient had isolated pockets of fecal material intermittently. The mucosa appeared to be normal. No colitis or any inflammation was seen. The appendicular opening and ileocecal area, no pathology. The patient probably had very large sessile polypoid lesion, which appeared to be smooth and slippery suggestive of lipoma. This was biopsied. The ascending colon, hepatic flexure, no pathology seen. The transverse colon, splenic flexure, descending colon, sigmoid colon, no pathology seen except for sigmoid diverticular disease. The rectum showed hemorrhoids. RECOMMENDATIONS: 1. Discontinue n.p.o. 2. Diabetic diet. 3. Consider discharge home hopefully tomorrow. Based on the endoscopy findings, I believe she most likely has some bleeding from small bowel from a vascular ectasia. The EGD was negative two days ago. The colonoscopy basically showed some diverticula. 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 1. Follow up hemoglobin and hematocrit. 2. Discharge home. If the patient had recurrence of bleeding, consider capsule endoscopy. Job ID: [id number]
[2019-01-23] MEDS: HumaLOG 300 UNITS/3 ML VIAL SC PRN ×4 (05:44→20:16)
[2019-01-23] MEDS: Pantoprazole 80 MG, Admixture Fee 1 EACH in Sodium Chloride 0.9% 100 ML IVP SCH (05:45)
[2019-01-23] MEDS: Amiodarone 200 MG TAB PO SCH (08:17)
[2019-01-23] MEDS: Furosemide 40 MG TAB PO SCH (08:17)
[2019-01-23] MEDS: Carvedilol 25 MG TAB PO SCH ×2 (08:18→20:11)
[2019-01-23] MEDS: Amlodipine 5 MG TAB PO SCH (08:18)
[2019-01-23] MEDS: Cefdinir 300 MG CAP PO SCH ×2 (08:19→20:09)
[2019-01-23] MEDS: Digoxin 0.125 MG TAB PO SCH (08:20)
[2019-01-23] MEDS: Ferrous Sulfate 325 MG TAB PO SCH (08:20)
[2019-01-23] MEDS: Lisinopril 20 MG TAB PO SCH (08:23)
[2019-01-23] MEDS ORDERED: Insulin Glargine 15 UNITS in Pre-Filled Syringe 1 EACH SC SCH (09:00)
[2019-01-23] MEDS: Insulin Glargine 10 UNITS in Pre-Filled Syringe SC SCH (09:45)
[2019-01-23] MEDS: Insulin Glargine 25 UNITS in Pre-Filled Syringe 1 EACH SC SCH (10:21)
--- NOTE | 2019-01-23 11:30 | PRG ---
DATE OF SERVICE: 01/23/2019 SUBJECTIVE: Ms. Yanet Mueller is a very pleasant 63-year-old female hospitalized for hyperglycemia and severe anemia. She gave history of black tarry stool couple of days prior to admission. She had an EGD, which revealed a healed gastric ulcer, duodenal polyp. The colonoscopy yesterday showed sigmoid diverticular disease, also a sessile polyp over the cecum, which appears more of a lipoma. This was biopsied. The duodenal biopsies were basically benign, basically showed mucosa. The patient has been doing well. She has no history of nausea, vomiting, abdominal pain. No history of any melena. Blood count is stable. Her blood sugar actually gone up to almost 500 today. She has very labile diabetes and the blood sugar tend to fluctuate very widely. She offers no complaints. PHYSICAL EXAMINATION: GENERAL: Appears comfortable. VITAL SIGNS: Stable. Temperature is 98.4 degrees Fahrenheit, pulse is 72, blood pressure 122/69. CARDIOVASCULAR: First and second heart sounds heard. LUNGS: Clear to auscultation. ABDOMEN: Soft. No organomegaly. No tenderness. No masses. RECOMMENDATION: From GI standpoint, the patient can be discharged home. We will recommend to keep the patient on long-term PPI because of the bleeding and also ulcer disease in December 2018. Job ID: [id number]
--- NOTE | 2019-01-23 12:40 | PRG ---
DATE OF SERVICE: 01/23/2019 SUBJECTIVE: The patient is seen and examined at the bedside. She is feeling better. She does not have much complaints to offer. OBJECTIVE: VITAL SIGNS: Blood pressure is 129/70, pulse is 68, temperature is 98.2, respirations are 16, O2 saturation is 100% on room air. HEAD: Atraumatic and normocephalic. Eyes are PERRLA. Sclerae are nonicteric. Oral mucosa is moist. NECK: Supple. LUNGS: Clear. HEART: S1 and S2, normal. ABDOMEN: Soft, nontender. EXTREMITIES: No clubbing, cyanosis, or edema. NEUROLOGIC: She is alert and oriented x4. There are no any sensory or motor deficits present. Cranial nerves are intact. LABORATORY DATA: Labs showed glycemia is ranging from 268 to 528. IMPRESSION: 1. Upper gastrointestinal bleeding. 2. Duodenal ulcer/gastric ulcer. 3. Anemia due to blood loss, acute. 4. Hypothermia, resolved. 5. Hypoglycemia, resolved. 6. Coagulopathy, resolved. 7. Low TSH level, which appears to be subclinical hyperthyroidism. 8. Paroxysmal atrial fibrillation, chronic, currently in sinus rhythm, on amiodarone. No anticoagulation due to gastrointestinal bleed. 9. Hyperlipidemia, chronic. 10. Hypertension. 11. Urinary tract infection with Klebsiella, treated with Omnicef. 12. Large sessile polypoid lesion at cecum, which appears to be lipoma, status post biopsy. 13. Sigmoid diverticular disease. 14. Hemorrhoids. 15. Uncontrolled diabetes mellitus with the last Accu-Cheks more than 500. PLAN: According to GI's recommendation, the patient can go home from GI point of view, but her glycemia is running high more than 500. We will try to stabilize her glycemia before she can be released. She will have additional 15 units of insulin Lantus this morning on the top of her scheduled 10, and we will switch her to 25 tomorrow morning along with her moderate sliding scale. She will continue on her amiodarone, amlodipine, atorvastatin, Coreg, cefdinir, digoxin, ferrous sulfate, furosemide, lisinopril, pantoprazole, and we will continue SCDs for DVT prophylaxis. Job ID: [id number]
[2019-01-23 13:31] LABS: #Eosinphils 0.1 thou/uL (0.0-0.7); #Lymphocytes 2.9 thou/uL (1.20-3.40); #Monocytes 0.7 thou/uL (0.11-0.59); #Neutrophils 4.2 thou/uL (1.40-6.50); %Basophils 0.6 % (0.0-1.0); %Eosinophils 0.7 % (0.0-10.0); %Lymphocytes 36.5 % (21.0-51.0); %Monocytes 8.7 % (0.0-10.0); %Neutrophils 53.5 % (42.0-75.0); Hemoglobin 12.5 g/dL (12.0-16.0); Mean Corpuscular HGB CONC 31.3 g/dL (32.0-36.0); Mean Corpuscular Hemoglobin 29.5 pg (27.0-31.0); Mean Corpuscular Volume 94.3 fL (78.0-98.0); Mean Platelet Volume 6.9 fL (7.4-10.4); Platelet Count 537 thou/uL (130-400); RBC Distribution Width 16.6 % (11.5-14.5); Red Blood Cell (RBC) Count 4.24 mill/uL (4.20-5.40); White Blood Cell (WBC) Count 7.8 thou/uL (4.8-10.8)
[2019-01-23 13:48] LABS: Anion Gap 17 mmol/L (10-20); BUN (Urea Nitrogen) 10 mg/dL (9.8-20.1); Calc. Creatinine Clearance 58 mL/min (70-130); Calcium 9.2 mg/dL (7.8-10.44); Carbon Dioxide 22 mmol/L (23-31); Chloride 99 mmol/L (98-107); Estimated GFR-MDRD 59; Glucose 445 mg/dL (80-115); Potassium 3.8 mmol/L (3.5-5.1); Sodium 134 mmol/L (136-145)
[2019-01-23] MEDS: Atorvastatin Calcium 10 MG TAB PO SCH (20:09)
[2019-01-24] MEDS: HumaLOG 300 UNITS/3 ML VIAL SC PRN ×2 (05:02→12:24)
[2019-01-24 08:04] VITALS: BP 113/52; TEMP 98.4
[2019-01-24] MEDS: Digoxin 0.125 MG TAB PO SCH (08:07)
[2019-01-24] MEDS: Lisinopril 20 MG TAB PO SCH (08:08)
[2019-01-24] MEDS: Ferrous Sulfate 325 MG TAB PO SCH (08:08)
[2019-01-24] MEDS: Carvedilol 25 MG TAB PO SCH (08:08)
[2019-01-24] MEDS: Amiodarone 200 MG TAB PO SCH (08:08)
[2019-01-24] MEDS: Insulin Glargine 25 UNITS in Pre-Filled Syringe 1 EACH SC SCH (08:08)
[2019-01-24] MEDS: Furosemide 40 MG TAB PO SCH (08:08)
[2019-01-24] MEDS: Cefdinir 300 MG CAP PO SCH (08:08)
[2019-01-24] MEDS: Amlodipine 5 MG TAB PO SCH (08:09)
[2019-01-24 08:32] LABS: #Basophils 0.1 thou/uL (0.0-0.2); #Eosinphils 0.1 thou/uL (0.0-0.7); #Lymphocytes 3.1 thou/uL (1.20-3.40); #Monocytes 0.9 thou/uL (0.11-0.59); #Neutrophils 7.1 thou/uL (1.40-6.50); %Basophils 0.8 % (0.0-1.0); %Eosinophils 0.4 % (0.0-10.0); %Lymphocytes 27.4 % (21.0-51.0); %Monocytes 8.1 % (0.0-10.0); %Neutrophils 63.2 % (42.0-75.0); Hemoglobin 12.5 g/dL (12.0-16.0); Mean Corpuscular HGB CONC 31.3 g/dL (32.0-36.0); Mean Corpuscular Hemoglobin 29.6 pg (27.0-31.0); Mean Corpuscular Volume 94.5 fL (78.0-98.0); Platelet Count 508 thou/uL (130-400); RBC Distribution Width 16.6 % (11.5-14.5); Red Blood Cell (RBC) Count 4.23 mill/uL (4.20-5.40); White Blood Cell (WBC) Count 11.1 thou/uL (4.8-10.8)
[2019-01-24 08:52] LABS: Anion Gap 14 mmol/L (10-20); BUN (Urea Nitrogen) 7 mg/dL (9.8-20.1); Calc. Creatinine Clearance 84 mL/min (70-130); Calcium 9.4 mg/dL (7.8-10.44); Carbon Dioxide 25 mmol/L (23-31); Chloride 103 mmol/L (98-107); Estimated GFR-MDRD Greater than 90; Glucose 210 mg/dL (80-115); Potassium 3.6 mmol/L (3.5-5.1); Sodium 138 mmol/L (136-145)
--- NOTE | 2019-01-24 15:30 | EKG ---
Test Reason : Blood Pressure : / mmHG Vent. Rate : 059 BPM Atrial Rate : 059 BPM P-R Int : 176 ms QRS Dur : 094 ms QT Int : 460 ms P-R-T Axes : 042 017 229 degrees QTc Int : 455 ms Sinus bradycardia Septal infarct , age undetermined T wave inversion V4, V5, V6, II, III, aVF Abnormal ECG Confirmed by ANNABELLA King, SNOW ([id number]), subeditor MARITZA HOWARD ([id number]) on 01/24/2019 3:30:40 PM Referred By: Confirmed By:SNOW WINCHESTER M.D.
--- NOTE | 2019-01-24 16:01 | DIS ---
DATE OF ADMISSION: 01/19/2019 DATE OF DISCHARGE: 01/24/2019 MBA INTERN: Dr. Schmitt of Gastroenterology. MEDICATIONS: Medications are reconciled at discharge. New medications; cefdinir 300 mg one p.o. b.i.d. for four doses total, starting tonight for urinary tract infection. Prescription provided. Medications to resume; the patient advised that if this is different than her usual home medications to continue what she normally does with the exception of pantoprazole, which needs to be taken twice a day. 1. Amiodarone 200 mg daily. 2. Amlodipine 5 mg daily. 3. Atorvastatin 10 mg at bedtime. 4. Carvedilol 12.5 mg b.i.d. 5. Digoxin 0.125 mg daily. 6. Ferrous sulfate 325 mg daily. 7. Furosemide 40 mg daily. 8. Humalog sliding scale. 9. Lantus 27 units twice daily is what the patient reports she is normally taking. She will continue on this. 10. Lisinopril 20 mg daily. 11. Pantoprazole 40 mg p.o. b.i.d., a prescription was provided for the patient for 30 days. FINAL DIAGNOSES: 1. 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 2. Urinary tract infection with Klebsiella. 3. GI polyps, biopsy results pending SECONDARY DIAGNOSES: 1. Diabetes mellitus type 1. 2. History of stroke. 3. Hypertension. 4. Diabetic neuropathy. 5. Dyslipidemia. 6. Recent perforated duodenal ulcer. 7. Atrial fibrillation, not on anticoagulation. HISTORY OF PRESENT ILLNESS: Ms. Mueller is a 64-year-old female, who presented to the emergency room due to feeling shaky, low blood sugars, feeling sweaty, and overall not feeling well. The neighbor checked on her, and her blood sugar was down to 39, she was lethargic and altered as well as bradycardic and brought to the emergency room. She was also found to be significantly anemic with a hemoglobin of 5.6, compared to her most recent discharge from rehab a week prior at 9.1. Transfusions were initiated, and the patient was admitted to the hospital. HOSPITAL COURSE: The patient was transfused a total of 2 units of packed red blood cells, which she tolerated well. She underwent endoscopy with Dr. Schmitt starting with EGD on January 20, which showed a normal esophagus, healed ulcer of the gastric body, polyp in the duodenal bulb, which was biopsied, and no active bleeding was visualized. Because of that, she was prepped and underwent colonoscopy, which showed a large sessile polyp at the cecum. This appeared to be a lipoma, also biopsied, sigmoid diverticular disease, and hemorrhoids. Dr. Schmitt's assessment is vascular ectasia of the GI tract, and for the patient to remain on a PPI. The patient has been doing well, and hemoglobin has remained stable and in fact is up to a normal level on the day of discharge. She is feeling well, tolerating a diet, and does meet criteria for home. The patient's blood sugars have been elevated while here. She reports her home usual dosing of long-acting insulin at 27 units twice a day. This was decreased here to once a day, and her blood sugars have been uncontrolled over the past few days. It has been low of 210 this morning to a high of greater than 500. The patient will resume her usual dosing, established with her vertical lathe operator, Dr. Trujillo, of 27 units long-acting insulin twice a day and sliding scale with meals. She will contact Dr. Trujillo or her primary care, Dr. Erwin, with any needs. The patient found to have a urinary tract infection with Klebsiella and was started on cefdinir, she requires two additional days of treatment for 5 days total treatment. The patient overall well and does meet criteria for discharge to home. PHYSICAL EXAMINATION: VITAL SIGNS: Blood pressure 113/52, temperature 98.4, pulse 64, respirations 18 , and sats 95% on room air. GENERAL: Awake, alert, responsive, in no apparent distress. Able to speak in full sentences. LUNGS: Clear to auscultation bilateral. HEART: Normal S1 and S2. Regular rate and rhythm. No audible murmurs. ABDOMEN: Soft and nontender. EXTREMITIES: No edema. CHUNG FINDINGS AND TEST RESULTS: CBC today; 11.1, 12.5, 40.0, and 508. On admission, January 19; CBC 2.7, 5.6, 22.4, and 386. Chemistry; 138, 3.6, 103, 25, 7, 0.65, 210. Urinalysis showed present protein, glucose, small leukocyte esterase, white blood cells, and bacteria. Urine tox screen showed cannabinoids, negative for all other things assessed including alcohol, Tylenol, and salicylates. Blood cultures x2 negative. Influenza negative. Urine culture shows Klebsiella, indeterminate to nitrofurantoin and sensitive to all other things tested. FOLLOWUP: Follow up is with Dr. Erwin within a week to review this hospitalization and address any other health needs. Follow up with Dr. Schmitt in 3 to 4 weeks for monitoring. Reviewed with the patient this hospitalization, plan of care, return for care precautions, and to follow up with Dr. Trujillo for any concerns with her blood sugars. She demonstrate understanding. DIET: Heart healthy, diabetic prudent. ACTIVITY: As tolerated. CODE STATUS: Full. DISCHARGE DISPOSITION: Home Total time coordinating discharge is 40 minutes. Job ID: [id number] MTDD
== END 2019-01-24 15:57 | disposition home or self-care (01) | DRG 378 ==
LOC: ERS 14:19 → T4-A 17:10
PROVIDERS: ADMIT Emergency Medicine; ATTEND Emergency Medicine
PROC: 30233N1 Transfusion of Nonautologous Red Blood Cells into Peripheral Vein, Percutaneous Approach (ICD-10-PCS; principal; 2019-01-19)
PROC: 0DB98ZX Excision of Duodenum, Via Natural or Artificial Opening Endoscopic, Diagnostic (ICD-10-PCS; 2019-01-20)
PROC: 0DB68ZX Excision of Stomach, Via Natural or Artificial Opening Endoscopic, Diagnostic (ICD-10-PCS; 2019-01-20)
PROC: 0DBH8ZX Excision of Cecum, Via Natural or Artificial Opening Endoscopic, Diagnostic (ICD-10-PCS; 2019-01-22)
DX: K55.21 Angiodysplasia of colon with hemorrhage (principal); D68.9 Coagulation defect, unspecified; D62 Acute posthemorrhagic anemia; N30.00 Acute cystitis without hematuria; K29.80 Duodenitis without bleeding; I10 Essential (primary) hypertension; Z87.11 Personal history of peptic ulcer disease; E10.65 Type 1 diabetes mellitus with hyperglycemia; E10.649 Type 1 diabetes mellitus with hypoglycemia without coma; E10.40 Type 1 diabetes mellitus with diabetic neuropathy, unspecified; R68.0 Hypothermia, not associated with low environmental temperature; I48.0 Paroxysmal atrial fibrillation; K31.7 Polyp of stomach and duodenum; B96.1 Klebsiella pneumoniae [K. pneumoniae] as the cause of diseases classified elsewhere; E87.6 Hypokalemia; K57.30 Diverticulosis of large intestine without perforation or abscess without bleeding; K64.8 Other hemorrhoids; E05.90 Thyrotoxicosis, unspecified without thyrotoxic crisis or storm; D17.5 Benign lipomatous neoplasm of intra-abdominal organs; R94.31 Abnormal electrocardiogram [ECG] [EKG]; F32.9 Major depressive disorder, single episode, unspecified; E78.5 Hyperlipidemia, unspecified; F17.210 Nicotine dependence, cigarettes, uncomplicated; Z86.73 Personal history of transient ischemic attack (TIA), and cerebral infarction without residual deficits; Z79.4 Long term (current) use of insulin
CPT/HCPCS: 36415; 36416; 36430; 71045; 80048; 80053; 80306; 80307; 81003; 81015; 83605; 84439; 84443; 84481; 84484; 85025; 85610; 85730; 86850; 86900; 86901; 87040; 87077; 87086; 87186; 87804; 88305; 88312; 93005; 94760; 96361; 96374; A4353; C9113; J1825; J2001; J2704; J7050; P9016

== ENCOUNTER 2019-02-13 12:19 | Inpatient (IN) | payer MEDICARE, MEDICAID ==
[2019-02-13 13:00] LABS: Hemoglobin 10.5 g/dL (12.0-16.0); Mean Corpuscular HGB CONC 27.9 g/dL (32.0-36.0); Mean Corpuscular Hemoglobin 28.9 pg (27.0-31.0); Mean Platelet Volume 8.5 fL (7.4-10.4); Platelet Count 478 thou/uL (130-400); RBC Distribution Width 17.5 % (11.5-14.5); Red Blood Cell (RBC) Count 3.65 mill/uL (4.20-5.40); White Blood Cell (WBC) Count 21.3 thou/uL (4.8-10.8)
[2019-02-13] MEDS ORDERED: Acetaminophen 325 MG TAB PO PRN (13:00)
[2019-02-13] MEDS ORDERED: Ondansetron ODT 4 MG TAB SL PRN (13:00)
[2019-02-13] MEDS ORDERED: Ondansetron PF 4 MG/2 ML Vial IVP PRN ×2 (13:00→16:34)
[2019-02-13 13:21] LABS: ALT (SGPT) 12 U/L (8-55); AST (SGOT) 17 U/L (5-34); Albumin 2.8 g/dL (3.4-4.8); Alkaline Phosphatase 108 U/L (40-150); BUN (Urea Nitrogen) 43 mg/dL (9.8-20.1); Bilirubin, Total 0.3 mg/dL (0.2-1.2); Calc. Creatinine Clearance 0 mL/min (70-130); Calcium 8.7 mg/dL (7.8-10.44); Carbon Dioxide Less than 8 mmol/L (23-31); Chloride 97 mmol/L (98-107); Estimated GFR-MDRD 20; Globulin 3.3 g/dL (2.4-3.5); Glucose 919 mg/dL (80-115); Magnesium 2.4 mg/dL (1.6-2.6); Phosphorus 8.1 mg/dL (2.3-4.7); Potassium 5.8 mmol/L (3.5-5.1); Protein, Total 6.1 g/dL (6.0-8.3); Sodium 137 mmol/L (136-145)
[2019-02-13 13:30] LABS: Anisocytosis SLIGHT = 6-15 cells (100X) (0-5/hpf); Band 24 % (5-11); Hypochromia SLIGHT = 6-15 cells (100X) (0-5/hpf); Lymphocytes 4 % (21-51); MDiff Complete? YES; Monocytes 2 % (0-10); Neutrophil 70 % (42-75); Platelet Morphology Comment Appears Increased
[2019-02-13] MEDS ORDERED: Insulin Regular 100 units/100 ml in NS IVPB SCH (13:30)
[2019-02-13 13:31] LABS: Bilirubin Moderate (Negative); Blood, Urine Large (Negative); Clarity CLOUDY (Clear); Glucose, Urine (Dipstick) >=1000 mg/dL (Negative); Leukocyte Small (Negative); Nitrite Negative (Negative); Protein, Urine (Dipstick) 100 mg/dL (Neg-Trace)
[2019-02-13 13:35] LABS: Bacteria/HPF 2+ HPF (None Seen); Hyaline Casts/LPF 7-10 HYALINE CAST LPF (0-3 Hyaline); Pathc Cast-AUWi Flag 1.63 (0-2.49); Squamous Epithelial None Seen HPF (0-3)
--- NOTE | 2019-02-13 14:16 | RAD ---
PORTABLE CHEST 1 VIEW: Date: 02/13/19 Time: 1212 hours HISTORY: Altered mental status. FINDINGS: Comparison made with exam of 01/19/19. The heart size is normal. The aorta is tortuous. The lungs are well expanded without focal areas of c onsolidation, pneumothoraces, or pleural effusions. There is no evidence of hernandez pulmonary edema. IMPRESSION: No acute process. POS: OFF
[2019-02-13] MEDS ORDERED: cefTRIAXone\\ROCEPHIN 2 GM VIAL ONE (14:38)
[2019-02-13 15:43] LABS: Base Excess-Venous -23.4 mmol/L (-2.0 to 3.0); Bicarbonate (HCO3v) 4.9 mmol/L (22.0-28.0); Calcium, Ionized 0.97 mmol/L (See Comments:); Chloride 114 mmol/L (98-107); Hemoglobin - Calc 10.9 g/dL (12.0-16.0); O2 Tension (PvO2) 84.2 mmHg (35.0-45.0); Potassium 4.1 mmol/L (3.5-5.1); Sodium 136 mmol/L (138-145); T. Carbon Dioxide 5.4 mmol/L (22.0-28.0); pH (Venous) 7.069 (7.320-7.430); vO2 Saturation-calc 91.4 % (60.0-85.0)
[2019-02-13 16:21] LABS: Glucose Accucheck Confirmation 833 mg/dl (80-115)
[2019-02-13] MEDS ORDERED: Sodium Chloride 0.9% 1,000 ML IV PRN ×4 (16:34)
[2019-02-13] MEDS ORDERED: Ondansetron ODT 4 MG TAB PO PRN (16:34)
[2019-02-13] MEDS ORDERED: Acetaminophen 500 MG TAB PO PRN (16:34)
[2019-02-13] MEDS ORDERED: CCU Electrolyte Replacement 1 EACH FS ONE (16:34)
[2019-02-13] MEDS ORDERED: HUMULIN R 100 UNITS in Sodium Chloride 0.9% 100 ML IVPB SCH (16:34)
[2019-02-13] MEDS ORDERED: Dextrose 5 %-0.45 % NaCl 1,000 ML IV PRN (16:34)
[2019-02-13] MEDS ORDERED: NS 0.9% w/ 20 MEQ KCL 1,000 ML IV PRN ×2 (16:34)
[2019-02-13] MEDS ORDERED: CCU Electrolyte Replacement 1 EACH IVPB ONE (16:34)
[2019-02-13] MEDS ORDERED: Magnesium Oxide 400 MG TAB PO PRN ×2 (16:39)
[2019-02-13] MEDS ORDERED: Potassium Chloride 40 MEQ in Premix Bag 1 BAG IVPB PRN (16:39)
[2019-02-13] MEDS ORDERED: Magnesium 2 GM/50 ML 2 GM in Premix Bag 1 BAG IVPB PRN (16:39)
[2019-02-13] MEDS ORDERED: Potassium Chloride 40 MEQ in Sodium Chloride 0.9% 250 ML 250 ML IVPB PRN (16:39)
[2019-02-13] MEDS ORDERED: Potassium Phosphate 15 MMOL in Sodium Chloride 0.9% 250 ML 250 ML IV PRN (16:39)
[2019-02-13] MEDS ORDERED: Potassium Phosphate 9 MMOL in Sodium Chloride 0.9% 100 ML IVPB PRN (16:39)
[2019-02-13] MEDS ORDERED: Potassium Phosphate 12 MMOL in Sodium Chloride 0.9% 250 ML 250 ML IV PRN (16:39)
[2019-02-13] MEDS ORDERED: Potassium Chloride 20 MEQ TAB PO PRN (16:39)
[2019-02-13] MEDS ORDERED: CCU ELECTROLYTE REPLACEMENT PROTOCOL FS PRN (16:39)
[2019-02-13 16:47] VITALS: BMI 19.4
[2019-02-13 17:47] LABS: BUN (Urea Nitrogen) 43 mg/dL (9.8-20.1); Calc. Creatinine Clearance 21 mL/min (70-130); Calcium 7.5 mg/dL (7.8-10.44); Carbon Dioxide Less than 8 mmol/L (23-31); Chloride 107 mmol/L (98-107); Estimated GFR-MDRD 21; Glucose 787 mg/dL (80-115); Magnesium 2.1 mg/dL (1.6-2.6); Sodium 140 mmol/L (136-145)
[2019-02-13] MEDS: Sodium Chloride 0.9% 1,000 ML IV SCH ×3 (18:16→23:26)
[2019-02-13 21:06] LABS: Anion Gap 22 mmol/L (10-20); BUN (Urea Nitrogen) 40 mg/dL (9.8-20.1); Calc. Creatinine Clearance 25 mL/min (70-130); Calcium 7.2 mg/dL (7.8-10.44); Carbon Dioxide 10 mmol/L (23-31); Chloride 115 mmol/L (98-107); Estimated GFR-MDRD 25; Glucose 528 mg/dL (80-115); Potassium 3.5 mmol/L (3.5-5.1); Sodium 143 mmol/L (136-145)
--- NOTE | 2019-02-13 23:27 | HP ---
PRIMARY CARE PROVIDER: Dr. Maverick Erwin. CHIEF COMPLAINT: Unresponsiveness and hyperglycemia. HISTORY OF PRESENT ILLNESS: This is a 64-year-old female, who presents to [facility] Emergency Department after being found unresponsive with elevated glucose of approximately 700. The patient with longstanding history of diabetes mellitus type 2, insulin requiring with recurrent admissions and evaluations for diabetic ketoacidosis and poorly-controlled diabetes. The patient was recently admitted to [facility] from 01/19/2019 through 01/24/2019 for gastrointestinal bleeding secondary to vascular ectasias of the GI tract as well as urinary tract infection with Klebsiella species. The patient was treated appropriately and placed on oral antibiotics for home. The history is obtained after discussions with the emergency room attending as well as review of electronic medical records as the patient is currently lethargic with altered mental status and unable to provide any coherent history. In the emergency room, the patient was noted with glucose values of approximately 700 to 800 and placed on DKA protocol with IV fluid resuscitation. The patient was also initiated on insulin infusion at 6 units/hour and treated empirically with IV antibiotics to include Rocephin and vancomycin. The patient was referred to the Hospitalist Service for admission in the critical care unit. PAST MEDICAL HISTORY: 1. Diabetes mellitus type 2, insulin-requiring with recurrent DKA. 2. Tobacco abuse, ongoing. 3. Marijuana use. 4. Polysubstance abuse. 5. History of GI bleed secondary to vascular ectasias. 6. History of CVA. 7. Deconditioning. 8. Hypertension. 9. Diabetic neuropathy. 10. Hyperlipidemia. 11. History of perforated duodenal ulcer. 12. Atrial fibrillation, rate controlled with amiodarone, not on anticoagulation due to GI bleeding. 13. Depression. PAST SURGICAL HISTORY: 1. Status post carpal tunnel release. 2. Status post right hip fracture with repair. 3. Status post total hip arthroplasty. 4. Status post EGD showing vascular ectasias of the upper GI tract. CURRENT MEDICATIONS: 1. Coreg 12.5 mg p.o. b.i.d. 2. Ferrous sulfate 325 mg daily. 3. Humalog sliding scale. 4. Protonix 40 mg p.o. b.i.d. 5. Amiodarone 200 mg p.o. daily. 6. Amlodipine 5 mg p.o. daily. 7. Lipitor 10 mg p.o. q.h.s. 8. Digoxin 0.125 mg p.o. daily. 9. Lasix 40 mg p.o. daily. 10. Lantus 20 units subcutaneously daily. 11. Lisinopril 20 mg p.o. daily. ALLERGIES: NO KNOWN DRUG ALLERGIES. FAMILY HISTORY: Multiple members with diabetes mellitus. SOCIAL HISTORY: Smokes up to a pack of cigarettes daily. No alcohol use. Positive marijuana use. Resides in assisted living. REVIEW OF SYSTEMS: Unobtainable with the patient's altered mental status. PHYSICAL EXAMINATION: VITAL SIGNS: Currently, blood pressure 92/38, pulse 56, respiratory rate is 19, temperature 96.3 degrees Fahrenheit, O2 saturation is 100% on 2 L/min via nasal cannula. GENERAL APPEARANCE: This is a 64-year-old female, ill appearing, pale, lethargic. HEENT: Pupils are equal, round, and reactive to light and accommodation. Extraocular muscles are intact. No scleral icterus. No conjunctival injection. Nares patent. OP is clear oral mucosa dry. NECK: Supple. No cervical adenopathy. No thyromegaly. No carotid bruits. No JVD appreciated. Cervical spine with full active and passive range of motion. No meningeal signs noted. CHEST: Lungs are clear to auscultation bilaterally. Positive tachypnea. CARDIOVASCULAR: S1 and S2 without noted murmur, rub, or gallop. ABDOMEN: Rounded, soft, nontender, and nondistended. Bowel sounds are positive in all 4 quadrants. There is no hepatosplenomegaly. No abdominal bruits. No rebound or guarding appreciated. EXTREMITIES: Warm and dry with poor skin turgor. Pulses palpable distally at the dorsalis pedis and posterior tibial arteries. Nail beds are pale with capillary refill less than 2 seconds. NEUROLOGIC: Lethargic response to direct stimulation. Mumbles incoherently. Spontaneous respirations noted. PERTINENT LABORATORY DATA AND X-RAY FINDINGS: Sodium 137, potassium 5.8, chloride 97, CO2 less than 8, BUN 43, creatinine 2.47, estimated GFR 20, glucose 919, phosphorus 8.1, magnesium 2.4. LFTs within normal limits. CBC showed a white blood cell count of 21.3, hemoglobin 10.5, hematocrit 38, MCV 103, platelet count 478, with 70% neutrophils, 24% bands. Urinalysis positive for glucose, ketones with moderate bilirubin, small leukocyte esterase with 7 to 10, rbc's per high-power field and 50 to [id number]-count wbc's per high-power field. Beta-hydroxybutyrate level ranged between 13.27 to 16.01. Venous blood gas dated 02/13/2019 showed pH of 7.1, pCO2 of 17, PO2 84.2, bicarb 4.9. Portable chest x-ray dated 02/13/2019 showed no acute cardiopulmonary process. ASSESSMENT AND PLAN: 1. Diabetic ketoacidosis. The patient will be admitted to the Critical Care Unit. We will continue aggressive DKA protocol with IV fluid hydration. Slow clinical improvement with aggressive measures, directed volume replacement. We will continue serial beta hydroxybutyrate monitoring. Correct electrolyte disturbances per protocol. Suspect component of infectious process due to urinary tract infection. Continue insulin infusion and titrate to glycemic response. 2. Urinary tract infection. Suspected given results of initial urinalysis. We will continue Rocephin 2 g IV q.24 hours with additional vancomycin 1 g IV q.12 hours. Await final urine and blood culture. 3. Acute toxic metabolic encephalopathy secondary to diabetic ketoacidosis and urinary tract infection. We will continue management as outlined previously. Serial mental status evaluations. Anticipate improvement as underlying metabolic process resolves. 4. Acute kidney injury on chronic kidney disease. We will continue IV fluid hydration and avoid nephrotoxic agents and limit contrast exposure. Repeat creatinine in the a.m. 5. Prophylaxis. SCDs while in bed. Protonix 40 mg b.i.d. Case management consult for consideration of fci options when acute DKA resolving. CODE STATUS: Full. Surrogate medical decision maker is patient's son. Total critical care time is 50 minutes. Job ID: [id number]
[2019-02-14 01:06] LABS: Anion Gap 17 mmol/L (10-20); BUN (Urea Nitrogen) 38 mg/dL (9.8-20.1); Calc. Creatinine Clearance 27 mL/min (70-130); Calcium 7.7 mg/dL (7.8-10.44); Carbon Dioxide 14 mmol/L (23-31); Chloride 119 mmol/L (98-107); Estimated GFR-MDRD 28; Glucose 299 mg/dL (80-115); Potassium 3.4 mmol/L (3.5-5.1); Sodium 147 mmol/L (136-145)
[2019-02-14] MEDS: D5 1/2 NS w/20 mEq KCL 1,000 ML IV PRN ×3 (01:13→09:30)
[2019-02-14 03:56] LABS: Hemoglobin A1c 8.1 % (4.0-6.0)
[2019-02-14 04:10] LABS: ALT (SGPT) 11 U/L (8-55); AST (SGOT) 11 U/L (5-34); Albumin 2.4 g/dL (3.4-4.8); Alkaline Phosphatase 83 U/L (40-150); Anion Gap 13 mmol/L (10-20); BUN (Urea Nitrogen) 36 mg/dL (9.8-20.1); Bilirubin, Total 0.2 mg/dL (0.2-1.2); Calc. Creatinine Clearance 30 mL/min (70-130); Calcium 7.8 mg/dL (7.8-10.44); Carbon Dioxide 16 mmol/L (23-31); Chloride 120 mmol/L (98-107); Estimated GFR-MDRD 32; Globulin 2.8 g/dL (2.4-3.5); Glucose 211 mg/dL (80-115); Magnesium 1.4 mg/dL (1.6-2.6); Potassium 3.2 mmol/L (3.5-5.1); Protein, Total 5.2 g/dL (6.0-8.3); Sodium 146 mmol/L (136-145)
[2019-02-14 04:20] LABS: Phosphorus 2.3 mg/dL (2.3-4.7)
[2019-02-14] MEDS ORDERED: Famotidine/PF 20 mg/2ml Vial SLOW IVP SCH (09:00)
[2019-02-14] MEDS ORDERED: Dextrose 50% Abboject 50 ML SYRINGE SLOW IVP PRN (09:38)
[2019-02-14] MEDS ORDERED: Dextrose 5% in Water 1,000 ML IV PRN (09:38)
[2019-02-14] MEDS ORDERED: Sodium Chloride 0.65% Nasal 44 ML BOT EA NARE PRN (09:40)
[2019-02-14] MEDS ORDERED: Loratadine 10 MG TAB PO PRN (09:40)
[2019-02-14] MEDS ORDERED: hydrALAZINE 20 MG/ML VIAL SLOW IVP PRN (09:40)
[2019-02-14] MEDS ORDERED: Eucerin (Mineral Oil/Petrolatum,White) 30 gm Jar TOP PRN (09:40)
[2019-02-14] MEDS ORDERED: Bisacodyl 10 MG SUPP PR PRN (09:40)
[2019-02-14] MEDS ORDERED: Ondansetron ODT 4 MG TAB PO PRN (09:40)
[2019-02-14] MEDS ORDERED: Senokot S 8.6-50 MG TAB PO PRN (09:40)
[2019-02-14] MEDS ORDERED: Bisacodyl 5 MG TAB PO PRN (09:40)
[2019-02-14] MEDS ORDERED: Diabetic Tussin 200 MG/10 ML UDCUP PO PRN (09:40)
[2019-02-14] MEDS ORDERED: Cepastat Lozenges 1 LOZ PO PRN (09:40)
[2019-02-14] MEDS ORDERED: Artificial Tear Sol 15 ML BOT EA EYE PRN (09:40)
[2019-02-14] MEDS ORDERED: Ondansetron PF 4 MG/2 ML Vial IVP PRN (09:40)
[2019-02-14] MEDS ORDERED: Insulin Glargine 28 UNITS in Pre-Filled Syringe 1 EACH SC SCH ×2 (10:15→21:00)
--- NOTE | 2019-02-14 10:26 | PDOC.PN ---
- Subjective Encounter Start Date: 02/14/19 Encounter Start Time: 09:00 -: old records requested/rev Patient seen and examined. pt is lethargic but follows command, No new complaints. No overnight events - Objective Resuscitation Status - Order Detail: 02/13/19 16:26 Resuscitation Status Routine Resuscitation Status: FULL: Full Resuscitation MAR Reviewed: Yes Vital Signs & Weight: Vital Signs (12 hours) Temp Pulse Ox 02/14/19 07:59 99 02/14/19 04:00 99.0 F 02/14/19 00:00 98.6 F Weight Weight 143 lb 1.28 oz Most Recent Monitor Data Heart Rate from ECG 88 NIBP 161/73 NIBP BP-Mean 102 Respiration from ECG 1 SpO2 98 I&O: 02/13/19 02/14/19 02/15/19 06:59 06:59 06:59 Intake Total 5809 Output Total 1445 255 Balance 4364 -255 Result Diagrams: 02/13/19 12:38 02/14/19 03:25 Additional Labs: Accuchecks 02/14/19 02/14/19 02/14/19 09:34 08:17 07:10 POC Glucose 206 H 176 H 165 H 02/14/19 02/14/19 02/14/19 06:06 05:31 04:25 POC Glucose 119 H 132 H 162 H 02/14/19 02/14/19 02/14/19 03:28 02:24 01:03 POC Glucose 181 H 235 H 235 H 02/14/19 02/13/19 02/13/19 00:04 23:24 22:28 POC Glucose 295 H 317 H 344 H 02/13/19 02/13/19 21:18 20:09 POC Glucose 412 H 524 H Radiology Reviewed by me: Yes EKG Reviewed by me: Yes (nsr) Phys Exam - Physical Examination Constitutional: NAD HEENT: PERRLA, moist MMs, sclera anicteric Neck: no JVD, supple Respiratory: no wheezing, no rales, no rhonchi Cardiovascular: RRR, no significant murmur, no rub Gastrointestinal: soft, non-tender, no distention, positive bowel sounds Musculoskeletal: no edema, pulses present Neurological: moves all 4 limbs Lymphatic: no nodes Psychiatric: normal affect Skin: no rash, normal turgor Dx/Plan (1) Acute kidney failure Status: Acute (2) Acute metabolic encephalopathy Code(s): G93.41 - METABOLIC ENCEPHALOPATHY Status: Acute (3) DKA (diabetic ketoacidoses) Code(s): E13.10 - OTH DIABETES MELLITUS WITH KETOACIDOSIS WITHOUT COMA Status : Acute (4) Metabolic acidosis Code(s): E87.2 - ACIDOSIS Status: Acute (5) UTI (urinary tract infection) Status: Acute Comment: (6) Anxiety and depression Code(s): F41.9 - ANXIETY DISORDER, UNSPECIFIED; F32.9 - MAJOR DEPRESSIVE DISORDER, SINGLE EPISODE, UNSPECIFIED Status: Chronic (7) Cannabis abuse Code(s): F12.10 - CANNABIS ABUSE, UNCOMPLICATED Status: Chronic Comment: (8) DM type 2 (diabetes mellitus, type 2) Status: Chronic Qualifiers: (9) GERD (gastroesophageal reflux disease) Code(s): K21.9 - GASTRO-ESOPHAGEAL REFLUX DISEASE WITHOUT ESOPHAGITIS Status: Chronic (10) Hyperlipidemia Code(s): E78.5 - HYPERLIPIDEMIA, UNSPECIFIED Status: Chronic (11) Hypertension Code(s): I10 - ESSENTIAL (PRIMARY) HYPERTENSION Status: Chronic Qualifiers: Comment: (12) Macrocytic anemia Code(s): D53.9 - NUTRITIONAL ANEMIA, UNSPECIFIED Status: Chronic (13) Paroxysmal SVT (supraventricular tachycardia) Code(s): I47.1 - SUPRAVENTRICULAR TACHYCARDIA Status: Chronic Comment: (14) Paroxysmal atrial fibrillation Code(s): I48.0 - PAROXYSMAL ATRIAL FIBRILLATION Status: Chronic Comment: (15) Nonadherence to medication Code(s): Z91.14 - PATIENT'S OTHER NONCOMPLIANCE WITH MEDICATION REGIMEN Status : Acute - Plan cont current plan of care * DKA now resolved, has mild acidosis, today will start basal insulin and continue overlap with insulin drip for few hours and then dc insulin drip and will consider transfer to medical floor * continue 1/2 NS at 100 ml per hour, renal function improving * will repeat labs tomorrow * continue rocephin * start PT/OT * may need placement * start ADA diet. Review of Systems - Review of Systems ENT: negative: Ear Pain, Ear Discharge, Nose Pain, Nose Discharge, Nose Congestion, Mouth Pain, Mouth Swelling, Throat Pain, Throat Swelling, Other Respiratory: negative: Cough, Dry, Shortness of Breath, Hemoptysis, SOB with Excertion, Pleuritic Pain, Sputum, Wheezing Cardiovascular: negative: chest pain, palpitations, orthopnea, paroxysmal nocturnal dyspnea, edema, light headedness, other Gastrointestinal: negative: Nausea, Vomiting, Abdominal Pain, Diarrhea, Constipation, Melena, Hematochezia, Other Genitourinary: negative: Dysuria, Frequency, Incontinence, Hematuria, Retention , Other Musculoskeletal: negative: Neck Pain, Shoulder Pain, Arm Pain, Back Pain, Hand Pain, Leg Pain, Foot Pain, Other - Medications/Allergies Allergies/Adverse Reactions: Allergies Allergy/AdvReac Type Severity Reaction Status Date / Time No Known Drug Allergies Allergy Verified 01/20/19 00:02 Medications: Current Medications Acetaminophen (Tylenol) 1,000 mg PO Q6H PRN PRN Reason: Mild Pain (1-3) Artificial Tears (Tears Renewed 15ml Bottle) 2 drop EA EYE PRN PRN PRN Reason: Dry Eyes Bisacodyl (Dulcolax) 10 mg PO DAILYPRN PRN PRN Reason: Constipation Bisacodyl (Dulcolax) 10 mg [place] DAILYPRN PRN PRN Reason: Constipation Dextrose/Water (Dextrose 50%) 25 gm SLOW IVP PRN PRN PRN Reason: Hypoglycemia Glucagon (Glucagon) 1 mg IM PRN PRN PRN Reason: Hypoglycemia Guaifenesin (Robitussin Sf) 200 mg PO Q4H PRN PRN Reason: Cough Hydralazine HCl (Apresoline) 10 mg SLOW IVP Q4H PRN PRN Reason: SBP > 180 and HR < 70 Insulin Human Regular 100 (units/ Sodium Chloride) 101 mls @ 0 mls/hr IVPB INF SIMRAN; Protocol Last Admin: 02/14/19 05:12 Dose: 101 mls Ceftriaxone Sodium 2 gm/ (Sodium Chloride) 100 mls @ 200 mls/hr IVPB Q24HR SIMRAN Vancomycin HCl 1 gm/ Device 200 mls @ 200 mls/hr IVPB Q24HR@1600 SIMRAN Sodium Chloride (1/2 Normal Saline) 1,000 mls @ 100 mls/hr IV .Q10H SIMRAN Insulin Glargine 28 units/ (Miscellaneous Medication) 0.28 mls @ 0 mls/hr SC HS SIMRAN Insulin Glargine 28 units/ (Miscellaneous Medication) 0.28 mls @ 0 mls/hr SC QAM SIMRAN Dextrose/Water (D5w) 1,000 mls @ 0 mls/hr IV .Q0M PRN PRN Reason: Hypoglycemia Insulin Glargine 28 units/ (Miscellaneous Medication) 0.28 mls @ 0 mls/hr SC NOW [facility] Stop: 02/14/19 12:15 Insulin Human Lispro (Humalog) 0 units SC .MODERATE SLIDING SC PRN PRN Reason: Moderate Correctional Scale Insulin Human Lispro (Humalog) 0 units SC .BEDTIME SLIDING SC PRN PRN Reason: Bedtime Correctional Scale Loratadine (Claritin) 10 mg PO DAILYPRN PRN PRN Reason: Sinus Symptoms Mineral Oil/White Petrolatum (Eucerin Cream) 0 gm TOP BIDPRN PRN PRN Reason: Dry Skin Miscellaneous Medication (Pharmacy To Dose) 1 each IVPB PRN PRN PRN Reason: Pharmacy to dose Ondansetron HCl (Zofran Odt) 4 mg PO Q6H PRN PRN Reason: Nausea/Vomiting Ondansetron HCl (Zofran) 4 mg IVP Q6H PRN PRN Reason: Nausea/Vomiting Pantoprazole Sodium (Protonix) 40 mg PO Q12HR [facility] Last Admin: 02/14/19 09:30 Dose: 40 mg Senna/Docusate Sodium (Senokot S) 2 tab PO BID PRN PRN Reason: Constipation Sodium Chloride ([place] Nasal [place] 0.65%) 0 ml EA NARE QIDPRN PRN PRN Reason: Nasal Congestion Throat Lozenges (Cepastat Lozenges) 1 jeb PO Q2H PRN PRN Reason: Sore Throat
[2019-02-14] MEDS ORDERED: Loperamide HCl 2 MG CAP PO PRN (10:29)
[2019-02-14] MEDS ORDERED: Calcium Carbonate 500 MG ChewTAB PO PRN (10:29)
[2019-02-14] MEDS: Sodium Chloride 0.45% 1,000 ML IV SCH ×2 (10:41→21:38)
[2019-02-14] MEDS: cefTRIAXone\\ROCEPHIN 2 GM in Sodium Chloride 0.9% 100 ML IVPB SCH (15:35)
[2019-02-14] MEDS ORDERED: Vancomycin HCl 1 GM in Premix Bag 1 BAG IVPB SCH (16:00)
[2019-02-14] MEDS: HumaLOG 300 UNITS/3 ML VIAL SC PRN ×2 (16:55→21:34)
[2019-02-15] MEDS: Sodium Chloride 0.45% 1,000 ML IV SCH ×2 (06:53→08:06)
[2019-02-15] MEDS ORDERED: Sodium Chloride 0.9% 10 ML ONE (07:36)
[2019-02-15] MEDS ORDERED: Insulin Glargine 28 UNITS in Pre-Filled Syringe 1 EACH SC SCH (09:00)
[2019-02-15 09:30] LABS: #Eosinphils 0.2 thou/uL (0.0-0.7); #Monocytes 0.7 thou/uL (0.11-0.59); #Neutrophils 7.6 thou/uL (1.40-6.50); %Basophils 0.5 % (0.0-1.0); %Eosinophils 1.9 % (0.0-10.0); %Lymphocytes 19.1 % (21.0-51.0); %Neutrophils 71.5 % (42.0-75.0); Mean Corpuscular HGB CONC 31.5 g/dL (32.0-36.0); Mean Corpuscular Hemoglobin 28.6 pg (27.0-31.0); Mean Platelet Volume 8.1 fL (7.4-10.4); Platelet Count 269 thou/uL (130-400); RBC Distribution Width 17.3 % (11.5-14.5); Red Blood Cell (RBC) Count 3.83 mill/uL (4.20-5.40); White Blood Cell (WBC) Count 10.6 thou/uL (4.8-10.8)
--- NOTE | 2019-02-15 09:37 | PDOC.PN ---
- Subjective Encounter Start Date: 02/15/19 Encounter Start Time: 07:50 Patient seen and examined. No new complaints. No overnight events - Objective Resuscitation Status - Order Detail: 02/13/19 16:26 Resuscitation Status Routine Resuscitation Status: FULL: Full Resuscitation MAR Reviewed: Yes Vital Signs & Weight: Vital Signs (12 hours) Temp Pulse Resp BP BP Pulse Ox 02/15/19 08:11 97.4 F L 90 20 164/78 H 95 02/15/19 04:15 98.9 F 82 16 148/71 H 93 L 02/15/19 00:15 98.9 F 88 18 153/68 H 94 L Weight Weight 143 lb 1.28 oz Most Recent Monitor Data Heart Rate from ECG 88 NIBP 161/73 NIBP BP-Mean 102 Respiration from ECG 1 SpO2 98 I&O: 02/14/19 02/15/19 02/16/19 06:59 06:59 06:59 Intake Total 5809 2110 Output Total 1445 2085 Balance 4364 25 Result Diagrams: 02/15/19 09:07 02/14/19 03:25 Additional Labs: Accuchecks 02/15/19 02/15/19 02/15/19 08:06 05:47 05:14 POC Glucose 115 H 80 58 L* 02/15/19 02/14/19 02/14/19 00:14 20:05 16:53 POC Glucose 159 H 222 H 237 H 02/14/19 02/14/19 11:44 09:34 POC Glucose 196 H 206 H Phys Exam - Physical Examination Constitutional: NAD HEENT: PERRLA, moist MMs, sclera anicteric Neck: no JVD, supple Respiratory: no wheezing, no rales, no rhonchi Cardiovascular: RRR, no significant murmur, no rub Gastrointestinal: soft, non-tender, no distention, positive bowel sounds Musculoskeletal: no edema, pulses present Neurological: non-focal, normal sensation Lymphatic: no nodes Psychiatric: normal affect Skin: no rash, normal turgor Dx/Plan (1) Acute kidney failure Status: Acute (2) Acute metabolic encephalopathy Code(s): G93.41 - METABOLIC ENCEPHALOPATHY Status: Resolved (3) DKA (diabetic ketoacidoses) Code(s): E13.10 - OTH DIABETES MELLITUS WITH KETOACIDOSIS WITHOUT COMA Status : Resolved (4) Metabolic acidosis Code(s): E87.2 - ACIDOSIS Status: Acute (5) UTI (urinary tract infection) Status: Acute Comment: (6) Anxiety and depression Code(s): F41.9 - ANXIETY DISORDER, UNSPECIFIED; F32.9 - MAJOR DEPRESSIVE DISORDER, SINGLE EPISODE, UNSPECIFIED Status: Chronic (7) Cannabis abuse Code(s): F12.10 - CANNABIS ABUSE, UNCOMPLICATED Status: Chronic Comment: (8) DM type 2 (diabetes mellitus, type 2) Status: Chronic Qualifiers: (9) GERD (gastroesophageal reflux disease) Code(s): K21.9 - GASTRO-ESOPHAGEAL REFLUX DISEASE WITHOUT ESOPHAGITIS Status: Chronic (10) Hyperlipidemia Code(s): E78.5 - HYPERLIPIDEMIA, UNSPECIFIED Status: Chronic (11) Hypertension Code(s): I10 - ESSENTIAL (PRIMARY) HYPERTENSION Status: Chronic Qualifiers: Comment: (12) Macrocytic anemia Code(s): D53.9 - NUTRITIONAL ANEMIA, UNSPECIFIED Status: Chronic (13) Paroxysmal SVT (supraventricular tachycardia) Code(s): I47.1 - SUPRAVENTRICULAR TACHYCARDIA Status: Chronic Comment: (14) Paroxysmal atrial fibrillation Code(s): I48.0 - PAROXYSMAL ATRIAL FIBRILLATION Status: Chronic Comment: (15) Nonadherence to medication Code(s): Z91.14 - PATIENT'S OTHER NONCOMPLIANCE WITH MEDICATION REGIMEN Status : Acute (16) Bacteremia due to Klebsiella pneumoniae Code(s): R78.81 - BACTEREMIA Status: Acute - Plan cont current plan of care, continue antibiotics, PT/OT, psychologist social * reduce lantus due to hypoglycemia * continue rocephin * dc vancomycin * medication reviewed as below * symptomatic treatment. * will need placement * monitor labs Review of Systems - Review of Systems ENT: negative: Ear Pain, Ear Discharge, Nose Pain, Nose Discharge, Nose Congestion, Mouth Pain, Mouth Swelling, Throat Pain, Throat Swelling, Other Respiratory: negative: Cough, Dry, Shortness of Breath, Hemoptysis, SOB with Excertion, Pleuritic Pain, Sputum, Wheezing Cardiovascular: negative: chest pain, palpitations, orthopnea, paroxysmal nocturnal dyspnea, edema, light headedness, other Gastrointestinal: negative: Nausea, Vomiting, Abdominal Pain, Diarrhea, Constipation, Melena, Hematochezia, Other Genitourinary: negative: Dysuria, Frequency, Incontinence, Hematuria, Retention , Other Musculoskeletal: negative: Neck Pain, Shoulder Pain, Arm Pain, Back Pain, Hand Pain, Leg Pain, Foot Pain, Other - Medications/Allergies Allergies/Adverse Reactions: Allergies Allergy/AdvReac Type Severity Reaction Status Date / Time No Known Drug Allergies Allergy Verified 01/20/19 00:02 Medications: Current Medications Acetaminophen (Tylenol) 1,000 mg PO Q6H PRN PRN Reason: Mild Pain (1-3) Artificial Tears (Tears Renewed 15ml Bottle) 2 drop EA EYE PRN PRN PRN Reason: Dry Eyes Bisacodyl (Dulcolax) 10 mg PO DAILYPRN PRN PRN Reason: Constipation Bisacodyl (Dulcolax) 10 mg [place] DAILYPRN PRN PRN Reason: Constipation Calcium Carbonate (Tums) 1,000 mg PO Q4H PRN PRN Reason: Heartburn or Indigestion Dextrose/Water (Dextrose 50%) 25 gm SLOW IVP PRN PRN PRN Reason: Hypoglycemia Glucagon (Glucagon) 1 mg IM PRN PRN PRN Reason: Hypoglycemia Guaifenesin (Robitussin Sf) 200 mg PO Q4H PRN PRN Reason: Cough Hydralazine HCl (Apresoline) 10 mg SLOW IVP Q4H PRN PRN Reason: SBP > 180 and HR < 70 Ceftriaxone Sodium 2 gm/ (Sodium Chloride) 100 mls @ 200 mls/hr IVPB Q24HR [facility] Last Admin: 02/14/19 15:35 Dose: 100 mls Dextrose/Water (D5w) 1,000 mls @ 0 mls/hr IV .Q0M PRN PRN Reason: Hypoglycemia Insulin Glargine 15 units/ (Miscellaneous Medication) 0.15 mls @ 0 mls/hr SC HS SIMRAN Insulin Glargine 15 units/ (Miscellaneous Medication) 0.15 mls @ 0 mls/hr SC QAM SIMRAN Insulin Human Lispro (Humalog) 0 units SC .MODERATE SLIDING SC PRN PRN Reason: Moderate Correctional Scale Last Admin: 02/14/19 16:55 Dose: 4 unit Insulin Human Lispro (Humalog) 0 units SC .BEDTIME SLIDING SC PRN PRN Reason: Bedtime Correctional Scale Last Admin: 02/14/19 21:34 Dose: 2 unit Loperamide HCl (Imodium) 2 mg PO PRN PRN PRN Reason: Diarrhea/Loose Stools Loratadine (Claritin) 10 mg PO DAILYPRN PRN PRN Reason: Sinus Symptoms Mineral Oil/White Petrolatum (Eucerin Cream) 0 gm TOP BIDPRN PRN PRN Reason: Dry Skin Ondansetron HCl (Zofran Odt) 4 mg PO Q6H PRN PRN Reason: Nausea/Vomiting Ondansetron HCl (Zofran) 4 mg IVP Q6H PRN PRN Reason: Nausea/Vomiting Pantoprazole Sodium (Protonix) 40 mg PO Q12HR [facility] Last Admin: 02/15/19 08:05 Dose: 40 mg Senna/Docusate Sodium (Senokot S) 2 tab PO BID PRN PRN Reason: Constipation Sodium Chloride ([place] Nasal [place] 0.65%) 0 ml EA NARE QIDPRN PRN PRN Reason: Nasal Congestion Throat Lozenges (Cepastat Lozenges) 1 jeb PO Q2H PRN PRN Reason: Sore Throat
[2019-02-15 09:57] LABS: Anion Gap 11 mmol/L (10-20); BUN (Urea Nitrogen) 12 mg/dL (9.8-20.1); Calc. Creatinine Clearance 63 mL/min (70-130); Calcium 8.5 mg/dL (7.8-10.44); Carbon Dioxide 23 mmol/L (23-31); Chloride 110 mmol/L (98-107); Estimated GFR-MDRD 63; Glucose 129 mg/dL (80-115); Magnesium 1.6 mg/dL (1.6-2.6); Phosphorus Less than 1.0 mg/dL (2.3-4.7); Potassium 2.8 mmol/L (3.5-5.1); Sodium 141 mmol/L (136-145)
[2019-02-15] MEDS ORDERED: Potassium Phosphate 30 MMOL in Sodium Chloride 0.9% 500 ML IVPB SCH (11:00)
[2019-02-15] MEDS: Insulin Glargine 15 UNITS in Pre-Filled Syringe 1 EACH SC SCH ×2 (11:01→20:28)
[2019-02-15] MEDS: HumaLOG 300 UNITS/3 ML VIAL SC PRN (11:46)
[2019-02-15] MEDS: cefTRIAXone\\ROCEPHIN 2 GM in Sodium Chloride 0.9% 100 ML IVPB SCH (15:06)
[2019-02-15] MEDS: K-Phos Neutral 250 MG TAB PO SCH (18:06)
[2019-02-16 08:09] LABS: #Eosinphils 0.1 thou/uL (0.0-0.7); #Lymphocytes 2.5 thou/uL (1.20-3.40); #Monocytes 0.6 thou/uL (0.11-0.59); #Neutrophils 5.2 thou/uL (1.40-6.50); %Basophils 0.3 % (0.0-1.0); %Eosinophils 1.6 % (0.0-10.0); %Lymphocytes 29.1 % (21.0-51.0); %Monocytes 7.5 % (0.0-10.0); %Neutrophils 61.6 % (42.0-75.0); Hemoglobin 11.3 g/dL (12.0-16.0); Mean Corpuscular HGB CONC 31.3 g/dL (32.0-36.0); Mean Corpuscular Hemoglobin 28.1 pg (27.0-31.0); Mean Corpuscular Volume 89.8 fL (78.0-98.0); Mean Platelet Volume 8.5 fL (7.4-10.4); Platelet Count 232 thou/uL (130-400); RBC Distribution Width 17.3 % (11.5-14.5); Red Blood Cell (RBC) Count 4.04 mill/uL (4.20-5.40); White Blood Cell (WBC) Count 8.4 thou/uL (4.8-10.8)
[2019-02-16 08:27] LABS: Anion Gap 11 mmol/L (10-20); BUN (Urea Nitrogen) 9 mg/dL (9.8-20.1); Calc. Creatinine Clearance 79 mL/min (70-130); Calcium 8.2 mg/dL (7.8-10.44); Carbon Dioxide 27 mmol/L (23-31); Chloride 104 mmol/L (98-107); Estimated GFR-MDRD 81; Glucose 174 mg/dL (80-115); Sodium 139 mmol/L (136-145)
[2019-02-16 08:30] LABS: Potassium 2.9 mmol/L (3.5-5.1)
[2019-02-16] MEDS: Insulin Glargine 15 UNITS in Pre-Filled Syringe 1 EACH SC SCH ×2 (08:44→20:23)
[2019-02-16] MEDS: K-Phos Neutral 250 MG TAB PO SCH ×2 (08:45→17:42)
--- NOTE | 2019-02-16 11:15 | PDOC.PN ---
- Subjective Encounter Start Date: 02/16/19 Encounter Start Time: 08:50 Patient seen and examined. No new complaints. No overnight events - Objective Resuscitation Status - Order Detail: 02/13/19 16:26 Resuscitation Status Routine Resuscitation Status: FULL: Full Resuscitation MAR Reviewed: Yes Vital Signs & Weight: Vital Signs (12 hours) Temp Pulse Resp BP Pulse Ox 02/16/19 08:54 98.6 F 81 20 127/75 95 Weight Weight 143 lb 1.28 oz Most Recent Monitor Data Heart Rate from ECG 88 NIBP 161/73 NIBP BP-Mean 102 Respiration from ECG 1 SpO2 98 I&O: 02/15/19 02/16/19 02/17/19 06:59 06:59 06:59 Intake Total 2109 600 Output Total 2084 2119 Balance 25 -1520 Result Diagrams: 02/16/19 07:40 02/16/19 07:40 Additional Labs: Accuchecks 02/16/19 02/16/19 02/15/19 04:19 00:47 20:31 POC Glucose 141 H 140 H 147 H 02/15/19 02/15/19 02/13/19 17:56 11:07 18:57 POC Glucose 129 H 217 H Greater than 550 H* 02/13/19 02/13/19 15:25 12:35 POC Glucose Greater than 550 H* Greater than 550 H* Phys Exam - Physical Examination Constitutional: NAD HEENT: PERRLA, moist MMs, sclera anicteric Neck: no JVD, supple Respiratory: no wheezing, no rales, no rhonchi Cardiovascular: RRR, no significant murmur, no rub Gastrointestinal: soft, non-tender, no distention, positive bowel sounds Musculoskeletal: no edema, pulses present Neurological: non-focal, normal sensation Lymphatic: no nodes Psychiatric: normal affect Skin: no rash, normal turgor Dx/Plan (1) Acute kidney failure Status: Acute (2) Acute metabolic encephalopathy Code(s): G93.41 - METABOLIC ENCEPHALOPATHY Status: Resolved (3) DKA (diabetic ketoacidoses) Code(s): E13.10 - OTH DIABETES MELLITUS WITH KETOACIDOSIS WITHOUT COMA Status : Resolved (4) Metabolic acidosis Code(s): E87.2 - ACIDOSIS Status: Acute (5) UTI (urinary tract infection) Status: Acute Comment: (6) Anxiety and depression Code(s): F41.9 - ANXIETY DISORDER, UNSPECIFIED; F32.9 - MAJOR DEPRESSIVE DISORDER, SINGLE EPISODE, UNSPECIFIED Status: Chronic (7) Cannabis abuse Code(s): F12.10 - CANNABIS ABUSE, UNCOMPLICATED Status: Chronic Comment: (8) DM type 2 (diabetes mellitus, type 2) Status: Chronic Qualifiers: (9) GERD (gastroesophageal reflux disease) Code(s): K21.9 - GASTRO-ESOPHAGEAL REFLUX DISEASE WITHOUT ESOPHAGITIS Status: Chronic (10) Hyperlipidemia Code(s): E78.5 - HYPERLIPIDEMIA, UNSPECIFIED Status: Chronic (11) Hypertension Code(s): I10 - ESSENTIAL (PRIMARY) HYPERTENSION Status: Chronic Qualifiers: Comment: (12) Macrocytic anemia Code(s): D53.9 - NUTRITIONAL ANEMIA, UNSPECIFIED Status: Chronic (13) Paroxysmal SVT (supraventricular tachycardia) Code(s): I47.1 - SUPRAVENTRICULAR TACHYCARDIA Status: Chronic Comment: (14) Paroxysmal atrial fibrillation Code(s): I48.0 - PAROXYSMAL ATRIAL FIBRILLATION Status: Chronic Comment: (15) Nonadherence to medication Code(s): Z91.14 - PATIENT'S OTHER NONCOMPLIANCE WITH MEDICATION REGIMEN Status : Acute (16) Bacteremia due to Klebsiella pneumoniae Code(s): R78.81 - BACTEREMIA Status: Acute - Plan cont current plan of care, continue antibiotics, PT/OT, social work specialist * medication reviewed as below * symptomatic treatment * replace potassium * continue rocephin * will need placement. Review of Systems - Review of Systems ENT: negative: Ear Pain, Ear Discharge, Nose Pain, Nose Discharge, Nose Congestion, Mouth Pain, Mouth Swelling, Throat Pain, Throat Swelling, Other Respiratory: negative: Cough, Dry, Shortness of Breath, Hemoptysis, SOB with Excertion, Pleuritic Pain, Sputum, Wheezing Cardiovascular: negative: chest pain, palpitations, orthopnea, paroxysmal nocturnal dyspnea, edema, light headedness, other Gastrointestinal: negative: Nausea, Vomiting, Abdominal Pain, Diarrhea, Constipation, Melena, Hematochezia, Other Genitourinary: negative: Dysuria, Frequency, Incontinence, Hematuria, Retention , Other Musculoskeletal: negative: Neck Pain, Shoulder Pain, Arm Pain, Back Pain, Hand Pain, Leg Pain, Foot Pain, Other - Medications/Allergies Allergies/Adverse Reactions: Allergies Allergy/AdvReac Type Severity Reaction Status Date / Time No Known Drug Allergies Allergy Verified 01/20/19 00:02 Medications: Current Medications Acetaminophen (Tylenol) 1,000 mg PO Q6H PRN PRN Reason: Mild Pain (1-3) Artificial Tears (Tears Renewed 15ml Bottle) 2 drop EA EYE PRN PRN PRN Reason: Dry Eyes Bisacodyl (Dulcolax) 10 mg PO DAILYPRN PRN PRN Reason: Constipation Bisacodyl (Dulcolax) 10 mg [place] DAILYPRN PRN PRN Reason: Constipation Calcium Carbonate (Tums) 1,000 mg PO Q4H PRN PRN Reason: Heartburn or Indigestion Dextrose/Water (Dextrose 50%) 25 gm SLOW IVP PRN PRN PRN Reason: Hypoglycemia Glucagon (Glucagon) 1 mg IM PRN PRN PRN Reason: Hypoglycemia Guaifenesin (Robitussin Sf) 200 mg PO Q4H PRN PRN Reason: Cough Hydralazine HCl (Apresoline) 10 mg SLOW IVP Q4H PRN PRN Reason: SBP > 180 and HR < 70 Ceftriaxone Sodium 2 gm/ (Sodium Chloride) 100 mls @ 200 mls/hr IVPB Q24HR [facility] Last Admin: 02/15/19 15:06 Dose: 100 mls Dextrose/Water (D5w) 1,000 mls @ 0 mls/hr IV .Q0M PRN PRN Reason: Hypoglycemia Insulin Glargine 15 units/ (Miscellaneous Medication) 0.15 mls @ 0 mls/hr SC [facility] Last Admin: 02/15/19 20:28 Dose: Not Given Insulin Glargine 15 units/ (Miscellaneous Medication) 0.15 mls @ 0 mls/hr SC [facility] Last Admin: 02/16/19 08:44 Dose: 0.15 mls Insulin Human Lispro (Humalog) 0 units SC .MODERATE SLIDING SC PRN PRN Reason: Moderate Correctional Scale Last Admin: 02/15/19 11:46 Dose: 4 unit Insulin Human Lispro (Humalog) 0 units SC .BEDTIME SLIDING SC PRN PRN Reason: Bedtime Correctional Scale Last Admin: 02/14/19 21:34 Dose: 2 unit Loperamide HCl (Imodium) 2 mg PO PRN PRN PRN Reason: Diarrhea/Loose Stools Loratadine (Claritin) 10 mg PO DAILYPRN PRN PRN Reason: Sinus Symptoms Mineral Oil/White Petrolatum (Eucerin Cream) 0 gm TOP BIDPRN PRN PRN Reason: Dry Skin Ondansetron HCl (Zofran Odt) 4 mg PO Q6H PRN PRN Reason: Nausea/Vomiting Ondansetron HCl (Zofran) 4 mg IVP Q6H PRN PRN Reason: Nausea/Vomiting Pantoprazole Sodium (Protonix) 40 mg PO Q12HR [facility] Last Admin: 02/16/19 08:44 Dose: 40 mg Phosphorus (Kphos Neutral) 500 mg PO BID-[facility] Last Admin: 02/16/19 08:45 Dose: 500 mg Potassium Chloride (K-Dur) 40 meq PO BID-[facility] Senna/Docusate Sodium (Senokot S) 2 tab PO BID PRN PRN Reason: Constipation Sodium Chloride ([place] Nasal [place] 0.65%) 0 ml EA NARE QIDPRN PRN PRN Reason: Nasal Congestion Throat Lozenges (Cepastat Lozenges) 1 jeb PO Q2H PRN PRN Reason: Sore Throat
[2019-02-16] MEDS: HumaLOG 300 UNITS/3 ML VIAL SC PRN ×2 (12:08→20:24)
[2019-02-16] MEDS: Potassium Chloride 20 MEQ TAB PO SCH ×2 (12:09→17:42)
--- NOTE | 2019-02-16 13:18 | PQF ---
DATE: 02-16-19 ATTN: DR. ARGENTINA TEAGUE Please exercise your independent, professional judgment in responding to the clarification form. Clinical indicators are provided on the bottom of this form for your review Please check appropriate box(es): [ ] Sepsis due to: (UTI, etc.) [ ] SIRS due to non-infectious process (please specify etiology) [ ] with organ dysfunction [ ] without organ dysfunction [ x ] Severe sepsis with acute organ dysfunction of: _aki (Examples: encephalopathy, acute kidney failure, other) [ ] Localized infection without sepsis [ ] Other diagnosis [ ] Unable to determine In addition, please specify: Present on Admission (POA): [ x ] Yes [ ] No [ ] Unable to determine For continuity of documentation, please document condition throughout progress notes and discharge summary. Thank You. CLINICAL INDICATORS - SIGNS / SYMPTOMS / LABS ER: UNRESPONSIVE PATIENT FROM HEALTH CARE FACILITY H&P: LETHARGIC WITH ALTERED MENTAL STATUS, HX CVA, HX DECONDITIONING, ADMITTED FOR DKA, UTI, ACUTE TOXIC METABOLIC ENCEPHALOPATHY 2/2 TO DKA AND UTI, BRAEDEN WITH CKD PN DR. TEAGUE 02-16-19: BRAEDEN, DKA, ACUTE METABOLIC ENCEPHALOPATHY, METABOLIC ACIDOSIS, UTI, BACTEREMIA DUE TO KLEBSIELLA PNEUMONIAE WBC: 02-13-19: 21.3 BANDS: 02-13-19: 24 TEMP: ER: 95.8 ( RECTAL), 95.4 ( CRITICORE) 02-14-19: 99.0 RR: 02-13-19: 23 BP: ER: 90/37, 105/42, 99/53, 81/43, 96/38 02-14-19: 21, 29, [address] TEAGUE 02-16-19: BRAEDEN, DKA, ACUTE METABOLIC ENCEPHALOPATHY, METABOLIC ACIDOSIS, UTI, BACTEREMIA DUE TO KLEBSIELLA PNEUMONIAE ER: UNRESPONSIVE PATIENT FROM HEALTH CARE FACILITY TREATMENTS: MAR: ROCEPHIN IV, LANTUS, IVF NS, VANCOMYCIN (This form is maintained as a part of the permanent medical record) 2014 [employer]. All Rights Reserved [email or web address] Office: [phone] [facility]ITAL[facility]
[2019-02-16] MEDS: cefTRIAXone\\ROCEPHIN 2 GM in Sodium Chloride 0.9% 100 ML IVPB SCH (16:05)
[2019-02-17] MEDS: Potassium Chloride 20 MEQ TAB PO SCH (08:00)
[2019-02-17] MEDS: K-Phos Neutral 250 MG TAB PO SCH (08:00)
[2019-02-17] MEDS: Insulin Glargine 15 UNITS in Pre-Filled Syringe 1 EACH SC SCH (08:00)
[2019-02-17 08:18] VITALS: BP 149/84; TEMP 98.5
[2019-02-17] MEDS ORDERED: Enoxaparin Sodium 40 MG/0.4 ML SYRINGE SC SCH (09:00)
[2019-02-17 09:57] LABS: Anion Gap 12 mmol/L (10-20); BUN (Urea Nitrogen) 8 mg/dL (9.8-20.1); Calc. Creatinine Clearance 74 mL/min (70-130); Calcium 8.1 mg/dL (7.8-10.44); Carbon Dioxide 27 mmol/L (23-31); Chloride 103 mmol/L (98-107); Estimated GFR-MDRD 75; Glucose 200 mg/dL (80-115); Phosphorus 3.9 mg/dL (2.3-4.7); Potassium 3.4 mmol/L (3.5-5.1); Sodium 139 mmol/L (136-145)
--- NOTE | 2019-02-17 11:52 | DIS ---
DATE OF ADMISSION: 02/13/2019 DATE OF DISCHARGE: 02/17/2019 DISCHARGE DISPOSITION: Home. PRIMARY DISCHARGE DIAGNOSES: 1. Diabetic ketoacidosis and metabolic acidosis. 2. Urinary tract infection due to Klebsiella. 3. Bacteremia due to Klebsiella. 4. Acute metabolic encephalopathy. 5. Acute kidney failure. SECONDARY DISCHARGE DIAGNOSES: 1. Anxiety. 2. Depression. 3. Cannabis abuse. 4. Diabetes type 2. 5. Gastroesophageal reflux disease. 6. Hypertension. 7. Dyslipidemia. 8. Paroxysmal atrial fibrillation/supraventricular tachycardia. 9. Macrocytic anemia. 10. Medication noncompliance. PRIMARY PROCEDURE/OPERATION: None. RADIOLOGICAL INVESTIGATION: Chest x-ray normal. SIGNIFICANT LABORATORY DATA: Hemoglobin 11.3. Sodium 139, creatinine 0.77. Urinalysis suggestive of UTI. Urine culture grew Klebsiella. Blood culture grew Klebsiella. DISCHARGE MEDICATIONS: 1. Ciprofloxacin 500 mg p.o. b.i.d. for 10 more days. 2. Coreg 12.5 mg b.i.d. 3. Ferrous sulfate 325 mg p.o. daily. 4. Humalog insulin as per sliding scale. 5. Protonix 40 mg p.o. daily. 6. Amiodarone 200 mg p.o. daily. 7. Amlodipine 5 mg daily. 8. Lipitor 10 mg at bedtime. 9. Digoxin 0.125 mg p.o. daily. 10. Lantus 27 units subcutaneous b.i.d. 11. Lisinopril 20 mg p.o. daily. CONTRAINDICATION: None. CODE STATUS: Full code. INPATIENT CPC CODER: None. ALLERGIES: NO KNOWN DRUG ALLERGIES. DISCHARGE PLAN: Posthospital, the patient will follow up with primary care physician. HOSPITAL COURSE: A 64-year-old female, who was admitted by Dr. Flores, please see his H and P for further details. The patient was admitted for encephalopathy. She was having severe acidosis with metabolic acidosis and DKA. The patient was initially unresponsive and she was having metabolic encephalopathy. She also had acute kidney failure. Clinical presentation was also consistent with sepsis. During this admission, she was given empiric antibiotic therapy. She was treated with DKA protocol treatment in the ICU. Her DKA resolved next day, and the patient became more alert. We will transfer her to medical floor. Her blood culture came back positive for Klebsiella similarly. Similarly, urine culture came back positive for Klebsiella, which is pansensitive. The patient will continue all her previous medication and we started ciprofloxacin upon discharge for her bacteremia to finish complete course of therapy for total 14 days. While in hospital, she was given Rocephin. We had offered this patient to go [facility] [place] [facility]hab for PT/OT, but the patient declined that option and she wanted to go home. I have provided necessary patient education about diabetes, medication compliance, and healthy lifestyle measure. While in hospital, we also corrected her abnormal electrolytes. At this point, the patient is medically stable for discharge. The patient is seen and examined at bedside today. Her vitals are stable. Her examination is normal. She is ambulatory and tolerating p.o. well. Job ID: [id number]
[2019-02-17] MEDS: HumaLOG 300 UNITS/3 ML VIAL SC PRN (12:01)
--- NOTE | 2019-02-17 12:14 | PDOC.PN ---
- Subjective Encounter Start Date: 02/17/19 Encounter Start Time: 10:00 Patient seen and examined. No new complaints. No overnight events - Objective Resuscitation Status - Order Detail: 02/13/19 16:26 Resuscitation Status Routine Resuscitation Status: FULL: Full Resuscitation MAR Reviewed: Yes Vital Signs & Weight: Vital Signs (12 hours) Temp Pulse Resp BP Pulse Ox 02/17/19 08:00 98.5 F 83 20 149/84 H 97 Weight Weight 143 lb 1.28 oz Most Recent Monitor Data Heart Rate from ECG 88 NIBP 161/73 NIBP BP-Mean 102 Respiration from ECG 1 SpO2 98 I&O: 02/16/19 02/17/19 02/18/19 06:59 06:59 06:59 Intake Total 600 2150 240 Output Total 2120 2750 Balance -1520 -600 240 Result Diagrams: 02/16/19 07:40 02/17/19 09:23 Additional Labs: Accuchecks 02/17/19 02/17/19 02/16/19 11:31 05:37 19:23 POC Glucose 238 H 64 L 232 H 02/16/19 17:07 POC Glucose 149 H Phys Exam - Physical Examination Constitutional: NAD HEENT: PERRLA, moist MMs, sclera anicteric Neck: no JVD, supple Respiratory: no wheezing, no rales, no rhonchi Cardiovascular: RRR, no significant murmur, no rub Gastrointestinal: soft, non-tender, no distention, positive bowel sounds Musculoskeletal: no edema, pulses present Neurological: non-focal, normal sensation, moves all 4 limbs Lymphatic: no nodes Psychiatric: normal affect, A&O x 3 Skin: no rash, normal turgor Dx/Plan (1) Acute kidney failure Status: Acute (2) Acute metabolic encephalopathy Code(s): G93.41 - METABOLIC ENCEPHALOPATHY Status: Resolved (3) DKA (diabetic ketoacidoses) Code(s): E13.10 - OTH DIABETES MELLITUS WITH KETOACIDOSIS WITHOUT COMA Status : Resolved (4) Metabolic acidosis Code(s): E87.2 - ACIDOSIS Status: Acute (5) UTI (urinary tract infection) Status: Acute Comment: (6) Anxiety and depression Code(s): F41.9 - ANXIETY DISORDER, UNSPECIFIED; F32.9 - MAJOR DEPRESSIVE DISORDER, SINGLE EPISODE, UNSPECIFIED Status: Chronic (7) Cannabis abuse Code(s): F12.10 - CANNABIS ABUSE, UNCOMPLICATED Status: Chronic Comment: (8) DM type 2 (diabetes mellitus, type 2) Status: Chronic Qualifiers: (9) GERD (gastroesophageal reflux disease) Code(s): K21.9 - GASTRO-ESOPHAGEAL REFLUX DISEASE WITHOUT ESOPHAGITIS Status: Chronic (10) Hyperlipidemia Code(s): E78.5 - HYPERLIPIDEMIA, UNSPECIFIED Status: Chronic (11) Hypertension Code(s): I10 - ESSENTIAL (PRIMARY) HYPERTENSION Status: Chronic Qualifiers: Comment: (12) Macrocytic anemia Code(s): D53.9 - NUTRITIONAL ANEMIA, UNSPECIFIED Status: Chronic (13) Paroxysmal SVT (supraventricular tachycardia) Code(s): I47.1 - SUPRAVENTRICULAR TACHYCARDIA Status: Chronic Comment: (14) Paroxysmal atrial fibrillation Code(s): I48.0 - PAROXYSMAL ATRIAL FIBRILLATION Status: Chronic Comment: (15) Nonadherence to medication Code(s): Z91.14 - PATIENT'S OTHER NONCOMPLIANCE WITH MEDICATION REGIMEN Status : Acute (16) Bacteremia due to Klebsiella pneumoniae Code(s): R78.81 - BACTEREMIA Status: Acute - Plan cont current plan of care * medication reviewed as below * symptomatic treatment * see discharge nghia. Review of Systems - Review of Systems ENT: negative: Ear Pain, Ear Discharge, Nose Pain, Nose Discharge, Nose Congestion, Mouth Pain, Mouth Swelling, Throat Pain, Throat Swelling, Other Respiratory: negative: Cough, Dry, Shortness of Breath, Hemoptysis, SOB with Excertion, Pleuritic Pain, Sputum, Wheezing Cardiovascular: negative: chest pain, palpitations, orthopnea, paroxysmal nocturnal dyspnea, edema, light headedness, other Gastrointestinal: negative: Nausea, Vomiting, Abdominal Pain, Diarrhea, Constipation, Melena, Hematochezia, Other Genitourinary: negative: Dysuria, Frequency, Incontinence, Hematuria, Retention , Other Musculoskeletal: negative: Neck Pain, Shoulder Pain, Arm Pain, Back Pain, Hand Pain, Leg Pain, Foot Pain, Other Skin: negative: Rash, Lesions, Pro, Bruising, Other - Medications/Allergies Allergies/Adverse Reactions: Allergies Allergy/AdvReac Type Severity Reaction Status Date / Time No Known Drug Allergies Allergy Verified 01/20/19 00:02 Medications: Current Medications Acetaminophen (Tylenol) 1,000 mg PO Q6H PRN PRN Reason: Mild Pain (1-3) Artificial Tears (Tears Renewed 15ml Bottle) 2 drop EA EYE PRN PRN PRN Reason: Dry Eyes Bisacodyl (Dulcolax) 10 mg PO DAILYPRN PRN PRN Reason: Constipation Bisacodyl (Dulcolax) 10 mg [place] DAILYPRN PRN PRN Reason: Constipation Calcium Carbonate (Tums) 1,000 mg PO Q4H PRN PRN Reason: Heartburn or Indigestion Dextrose/Water (Dextrose 50%) 25 gm SLOW IVP PRN PRN PRN Reason: Hypoglycemia Enoxaparin Sodium (Lovenox) 40 mg SC 0900 [facility] Last Admin: 02/17/19 09:01 Dose: 40 mg Glucagon (Glucagon) 1 mg IM PRN PRN PRN Reason: Hypoglycemia Guaifenesin (Robitussin Sf) 200 mg PO Q4H PRN PRN Reason: Cough Hydralazine HCl (Apresoline) 10 mg SLOW IVP Q4H PRN PRN Reason: SBP > 180 and HR < 70 Ceftriaxone Sodium 2 gm/ (Sodium Chloride) 100 mls @ 200 mls/hr IVPB Q24HR [facility] Last Admin: 02/16/19 16:05 Dose: 100 mls Dextrose/Water (D5w) 1,000 mls @ 0 mls/hr IV .Q0M PRN PRN Reason: Hypoglycemia Insulin Glargine 15 units/ (Miscellaneous Medication) 0.15 mls @ 0 mls/hr SC HS [facility] Last Admin: 02/16/19 20:23 Dose: 0.15 mls Insulin Glargine 15 units/ (Miscellaneous Medication) 0.15 mls @ 0 mls/hr SC QAM [facility] Last Admin: 02/17/19 08:00 Dose: 0.15 mls Insulin Human Lispro (Humalog) 0 units SC .MODERATE SLIDING SC PRN PRN Reason: Moderate Correctional Scale Last Admin: 02/17/19 12:01 Dose: 4 unit Insulin Human Lispro (Humalog) 0 units SC .BEDTIME SLIDING SC PRN PRN Reason: Bedtime Correctional Scale Last Admin: 02/16/19 20:24 Dose: 2 unit Loperamide HCl (Imodium) 2 mg PO PRN PRN PRN Reason: Diarrhea/Loose Stools Loratadine (Claritin) 10 mg PO DAILYPRN PRN PRN Reason: Sinus Symptoms Mineral Oil/White Petrolatum (Eucerin Cream) 0 gm TOP BIDPRN PRN PRN Reason: Dry Skin Ondansetron HCl (Zofran Odt) 4 mg PO Q6H PRN PRN Reason: Nausea/Vomiting Ondansetron HCl (Zofran) 4 mg IVP Q6H PRN PRN Reason: Nausea/Vomiting Pantoprazole Sodium (Protonix) 40 mg PO Q12HR [facility] Last Admin: 02/17/19 08:00 Dose: 40 mg Phosphorus (Kphos Neutral) 500 mg PO BID-[facility] Last Admin: 02/17/19 08:00 Dose: 500 mg Potassium Chloride (K-Dur) 40 meq PO BID-[facility] Last Admin: 02/17/19 08:00 Dose: 40 meq Senna/Docusate Sodium (Senokot S) 2 tab PO BID PRN PRN Reason: Constipation Sodium Chloride ([place] Nasal [place] 0.65%) 0 ml EA NARE QIDPRN PRN PRN Reason: Nasal Congestion Throat Lozenges (Cepastat Lozenges) 1 jeb PO Q2H PRN PRN Reason: Sore Throat
[2019-02-19 11:12] LABS: pH (Venous) 6.972 (7.320-7.430)
[2019-02-19 11:13] LABS: O2 Tension (PvO2) 62.8 mmHg (35.0-45.0)
[2019-02-19 11:14] LABS: Calcium, Ionized 1.08 mmol/L (See Comments:); Chloride 110 mmol/L (98-107); Hemoglobin - Calc 12.3 g/dL (12.0-16.0); Potassium 5.2 mmol/L (3.5-5.1); Sodium 131 mmol/L (138-145); vO2 Saturation-calc 77.2 % (60.0-85.0)
== END 2019-02-17 14:05 | disposition home or self-care (01) | DRG 871 ==
LOC: ERS 12:19 → CCU 13:35 → T4-A 02-14 12:34
PROVIDERS: ADMIT Family Medicine; ATTEND Family Medicine
DX: A41.59 Other Gram-negative sepsis (principal); E11.10 Type 2 diabetes mellitus with ketoacidosis without coma; G93.41 Metabolic encephalopathy; N39.0 Urinary tract infection, site not specified; N17.9 Acute kidney failure, unspecified; I47.1 Supraventricular tachycardia; R65.20 Severe sepsis without septic shock; Z79.4 Long term (current) use of insulin; Z87.19 Personal history of other diseases of the digestive system; Z86.73 Personal history of transient ischemic attack (TIA), and cerebral infarction without residual deficits; E11.40 Type 2 diabetes mellitus with diabetic neuropathy, unspecified; E78.5 Hyperlipidemia, unspecified; Z79.899 Other long term (current) drug therapy; F32.9 Major depressive disorder, single episode, unspecified; Z87.39 Personal history of other diseases of the musculoskeletal system and connective tissue; Z96.641 Presence of right artificial hip joint; F17.210 Nicotine dependence, cigarettes, uncomplicated; I12.9 Hypertensive chronic kidney disease with stage 1 through stage 4 chronic kidney disease, or unspecified chronic kidney disease; E11.22 Type 2 diabetes mellitus with diabetic chronic kidney disease; N18.9 Chronic kidney disease, unspecified; F41.9 Anxiety disorder, unspecified; F12.10 Cannabis abuse, uncomplicated; K21.9 Gastro-esophageal reflux disease without esophagitis; D53.9 Nutritional anemia, unspecified; I48.0 Paroxysmal atrial fibrillation; Z91.14 Patient's other noncompliance with medication regimen
CPT/HCPCS: 36415; 36416; 51702; 71045; 80048; 80053; 81003; 81015; 82010; 82330; 82803; 83036; 83735; 84100; 85025; 87040; 87077; 87086; 87149; 87186; 93005; 96361; 96365; 96366; 96375; 99292; A4353; J0696; J1650; J1815; J1825; J3370; J3475; J3480; J7050; S0028

== ENCOUNTER 2019-11-05 14:31 | Emergency (ER) | payer MEDICARE, MEDICAID ==
[2019-11-05 15:22] LABS: #Eosinphils 0.1 thou/uL (0.0-0.7); #Lymphocytes 2.2 thou/uL (1.20-3.40); #Monocytes 0.8 thou/uL (0.11-0.59); #Neutrophils 5.7 thou/uL (1.40-6.50); %Basophils 0.4 % (0.0-1.0); %Eosinophils 1.5 % (0.0-10.0); %Lymphocytes 25.2 % (21.0-51.0); %Monocytes 9.1 % (0.0-10.0); %Neutrophils 63.9 % (42.0-75.0); Hemoglobin 12.6 g/dL (12.0-16.0); Mean Corpuscular HGB CONC 32.2 g/dL (32.0-36.0); Mean Corpuscular Hemoglobin 29.3 pg (27.0-31.0); Mean Corpuscular Volume 90.9 fL (78.0-98.0); Mean Platelet Volume 7.9 fL (7.4-10.4); Platelet Count 250 thou/uL (130-400); RBC Distribution Width 13.9 % (11.5-14.5); Red Blood Cell (RBC) Count 4.31 mill/uL (4.20-5.40); White Blood Cell (WBC) Count 8.9 thou/uL (4.8-10.8)
[2019-11-05 15:40] LABS: ALT (SGPT) 26 U/L (8-55); AST (SGOT) 22 U/L (5-34); Albumin 3.3 g/dL (3.4-4.8); Alkaline Phosphatase 97 U/L (40-110); Anion Gap 10 mmol/L (10-20); BUN (Urea Nitrogen) 16 mg/dL (9.8-20.1); Bilirubin, Total 0.3 mg/dL (0.2-1.2); Calc. Creatinine Clearance 0 mL/min (70-130); Calcium 9.3 mg/dL (7.8-10.44); Carbon Dioxide 28 mmol/L (23-31); Chloride 106 mmol/L (98-107); Estimated GFR-MDRD 79; Globulin 3.1 g/dL (2.4-3.5); Glucose 145 mg/dL (80-115); Potassium 4.1 mmol/L (3.5-5.1); Protein, Total 6.4 g/dL (6.0-8.3); Sodium 140 mmol/L (136-145)
== END 2019-11-05 19:43 | disposition home or self-care (01) ==
LOC: ERS 14:31
DX: E11.649 Type 2 diabetes mellitus with hypoglycemia without coma (principal); E11.40 Type 2 diabetes mellitus with diabetic neuropathy, unspecified; E78.5 Hyperlipidemia, unspecified; I10 Essential (primary) hypertension; F32.9 Major depressive disorder, single episode, unspecified; F17.210 Nicotine dependence, cigarettes, uncomplicated; Z79.899 Other long term (current) drug therapy
CPT/HCPCS: 36415; 36416; 80053; 85025; 93005

== ENCOUNTER 2021-09-08 08:10 | Outpatient (CLI) | payer MEDICARE, MEDICAID ==
[2021-09-08] MEDS ORDERED: Magnevist 469MG/ML 20 ML VIAL ONE (12:10)
== END 2021-09-08 08:11 | disposition home or self-care (01) ==
LOC: BICMRI 08:10
PROVIDERS: ATTEND Psychiatry & Neurology Neurology
DX: I66.21 Occlusion and stenosis of right posterior cerebral artery (principal)
CPT/HCPCS: 70553; 82565; A9579

== ENCOUNTER 2021-11-02 13:31 | Outpatient (CLI) | payer MEDICARE, MEDICAID | END 2021-11-02 13:32 | disposition home or self-care (01) | LOC: BICMAMMO 13:31 | PROVIDERS: ATTEND Nurse Practitioner Family | DX: N64.59 Other signs and symptoms in breast (principal) | CPT/HCPCS: 76642; 77066; G0279 ==